=== PATIENT | female | born 1980 | race Caucasian/White ===

== ENCOUNTER 2018-03-11 08:07 | Emergency (ER) | payer OTHER ==
--- OUTSIDE RECORDS SUMMARY | 2018-03-11 08:10 | XMS REPORT | Summary of Care ---
:1980 Author Organization [facility] Address [address] [place] [address]- Encounter HQ Rian_kirsty(FIN) [phone] Date(s): 03/01/16 - 03/01/[address] [address]- Discharge Disposition: Home or Self Care Attending Physician: Coy Luna MD Admitting Physician: Coy Luna MD Referring Physician: Coy Luna MD Vital Signs Most recent to oldest [Reference Range]: 1 Height 162.56 cm (03/01/16 11:08 AM) Weight 55.455 kg (03/01/16 11:08 AM) Body Mass Index 20.99 m2 (03/01/16 11:08 AM) Problem List Condition Effective Dates Status Health Status Informant Hypertension(Confirmed) Active Obesity(Confirmed) Active Allergies, Adverse Reactions, Alerts Substance Reaction Severity Status NKDA Active Medications ANES flumazenil 0.2 mg, 2 mL, Route: IVP, Drug form: INJ, PRN, Dosing Weight 89.119, kg, PRN Benzodiazepine Reversal, Initial dose, Start date: 03/01/16 9:32:00 CDT, Duration: 30 day, Stop date: 03/31/16 8:31:00 [employer]ER Notes: (Same as: Romazicon) Start Date: 03/01/16 Stop Date: 03/02/16 Status: DiscontinuedANES naloxone 0.4 mg, 1 mL, Route: IVP, Drug form: INJ, Q2MIN, Dosing Weight 89.119, kg, PRN Narcotic Reversal, Start date: 03/01/16 9:32:00 CDT, Duration: 8 doses or times , Stop date: Limited # of times Notes: Same as Narcan Start Date: 03/01/16 Stop Date: 03/02/16 Status: DiscontinuedANES ondansetron 4 mg, 2 mL, Route: IVP, Drug form: INJ, ONCE, Dosing Weight 89.119, kg, PRN Nausea & Vomiting, Start date: 03/01/16 9:32:00 CDT Notes: (Same as: Angy) MEDICATION WASTE Product Size: 4 mgProduct Wasted: ___ mg Start Date: 03/01/16 Stop Date: 03/02/16 Status: Discontinued Results ELECTROLYTES Most recent to oldest [Reference Range]: 1 POC Sodium [135-145 mEq/L] 139 mEq/L (03/01/16 10:59 AM) POC Potassium [3.5-5.1 mEq/L] 4.3 mEq/L (03/01/16 10:59 AM) CHEM PANEL Most recent to oldest [Reference Range]: 1 POC Glucose [70-99 mg/dL] 89 mg/dL (03/01/16 10:59 AM) HEMATOLOGY Most recent to oldest [Reference Range]: 1 POC Hemoglobin [12.0-16.0 g/dL] 11.9 g/dL *LOW* (03/01/16 10:59 AM) POC Hematocrit [36.0-48.0 %] 35.0 % *LOW* (03/01/16 10:59 AM) Immunizations No data available for this section Procedures Procedure Date Related Diagnosis Body Site Gastric bypass operation 01/03/15 Upper GI endoscopy Social History Social History Type Response Smoking Status Never smoker; Ready to change: No; Concerns about tobacco use in household: No; Exposure to Tobacco Smoke None; Cigarette Smoking Last 365 Days No; Reg Smoking Cessation Counseling No Assessment and Plan No data available for this section
--- OUTSIDE RECORDS SUMMARY | 2018-03-11 08:10 | XMS REPORT | Continuity of Care Document ---
:1980 Author Organization Interface Problems Problem Status Onset Classification Date Comments Source Date Reported ANEMIA Active 01/09/[address] [address], K25.9 Active 01/09/20 [facility] GASTRIC ULCER 17 [facility] Discharge 08/12/19 08/15/2016 [facility] Diagnosis: [address] [place] [address] Anemia OTHER Active 08/12/[address] [address], REFLUX Active 02/29/[address] Hypertension Active Problem 01/14/2017 [facility] Obesity Active Problem 01/14/2017 [facility] Gastric bypass Resolved Problem 01/14/2017 [facility] status for [facility] obesity HTN (<span Active Problem 01/14/2017 [facility] ID="[id number] [facility] ">Confirmed</spa n>) ILLNESS, Active [facility] UNSPECIFIED [facility] ANEMIA, Active [facility] UNSPECIFIED [facility] Medications Medication Details Route Status Patient Ordering Order Source Instructions Provider Date Dulcolax 5 mg, 1 tab, Inactive Laxative Route: PO, Drug 2016 [facility] form: ECTAB, Ivon ONCE, Dosing Weight 59.091, kg, Start date: 01/10/17 11:42:00 CDT, Stop date: 01/10/17 11:42:00 CDTNotes: (Same As: Dulcolax, Correctol) (Do Not Crush) "Do Not Crush" sodium chloride 250 mL, Rate: On No Longer 0.9% INJ 250 mL call for use [address] with blood [facility] product administration, Dosing Weight 59.091, kg, Route: IV, Total Volume: 250, Start Date: 01/10/17 11:37:00 CDT, Duration: 30 day, Stop date: 02/09/17 11:36:00 CDT, Replace Every: 24 hr Famotidine 20 mg, 2 mL, No Longer Route: IVP, Drug [facility] 2016 [facility] form: INJ, Ivon Daily, Dosing Weight 59.091, kg, Start date: 01/10/17 9:00:00 CDT, Duration: 30 day, Stop date: 02/08/17 9:00:00 CDTNotes: (Same as: Pepcid) Can be dilute in 5-10cc NS IVP: Slow IV push over at least 2 minutes. GoLYTELY 2,000 mL, Route: Inactive PO, Drug Form: [address] [place] [address]/[facility], ONCE, [facility] Start date: 01/10/17 6:00:00 CDT, Stop date: 01/10/17 6:00:00 CDTNotes: (polyethylene glycol electrolyte solution 4 Liter bottle) (Same as: Golytely, Colyte) GoLYTELY 2,000 mL, Route: Inactive PO, Drug Form: [address] [place] [address]/[facility], ONCE, City Start date: 01/09/17 22:00:00 CDT, Stop date: 01/09/17 22:00:00 CDTNotes: (polyethylene glycol electrolyte solution 4 Liter bottle) (Same as: Golytely, Colyte) Golytely 4,000 ml, Route: Inactive PO, Drug Form: [address] [place] [address]/REC, Dosing City Weight 59.091, kg, ONCE, Start date: 01/09/17 21:50:00 CDT, Duration: 1 doses or times, Stop date: 01/09/17 21:50:00 CDT Saline Flush 10 ml, Route: No Longer 0.9% IVP, Drug Form: Active 2016 [facility] INJ, Dosing City Weight 59.091, kg, PRN, PRN Line Flush, Start date: 01/09/17 18:41:00 CDT, Duration: 30 day, Stop date: 02/08/17 18:40:00 CDTNotes: preservative free. Lactated 1,000 mL, Rate: No Longer Ringers 1,000 125 ml/hr, Active 2016 [facility] mL Infuse over: 8 City hr, Route: IV, Dosing Weight 59.091 kg, Total Volume: 1,000, Start date: 01/09/17 18:41:00 CDT, Duration: 30 day, Stop date: 02/08/17 18:40:00 CDT Ondansetron 4 mg, 2 mL, No Longer Route: IVP, Drug Active 2016 [facility] form: INJ, Q6H, [facility] Dosing Weight 59.091, kg, PRN Nausea & Vomiting, Start date: 01/09/17 18:41:00 CDT, Duration: 30 day, Stop date: 02/08/17 18:40:00 CDTNotes: (Same as: Zofran) MEDICATION WASTE Product Size: 4 mg Product Wasted: ___ mg Acetaminophen 650 mg, 2 tab, No Longer Route: PO, Drug Active 2016 [facility] form: TAB, Q4H, [facility] Dosing Weight 59.091, kg, PRN Pain 1-3/Temp > 100.4 F, Start date: 01/09/17 18:41:00 CDT, Duration: 30 day, Stop date: 02/08/17 18:40:00 CDTNotes: Do not exceed 4 gm/day. (Same as: Tylenol) Dilaudid 0.5 mg, 0.25 mL, No Longer Route: IVP, Drug Active 2016 [facility] form: INJ, Q3H, [facility] Dosing Weight 59.091, kg, PRN Pain Score 7-10, Start date: 01/09/17 18:41:00 CDT, Duration: 30 day, Stop date: 02/08/17 18:40:00 CDTNotes: Same as Dilaudid Ketorolac 30 mg, 1 mL, No Longer Route: IVP, Drug Active 2016 [facility] form: INJ, Q6H, [facility] Dosing Weight 59.091, kg, PRN Pain Score 1-3, Start date: 01/09/17 18:41:00 CDT, Duration: 4 day, Stop date: 01/13/17 18:40:00 CDTNotes: (Same as:Toradol) IV bolus must be given >15 seconds. Give IM administration slowly and deeply into the muscle. Not for use > 4 days MEDICATION WASTE Product Size: 30 mg Product Wasted: ___ mg Phenergan 12.5 mg, 50 mL, No Longer Route: IVPB, Active 2016 [facility] Drug form: SOLN, [facility] Q4H, Dosing Weight 59.091, kg, PRN Nausea & Vomiting, Start date: 01/09/17 18:41:00 CDT, Duration: 30 day, Stop date: 02/08/17 18:40:00 CDT Golytely 240 mL, Route: Inactive PO, Drug Form: 2016 [facility] PDR/REC, Dosing City Weight 59.091, kg, ONCE, NOW, Start date: 01/09/17 18:12:00 CDT, Stop date: 01/09/17 18:12:00 CDTNotes: (polyethylene glycol electrolyte solution 4 Liter bottle) (Same as: Golytely, Colyte) pantoprazole 40 40 mg=1 tab, PO, Active MH MG Enteric Daily, # 30 tab, 2016 [facility] Coated Tablet 3 Refill(s) [facility] [Protonix] Sucralfate 100 1 gm=10 mL, PO, Active 08/12/ MH MG/ML Oral QID-Before 2016 [facility] Suspension Meals, # 840 mL, [facility] [Carafate] 0 Refill(s) Sucralfate 100 1 gm, 10 mL, Inactive 08/12/ MH MG/ML Oral Route: PO, Drug 2016 [facility] Suspension form: SUSP, [facility] [Carafate] QID-Before Meals, Dosing Weight 54.545, kg, Start date: 08/12/16 7:30:00 CDT, Duration: 30 day, Stop date: 09/10/16 21:00:00 CDTNotes: Enteral feeds may interfere with the absorption of this medication. Shake well. Take 1 hr before or 2 hrs after antacids, dairy pdt, minerals & meals. (Same As: Carafate) Sodium Chloride 25 mL, Route: Inactive 0.9% IV IV, Start date: 2016 [facility] 08/12/16 0:00:00 [facility] CDT, Duration: 30 day, Stop date: 09/10/16 23:59:00 CDT, PRN Line Flush BD Normal 10 mL, Route: Inactive Saline Flush IVP, Drug Form: 2016 [facility] INJ, PRN, PRN City Line Flush, Start date: 08/12/16 0:00:00 CDT, Duration: 30 day, Stop date: 09/10/16 23:59:00 CDTNotes: (Same as: BD Posiflush) Ofirmev 1,000 mg, 100 Inactive mL, Route: IV, 2016 [facility] Drug form: INJ, City Q6H, Dosing Weight 54.545, kg, for > or=50 kg, Start date: 08/12/16 0:00:00 CDT, Duration: 4 doses or times, Stop date: 08/12/16 18:00:00 CDTNotes: Infuse over 15 minutes Do not exceed 4gm/day of acetaminophen MEDICATION WASTE Product Size: 1000 mg Product Wasted: ___ mg Tylenol 650 mg, Route: No Longer PO, Drug form: Active 2016 [facility] TAB, Q6H, Dosing City Weight 54.545, kg, Start date: 08/12/16 0:00:00 CDT, Duration: 4 doses or times, Stop date: 08/12/16 18:00:00 CDT BD Normal 5 mL, Route: No Longer Saline Flush IVP, Drug Form: Amadou 2016 [facility] INJ, PRN, PRN [facility] Line Flush, Start date: 08/11/16 23:59:00 CDT, Duration: 30 day, Stop date: 09/10/16 23:58:00 CDTNotes: (Same as: BD Posiflush) pantoprazole 80 100 mL, Rate: 10 No Longer mg + sodium ml/hr, Infuse Active 2016 [facility] chloride 0.9% over: 10 hr, [facility] 100 mL INJ (for Route: IV, IV set) 100 mL Dosing Weight 57.273 kg, Total Volume: 100, Start date: 08/11/16 23:47:00 CDT, Stop date: 08/14/16 23:46:00 CDTNotes: infuse at 8 mg/hr (10 ml/hr) for 72 hrs for GI bleed Ferrlecit 125 mg, 10 mL, No Longer Route: IVPB, Active [address] [place] [address] Drug form: INJ, City ONCE, Dosing Weight 54.545, kg, Start date: 08/11/16 22:51:00 CDT, Stop date: 08/11/16 22:51:00 CDTNotes: (sodium ferric gluconate complex (elemental iron) 62.5 mg/5 ml INJ) "Limited stability. Use immediately after admixture" (Same as: Ferrlecit) MEDICATION WASTE Product Size: 62.5 mg Product Wasted: ___ mg Sodium Chloride 250 mL, Rate: 25 Inactive 0.154 MEQ/ML ml/hr, Infuse 2016 [facility] Injectable over: 10 hr, [facility] Solution Route: IV, Dosing Weight 54.545 kg, Total Volume: 250, Start date: 08/11/16 22:43:00 CDT, Duration: 72 hr, Stop date: 08/14/16 22:42:00 CDT Metoprolol 5 mg, 5 mL, No Longer Route: IVP, Drug Active 2016 [facility] form: INJ, Q6H, [facility] Dosing Weight 54.545, kg, PRN Hypertension, SBP > 170; DBP > 95, Start date: 08/11/16 22:43:00 CDT, Duration: 30 day, Stop date: 09/10/16 22:42:00 CDTNotes: (Same as: Lopressor) Push over 2 minutes Promethazine 12.5 mg, 0.5 mL, No Longer Route: IM, Drug Active 2016 [facility] form: INJ, Q4H, [facility] Dosing Weight 54.545, kg, PRN Nausea & Vomiting, Start date: 08/11/16 22:43:00 CDT, Duration: 30 day, Stop date: 09/10/16 22:42:00 CDTNotes: Do not give IV push. (Same as: Phenergan) Ondansetron 4 mg, 2 mL, No Longer Route: IVP, Drug Active 2016 [facility] form: INJ, Q6H, [facility] Dosing Weight 54.545, kg, PRN Nausea & Vomiting, Start date: 08/11/16 22:43:00 CDT, Duration: 30 day, Stop date: 09/10/16 22:42:00 CDTNotes: (Same as: Zofran) MEDICATION WASTE Product Size: 4 mg Product Wasted: ___ mg Calcium 1,000 mL, Rate: No Longer Chloride 0.0014 125 ml/hr, Active [address] [place] [address] MEQ/ML / Infuse over: 8 [facility] Potassium hr, Route: IV, Chloride 0.004 Dosing Weight MEQ/ML / Sodium 54.545 kg, Total Chloride 0.103 Volume: 1,000, MEQ/ML / Sodium Start date: Lactate 0.028 08/11/16 MEQ/ML 22:43:00 CDT, Injectable Duration: 30 Solution day, Stop date: 09/10/16 22:42:00 CDT ferrous sulfate 325 mg=1 tab, No Longer 325 mg oral PO, Daily, # 30 [facility] 2016 [facility] enteric coated tab, 0 Refill(s) [facility] tablet Ondansetron 4 mg, 2 mL, No Longer Route: IVP, Drug Active 2015 [facility] form: INJ, ONCE, [facility] Dosing Weight 89.119, kg, PRN Nausea & Vomiting, Start date: 03/01/16 9:32:00 CDTNotes: (Same as: Zofran) MEDICATION WASTE Product Size: 4 mg Product Wasted: ___ mg Naloxone 0.4 mg, 1 mL, No Longer Route: IVP, Drug Active 2015 [facility] form: INJ, City Q2MIN, Dosing Weight 89.119, kg, PRN Narcotic Reversal, Start date: 03/01/16 9:32:00 CDT, Duration: 8 doses or times, Stop date: Limited # of timesNotes: Same as Narcan Flumazenil 0.2 mg, 2 mL, No Longer Route: [employer] Drug Active 2015 [facility] form: INJ, PRN, [facility] Dosing Weight 89.119, kg, PRN Benzodiazepine Reversal, Initial dose, Start date: 03/01/16 9:32:00 CDT, Duration: 30 day, Stop date: 03/31/16 8:31:00 CSTNotes: (Same as: Romazicon) Allergies, Adverse Reactions, Alerts Substance Category Reaction Severity Reaction Status Date Comments Source type Reported Immunizations Immunization Date Given Site Status Last Updated Comments Source Results Order Name Results Value Reference Date Interpretation Comments Source Range CHEM PANEL eGFR 77 01/11 Result Comment: The eGFR is calculated using the CKD-EPI formula. In most young, healthy individuals the eGFR will be >90 mL/ min/1.73m2. The eGFR declines with age. An eGFR of 60-89 may be normal in mL/min/1. some populations, particularly the elderly, for whom the CKD-EPI formula has not been extensively validated. Use of the eGFR is not recommended in the following populations: [address] Individuals with unstable creatinine concentrations, including patients and those with serious co-morbid conditions. Patients with extremes in muscle mass or diet. The data above are obtained from the National Kidney Disease Education Program (NKDEP) which additionally recommends that when the eGFR is used in patients with extremes of body mass index for purposes of drug dosing, the eGFR should be multiplied by the estimated BMI. CHEM PANEL Creatinine 0.95 mg/dL 0.50 - 01/11 Lvl 1. [facility] CHEM PANEL BUN 10 mg/dL 7 - 22 01/11 [facility] CHEM PANEL CO2 27 meq/L 24 - 32 01/11 [facility] CHEM PANEL Glucose Lvl 109 mg/dL 70 - 99 01/11 [facility] CHEM PANEL AGAP 9.9 meq/L 10.0 - 01/11 MH 20. [facility] CHEM PANEL Sodium Lvl 141 meq/L 135 - 145 01/11 [facility] CHEM PANEL Potassium 4.9 meq/L 3.5 - 5.1 01/11 Lvl [facility] CHEM PANEL Calcium Lvl 8.5 mg/dL 8.5 - 10.5 01/11 [facility] CHEM PANEL Chloride Lvl 109 meq/L 95 - 109 01/11 [facility] HEMATOLOGY MCHC 31.4 g/dL 32.0 - 01/11 MH 36.0 [facility] HEMATOLOGY RDW 20.4 % 11.5 - 01/11 MH 14. [facility] HEMATOLOGY Platelet 190 K/CMM 133 - 450 01/11 [facility] HEMATOLOGY MPV 8.6 fL 7.4 - 10.4 01/11 [facility] HEMATOLOGY MCH 21.5 pg 27.0 - 01/11 MH 31.0 [facility] HEMATOLOGY MCV 68.4 fL 80.0 - 01/11 MH 98.0 [facility] HEMATOLOGY RBC 4.50 M/CMM 4.20 - 01/11 MH 5.40 [facility] HEMATOLOGY WBC 7.0 K/CMM 3.7 - 10.4 01/11 [facility] HEMATOLOGY Hgb 9.7 g/dL 12.0 - 01/11 MH 16.0 [facility] HEMATOLOGY Hct 30.8 % 36.0 - 01/11 MH 48.0 [facility] HEMATOLOGY Bands 1.0 % 0.0 - 11.0 01/11 [facility] HEMATOLOGY Monocytes 4.0 % 2.0 - 12.0 01/11 [facility] HEMATOLOGY Lymphocytes 41.0 % 20.0 - 01/11 MH 40.0 [facility] HEMATOLOGY Atypical 0.0 % <=0.0 % 01/11 Lymphs /2016 [facility] HEMATOLOGY Basophils 2.0 % 0.0 - 1.0 01/11 [facility] HEMATOLOGY Microcyte 3+ None Seen 01/11 [facility] *ABN* [facility] (01/11/17 1:57 AM) HEMATOLOGY Plt Morph Normal 01/11 [facility] (01/11/17 1:57 AM) [facility] HEMATOLOGY Lymphocytes 2.9 K/CMM 1.0 - 5.5 01/11 # /2016 [facility] HEMATOLOGY Monocytes # 0.3 K/CMM 0.0 - 0.8 01/11 [facility] HEMATOLOGY Segs-Bands # 3.7 K/CMM 1.5 - 8.1 01/11 [facility] HEMATOLOGY Basophils # 0.1 K/CMM 0.0 - 0.2 01/11 [facility] HEMATOLOGY Segs 52.0 % 45.0 - 01/11 75.0 [facility] BLOOD BANK RBC product Product available 01/10 RESULTS /2016 [facility] (01/10/17 5:27 PM) [facility] URINE AND Occult Bld Negative Negative 01/10 STOOL Stl /2016 [facility] (01/10/17 4:25 PM) [facility] BLOOD BANK Antibody Negative 01/10 RESULTS Scrn [facility] (01/10/17 1:03 PM) [facility] BLOOD BANK ABO/Rh O POS 01/10 RESULTS [facility] BLOOD BANK RBC product Product available 01/10 RESULTS /2016 [facility] (01/10/17 11:22 AM) [facility] CHEM PANEL Bili Total 0.5 mg/dL 0.2 - 1.3 01/10 [facility] CHEM PANEL Alk Phos 70 unit/L 39 - 136 01/10 [facility] CHEM PANEL A/G Ratio 1.3 0.7 - 1.6 01/10 [facility] CHEM PANEL Globulin 2.7 g/dL 2.7 - 4.2 01/10 [facility] CHEM PANEL Total 6.1 g/dL 6.4 - 8.4 01/10 [facility] CHEM PANEL Chloride Lvl 106 meq/L 95 - 109 01/10 [facility] CHEM PANEL Calcium Lvl 8.5 mg/dL 8.5 - 10.5 01/10 [facility] CHEM PANEL Potassium 4.1 meq/L 3.5 - 5.1 01/10 Lvl [facility] CHEM PANEL Sodium Lvl 141 meq/L 135 - 145 01/10 [facility] CHEM PANEL B/C Ratio 12 6 - 25 01/10 [facility] CHEM PANEL AST 15 unit/L 0 - 37 01/10 [facility] CHEM PANEL AGAP 15.1 meq/L 10.0 - 01/10 MH 20.0 [facility] CHEM PANEL ALT 15 unit/L 0 - 65 01/10 [facility] CHEM PANEL eGFR 103 01/10 Result Comment: The eGFR is calculated using the CKD-EPI formula. In most young, healthy individuals the eGFR will be >90 mL/ min/1.73m2. The eGFR declines with age. An eGFR of 60-89 may be normal in mL/min/1. some populations, particularly the elderly, for whom the CKD-EPI formula has not been extensively validated. Use of the eGFR is not recommended in the following populations: [address] Individuals with unstable creatinine concentrations, including patients and those with serious co-morbid conditions. Patients with extremes in muscle mass or diet. The data above are obtained from the National Kidney Disease Education Program (NKDEP) which additionally recommends that when the eGFR is used in patients with extremes of body mass index for purposes of drug dosing, the eGFR should be multiplied by the estimated BMI. CHEM PANEL Albumin Lvl 3.4 g/dL 3.5 - 5.0 01/10 [facility] CHEM PANEL Creatinine 0.75 mg/dL 0.50 - 01/10 MH Lvl 1. [facility] CHEM PANEL CO2 24 meq/L 24 - 32 01/10 [facility] CHEM PANEL Glucose Lvl 73 mg/dL 70 - 99 01/10 /2016 [facility] CHEM PANEL BUN 9 mg/dL 7 - 22 01/10 /2016 [facility] CHEM PANEL Magnesium 2.3 mg/dL 1.8 - 2.4 09/ MH Lvl /2016 [facility] CHEM PANEL Phosphorus 3.9 mg/dL 2.5 - 4.5 01/10 [facility] HEMATOLOGY Lymphocytes 2.2 K/CMM 1.0 - 5.5 / MH # /2016 [facility] HEMATOLOGY Monocytes # 0.5 K/CMM 0.0 - 0.8 01/10 [facility] HEMATOLOGY Segs-Bands # 3.2 K/CMM 1.5 - 8.1 01/10 [facility] HEMATOLOGY Basophils 0.9 % 0.0 - 1.0 01/10 [facility] HEMATOLOGY Eosinophils 0.8 % 0.0 - 4.0 01/10 [facility] HEMATOLOGY Monocytes 8.9 % 2.0 - 12.0 01/10 [facility] HEMATOLOGY Microcyte 3+ None Seen 01/10 [facility] (01/10/17 3:18 AM) HEMATOLOGY Basophils # 0.1 K/CMM 0.0 - 0.2 01/10 [facility] HEMATOLOGY Segs 53.1 % 45.0 - 01/10 75.0 [facility] HEMATOLOGY Lymphocytes 36.3 % 20.0 - 01/10 40.0 [facility] HEMATOLOGY MCV 65.1 fL 80.0 - 01/10 MH 98.0 [facility] HEMATOLOGY Hct 23.9 % 36.0 - 01/10 MH 48.0 [facility] HEMATOLOGY MPV 9.2 fL 7.4 - 10.4 01/10 [facility] HEMATOLOGY Platelet 184 K/CMM 133 - 450 01/10 [facility] HEMATOLOGY RBC 3.67 M/CMM 4.20 - 01/10 MH 5.40 [facility] HEMATOLOGY Hgb 7.4 g/dL 12.0 - 01/10 MH 16.0 [facility] HEMATOLOGY MCHC 30.7 g/dL 32.0 - 01/10 MH 36.0 [facility] HEMATOLOGY MCH 20.0 pg 27.0 - 01/10 MH 31.0 [facility] HEMATOLOGY RDW 17.2 % 11.5 - 01/10 MH 14. [facility] HEMATOLOGY WBC 6.0 K/CMM 3.7 - 10.4 01/10 [facility] HEMATOLOGY Eosinophils 0.5 % 0.0 - 4.0 01/09 [facility] HEMATOLOGY Monocytes 7.8 % 2.0 - 12.0 01/09 [facility] HEMATOLOGY Plt Morph Normal 01/09 [facility] (01/09/17 11:45 AM) [facility] HEMATOLOGY Segs 61.4 % 45.0 - 01/09 MH 75.0 [facility] HEMATOLOGY Lymphocytes 29.1 % 20.0 - 01/09 MH 40.0 [facility] HEMATOLOGY Microcyte 3+ None Seen 01/09 [facility] *NA* [facility] (01/09/17 11:45 AM) HEMATOLOGY Basophils # 0.1 K/CMM 0.0 - 0.2 01/09 [facility] HEMATOLOGY Hypochrom 1+ None Seen 01/09 [facility] Basophils 1.2 % 0.0 - 1.0 01/09 [facility] HEMATOLOGY Lymphocytes 1.9 K/CMM 1.0 - 5.5 01/09 [facility] HEMATOLOGY Monocytes # 0.5 K/CMM 0.0 - 0.8 01/09 [facility] HEMATOLOGY Segs-Bands # 4.1 K/CMM 1.5 - 8.1 01/09 [facility] HEMATOLOGY MCHC 30.1 g/dL 32.0 - 01/09 36.0 [facility] HEMATOLOGY MCV 64.5 fL 80.0 - 01/09 98.0 [facility] HEMATOLOGY Hct 26.4 % 36.0 - 01/09 MH 48.0 [facility] HEMATOLOGY MCH 19.4 pg 27.0 - 01/09 31.0 [facility] HEMATOLOGY MPV 8.9 fL 7.4 - 10.4 01/09 [facility] HEMATOLOGY RDW 17.6 % 11.5 - 01/09 14. [facility] HEMATOLOGY Platelet 205 K/CMM 133 - 450 01/09 [facility] HEMATOLOGY Hgb 7.9 g/dL 12.0 - 01/09 16. [facility] HEMATOLOGY WBC 6.6 K/CMM 3.7 - 10.4 01/09 /2016 [facility] HEMATOLOGY RBC 4.09 M/CMM 4.20 - 09 MH 5.40 /2016 [facility] CHEM PANEL POC Glucose 78 mg/dL 70 - 99 01/09 /2016 [facility] CHEM PANEL POC 10.2 g/dL 12.0 - 01/09 Hemoglobin 16.0 [facility] CHEM PANEL POC 30.0 % 36.0 - 09 Hematocrit 48.0 [facility] CHEM PANEL POC Sodium 141 meq/L 135 - 145 01/09 [facility] CHEM PANEL POC 4.5 meq/L 3.5 - 5.1 01/09 Potassium /2016 [facility] HEMATOLOGY Hct 27.0 % 36.0 - 08/12 48. [facility] HEMATOLOGY Hgb 8.4 g/dL 12.0 - 08/12 16. [facility] HEMATOLOGY Hct 27.7 % 36.0 - 08/12 48. [facility] HEMATOLOGY Hgb 8.7 g/dL 12.0 - 08/12 16. [facility] HEMATOLOGY Hgb 8.1 g/dL 12.0 - 08/12 16. [facility] HEMATOLOGY Hct 26.0 % 36.0 - 08/12 48. [facility] URINE AND Occult Bld Negative Negative 08/12 STOOL Stl [facility] (08/11/16 9:29 PM) [facility] BLOOD BANK Antibody Negative 08/12 RESULTS Scrn [facility] (08/11/16 8:30 PM) [facility] BLOOD BANK ABO/Rh O POS 08/12 RESULTS [facility] CHEM PANEL Lipase Lvl 175 unit/L 73 - 393 08/12 [facility] CHEM PANEL Globulin 2.9 g/dL 2.7 - 4.2 08/12 [facility] CHEM PANEL A/G Ratio 1.4 0.7 - 1.6 08/12 [facility] CHEM PANEL AGAP 11.4 meq/L 10.0 - 08/12 20. [facility] CHEM PANEL B/C Ratio 13 6 - 25 08/12 [facility] CHEM PANEL Total 6.9 g/dL 6.4 - 8.4 08/12 Protein [facility] CHEM PANEL Alk Phos 88 unit/L 39 - 136 08/12 [facility] CHEM PANEL Bili Total 0.8 mg/dL 0.2 - 1.3 08/12 [facility] CHEM PANEL Potassium 3.4 meq/L 3.5 - 5.1 08/12 Lvl [facility] CHEM PANEL Chloride Lvl 104 meq/L 95 - 109 08/12 [facility] CHEM PANEL CO2 28 meq/L 24 - 32 08/12 [facility] CHEM PANEL Calcium Lvl 8.8 mg/dL 8.5 - 10.5 08/12 [facility] CHEM PANEL Albumin Lvl 4.0 g/dL 3.5 - 5.0 08/12 [facility] CHEM PANEL BUN 10 mg/dL 7 - 22 08/12 [facility] CHEM PANEL Sodium Lvl 140 meq/L 135 - 145 08/12 [facility] CHEM PANEL eGFR 102 08/12 Result Comment: The eGFR is calculated using the CKD-EPI formula. In most young, healthy individuals the eGFR will be >90 mL/ min/1.73m2. The eGFR declines with age. An eGFR of 60-89 may be normal in mL/min/1. some populations, particularly the elderly, for whom the CKD-EPI formula has not been extensively validated. Use of the eGFR is not recommended in the following populations: [address] Individuals with unstable creatinine concentrations, including patients and those with serious co-morbid conditions. Patients with extremes in muscle mass or diet. The data above are obtained from the National Kidney Disease Education Program (NKDEP) which additionally recommends that when the eGFR is used in patients with extremes of body mass index for purposes of drug dosing, the eGFR should be multiplied by the estimated BMI. CHEM PANEL AST 17 unit/L 0 - 37 08/12 [facility] CHEM PANEL Creatinine 0.75 mg/dL 0.50 - 08/12 Lvl 1.40 [facility] CHEM PANEL ALT 21 unit/L 0 - 65 08/12 [facility] CHEM PANEL Glucose Lvl 77 mg/dL 70 - 99 08/12 [facility] ENDOCRINOLO hCG Tot null 08/12 GY [facility] HEMATOLOGY MCV 69.2 fL 80.0 - 08/12 MH 98.0 /2016 [facility] HEMATOLOGY WBC 10.8 K/CMM 3.7 - 10.4 08/12 [facility] HEMATOLOGY RBC 4.02 M/CMM 4.20 - 08/12 5.40 /2016 [facility] HEMATOLOGY MPV 8.5 fL 7.4 - 10.4 08/12 [facility] HEMATOLOGY RDW 16.4 % 11.5 - 08/12 14.5 [facility] HEMATOLOGY Platelet 284 K/CMM 133 - 450 08/12 [facility] HEMATOLOGY MCH 21.4 pg 27.0 - 08/12 31.0 [facility] HEMATOLOGY MCHC 30.9 g/dL 32.0 - 08/12 36.0 /2016 [facility] HEMATOLOGY INR 1.09 0.85 - 08/12 1.17 [facility] HEMATOLOGY PT 14.3 s 12.0 - 08/12 14.7 [facility] HEMATOLOGY PTT 28.6 s 22.9 - 08/12 35.8 [facility] HEMATOLOGY Eosinophils 0.6 % 0.0 - 4.0 08/12 [facility] HEMATOLOGY Basophils 0.9 % 0.0 - 1.0 08/12 [facility] HEMATOLOGY Monocytes 8.8 % 2.0 - 12.0 08/12 [facility] HEMATOLOGY Segs-Bands # 7.8 K/CMM 1.5 - 8.1 08/12 [facility] HEMATOLOGY Lymphocytes 1.9 K/CMM 1.0 - 5.5 08/12 [facility] HEMATOLOGY Anisocyte 1+ None Seen 08/12 [facility] *ABN* [facility] (08/11/16 8:30 PM) HEMATOLOGY Basophils # 0.1 K/CMM 0.0 - 0.2 08/12 [facility] HEMATOLOGY Microcyte 2+ None Seen 08/12 [facility] *ABN* [facility] (08/11/16 8:30 PM) HEMATOLOGY Eosinophils 0.1 K/CMM 0.0 - 0.5 08/12 [facility] HEMATOLOGY Monocytes # 1.0 K/CMM 0.0 - 0.8 08/12 [facility] HEMATOLOGY Plt Morph Normal 08/12 [facility] (08/11/16 8:30 PM) [facility] HEMATOLOGY Lymphocytes 17.7 % 20.0 - 08/12 40.0 [facility] HEMATOLOGY Segs 72.0 % 45.0 - 08/12 75.0 [facility] URINE AND UA Leuk Est Negative Negative 08/12 [facility] (08/11/16 8:30 PM) [facility] URINE AND UA Sq Epi Few /LPF Few /LPF 08/12 [facility] URINE AND UA WBC 2 /HPF 0 - 5 08/12 [facility] URINE AND UA RBC 2 /HPF 0 - 2 08/12 [facility] URINE AND UA Bacteria Occasional None Seen 08/12 [facility] /HPF /HPF [facility] URINE AND UA Color Straw 08/12 [facility] URINE AND UA Ketones Negative 08/12 [facility] URINE AND UA <=1.0 0.1 - 1.0 08/12 [facility] Urobilinogen mg/dL [facility] URINE AND UA Spec Grav 1.003 <=1.030 08/12 [facility] URINE AND UA pH 7.0 5.0 - 8.0 08/12 [facility] URINE AND UA Protein Negative Negative 08/12 [facility] mg/dL mg/dL [facility] URINE AND UA Blood Negative Negative 08/12 [facility] (08/11/16 8:30 PM) [facility] URINE AND UA Nitrite Negative Negative 08/12 [facility] (08/11/16 8:30 PM) [facility] URINE AND UA Glucose Negative Negative 08/12 [facility] mg/dL mg/dL [facility] URINE AND UA Bili Negative Negative 08/12 [facility] *NA* [facility] (08/11/16 8:30 PM) URINE AND UA Turbidity Clear Clear 08/12 [facility] (08/11/16 8:30 PM) [facility] HEMATOLOGY POC 35.0 % 36.0 - 03/01 Hematocrit 48.0 [facility] HEMATOLOGY POC 11.9 g/dL 12.0 - 03/01 Hemoglobin 16.0 [facility] HEMATOLOGY POC Glucose 89 mg/dL 70 - 99 03/01 [facility] HEMATOLOGY POC 4.3 meq/L 3.5 - 5.1 03/01 Potassium /2015 [facility] HEMATOLOGY POC Sodium 139 meq/L 135 - 145 03/01 [facility] Vital Signs Vital Sign Value Date Comments Source Respitory Rate 16 01/11/2017 [facility] Systolic (mm Hg) 140 01/11/2017 [facility] Diastolic (mm Hg) 77 01/11/2017 [facility] Heart Rate 47 01/11/2017 [facility] Temperature Oral (F) 97.5 F 01/11/2017 [facility] Temperature Oral (F) 98.3 F 01/11/2017 [facility] Heart Rate 53 01/11/2017 [facility] Respitory Rate 18 01/11/2017 [facility] Systolic (mm Hg) 127 01/11/2017 [facility] Diastolic (mm Hg) 71 01/11/2017 [facility] Temperature Oral (F) 98.6 F 01/11/2017 [facility] Heart Rate 71 01/11/2017 [facility] Respitory Rate 18 01/11/2017 [facility] Systolic (mm Hg) 126 01/11/2017 [facility] Diastolic (mm Hg) 74 01/11/2017 [facility] BMI Calculated 22.36 01/09/2017 [facility] Weight 59.091 01/09/2017 [facility] Height 162.56 cm 01/09/2017 [facility] Respitory Rate 12 08/13/2016 [facility] Respitory Rate 18 08/12/2016 [facility] Systolic (mm Hg) 169 08/12/2016 [facility] Diastolic (mm Hg) 88 08/12/2016 [facility] Heart Rate 59 08/12/2016 [facility] Temperature Oral (F) 98.5 F 08/12/2016 [facility] Temperature Oral (F) 97.4 F 08/12/2016 [facility] Heart Rate 56 08/12/2016 [facility] Respitory Rate 18 08/12/2016 [facility] Systolic (mm Hg) 148 08/12/2016 [facility] Diastolic (mm Hg) 91 08/12/2016 [facility] Temperature Oral (F) 97.9 F 08/12/2016 [facility] Systolic (mm Hg) 131 08/12/2016 [facility] Diastolic (mm Hg) 81 08/12/2016 [facility] Heart Rate 55 08/12/2016 [facility] Weight 57.273 08/12/2016 [facility] BMI Calculated 22.37 08/12/2016 [facility] Height 160.02 cm 08/12/2016 [facility] Weight 54.545 08/12/2016 [facility] BMI Calculated 21.3 08/12/2016 [facility] Height 160.02 cm 08/12/2016 [facility] Weight 55.455 03/01/2016 [facility] BMI Calculated 20.99 03/01/2016 [facility] Height 162.56 cm 03/01/2016 [facility] Encounters Location Location Encounter Encounter Reason Attending ADM DC Status Source Details Type Number For Provider Date Date Visit [facility] [id number] Coy 03/01 03/01 [facility] /2015 [facility] [id number] [facility] 08/11 08/13 Wayne Reeves /2016 [facility] [id number] Coy 01/10 [facility] [facility] [id number] Coy 01/11 01/11 [facility] Jeremy /2016 [facility] Procedures Procedure Code Date Perfomer Comments Source Gastric bypass [id number] 01/03/2015 [facility] [id number] [facility] Gastric bypass [id number] [facility]
--- OUTSIDE RECORDS SUMMARY | 2018-03-11 08:11 | XMS REPORT | Summary of Care ---
:1980 Author Organization [facility] Address [address] [place] [address]- Encounter [facility]osesito(DELROY) [id number] Date(s): 08/11/16 - 08/12/[address] [address]- Discharge Diagnosis: Anemia Discharge Disposition: Home or Self Care Attending Physician: Esau Reeves MD Admitting Physician: Esau Reeves MD Vital Signs Most recent to oldest 1 2 3 [Reference Range]: Height 160.02 cm 160.02 cm (08/11/16 11:15 PM) (08/11/16 7:40 PM) Temperature Oral [96.4-99.1 98.5 DegF 97.4 DegF 97.9 DegF DegF] (08/12/16 11:10 AM) (08/12/16 7:38 AM) (08/12/16 4:00 AM) Blood Pressure [90-140/60-90 169/88 mmHg 148/91 mmHg 131/81 mmHg mmHg] *HI* *HI* (08/12/16 4:00 AM) (08/12/16 11:10 AM) (08/12/16 7:38 AM) Respiratory Rate [14-20 12 BRMIN 18 BRMIN 18 BRMIN BRMIN] *LOW* (08/12/16 11:10 AM) (08/12/16 7:38 AM) (08/13/16 4:50 AM) Peripheral Pulse Rate [60-100 59 bpm 56 bpm 55 bpm bpm] *LOW* *LOW* *LOW* (08/12/16 11:10 AM) (08/12/16 7:38 AM) (08/12/16 4:00 AM) Weight 57.273 kg 54.545 kg (08/11/16 11:15 PM) (08/11/16 7:40 PM) Body Mass Index 22.37 m2 21.3 m2 (08/11/16 11:15 PM) (08/11/16 7:40 PM) Problem List Condition Effective Dates Status Health Status Informant Gastric bypass status for Resolved obesity(Confirmed) Hypertension(Confirmed) Active HTN (hypertension)(Confirmed) Active Obesity(Confirmed) Active Allergies, Adverse Reactions, Alerts Substance Reaction Severity Status NKDA Active Medications BD Normal Saline Flush 5 mL, Route: IVP, Drug Form: INJ, PRN, PRN Line Flush, Start date: 08/11/16 23: 59:00 CDT, Duration: 30 day, Stop date: 09/10/16 23:58:00 CDT Notes: (Same as: BD Posiflush) Start Date: 08/11/16 Stop Date: 08/12/16 Status: DiscontinuedBD Normal Saline Flush 10 mL, Route: IVP, Drug Form: INJ, PRN, PRN Line Flush, Start date: 08/12/16 0: 00:00 CDT, Duration: 30 day, Stop date: 09/10/16 23:59:00 CDT Notes: (Same as: BD Posiflush) Start Date: 08/12/16 Stop Date: 08/12/16 Status: DiscontinuedCarafate 1 g/10 mL oral suspension 1 gm=10 mL, PO, QID-Before Meals, # 840 mL, 0 Refill(s) Start Date: 08/12/16 Stop Date: 09/02/16 Status: OrderedCarafate 1 g/10 mL oral suspension 1 gm, 10 mL, Route: PO, Drug form: SUSP, QID-Before Meals, Dosing Weight 54.545 , kg, Start date: 08/12/16 7:30:00 CDT, Duration: 30 day, Stop date: 09/10/16 21 :00:00 CDT Notes: Enteral feeds may interfere with the absorption of this medication. Shake well. Take 1 hr before or 2 hrs after antacids, dairy pdt, minerals & meals. (Same As: Carafate) Start Date: 08/12/16 Stop Date: 08/12/16 Status: DiscontinuedFerrlecit + sodium chloride 0.9% INJ 100 mL 125 mg, 10 mL, Route: IVPB, Drug form: INJ, ONCE, Dosing Weight 54.545, kg, Start date: 08/11/16 22:51:00 CDT, Stop date: 08/11/16 22:51:00 CDT Notes: (sodium ferric gluconate complex (elemental iron) 62.5 mg/5 ml INJ) "Limited stability. Use immediately after admixture"(Same as: Ferrlecit) MEDICATION WASTE Product Size: 62.5 mgProduct Wasted: ___ mg Start Date: 08/11/16 Stop Date: 08/12/16 Status: Completedferrous sulfate 325 mg oral enteric coated tablet 325 mg=1 tab, PO, Daily, # 30 tab, 0 Refill(s) Start Date: 08/11/16 Stop Date: 08/12/16 Status: CompletedLactated Ringers 1,000 mL 1,000 mL, Rate: 125 ml/hr, Infuse over: 8 hr, Route: IV, Dosing Weight 54.545 kg , Total Volume: 1,000, Start date: 08/11/16 22:43:00 CDT, Duration: 30 day, Stop date: 09/10/16 22:42:00 CDT Start Date: 08/11/16 Stop Date: 08/12/16 Status: Discontinuedmetoprolol 5 mg, 5 mL, Route: IVP, Drug form: INJ, Q6H, Dosing Weight 54.545, kg, PRN Hypertension, SBP > 170; DBP > 95, Start date: 08/11/16 22:43:00 CDT, Duration: 30 day, Stop date: 09/10/16 22:42:00 CDT Notes: (Same as: Lopressor)Push over 2 minutes Start Date: 08/11/16 Stop Date: 08/12/16 Status: DiscontinuedOfirmev 1,000 mg, 100 mL, Route: IV, Drug form: INJ, Q6H, Dosing Weight 54.545, kg, for > or=50 kg, Start date: 08/12/16 0:00:00 CDT, Duration: 4 doses or times, Stop date: 08/12/16 18:00:00 CDT Notes: Infuse over 15 minutesDo not exceed 4gm/day of acetaminophen MEDICATION WASTE ProductSize: 1000 mgProduct Wasted: ___ mg Start Date: 08/12/16 Stop Date: 08/12/16 Status: Pending Completeondansetron 4 mg, 2 mL, Route: IVP, Drug form: INJ, Q6H, Dosing Weight 54.545, kg, PRN Nausea & Vomiting, Start date: 08/11/16 22:43:00 CDT, Duration: 30 day, Stop date: 09/10/16 22:42:00 CDT Notes: (Same as: Zofran) MEDICATION WASTE Product Size: 4 mgProduct Wasted: ___ mg Start Date: 08/11/16 Stop Date: 08/12/16 Status: Discontinuedpantoprazole 80 mg + sodium chloride 0.9% 100 mL INJ (for IV set) 100 mL 100 mL, Rate: 10 ml/hr, Infuse over: 10 hr, Route: IV, Dosing Weight 57.273 kg, Total Volume: 100, Start date: 08/11/16 23:47:00 CDT, Stop date: 08/14/16 23:46: 00 CDT Notes: infuse at 8 mg/hr (10 ml/hr) for 72 hrs for GI bleed Start Date: 08/11/16 Stop Date: 08/12/16 Status: Discontinuedpromethazine 12.5 mg, 0.5 mL, Route: IM, Drug form: INJ, Q4H, Dosing Weight 54.545, kg, PRN Nausea & Vomiting, Start date: 08/11/16 22:43:00 CDT, Duration: 30 day, Stop date: 09/10/16 22:42:00 CDT Notes: Do not give IV push. (Same as: Phenergan) Start Date: 08/11/16 Stop Date: 08/12/16 Status: DiscontinuedProtonix 40 mg oral enteric coated tablet 40 mg=1 tab, PO, Daily, # 30 tab, 3 Refill(s) Start Date: 08/12/16 Status: OrderedSodium Chloride 0.9% IV 25 mL, Route: IV, Start date: 08/12/16 0:00:00 CDT, Duration: 30 day, Stop date : 09/10/16 23:59:00 CDT, PRN Line Flush Start Date: 08/12/16 Stop Date: 08/12/16 Status: DiscontinuedSodium Chloride 0.9% IV 250 mL + esomeprazole 80 mg 250 mL, Rate: 25 ml/hr, Infuse over: 10 hr, Route: IV, Dosing Weight 54.545 kg, Total Volume: 250, Start date: 08/11/16 22:43:00 CDT, Duration: 72 hr, Stop date : 08/14/16 22:42:00 CDT Start Date: 08/11/16 Stop Date: 08/11/16 Status: DeletedTylenol 650 mg, Route: PO, Drug form: TAB, Q6H, Dosing Weight 54.545, kg, Start date: 0:00:00 CDT, Duration: 4 doses or times, Stop date: 08/12/16 18:00:00 CDT Start Date: 08/12/16 Stop Date: 08/11/16 Status: Deleted Results BLOOD BANK RESULTS Most recent to oldest [Reference Range]: 1 2 3 ABO/Rh O POS *Unknown* (08/11/16 8:30 PM) Antibody Scrn Negative (08/11/16 8:30 PM) ELECTROLYTES Most recent to oldest [Reference Range]: 1 2 3 Sodium Lvl [135-145 mEq/L] 140 mEq/L (08/11/16 8:30 PM) Potassium Lvl [3.5-5.1 mEq/L] 3.4 mEq/L *LOW* (08/11/16 8:30 PM) Chloride Lvl [95-109 mEq/L] 104 mEq/L (08/11/16 8:30 PM) CO2 [24-32 mEq/L] 28 mEq/L (08/11/16 8:30 PM) AGAP [10.0-20.0 mEq/L] 11.4 mEq/L (08/11/16 8:30 PM) CHEM PANEL Most recent to oldest [Reference Range]: 1 2 3 Creatinine Lvl [0.50-1.40 mg/dL] 0.75 mg/dL (08/11/16 8:30 PM) eGFR 102 mL/min/1.73m2 1 *NA* (08/11/16 8:30 PM) BUN [7-22 mg/dL] 10 mg/dL (08/11/16 8:30 PM) B/C Ratio [6-25] 13 (08/11/16 8:30 PM) Glucose Lvl [70-99 mg/dL] 77 mg/dL (08/11/16 8:30 PM) Total Protein [6.4-8.4 g/dL] 6.9 g/dL (08/11/16 8:30 PM) Albumin Lvl [3.5-5.0 g/dL] 4.0 g/dL (08/11/16 8:30 PM) Globulin [2.7-4.2 g/dL] 2.9 g/dL (08/11/16 8:30 PM) A/G Ratio [0.7-1.6] 1.4 (08/11/16 8:30 PM) Calcium Lvl [8.5-10.5 mg/dL] 8.8 mg/dL (08/11/16 8:30 PM) ALT [0-65 unit/L] 21 unit/L (08/11/16 8:30 PM) AST [0-37 unit/L] 17 unit/L (08/11/16 8:30 PM) Alk Phos [39-136 unit/L] 88 unit/L (08/11/16 8:30 PM) Bili Total [0.2-1.3 mg/dL] 0.8 mg/dL (08/11/16 8:30 PM) Lipase Lvl [73-393 unit/L] 175 unit/L (08/11/16 8:30 PM) 1Result Comment: The eGFR is calculated using the CKD-EPI formula. In most young , healthy individualsthe eGFR will be >90 mL/min/1.73m2. The eGFR declines with age. An eGFR of 60-89 may be normal in some populations, particularly the elderly, for whom the CKD-EPI formula has not been extensively validated. Use of the eGFR is not recommended in the following populations: Individuals with unstable creatinine concentrations, including patients and those with serious co-morbid conditions. Patients with extremes in muscle mass or diet. The data above are obtained from the National Kidney Disease Education Program ( NKDEP) which additionally recommends that when the eGFR is used in patients with extremes of body mass index for purposesof drug dosing, the eGFR should be multiplied by the estimated BMI.ENDOCRINOLOGY Most recent to oldest [Reference Range]: 1 2 3 hCG Tot <1 mIU/mL *NA* (08/11/16 8:30 PM) URINE AND STOOL Most recent to oldest [Reference Range]: 1 2 3 UA Turbidity [Clear] Clear (08/11/16 8:30 PM) UA Color Straw *NA* (08/11/16 8:30 PM) UA pH [5.0-8.0] 7.0 (08/11/16 8:30 PM) UA Spec Grav [<=1.030] 1.003 (08/11/16 8:30 PM) UA Glucose [Negative mg/dL] Negative mg/dL *NA* (08/11/16 8:30 PM) UA Blood [Negative] Negative (08/11/16 8:30 PM) UA Ketones Negative *NA* (08/11/16 8:30 PM) UA Protein [Negative mg/dL] Negative mg/dL (08/11/16 8:30 PM) UA Urobilinogen [0.1-1.0 mg/dL] <=1.0 mg/dL *NA* (08/11/16 8:30 PM) UA Bili [Negative] Negative *NA* (08/11/16 8:30 PM) UA Leuk Est [Negative] Negative (08/11/16 8:30 PM) UA Nitrite [Negative] Negative (08/11/16 8:30 PM) UA WBC [0-5 /HPF] 2 /HPF (08/11/16 8:30 PM) UA RBC [0-2 /HPF] 2 /HPF (08/11/16 8:30 PM) UA Bacteria [None Seen /HPF] Occasional /HPF *NA* (08/11/16 8:30 PM) UA Sq Epi [Few /LPF] Few /LPF *NA* (08/11/16 8:30 PM) Occult Bld Stl [Negative] Negative (08/11/16 9:29 PM) HEMATOLOGY Most recent to oldest 1 2 3 [Reference Range]: WBC [3.7-10.4 K/CMM] 10.8 K/CMM *HI* (08/11/16 8:30 PM) RBC [4.20-5.40 M/CMM] 4.02 M/CMM *LOW* (08/11/16 8:30 PM) Hgb [12.0-16.0 g/dL] 8.4 g/dL 8.7 g/dL 8.1 g/dL *LOW* *LOW* *LOW* (08/12/16 12:15 PM) (08/12/16 10:11 AM) (08/12/16 4:53 AM) Hct [36.0-48.0 %] 27.0 % 27.7 % 26.0 % *LOW* *LOW* *LOW* (08/12/16 12:15 PM) (08/12/16 10:11 AM) (08/12/16 4:53 AM) MCV [80.0-98.0 fL] 69.2 fL *LOW* (08/11/16 8:30 PM) MCH [27.0-31.0 pg] 21.4 pg *LOW* (08/11/16 8:30 PM) MCHC [32.0-36.0 g/dL] 30.9 g/dL *LOW* (08/11/16 8:30 PM) RDW [11.5-14.5 %] 16.4 % *HI* (08/11/16 8:30 PM) Platelet [133-450 K/CMM] 284 K/CMM (08/11/16 8:30 PM) MPV [7.4-10.4 fL] 8.5 fL (08/11/16 8:30 PM) Segs [45.0-75.0 %] 72.0 % (08/11/16 8:30 PM) Lymphocytes [20.0-40.0 %] 17.7 % *LOW* (08/11/16 8:30 PM) Monocytes [2.0-12.0 %] 8.8 % (08/11/16 8:30 PM) Eosinophils [0.0-4.0 %] 0.6 % (08/11/16 8:30 PM) Basophils [0.0-1.0 %] 0.9 % (08/11/16 8:30 PM) Segs-Bands # [1.5-8.1 K/CMM] 7.8 K/CMM (08/11/16 8:30 PM) Lymphocytes # [1.0-5.5 K/CMM] 1.9 K/CMM (08/11/16 8:30 PM) Monocytes # [0.0-0.8 K/CMM] 1.0 K/CMM *HI* (08/11/16 8:30 PM) Eosinophils # [0.0-0.5 K/CMM] 0.1 K/CMM (08/11/16 8:30 PM) Basophils # [0.0-0.2 K/CMM] 0.1 K/CMM (08/11/16 8:30 PM) Anisocyte [None Seen] 1+ *ABN* (08/11/16 8:30 PM) Microcyte [None Seen] 2+ *ABN* (08/11/16 8:30 PM) Plt Morph Normal (08/11/16 8:30 PM) PT [12.0-14.7 seconds] 14.3 seconds (08/11/16 8:30 PM) INR [0.85-1.17] 1.09 (08/11/16 8:30 PM) PTT [22.9-35.8 seconds] 28.6 seconds (08/11/16 8:30 PM) Immunizations No data available for this section Procedures Procedure Date Related Diagnosis Body Site Gastric bypass operation 01/03/15 Gastric bypass operation Upper GI endoscopy Social History Social History Type Response Smoking Status Never smoker; Exposure to Tobacco Smoke None; Cigarette Smoking Last 365 Days No; Reg Smoking Cessation Counseling Yes Assessment and Plan Extracted from: Title: Clinical Document Author: Gilberto Rodriges (Fellow) Date: 02/18 [facility] Admission History and Physical Examination CC: Bleeding per rectum HPI: 35 y/o F who is 1 1/2 years s/p Lap RYGB who presents c/o dark bloody stools for the last 48 hours. She states that she has felt weak and tired over the last 3 weeks. She was evaluatued [place] [address] Luna for hemoptysis. She was found to have iron deficient anemia (Hbg 11). An EGD was performed which turned out to be normal and did not show any obvious stigmata of bleeding. Since that time she has taken PO iron supplements. PMH: Morbid Obesity PSH: Lap RYGB Allergies: NKDA Home Medications (3) Active Coreg 25 mg oral tablet 25 mg=1 tab, PO, BID ferrous sulfate 325 mg oral enteric coated tablet 325 mg=1 tab, PO, Daily omeprazole 40 mg oral delayed release capsule 40 mg=1 cap, PO, Daily SH: Tobacco Details: Use: Never smoker. Tobacco smoke exposure: None. Did the Patient Smoke Cigarettes Anytime During the Last 365 Days? No. Cessation Counseling Provided? Yes. Details: Use: Never smoker. Ready to change: No. Household tobacco concerns: No. Tobacco smoke exposure: None. Did the Patient Smoke Cigarettes Anytime During the Last 365 Days? No. Cessation Counseling Provided? No. FH: Father: Cancer; Heart disease Mother: Heart disease Grandparent: Cancer; Heart disease ROS: CONSTITUTIONAL: No weight loss, fever, chills, weakness or fatigue. HEENT: Eyes: No visual loss, blurred vision, double vision or yellow sclerae. Ears, Nose, Throat: No hearing loss, sneezing, congestion, runny nose or sore throat. SKIN: No rash or itching. CARDIOVASCULAR: No chest pain, chest pressure or chest discomfort. No palpitations or edema. RESPIRATORY: No shortness of breath, cough or sputum. GASTROINTESTINAL: + bleeding. No anorexia, nausea, vomiting or diarrhea. No abdominal pain NEUROLOGICAL: No headache, dizziness, syncope, paralysis, ataxia, numbness or tingling in the extremities. No change in bowel or bladder control. MUSCULOSKELETAL: No muscle, back pain, joint pain or stiffness. HEMATOLOGIC: + anemia, bleeding, No bruising. LYMPHATICS: No enlarged nodes. No history of splenectomy. PSYCHIATRIC: No history of depression or anxiety. ENDOCRINOLOGIC: No reports of sweating, cold or heat intolerance. No polyuria or polydipsia. PHYSICAL EXAMINATION: VITAL SIGNS: Temp - 97.9 BP - 131/81 HR - 55 RR - 16 O2 Sat - 99% on RA GENERAL: The patient is a very pleasant lady, no evidence of distress/ discomfort. HEENT: AT/NC, PERRLA, no lymphadenopathy, neck supple, no JVD. HEART: RRR, No r/m/g LUNGS: CTA-B, no r/r/r ABDOMEN: soft, ND/NT, no peritoneal signs, normoactive BS NEUROLOGIC: Full range of motion in all extermities. No focal neurological deficits. 5/5 strength in all major muscle groups EXTREMITIES: Peripheral pulses 2+ Diagnostic: CO2: 28 mEq/L (08/11/16 21:00:16) Chloride Lvl: 104 mEq/L (08/11/16 21:00:16) Sodium Lvl: 140 mEq/L (08/11/16 21:00:16) Glucose Lvl: 77 mg/dL (08/11/16 21:04:56) Calcium Lvl: 8.8 mg/dL (08/11/16 21:00:16) Potassium Lvl: 3.4 mEq/L Low (08/11/16 21:00:16) BUN: 10 mg/dL (08/11/16 21:00:16) AGAP: 11.4 mEq/L (08/11/16 21:00:16) Creatinine Lvl: 0.75 mg/dL (08/11/16 21:04:56) Hct: 26 % Low (08/12/16 06:26:26) Hgb: 8.1 g/dL Low (08/12/16 06:26:26) MCH: 21.4 pg Low (08/11/16 20:55:56) MCHC: 30.9 g/dL Low (08/11/16 20:55:56) MCV: 69.2 fL Low (08/11/16 20:55:56) MPV: 8.5 fL (08/11/16 20:55:56) Platelet: 284 K/CMM (08/11/16 20:55:56) POC Hematocrit: 35 % Low (03/01/16 15:25:33) POC Hemoglobin: 11.9 g/dL Low (03/01/16 15:25:33) RBC: 4.02 M/CMM Low (08/11/16 20:55:56) RDW: 16.4 % High (08/11/16 20:55:56) WBC: 10.8 K/CMM High (08/11/16 20:55:56) A&P: 35 y/o F with anemia due to GI bleeding s/p Lap RYGB - Ferrlicit 125mcg - Serial H&H - IVF hydration - Consult GI Addendum by Coy Lnua MD on Patient reports melena stools and symtpoms 08/13/2016 15:05 of iron deficiency. Denies orthostasis. HD stable. Concern for marginal ulcer. Plan EGD to eval.
--- OUTSIDE RECORDS SUMMARY | 2018-03-11 08:11 | XMS REPORT | Summary of Care ---
:1980 Author Organization [facility] Address [address] [place] [id number]- Encounter HQ Encntr_alias(FIN) [id number] Date(s): 01/09/17 - 01/09/[address] [address]- Attending Physician: Coy Luna MD Admitting Physician: Coy Luna MD Vital Signs No data available for this section Problem List Condition Effective Dates Status Health Status Informant Gastric bypass status for Resolved obesity(Confirmed) Hypertension(Confirmed) Active HTN (hypertension)(Confirmed) Active Obesity(Confirmed) Active Allergies, Adverse Reactions, Alerts Substance Reaction Severity Status NKDA Active Medications GoLYTELY 240 mL, Route: PO, Drug Form: PDR/REC, Dosing Weight 59.091, kg, ONCE, NOW, Start date: 01/09/17 18:12:00 CDT, Stop date: 01/09/17 18:12:00 CDT Notes: (polyethylene glycol electrolyte solution 4 Liter bottle) (Same as: Golytely, Colyte) Start Date: 01/09/17 Stop Date: 01/09/17 Status: Ordered Results No data available for this section Immunizations No data available for this section [...] Smoking Cessation Counseling No Assessment and Plan Extracted from: Title: Clinical Document Author: Ajith Vargas MD Date: 01/09/17 Gastroenterology consult Note: Patient Room: , PreAdmit OU BREANNA SILVERIO 36y (: 1980) F Attending: Coy Luna MD Service: Surgery REFERRING PHYSICIAN: _Dr. Luna REASON FOR CONSULTATION: _Iron deficiency anemia, dark stool, colonoscopy evaluation HISTORY OF PRESENT ILLNESS: _Patient is a 36-year-old female who underwent laparoscopic Jose-en-Y gastric bypass 01/03/2015. She was seen for 1017 for evaluation of iron deficiency anemia. At that time her hemoglobin was 8.1, MCV 69, iron 25, ferritin 3. She underwent an EGD 2016 which showed a small marginal ulcer that was clean base. She underwent a repeat endoscopy today by Dr. Olmos male wi th normal findings. She was supposed to follow-up as an outpatient for colonoscopy but never followed up. She does state she often has heavy menstrual bleeding with 4 days of bleeding and 2 or 3 of th ose days are heavy. She has been seen by an YOU[employer] MINISTRY DIRECTOR. She does have bilateral lower quadrant crampy abdominal pain, did see bright red blood per rectum yesterday but overall her stool has been very dark . Reportedly her iron has been 6 recently. She has lost 140 pounds overall from her gastric bypass and has maintained that. No nausea vomiting, good appetite, has been dizzy and had headaches recentl y along with fatigue. She has been taking Advil for headache. She has never had a colonoscopy. PAST MEDICAL HISTORY: _Morbid obesity status post Jose-en-Y gastric bypass, iron deficiency anemia SOCIAL HISTORY: _Negative for tobacco, positive for alcohol. 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[place] [employer] FAMILY HISTORY: _Negative for GI malignancy Allergies (1) Active Reaction NKDA None documented Medications (9) Active Scheduled Meds (1): 01/10/17 famotidine 20 mg IVP Daily One Time Meds (1): 01/09/17 (Ordered) polyethylene glycol 3350 with electrolytes (GoLYTELY) 240 mL PO ONCE Continuous Infusions (1): 01/09/17 Lactated Ringers 1,000 mL 1,000 mL 125 ml/hr REVIEW OF SYSTEMS: 10 systems reviewed and negative with pertinent findings in HPI above PHYSICAL EXAMINATION: Vital Signs - Temperature 98.2 heart rate 65 respiration 18 blood pressure 166/ 77 O2 saturation 100% on room air General- _white female, no acute distress, alert and oriented 3 HEENT- _nonicteric CVS- _normal rate, regular rhythm Chest- _clear to auscultation bilaterally Abdomen- _soft, nontender, nondistended, no rebound or guarding Data: Hemoglobin 7.9 white blood cell count 6.6 MCV 65 platelet count 205 ASSESSMENT: 36-year-old female with history of Jose-en-Y gastric bypass 2014, having melena, iron deficiency anemia persists, negative EGD today. Unclear etiology of her low iron and anemia. She does have heavy menses. Recommendation: 1. 4 L GoLYTELY prep, clear liquid diet, n.p.o. after midnight, colonoscopy tomorrow by Dr. Vargas or Dr. Mahoney 2. May need outpatient PillCam 3. May need repeat EGD with a pediatric colonoscope to evaluate the JJ anastomosis 4. Serial hemoglobin and hematocrit monitoring. Monitor for clinically overt GI bleeding Supportive care with transfusion of PRBC if needed Thank you for allowing us to participate in the care of this patient. We will follow along with you. Please do not hesitate to contact us if you have additional questions
--- OUTSIDE RECORDS SUMMARY | 2018-03-11 08:11 | XMS REPORT | Summary of Care ---
:1980 Author Organization [facility] Address [address] [place] [id number]- Encounter HQ Deborar_kirsty(FIN) [id number] Date(s): 01/11/17 - 01/11/[address] [address]- Discharge Disposition: Home or Self Care Attending Physician: Coy Luna MD Admitting Physician: Coy Luna MD Referring Physician: Coy Luna MD Vital Signs Most recent to oldest [Reference 1 2 3 Range]: Height 162.56 cm (01/09/17 11:40 AM) Temperature Oral [96.4-99.1 97.5 DegF 98.3 DegF 98.6 DegF DegF] (01/11/17 7:37 AM) (01/11/17 4:00 AM) (01/11/17 12:55 AM) Blood Pressure [90-140/60-90 140/77 mmHg 127/71 mmHg 126/74 mmHg mmHg] (01/11/17 7:37 AM) (01/11/17 4:00 AM) (01/11/17 12:55 AM) Respiratory Rate [14-20 BRMIN] 16 BRMIN 18 BRMIN 18 BRMIN (01/11/17 7:37 AM) (01/11/17 4:00 AM) (01/11/17 12:55 AM) Peripheral Pulse Rate [60-100 47 bpm 53 bpm 71 bpm bpm] *LOW* *LOW* (01/11/17 12:55 AM) (01/11/17 7:37 AM) (01/11/17 4:00 AM) Weight 59.091 kg (01/09/17 11:40 AM) Body Mass Index 22.36 m2 (01/09/17 11:40 AM) Problem List Condition Effective Dates Status Health Status Informant Gastric bypass status for Resolved obesity(Confirmed) Hypertension(Confirmed) Active HTN (hypertension)(Confirmed) Active Obesity(Confirmed) Active Allergies, Adverse Reactions, Alerts Substance Reaction Severity Status NKDA Active Medications acetaminophen 650 mg, 2 tab, Route: PO, Drug form: TAB, Q4H, Dosing Weight 59.091, kg, PRN Pain 1-3/Temp > 100.4 F, Start date: 01/09/17 18:41:00 CDT, Duration: 30 day, Stop date: 02/08/17 18:40:00 CDT Notes: Do not exceed 4 gm/day. (Same as: Tylenol) Start Date: 01/09/17 Stop Date: 01/11/17 Status: DiscontinuedDilaudid 0.5 mg, 0.25 mL, Route: IVP, Drug form: INJ, Q3H, Dosing Weight 59.091, kg, PRN Pain Score 7-10, Start date: 01/09/17 18:41:00 CDT, Duration: 30 day, Stop date : 02/08/17 18:40:00 CDT Notes: Same as Dilaudid Start Date: 01/09/17 Stop Date: 01/11/17 Status: DiscontinuedDulcolax Laxative 5 mg, 1 tab, Route: PO, Drug form: ECTAB, ONCE, Dosing Weight 59.091, kg, Start date: 01/10/17 11:42:00 CDT, Stop date: 01/10/17 11:42:00 CDT Notes: (Same As: Dulcolax, Correctol) (Do Not Crush) "Do Not Crush" Start Date: 01/10/17 Stop Date: 01/10/17 Status: Completedfamotidine 20 mg, 2 mL, Route: IVP, Drug form: INJ, Daily, Dosing Weight 59.091, kg, Start date: 01/10/17 9:00:00 CDT, Duration: 30 day, Stop date: 02/08/17 9:00:00 CDT Notes: (Same as: Pepcid)Can be dilute in 5-10cc NS IVP: Slow IV push over at least 2 minutes. Start Date: 01/10/17 Stop Date: 01/11/17 Status: DiscontinuedGoLYTELY 2,000 mL, Route: PO, Drug Form: PDR/REC, ONCE, Start date: 01/10/17 6:00:00 CDT , Stop date: 176:00:00 CDT Notes: (polyethylene glycol electrolyte solution 4 Liter bottle) (Same as: Gloriaytesid Colyte) Start Date: 01/10/17 Stop Date: 01/10/17 Status: CompletedGoLYTELY 2,000 mL, Route: PO, Drug Form: PDR/REC, ONCE, Start date: 01/09/17 22:00:00 CDT , Stop date: 01/09/17 22:00:00 CDT Notes: (polyethylene glycol electrolyte solution 4 Liter bottle) (Same as: Gloriaytely Colyte) Start Date: 01/09/17 Stop Date: 01/09/17 Status: CompletedGoLYTELY 4,000 ml, Route: PO, Drug Form: PDR/REC, Dosing Weight 59.091, kg, ONCE, Start date: 01/09/17 21:50:00 CDT, Duration: 1 doses or times, Stop date: 01/09/17 21: 50:00 CDT Start Date: 01/09/17 Stop Date: 01/09/17 Status: DeletedketOROLAC 30 mg, 1 mL, Route: IVP, Drug form: INJ, Q6H, Dosing Weight 59.091, kg, PRN Pain Score 1-3, Start date: 01/09/17 18:41:00 CDT, Duration: 4 day, Stop date: 01/13/17 18:40:00 CDT Notes: (Same as:Toradol) IV bolus must be given >15 seconds. Give IM administration slowly and deeply into the muscle.Not for use > 4 days MEDICATION WASTE Product Size: 30 mgProduct Wasted: ___ mg Start Date: 01/09/17 Stop Date: 01/10/17 Status: DiscontinuedLactated Ringers 1,000 mL 1,000 mL, Rate: 125 ml/hr, Infuse over: 8 hr, Route: IV, Dosing Weight 59.091 kg , Total Volume: 1,000, Start date: 01/09/17 18:41:00 CDT, Duration: 30 day, Stop date: 02/08/17 18:40:00 CDT Start Date: 01/09/17 Stop Date: 01/11/17 Status: Discontinuedondansetron 4 mg, 2 mL, Route: IVP, Drug form: INJ, Q6H, Dosing Weight 59.091, kg, PRN Nausea & Vomiting, Start date: 01/09/17 18:41:00 CDT, Duration: 30 day, Stop date: 02/08/17 18:40:00 CDT Notes: (Same as: Zofran) MEDICATION WASTE Product Size: 4 mgProduct Wasted: ___ mg Start Date: 01/09/17 Stop Date: 01/11/17 Status: DiscontinuedPhenergan 12.5 mg, 50 mL, Route: IVPB, Drug form: SOLN, Q4H, Dosing Weight 59.091, kg, PRN Nausea & Vomiting, Start date: 01/09/17 18:41:00 CDT, Duration: 30 day, Stop date: 02/08/17 18:40:00 CDT Start Date: 01/09/17 Stop Date: 01/11/17 Status: DiscontinuedSaline Flush 0.9% 10 ml, Route: IVP, Drug Form: INJ, Dosing Weight 59.091, kg, PRN, PRN Line Flush , Start date: 01/09/17 18:41:00 CDT, Duration: 30 day, Stop date: 02/08/17 18:40 :00 CDT Notes: preservative free. Start Date: 01/09/17 Stop Date: 01/11/17 Status: Discontinuedsodium chloride 0.9% INJ 250 mL 250 mL, Rate: call center agent for use with blood product administration, Dosing Weight 59.091, kg, Route: IV, Total Volume: 250, Start Date: 01/10/17 11:37:00 CDT, Duration: 30 day, Stop date: 02/09/17 11:36:00 CDT, Replace Every: 24 hr Start Date: 01/10/17 Stop Date: 01/11/17 Status: Discontinued Results BLOOD BANK RESULTS Most recent to oldest [Reference Range]: 1 2 3 ABO/Rh O POS *Unknown* (01/10/17 1:03 PM) Antibody Scrn Negative (01/10/17 1:03 PM) RBC product Product available Product available (01/10/17 5:27 PM) (01/10/17 11:22 AM) ELECTROLYTES Most recent to oldest [Reference Range]: 1 2 3 Sodium Lvl [135-145 mEq/L] 141 mEq/L 141 mEq/L (01/11/17 1:57 AM) (01/10/17 3:18 AM) Potassium Lvl [3.5-5.1 mEq/L] 4.9 mEq/L 4.1 mEq/L (01/11/17 1:57 AM) (01/10/17 3:18 AM) Chloride Lvl [95-109 mEq/L] 109 mEq/L 106 mEq/L (01/11/17 1:57 AM) (01/10/17 3:18 AM) CO2 [24-32 mEq/L] 27 mEq/L 24 mEq/L (01/11/17 1:57 AM) (01/10/17 3:18 AM) AGAP [10.0-20.0 mEq/L] 9.9 mEq/L 15.1 mEq/L *LOW* (01/10/17 3:18 AM) (01/11/17 1:57 AM) POC Sodium [135-145 mEq/L] 141 mEq/L (01/09/17 11:28 AM) POC Potassium [3.5-5.1 mEq/L] 4.5 mEq/L (01/09/17 11:28 AM) CHEM PANEL Most recent to oldest [Reference Range]: 1 2 3 Creatinine Lvl [0.50-1.40 mg/dL] 0.95 mg/dL 0.75 mg/dL (01/11/17 1:57 AM) (01/10/17 3:18 AM) eGFR 77 mL/min/1.73m2 1 103 mL/min/1.73m2 2 *NA* *NA* (01/11/17 1:57 AM) (01/10/17 3:18 AM) BUN [7-22 mg/dL] 10 mg/dL 9 mg/dL (01/11/17 1:57 AM) (01/10/17 3:18 AM) B/C Ratio [6-25] 12 (01/10/17 3:18 AM) Glucose Lvl [70-99 mg/dL] 109 mg/dL 73 mg/dL *HI* (01/10/17 3:18 AM) (01/11/17 1:57 AM) POC Glucose [70-99 mg/dL] 78 mg/dL (01/09/17 11:28 AM) Total Protein [6.4-8.4 g/dL] 6.1 g/dL *LOW* (01/10/17 3:18 AM) Albumin Lvl [3.5-5.0 g/dL] 3.4 g/dL *LOW* (01/10/17 3:18 AM) Globulin [2.7-4.2 g/dL] 2.7 g/dL (01/10/17 3:18 AM) A/G Ratio [0.7-1.6] 1.3 (01/10/17 3:18 AM) Calcium Lvl [8.5-10.5 mg/dL] 8.5 mg/dL 8.5 mg/dL (01/11/17 1:57 AM) (01/10/17 3:18 AM) Phosphorus [2.5-4.5 mg/dL] 3.9 mg/dL (01/10/17 3:18 AM) Magnesium Lvl [1.8-2.4 mg/dL] 2.3 mg/dL (01/10/17 3:18 AM) ALT [0-65 unit/L] 15 unit/L (01/10/17 3:18 AM) AST [0-37 unit/L] 15 unit/L (01/10/17 3:18 AM) Alk Phos [39-136 unit/L] 70 unit/L (01/10/17 3:18 AM) Bili Total [0.2-1.3 mg/dL] 0.5 mg/dL (01/10/17 3:18 AM) 1Result Comment: The eGFR is calculated using [...] eGFR should be multiplied by the estimated BMI.2Result Comment: The eGFR is calculated using the CKD-EPI formula. In most young, healthy individualsthe eGFR will be >90 mL/ min/1.73m2. The [...] eGFR should be multiplied by the estimated BMI.URINE AND STOOL Most recent to oldest [Reference Range]: 1 2 3 Occult Bld Stl [Negative] Negative (01/10/17 4:25 PM) HEMATOLOGY Most recent to oldest 1 2 3 [Reference Range]: WBC [3.7-10.4 K/CMM] 7.0 K/CMM 6.0 K/CMM 6.6 K/CMM (01/11/17 1:57 AM) (01/10/17 3:18 AM) (01/09/17 11:45 AM) RBC [4.20-5.40 M/CMM] 4.50 M/CMM 3.67 M/CMM 4.09 M/CMM (01/11/17 1:57 AM) *LOW* *LOW* (01/10/17 3:18 AM) (01/09/17 11:45 AM) Hgb [12.0-16.0 g/dL] 9.7 g/dL 7.4 g/dL 7.9 g/dL *LOW* *LOW* *LOW* (01/11/17 1:57 AM) (01/10/17 3:18 AM) (01/09/17 11:45 AM) Hct [36.0-48.0 %] 30.8 % 23.9 % 26.4 % *LOW* *LOW* *LOW* (01/11/17 1:57 AM) (01/10/17 3:18 AM) (01/09/17 11:45 AM) MCV [80.0-98.0 fL] 68.4 fL 65.1 fL 64.5 fL *LOW* *LOW* *LOW* (01/11/17 1:57 AM) (01/10/17 3:18 AM) (01/09/17 11:45 AM) MCH [27.0-31.0 pg] 21.5 pg 20.0 pg 19.4 pg *LOW* *LOW* *LOW* (01/11/17 1:57 AM) (01/10/17 3:18 AM) (01/09/17 11:45 AM) MCHC [32.0-36.0 g/dL] 31.4 g/dL 30.7 g/dL 30.1 g/dL *LOW* *LOW* *LOW* (01/11/17 1:57 AM) (01/10/17 3:18 AM) (01/09/17 11:45 AM) RDW [11.5-14.5 %] 20.4 % 17.2 % 17.6 % *HI* *HI* *HI* (01/11/17 1:57 AM) (01/10/17 3:18 AM) (01/09/17 11:45 AM) Platelet [133-450 K/CMM] 190 K/CMM 184 K/CMM 205 K/CMM (01/11/17 1:57 AM) (01/10/17 3:18 AM) (01/09/17 11:45 AM) MPV [7.4-10.4 fL] 8.6 fL 9.2 fL 8.9 fL (01/11/17 1:57 AM) (01/10/17 3:18 AM) (01/09/17 11:45 AM) POC Hemoglobin [12.0-16.0 10.2 g/dL g/dL] *LOW* (01/09/17 11:28 AM) POC Hematocrit [36.0-48.0 %] 30.0 % *LOW* (01/09/17 11:28 AM) Segs [45.0-75.0 %] 52.0 % 53.1 % 61.4 % (01/11/17 1:57 AM) (01/10/17 3:18 AM) (01/09/17 11:45 AM) Bands [0.0-11.0 %] 1.0 % (01/11/17 1:57 AM) Lymphocytes [20.0-40.0 %] 41.0 % 36.3 % 29.1 % *HI* (01/10/17 3:18 AM) (01/09/17 11:45 AM) (01/11/17 1:57 AM) Atypical Lymphs [<=0.0 %] 0.0 % (01/11/17 1:57 AM) Monocytes [2.0-12.0 %] 4.0 % 8.9 % 7.8 % (01/11/17 1:57 AM) (01/10/17 3:18 AM) (01/09/17 11:45 AM) Eosinophils [0.0-4.0 %] 0.8 % 0.5 % (01/10/17 3:18 AM) (01/09/17 11:45 AM) Basophils [0.0-1.0 %] 2.0 % 0.9 % 1.2 % *HI* (01/10/17 3:18 AM) *HI* (01/11/17 1:57 AM) (01/09/17 11:45 AM) Segs-Bands # [1.5-8.1 K/CMM] 3.7 K/CMM 3.2 K/CMM 4.1 K/CMM (01/11/17 1:57 AM) (01/10/17 3:18 AM) (01/09/17 11:45 AM) Lymphocytes # [1.0-5.5 2.9 K/CMM 2.2 K/CMM 1.9 K/CMM K/CMM] (01/11/17 1:57 AM) (01/10/17 3:18 AM) (01/09/17 11:45 AM) Monocytes # [0.0-0.8 K/CMM] 0.3 K/CMM 0.5 K/CMM 0.5 K/CMM (01/11/17 1:57 AM) (01/10/17 3:18 AM) (01/09/17 11:45 AM) Basophils # [0.0-0.2 K/CMM] 0.1 K/CMM 0.1 K/CMM 0.1 K/CMM (01/11/17 1:57 AM) (01/10/17 3:18 AM) (01/09/17 11:45 AM) Hypochrom [None Seen] 1+ (01/09/17 11:45 AM) Microcyte [None Seen] 3+ 3+ 3+ *ABN* *NA* *NA* (01/11/17 1:57 AM) (01/10/17 3:18 AM) (01/09/17 11:45 AM) Plt Morph Normal Normal (01/11/17 1:57 AM) (01/09/17 11:45 AM) Immunizations No data available for this [...] Plan Extracted from: Title: Clinical Document Author: Esau Reeves MD Date: 01/11/17 Spoke with nurse. Patient was supposed to d/c yesterday but blood finished late. She has no complaints, no blood in BM. No pain. Hgb responded as expected to transfusion and vitals stable. OK to d/c
--- NOTE | 2018-03-11 09:11 | ER ---
Nurse's Notes [facility] Name: Rani Breen Age: 37 yrs Sex: Female : 1980 Arrival Date: 03/11/2018 Time: 08:09 Bed 13 Private MD: Diagnosis: Acute upper respiratory infection, unspecified Presentation: 03/11 08:31 Presenting complaint: Patient states: Body aches, fever, ear pain x 3 days, cough and hb congestion since last night. Transition of care: patient was not received from another setting of care. Onset of symptoms was March 08, 2018. Risk Assessment: Do you want to hurt yourself or someone else? Patient reports no desire to harm self or others. Initial Sepsis Screen: Does the patient meet any 2 criteria? No. Patient's initial sepsis screen is negative. Does the patient have a suspected source of infection? No. Patient's initial sepsis screen is negative. Care prior to arrival: None. 08:31 Method Of Arrival: Ambulatory hb 08:31 Acuity: LYRIC 4 hb DIRECTOR OF MEDICARE: 08:33 LMP N/A - Hysterectomy ss Historical: - Allergies: 08:33 No Known Allergies; ss 08:33 No Known Drug Allergies; hb - PMHx: 08:33 Hypertension; ss - PSHx: 08:33 Hysterectomy; ss - Immunization history:: Adult Immunizations up to date, Adult Immunizations up to date. - Social history:: Smoking status: Patient/guardian denies using tobacco, Smoking status: Patient/guardian denies using tobacco. - Ebola Screening: : Patient denies exposure to infectious person Patient denies travel to an Ebola-affected area in the 21 days before illness onset No symptoms or risks identified at this time. - Family history:: not pertinent. - Hospitalizations: : No recent hospitalization is reported. Screenin:35 Abuse screen: Denies threats or abuse. Has been threatened or abused. Nutritional hb screening: No deficits noted. Tuberculosis screening: No symptoms or risk factors identified. Fall Risk None identified. Assessment: 08:34 General: Appears in no apparent distress. Behavior is calm, cooperative. Pain: Pain hb currently is 2 out of 10 on a pain scale. Neuro: Level of Consciousness is awake, alert, obeys commands, Oriented to person, place, time, situation. Cardiovascular: Capillary refill < 3 seconds Patient's skin is warm and dry. Respiratory: Airway is patent Respiratory effort is even, unlabored, Respiratory pattern is regular, symmetrical, Breath sounds are clear bilaterally. GI: No signs and/or symptoms were reported involving the gastrointestinal system. : No signs and/or symptoms were reported regarding the genitourinary system. EENT: Reports nasal discharge. Derm: Skin is pink, warm \T\ dry. Musculoskeletal: No signs and/or symptoms reported regarding the musculoskeletal system. Vital Signs: 08:31 BP 150 / 90; Pulse 88; Resp 16; Temp 98.2; Pulse Ox 100% on R/A; Pain 2/10; hb ED Course: 08:09 Patient arrived in ED. as 08:20 Marvin Curry MD is Attending Physician. rn 08:30 Kajal Macias RN is Primary Nurse. hb 08:33 Triage completed. hb 08:34 Arm band placed on. hb 08:37 X-ray completed. Patient tolerated procedure well. Patient moved back from radiology. jb2 08:37 XRAY Chest Pa And Lat (2 Views) In Process Unspecified. EDMS 08:40 Patient has correct armband on for positive identification. hb 09:18 No provider procedures requiring assistance completed. Patient did not have IV access hb during this emergency room visit. Administered Medications: No medications were administered Outcome: 09:10 Discharge ordered by . rn 09:18 Discharged to home ambulatory. hb 09:18 Condition: stable 09:18 Discharge instructions given to patient, Instructed on discharge instructions, follow up and referral plans. medication usage, Demonstrated understanding of instructions, follow-up care, medications, Prescriptions given X 1. 09:18 Patient left the ED. hb Signatures: Dispatcher [employer] EDHI Milan Jones jb2 Megna Klein Roman, MD MD rn Smirch, Shelby, RN RN ss Kajal Macias RN RN hb
--- NOTE | 2018-03-11 09:11 | EDPHYS ---
Physician Documentation [facility] Name: Rani Breen Age: 37 yrs Sex: Female : 1980 Arrival Date: 03/11/2018 Time: 08:09 Bed 13 Private MD: ED Physician Marvin Curry HPI: 03/11 08:32 This 37 yrs old Female presents to ER via Unassigned with complaints of Flu rn Symptoms. 08:32 The patient or guardian reports cough, flu symptoms, low-grade fever, myalgias. Onset: rn The symptoms/episode began/occurred 2 day(s) ago. Severity of symptoms: At their worst the symptoms were mild, in the emergency department the symptoms are unchanged. Modifying factors: The symptoms are alleviated by nothing, the symptoms are aggravated by nothing. The patient has experienced similar episodes in the past. Reports cough, sore throat, muscle aches, fever, for 2 days, exposed to flu and strep, was going to urgent care but was closed so came here. No abd pain/chest pain. + mild cough. No sob. Worse symptom is congestion and runny nose.. 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 - Social history:: Smoking status: Patient/guardian denies using tobacco, Smoking status: Patient/guardian denies using tobacco. - Ebola Screening: : Patient denies exposure to infectious person Patient denies travel to an Ebola-affected area in the 21 days before illness onset No symptoms or risks identified at this time. - Family history:: not pertinent. - Hospitalizations: : No recent hospitalization is reported. ROS: 08:32 Constitutional: Negative for chills, and weight loss, Eyes: Negative for injury, pain, rn redness, and discharge, ENT: + congestion and sore throat Neck: Negative for injury, pain, and swelling, Cardiovascular: Negative for chest pain, palpitations, and edema, Respiratory: + cough Abdomen/GI: Negative for abdominal pain, nausea, vomiting, diarrhea, and constipation, MS/Extremity: Negative for injury and deformity, Skin: Negative for injury, rash, and discoloration, Neuro: Negative for headache, weakness, numbness, tingling, and seizure. Exam: 08:32 Constitutional: This is a well developed, well nourished patient who is awake, alert, rn and in no acute distress. Head/Face: Normocephalic, atraumatic. Eyes: Pupils equal round and reactive to light, extra-ocular motions intact. Lids and lashes normal. Conjunctiva and sclera are non-icteric and not injected. Cornea within normal limits. Periorbital areas with no swelling, redness, or edema. ENT: MMM, no stridor, no oral swelling or exudate Neck: + non-tender cervical LAD Cardiovascular: Regular rate and rhythm with a normal S1 and S2. No pulse deficits. Respiratory: Lungs have equal breath sounds bilaterally, clear to auscultation. No increased work of breathing, no retractions or nasal flaring. Skin: Warm, dry with normal turgor. Normal color with no rashes, no lesions, and no evidence of cellulitis. MS/ Extremity: Pulses equal, no cyanosis. Neurovascular intact. Full, normal range of motion. Equal circumference. Neuro: Awake and alert, GCS 15, oriented to person, place, time, and situation. Motor strength 5/5 in all extremities. Sensory grossly intact. Normal gait. Vital Signs: 08:31 BP 150 / 90; Pulse 88; Resp 16; Temp 98.2; Pulse Ox 100% on R/A; Pain 2/10; hb MDM: 08:20 Patient medically screened. rn 09:09 Differential Diagnosis: Influenza Upper Respiratory Infection Sinusitis Pharyngitis rn Viral Syndrome Pneumonia. Data reviewed: vital signs, nurses notes, lab test result(s), radiologic studies, plain films, and as a result, I will discharge patient. Counseling: I had a detailed discussion with the patient and/or guardian regarding: the historical points, exam findings, and any diagnostic results supporting the discharge/admit diagnosis, lab results, radiology results, the need for outpatient follow up, to return to the emergency department if symptoms worsen or persist or if there are any questions or concerns that arise at home. Special discussion: I discussed with the patient/guardian in detail that at this point there is no indication for admission to the hospital. It is understood, however, that if the symptoms persist or worsen the patient needs to return immediately for re-evaluation. 03/11 08:25 Order name: Strep; Complete Time: 09: rn 03/11 08:25 Order name: Flu; Complete Time: 09: rn 03/11 08:25 Order name: XRAY Chest Pa And Lat (2 Views) rn 03/11 09:08 Order name: Throat Culture EDMS Administered Medications: No medications were administered Disposition: 03/11/18 09:10 Discharged to Home. Impression: Acute upper respiratory infection, unspecified. - Condition is Stable. - Discharge Instructions: Viral Respiratory Infection. - Prescriptions for Medrol (Justyn) 4 mg Oral Tablets, Dose Pack - take 1 tablet by ORAL route as directed - follow package instructions; 1 packet. - Medication Reconciliation Form, Thank You Letter, Antibiotic Education, Prescription Opioid Use form. - Follow up: Private Physician; When: As needed; Reason: Recheck today's complaints, Re-evaluation by your physician. - Problem is new. - Symptoms have improved. Signatures: Dispatcher [employer] EDNJ Marvin Curry MD MD rn Smirch, Shelby, RN RN Kajal Macias RN RN Corrections: (The following items were deleted from the chart) 09:10 03/11/2018 09:10 Discharged to Home. Impression: Acute upper respiratory hb infection, unspecified. Condition is Stable. Forms are Medication Reconciliation Form, Thank You Letter, Antibiotic Education, Prescription Opioid Use. Follow up: Private Physician; When: As needed; Reason: Recheck today's complaints, Re-evaluation by your physician. Problem is new. Symptoms have improved. rn
--- NOTE | 2018-03-11 09:36 | RAD REPORT ---
EXAM DESCRIPTION: Adrian Lew (2 Views)03/11/2018 8:38 am CLINICAL HISTORY: Cough COMPARISON: 2014 FINDINGS: The lungs appear clear of acute infiltrate. The heart is normal size IMPRESSION: No acute abnormalities displayed
== END 2018-03-11 09:18 | disposition home or self-care (01) ==
LOC: ER 08:07
DX: J06.9 Acute upper respiratory infection, unspecified (principal); I10 Essential (primary) hypertension
CPT/HCPCS: 71046; 87070; 87081; 87804; 99283

== ENCOUNTER 2019-02-12 19:45 | Inpatient (IN) | payer BC, OTHER ==
[2019-02-12] MEDS ORDERED: MORPHINE 4 MG/ML SYR ONE ×3 (20:12→23:03)
[2019-02-12] MEDS ORDERED: ONDANSETRON 4 MG/2 ML VIAL ONE (20:12)
[2019-02-12 20:30] LABS: Basophils % 0.4 % (0-1.3); Hematocrit 31.7 % (36.0-45.0); Lymphocytes % 18.2 % (15.3-44.8); MPV 8.5 fL (7.6-11.3); RBC Red Blood Cell Count 3.94 M/uL (3.86-4.86)
[2019-02-12] MEDS ORDERED: MEPERIDINE HCL 50 MG/ML ONE (20:35)
[2019-02-12 20:47] LABS: Albumin 3.7 g/dL (3.4-5.0); Bilirubin Direct 0.1 mg/dL (0-0.2); Bilirubin Total 0.2 mg/dL (0.2-1.0); Potassium 4.5 mmol/L (3.5-5.1); Protein, Total 6.8 g/dL (6.4-8.2)
[2019-02-12 21:52] LABS: Anisocytosis SLIGHT; Blood Morphology Comment NOTED (NOT SEEN); Platelet Estimate ADEQ; Urine White Blood Cell Casts OK
--- NOTE | 2019-02-12 22:44 | ER ---
Nurse's Notes [facility] Name: Rani Breen Age: 38 yrs Sex: Female : 1980 Arrival Date: 02/12/2019 Time: 19:48 Bed 4 Private MD: Diagnosis: Torsion of ovary, ovarian pedicle and fallopian tube Presentation: 02/12 19:53 Presenting complaint: Patient states: \T\ 1300 today, I started having RLQ pain, i took mg2 tylenol 3 and it didn't help. i am also nauseous. Transition of care: patient was not received from another setting of care. Onset of symptoms was February 12, 2019 at 13:00. Risk Assessment: Do you want to hurt yourself or someone else? Patient reports no desire to harm self or others. Initial Sepsis Screen: Does the patient meet any 2 criteria? No. Patient's initial sepsis screen is negative. Does the patient have a suspected source of infection? No. Patient's initial sepsis screen is negative. Care prior to arrival: None. 19:53 Method Of Arrival: Ambulatory mg2 19:53 Acuity: LYRIC 2 mg2 Triage Assessment: 20:11 General: Appears uncomfortable, Behavior is crying, patient looks in severe pain. . 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 - Social history:: Smoking status: Patient/guardian denies using tobacco, Patient uses alcohol, occasionally. Patient/guardian denies using street drugs, IV drugs. - Ebola Screening: : No symptoms or risks identified at this time. - Family history:: not pertinent. - Hospitalizations: : No recent hospitalization is reported. Screenin:10 Abuse screen: Denies threats or abuse. Denies injuries from another. Nutritional mg2 screening: No deficits noted. Tuberculosis screening: No symptoms or risk factors identified. Fall Risk IV access (20 points). Assessment: 20:05 General: Appears in no apparent distress. uncomfortable, ill, Behavior is calm, rr5 cooperative, appropriate for age. 20:05 Pain: Complains of pain in right lower quadrant Pain does not radiate. Pain currently rr5 is 8 out of 10 on a pain scale. Quality of pain is described as aching, Pain began gradually, Is intermittent. Neuro: Level of Consciousness is awake, alert, obeys commands, Oriented to person, place, time, situation, Appropriate for age. Cardiovascular: Capillary refill < 3 seconds Patient's skin is warm and dry. Respiratory: Airway is patent Respiratory effort is even, unlabored, Respiratory pattern is regular, symmetrical. GI: Abdomen is flat, Bowel sounds present X 4 quads. Guarding noted in right lower quadrant. : No signs and/or symptoms were reported regarding the genitourinary system. EENT: No signs and/or symptoms were reported regarding the EENT system. Derm: Skin is pink, warm \T\ dry. Skin temperature is warm. Musculoskeletal: Circulation, motion, and sensation intact. Capillary refill < 3 seconds. 20:38 Reassessment: ED provider reassess the patient with order made and carried out. Patient rr5 states symptoms have not improved. 21:15 Reassessment: Patient appears in no apparent distress at this time. Patient is alert, rr5 oriented x 3, equal unlabored respirations, skin warm/dry/pink. awaiting for result. Patient states symptoms have improved. 21:25 Reassessment: patient complaints of severe abdominal discomfort. ED provider informed rr5 with order made and carried out. 21:25 Pain: Pain currently is 7 out of 10 on a pain scale. rr5 21:55 Reassessment: ultrasound at bedside. ED provider spoke and explained to patient the rr5 plan of care, she is for admission,patient agreed. 22:50 Reassessment: Patient appears in no apparent distress at this time. Patient is alert, rr5 oriented x 3, equal unlabored respirations, skin warm/dry/pink. Patient states symptoms have improved. Vital Signs: 19:54 BP 155 / 109; Pulse 69; Resp 18; Temp 97.9; Pulse Ox 98% on R/A; Weight 61.69 kg; mg2 Height 5 ft. 3 in. (160.02 cm); Pain 10/10; 20:40 BP 178 / 103; Pulse 65; Resp 18; Pulse Ox 99% ; Pain 8/10; rr5 21:25 BP 145 / 73; Pulse 69; Resp 17; Pulse Ox 98% ; Pain 7/10; rr5 22:30 BP 151 / 89; Pulse 70; Resp 16; Pulse Ox 98% ; rr5 23:30 BP 141 / 89; Pulse 63; Resp 17; Temp 97.8; Pulse Ox 99% ; rr5 19:54 Body Mass Index 24.09 (61.69 kg, 160.02 cm) mg2 ED Course: 19:48 Patient arrived in ED. cf2 19:54 Triage completed. mg2 19:56 Arm band placed on. mg2 19:57 Marvin Curry MD is Attending Physician. rn 19:59 Ian Benton RN is Primary Nurse. rr5 20:00 Patient has correct armband on for positive identification. Placed in gown. Bed in low rr5 position. Call light in reach. Side rails up X2. Pulse ox on. NIBP on. 20:10 No provider procedures requiring assistance completed. Inserted saline lock: 20 gauge mg2 in left antecubital area, using aseptic technique. Blood collected. 20:26 Radiology exam delayed due to lab results not completed at this time. (BUN/Creatinine). vm2 20:[address] via wheelchair. nj 20:55 CT completed. Patient tolerated procedure well. Patient moved back from CT. nj 21:04 CT Abd/Pelvis - IV Contrast Only In Process Unspecified. EDMS 22:07 US Pelvis Complete In Process Unspecified. EDMS 22:43 Maulik Tesfaye MD is Hospitalizing Provider. rn 23:27 Patient admitted, IV remains in place. intact, No redness/swelling at site. rr5 Administered Medications: 20:20 Drug: Zofran 4 mg Route: IVP; Site: left antecubital; rr5 21:20 Follow up: Response: No adverse reaction rr5 20:22 Drug: morphine 4 mg {Note: rass 0.} Route: IVP; Site: left antecubital; rr5 20:40 Follow up: Response: No change in condition; RASS: Alert and Calm (0) rr5 20:42 Drug: Demerol 50 mg {Note: rass 0.} Route: IVP; Site: left antecubital; rr5 21:29 Follow up: Response: Marked relief of symptoms; RASS: Alert and Calm (0) rr5 21:29 Drug: morphine 4 mg {Note: rass 0.} Route: IVP; Site: left antecubital; rr5 22:29 Follow up: Response: Pain is decreased; RASS: Alert and Calm (0) rr5 23:10 Drug: morphine 4 mg {Note: RASS:0.} Route: IVP; Site: left antecubital; tr5 23:32 Follow up: Response: Pain is decreased; RASS: Alert and Calm (0) rr5 Outcome: 22:43 Decision to Hospitalize by Provider. rn 23:26 Admitted to L \T\ D, accompanied by tech, via wheelchair, room 279, with chart, Report rr5 called to iddrisu 23:26 Condition: stable 23:26 Instructed on the need for admit. 23:45 Patient left the ED. rr5 Signatures: Dispatcher [employer] EDMS Marvin Curry MD MD rn Jordan, Nathan nj McGuire, Victoria 2 Robert Ball RN RN [facility] [place] Ian Benton RN RN rr5 Pablo Kramer RN RN tr5 Ana Lundberg 2
--- NOTE | 2019-02-12 22:44 | EDPHYS ---
Physician Documentation [facility] Name: Rani Breen Age: 38 yrs Sex: Female : 1980 Arrival Date: 02/12/2019 Time: 19:48 Bed 4 Private MD: ED Physician Marvin Curry HPI: 02/12 20:13 This 38 yrs old Female presents to ER via Ambulatory with complaints of rn Abdominal Pain. 20:13 The patient presents with abdominal pain right lower quadrant. Onset: The rn symptoms/episode began/occurred this morning. The symptoms radiate to right back. Associated signs and symptoms: Pertinent positives: anorexia, nausea, Pertinent negatives: chest pain, constipation, diarrhea, dysuria, fever, hematuria, shortness of breath, vomiting, vomiting blood. The symptoms are described as intermittent, sharp, stabbing. Modifying factors: The symptoms are alleviated by nothing, the symptoms are aggravated by movement, touching the area. Severity of pain: At its worst the pain was moderate in the emergency department the pain is unchanged. The patient has not experienced similar symptoms in the past. Reports right lower abdominal pain, radiates to right flank, began this morning/noon, intermittent, assoc with anorexia and nausea. No fever. No urinary or bowel symptoms. Has had hysterectomy, and no hx of ovarian problems or kidney stones. . [employer]: 19:54 LMP N/A - Hysterectomy mg2 Historical: - Allergies: 19:56 No Known Allergies; mg2 - Home Meds: 19:56 valsartan 320 mg oral tab [Active]; Benadryl Oral [Active]; tylenol 3 [Active]; mg2 - PMHx: 19:56 Hypertension; mg2 - PSHx: 19:56 arm surgery; renal stent; mg2 - Immunization history:: Flu vaccine is not up to date. - Social history:: Smoking status: Patient/guardian denies using tobacco, Patient uses alcohol, occasionally. Patient/guardian denies using street drugs, IV drugs. - Ebola Screening: : No symptoms or risks identified at this time. - Family history:: not pertinent. - Hospitalizations: : No recent hospitalization is reported. ROS: 20:13 Constitutional: Negative for fever, chills, and weight loss, Eyes: Negative for injury, rn pain, redness, and discharge, Cardiovascular: Negative for chest pain, palpitations, and edema, Respiratory: Negative for shortness of breath, cough, wheezing, and pleuritic chest pain, Abdomen/GI: + RLQ abd pain and nausea Back: Negative for injury and pain, : Negative for injury, bleeding, discharge, and swelling, MS/Extremity: Negative for injury and deformity, Skin: Negative for injury, rash, and discoloration, Neuro: Negative for headache, weakness, numbness, tingling, and seizure. Exam: 20:13 Constitutional: This is a well developed, well nourished patient who is awake, alert, rn appears uncomfortable Head/Face: Normocephalic, atraumatic. ENT: MMM Cardiovascular: Regular rate and rhythm. No pulse deficits. Respiratory: No increased work of breathing, no retractions or nasal flaring. Speaking full sentences Abdomen/GI: soft, + RLQ tenderness, no rebound MS/ Extremity: Pulses equal, no cyanosis. Neurovascular intact. Full, normal range of motion. Equal circumference. Neuro: Awake and alert, GCS 15, oriented to person, place, time, and situation. Motor strength 5/5 in all extremities. Sensory grossly intact. Vital Signs: 19:54 BP 155 / 109; Pulse 69; Resp 18; Temp 97.9; Pulse Ox 98% on R/A; Weight 61.69 kg; mg2 Height 5 ft. 3 in. (160.02 cm); Pain 10/10; 20:40 BP 178 / 103; Pulse 65; Resp 18; Pulse Ox 99% ; Pain 8/10; rr5 21:25 BP 145 / 73; Pulse 69; Resp 17; Pulse Ox 98% ; Pain 7/10; rr5 22:30 BP 151 / 89; Pulse 70; Resp 16; Pulse Ox 98% ; rr5 23:30 BP 141 / 89; Pulse 63; Resp 17; Temp 97.8; Pulse Ox 99% ; rr5 19:54 Body Mass Index 24.09 (61.69 kg, 160.02 cm) mg2 MDM: 19:57 Patient medically screened. rn 22:12 ED course: COnsulted with Dr. Tesfaye given he is [employer] for patient, asked me to contact rn Dr. Cruz, and Dr. Cruz states will see patient in AM given has had hysterectomy. Recommends admission under Dr. Tesfaye for pain control and OR in AM. Updated patient. . 22:42 Differential diagnosis: appendicitis, diverticulitis, non-specific abd pain, Ovarian rn Torsion, Peritonitis, Pyelonephritis, Tubal Ovarian Abcess, Ureterolithiasis, urinary tract infection. Data reviewed: vital signs, nurses notes, lab test result(s), radiologic studies, CT scan, ultrasound, and as a result, I will admit patient. Counseling: I had a detailed discussion with the patient and/or guardian regarding: the historical points, exam findings, and any diagnostic results supporting the discharge/admit diagnosis, lab results, radiology results, the need for further work-up and treatment in the hospital. Response to treatment: the patient's symptoms have mildly improved after treatment, and as a result, I will admit patient. Admission orders: after a detailed discussion of the patient's condition and case, the admit orders are written by me. 02/12 20:10 Order name: Basic Metabolic Panel; Complete Time: 20:48 02/12 20:10 Order name: CBC with Diff; Complete Time: 23:38 02/12 20:10 Order name: Creatinine for Radiology; Complete Time: 20:48 02/12 20:10 Order name: Hepatic Function; Complete Time: 20:48 02/12 20:10 Order name: Lipase; Complete Time: 20:48 02/12 20:35 Order name: CBC Smear Scan; Complete Time: 23:38 EDID 02/12 20:10 Order name: IV Saline Lock; Complete Time: 20:22 02/12 20:10 Order name: CT Abd/Pelvis - IV Contrast Only 02/12 21:32 Order name: US Pelvis Complete 02/12 20:10 Order name: Labs collected and sent; Complete Time: 20:23 02/12 20:10 Order name: NPO; Complete Time: 20:23 rn Administered Medications: 20:20 Drug: Zofran 4 mg Route: IVP; Site: left antecubital; rr5 21:20 Follow up: Response: No adverse reaction rr5 20:22 Drug: morphine 4 mg {Note: rass 0.} Route: IVP; Site: left antecubital; rr5 20:40 Follow up: Response: No change in condition; RASS: Alert and Calm (0) rr5 20:42 Drug: Demerol 50 mg {Note: rass 0.} Route: IVP; Site: left antecubital; rr5 21:29 Follow up: Response: Marked relief of symptoms; RASS: Alert and Calm (0) rr5 21:29 Drug: morphine 4 mg {Note: rass 0.} Route: IVP; Site: left antecubital; rr5 22:29 Follow up: Response: Pain is decreased; RASS: Alert and Calm (0) rr5 23:10 Drug: morphine 4 mg {Note: RASS:0.} Route: IVP; Site: left antecubital; tr5 23:32 Follow up: Response: Pain is decreased; RASS: Alert and Calm (0) rr5 Disposition: 02/12/19 22:43 Hospitalization ordered by Maulik Tesfaye for Inpatient Admission. Preliminary diagnosis is Torsion of ovary, ovarian pedicle and fallopian tube. - [facility]. - Status is Inpatient Admission. rr5 - Condition is Stable. - Problem is new. - Symptoms have improved. UTI on Admission? No Signatures: Dispatcher [employer] EDID Ammy Olsen RN RN mw Nieto, Roman, MD MD rn Gardose, Michele, RN RN [facility] [place] Ian Benton RN RN rr5 Pablo Kramer RN RN tr5 Corrections: (The following items were deleted from the chart) 23:03 22:43 Hospitalization Ordered by Maulik Tesfaye MD for Inpatient Admission. Preliminary diagnosis is Torsion of ovary, ovarian pedicle and fallopian tube. Bed requested for Telemetry/MedSurg (Inpatient). Status is Inpatient Admission. Condition is Stable. Problem is new. Symptoms have improved. UTI on Admission? No. rn 23:45 23:03 02/12/2019 22:43 Hospitalization Ordered by Maulik Tesfaye MD for Inpatient rr5 Admission. Preliminary diagnosis is Torsion of ovary, ovarian pedicle and fallopian tube. Bed [facility] for [facility]. Status is Inpatient Admission. Condition is Stable. Problem is new. Symptoms have improved. UTI on Admission? No. mw
[2019-02-13] MEDS ORDERED: ZOLPIDEM TARTRATE 10 MG TABLET PO PRN (00:11)
[2019-02-13] MEDS ORDERED: PROMETHAZINE 25 MG/ML VIAL IM PRN (00:11)
[2019-02-13] MEDS ORDERED: D5LR 1,000 ML IV SCH (00:11)
[2019-02-13] MEDS ORDERED: MORPHINE 4 MG/ML SYR IV PRN (00:11)
[2019-02-13] MEDS ORDERED: KETOROLAC 30 MG/ML INJ IV ONE (00:11)
[2019-02-13 00:36] VITALS: BMI 23.3
[2019-02-13] MEDS: Ringers Lactate 1,000 ML IV SCH ×4 (00:50→10:45)
[2019-02-13 07:07] LABS: Absolute Lymphocytes (CBC) 1.7 K/uL (0.7-4.9); Basophils % 0.4 % (0-1.3); Hematocrit 29.3 % (36.0-45.0); Lymphocytes % 20.7 % (15.3-44.8); MPV 8.2 fL (7.6-11.3); RBC Red Blood Cell Count 3.66 M/uL (3.86-4.86)
[2019-02-13] MEDS ORDERED: VALSARTAN PO SCH (07:37)
[2019-02-13] MEDS ORDERED: [UNRECOGNIZED DRUG - OTHER] PO SCH (07:37)
[2019-02-13] MEDS ORDERED: HYDROCHLOROTHIAZIDE PO SCH (07:37)
[2019-02-13] MEDS ORDERED: INFLUENZA VACCINE (for 3y+) 0.5 ML DOSE IMVAC ONE (09:00)
[2019-02-13] MEDS ORDERED: VALSARTAN 160 MG TAB PO SCH (09:00)
[2019-02-13] MEDS ORDERED: hydroCHLOROthiazide 12.5 MG CAP PO SCH (09:00)
--- NOTE | 2019-02-13 09:17 | CON ---
Date of Consultation: 02/13/2019 Reason For Consultation: Pelvic mass and right lower quadrant pain. History Of Present Illness: Patient is a 38-year-old, 2, para 2, status post hysterectomy fo r possible cervical dysplasia in 2017. She presented yesterday to the emergency room with right lowe r quadrant pain, sudden onset. Took Tylenol, which did not help and she was complaining of nausea, m ost likely due to her pain. No vomiting. No bowel problems. No urinary problems. Never had this p ain in the past. Gynecologic history significant for 2 vaginal deliveries followed by a vaginal hyst erectomy for cervical dysplasia at [facility]. No dysplasia was found and she has bee n following with Dr. Tesfaye regularly. She has been his regular patient. I was consulted today for c onsideration for laparoscopic ovarian cystectomy or oophorectomy due to her pain and for possible que stion of torsion. Past Medical History: Secondary hypertension from renal artery stenosis. Past Surgical History: Significant for gastric bypass in 2013 that was laparoscopic and vaginal hyst erectomy in 2017. Right renal artery stent placement. Family History: Significant for maternal cousin, first cousin with ovarian cancer in her 30s. No ot her cancer history, and 2 years ago, her ovaries were unremarkable per the patient. Her Pap smears h ave been normal since her surgery per patient's history. Social History: No tobacco, alcohol, or drug abuse. Allergies: NO KNOWN DRUG ALLERGIES. Physical Examination: GENERAL: Patient did not appear to be in acute distress. VITAL SIGNS: 140/80, 49 for pulse, 16 for respiratory rate, and 97.2 for temperature this morning. HEAD AND NECK: Unremarkable. No supraclavicular nodes. CHEST: Clear. HEART: Regular rate and rhythm. ABDOMEN: Soft, nondistended. Mild tenderness in the right lower quadrant. Pain more significant th an tenderness. No rebound. No palpable mass on examination. EXTREMITIES: Unremarkable. No hepatosplenomegaly. No groin lymph nodes. PELVIC: Deferred for performance in the operating room. Laboratory Data: Blood count with a white cell count of 8.3, hemoglobin 9 g, and platelet count 218. Chemistries; her chloride was 108 and her estimated GFR 60, creatinine was 1.03. Glucose level was 7, this is n.p.o., but patient with IV fluids. AST slightly low, but all LFTs normal. CT scan repo rt was read by the night reader and report reviewed. I was unable to open the images. Right ovary i s symmetrical and larger due to the left, now located in the mid pelvis, underlying 5.7 cm cyst visua lize right adnexal vessels somewhat prominent on the current study concerning for possibility of ovar monica torsion. Pelvic ultrasound was recommended. Cannot have access to the images on the ultrasound. However, after the ultrasound, I was called last night somewhere between 0930 and 10 o'clock about this and she was admitted overnight for observation. Assessment And Plan: 1.Right lower quadrant pain. Patient with possible ovarian torsion. 2.Right adnexal mass, 5.[address] scan appears to not have any description here with a simple or complex. This is a new finding on this patient, possibility of malignancy low; however, present. So, pelvic washings, laparoscopy, right oophorectomy were preferable and has been discussed with the patient to alleviate her pain because the pain is intolerable without her pain medications overnight . She received Toradol at 1 p.m. and then she has received morphine this morning and her pain she ra erwin at 5/10 and walking to the bathroom was significantly painful. This is an active patient, has ne dianne had pain and so this is a significant change. 3.Hypertension. Continue valsartan, this was ordered for this morning. 4.Renal artery stenosis. The stent appears to be in place. No other anomalies have been described and her blood pressure is borderline, but fairly well controlled. Then, a small umbilical hernia has been noted on the CT scan if I go through this, then that will be fixed. Patient has consented for laparoscopy pelvic washings, right oophorectomy, and salpingo-oophorectomy whichever was found. I conley d discussion of infection, bleeding, complications for any surgical procedure, injury to the bowel, b ladder, and ureters specific to this procedure patient. 5.Recovery has been discussed. Followup has been discussed. Incision care has been discussed as we ll verbally and she will be given narcotic pain medication to go home. I would prefer that this jeni ent does not have more NSAIDs. At this time, we will just stay with tramadol or Tylenol No.3 dependi ng on what she tolerates well and she will be given a scopolamine patch. She will follow up with me in 1 week. She will be taken to the OR this morning. Alternatives of observation with followup were discussed with the patient. Torsion is not a surgical emergency at this time other than for her mary carmen n since she is post hysterectomy, does not impact her fertility, so she could observe and due to the degree of pain, she wants to proceed with surgical intervention and so we will proceed with this, thi s morning and patient will be anticipated to be discharged later today. TIFFANI Voice ID: [id number] Report ID: [id number]
[2019-02-13] MEDS ORDERED: Ringers Lactate 1,000 ML IV ONE (10:00)
[2019-02-13] MEDS ORDERED: BUPIVACAINE 0.25% PF 10 ML VIAL ONE (10:32)
[2019-02-13] MEDS ORDERED: MIDAZOLAM HCL 2 MG/2 ML INJ ONE (10:39)
[2019-02-13] MEDS ORDERED: FENTANYL CITR 100 MCG/2 ML ONE (10:39)
[2019-02-13] MEDS ORDERED: PROPOFOL 200 MG/20 ML VIAL IV ONE (10:39)
[2019-02-13] MEDS ORDERED: GLYCOPYRROLATE 0.2 MG/ML SYR ONE ×2 (10:39)
[2019-02-13] MEDS ORDERED: KETOROLAC 30 MG/ML INJ ONE (10:40)
[2019-02-13] MEDS ORDERED: ROCURONIUM 50 MG/5 ML VIAL IV ONE (10:40)
[2019-02-13] MEDS ORDERED: ONDANSETRON 4 MG/2 ML VIAL ONE (10:40)
[2019-02-13] MEDS ORDERED: MORPHINE 10 MG/ML VIAL ONE (10:40)
[2019-02-13] MEDS ORDERED: LIDOCAINE 1% MPF 5 ML VIAL ONE (10:40)
[2019-02-13] MEDS ORDERED: NEOSTIGMINE 1 MG/ML -10 ML VIAL ONE (10:40)
[2019-02-13] MEDS ORDERED: dexAMETHasone 4 MG/ML VIAL ONE (11:04)
--- NOTE | 2019-02-13 11:06 | RAD REPORT ---
EXAM DESCRIPTION: US - Pelvis Complete - 02/12/2019 10:07 pm CLINICAL HISTORY: rule out torsion Pelvic pain. COMPARISON: Transvaginal Study Probe dated 01/15/2017 FINDINGS: The uterus is surgically absent. The right ovary is normal in size measuring 2.1 x 2.1 cm and demonstrating normal Doppler blood flow. The left ovary appears abnormally enlarged, unusually positioned along the midline of the pelvis cont ains a 5 cm cyst. Diminished arterial flow to the left ovary relative to the right is seen suspicious for ovarian torsion. IMPRESSION: Findings are suspicious for left ovarian torsion.
[2019-02-13] MEDS: HYDROMORPHONE HCL 1 MG/ML INJ ONE ×4 (12:34→13:19)
[2019-02-13] MEDS ORDERED: SCOPOLAMINE HYDROBROMIDE PATCH TD ONE (12:57)
[2019-02-13 13:49] VITALS: O2SAT 97
[2019-02-13] MEDS ORDERED: MEPERIDINE HCL 50 MG/ML IM PRN (14:10)
[2019-02-13] MEDS ORDERED: PROMETHAZINE HCL 50 MG/ML AMP IM PRN (14:12)
[2019-02-13] MEDS ORDERED: PROMETHAZINE 25 MG TABLET PO PRN (14:13)
[2019-02-13] MEDS ORDERED: CODEINE 30MG/APAP 300MG TAB PO PRN (14:14)
--- NOTE | 2019-02-13 14:53 | OP ---
Date of Procedure: 02/13/2019 Surgeon: Jodee Cruz MD Compression Molding Machine Setter: Janine Rios. Preoperative Diagnoses: Right lower quadrant pain, right ovarian cyst, possible torsion. Postoperative Diagnosis: Right lower quadrant pain, right ovarian cyst, possible torsion, confirmati on of torsion, and left ovarian pedicle hypermobility. Procedures Performed: Laparoscopy, right oophorectomy, left ovariopexy, pelvic washings. Anesthesia: General endotracheal. Estimated Blood Loss: Minimal. Specimens: Right ovary. Complications: No complications. Drains: No drains. Condition: Stable. Findings: Right ovary had torsion despite untwisting. There was extreme venous congestion and no pe rfusion, so the pedicle was mobilized and ovary removed. On the left side, the ovarian pedicle was e xtremely mobile. The broad ligament has been dissected during her hysterectomy, salpingectomy with a complete salpingectomy. The ovarian pedicle was not fixed to the lateral wall. This places this ov raya at risk of torsion as well. So, left ovariopexy was performed of the left broad ligament. Appen parker completely unremarkable, no tumors. Upper abdominal cavity normal. Omentum normal. Peritoneal surface unremarkable. Description Of Procedure: The patient is a 38-year-old with tentative diagnosis of torsion, taken ba ck to the OR. No antibiotics were given. Patient was placed in supine fashion on the operating tabl e. General anesthesia given. Placed in dorsal lithotomy position. Pelvic exam was performed. Pelv ic mass was palpable about 6 cm, mobile, cul-de-sac smooth. Abdomen, vulva, vagina, and perineum were prepped and draped in a sterile fashion. Wood was placed to drain the bladder. A time-out was done. Then, the bottom area was draped. Infraumbilical incisi on was made with a scalpel using the open laparoscopy technique. Fascia was incised and fascia tagge d with 3-0 Vicryl sutures, peritoneum entered bluntly, S retractors placed. The site of entry was ch ecked, unremarkable after Myriam was introduced. A 5 mm suprapubic and left lower quadrant ports wer e placed under direct vision. Marcaine was injected first before the incisions were made and trocars were placed. Then, pelvic washings were performed after looking at the upper abdominal surfaces. L ower abdominal cavity as dictated in the findings. LigaSure was opened up. Pelvic washings were fir st performed. Then, the ovarian pedicle, the lateral broad ligament was dissected further cephalad p arallel to the ovarian vessels. There was extreme congestion of the ovarian vessels, so they were ta chapo down really high so that the congested part does not remain. The ureter was dissected at a cross ing on the external iliac medially and so I was able to take this down without any problems with the LigaSure. The specimen was released and placed in the cul-de-sac. On the left side, as noted there was mobile ovarian pedicle. So, the broad ligament, medial aspect of the peritoneum on top of the ov pk pedicle, and the lateral aspect of the peritoneum that was dissected and the lateral sidewall. These were sutured together with a 3-0 Monocryl in a continuous running fashion including the lower pole of the ovary to the distal part of the round ligament. After this entire wall was sutured with a 3-0 Monocryl and secured to the sidewall. Then, a bag was placed 10 mm through the umbilical port where the 5 camera was used. The entire specimen was placed in the bag without any problems or ruptu re. The bag was closed just at its brim. Then, once a thorough irrigation and suction were performe d, all the pedicles were confirmed to be hemostatic. The incision was extended to about 5 cm on the fascia, about 3 cm on the skin, and the bag was opened outside, fluid suctioned as much as possible t o decompress the size and then the entire specimen was pulled out intact. Irrigation of the subcutaneous tissues was performed after the closure with 0 Vicryl suture in a cont inuous running fashion. Then, the skin incisions at all 3 sites after injection of Marcaine were ross sed with continuous running Vicryl suture at the umbilicus and interrupted sutures at the other 2 inc isions. Wood was removed. Instrument, needle, and sponge counts were done and were correct at the end of the case. The patient tolerated the procedure well. She will follow up with me in 1 week and she can go back to Dr. Tesfaye. THADDEUS/ROSY Voice ID: [id number] Report ID: [id number]
[2019-02-13] MEDS ORDERED: Ringers Lactate 1,000 ML IV SCH (15:00)
[2019-02-13 16:11] VITALS: BP 111/58; TEMP 97.5
--- NOTE | 2019-02-15 12:02 | RAD REPORT ---
EXAM DESCRIPTION: Abdomen Pelvis W Contrast CLINICAL HISTORY: RLQ and flank pain TECHNIQUE: Contiguous axial images obtained through the abdomen and pelvis following the uneventful administration of IV contrast. Coronal and sagittal reformatted images were provided. This exam was performed according to our departmental dose-optimization program, which includes autom ated exposure control, adjustment of the mA and/or kV according to patient size and/or use of iterati ve reconstruction technique. COMPARISON: 08/22/2017 FINDINGS: Lung bases: Clear Liver: Unremarkable Gallbladder and biliary system: Unremarkable Pancreas: Unremarkable Spleen: Unremarkable Adrenals: Unremarkable Kidneys: Normal renal cortical enhancement. No calculi. No hydronephrosis. Bowel: Prior gastric bypass again demonstrated. Moderate stool. No obstruction. No appreciable mucosa l thickening. Appendix: Normal caliber appendix. No findings to suggest acute appendicitis. Urinary bladder: Unremarkable Reproductive: The uterus is surgically absent. The right ovary is asymmetrically enlarged relative to the left and now located in the midline pelvis (previously right anterior pelvis). There is an under lying 5.7 x 5.6 x 5.5 cm right ovarian cyst. Right adnexal vessels appear prominent on the current st udy. The left ovary is unremarkable as visualized. Lymph nodes: No pathologically enlarged lymph nodes. Peritoneum: Small amount of free fluid within the cul-de-sac. No free air. Vessels: Right renal artery stent, new from the prior. No abdominal aortic aneurysm. Abdominal wall: Tiny fat-containing umbilical hernia. Bones: Mild multilevel spondylosis. No acute fracture. IMPRESSION: 1. The right ovary is asymmetrically enlarged relative to the left and now located in the midline pelvis. There is an underlying 5.7 cm cyst. Right adnexal vessels appear somewhat promine nt on the current study. Findings are concerning for the possibility of ovarian torsion. Pelvic ultra sound is recommended for further evaluation. 2. Other findings as above. THIS REPORT CONTAINS FINDINGS THAT MAY BE CRITICAL TO PATIENT CARE: The findings were verbally discu ssed via telephone conference with Dr. Marvin Curry on 02/12/2019 9:32 PM CDT. The results were acknow ledged and understood. Electronically signed by: Floyd Alcantara MD 02/12/2019 9:35 PM CDT Due to temporary technical issues with the PACS/Fluency reporting system, reports are being signed by the in house radiologist as a courtesy to ensure prompt reporting. The interpreting radiologist is toby mirandaly responsible for the content of the report.
--- NOTE | 2019-02-15 12:07 | CON ---
History Of Present Illness: A 38-year-old female, admitted through the emergency room with diagnosis of right ovarian torsion. Patient states that the pain began suddenly at about noon yesterday when she was in a reclining chair and intensified as the day went on. She at first of course thought it w as her appendix and came to the ER. Pain level then was 10. ER consultation with me on the phone, s aid the patient's pain was intractable and they wish her to be admitted, which we did. She was given analgesics, Toradol and Ambien and slept through the night. Pain level now is 5. Her abdomen is so ft, although there is some discomfort in the right lower quadrant, but she has no rebound. Options d iscussed. Dr. Cruz has agreed to take over management of the patient if she needs surgery, of co юлия it could be best done laparoscopically and I will refer to Dr. Cruz. Full discussion with t he patient. Physical exam is stable. Her pulse is in the 50 to 60 range. Vital signs are all horacio l. She is quite stable at this point, but still in some discomfort. NAHED/ROSY Voice ID: [id number] Report ID: [id number]
== END 2019-02-13 16:20 | disposition home or self-care (01) | DRG 743 ==
LOC: ER 19:45 → 2ND-WC 23:28
PROVIDERS: ADMIT Specialist; ATTEND Specialist
PROC: 0US14ZZ Reposition Left Ovary, Percutaneous Endoscopic Approach (ICD-10-PCS; 2019-02-13)
PROC: 3E1M38X Irrigation of Peritoneal Cavity using Irrigating Substance, Percutaneous Approach, Diagnostic (ICD-10-PCS; 2019-02-13)
PROC: 0UT04ZZ Resection of Right Ovary, Percutaneous Endoscopic Approach (ICD-10-PCS; principal; 2019-02-13 11:00)
DX: N83.201 Unspecified ovarian cyst, right side (principal); N83.511 Torsion of right ovary and ovarian pedicle; I10 Essential (primary) hypertension; I70.1 Atherosclerosis of renal artery
CPT/HCPCS: 36415; 74177; 76856; 80048; 80076; 83690; 85025; 86850; 86900; 86901; 88108; 88305; 96374; 96375; 99285; J1170; J2175; J2250; J2405; J2704; J2710; J3010; J7120; Q9967

== ENCOUNTER 2019-10-11 11:59 | Emergency (ER) | payer BC ==
--- NOTE | 2019-10-11 12:40 | RAD REPORT ---
EXAM DESCRIPTION: CT - [id number] - 10/11/2019 12:31 pm CLINICAL HISTORY: Trauma, head and neck injury. post concussive symptoms have gotten worse. Injury 09/21 COMPARISON: No comparisons TECHNIQUE: Axial 5 mm thick images of the head were obtained. Axial 2 mm thick images of the cervical spine were obtained with sagittal and coronal reconstruction images generated and reviewed. All CT scans are performed using dose optimization technique as appropriate and may include automated exposure control or mA/KV adjustment according to patient size. FINDINGS: CT HEAD WITHOUT CONTRAST: No acute hemorrhage, hydrocephalus or extra-axial collection is identified.No areas of brain edema or midline shift. The paranasal sinuses and mastoids are clear.The calvarium is intact. Small right posterior scalp hem atoma. CT CERVICAL SPINE WITHOUT CONTRAST: No fracture or subluxation.No prevertebral soft tissues swelling is identified. IMPRESSION: No acute intracranial or cervical spine findings.
--- OUTSIDE RECORDS SUMMARY | 2019-10-11 15:36 | XMS REPORT | Clinical Summary ---
:1980 Author Organization [facility] Address [address] [place] [address] Care Team Providers Name Role Phone Fritz Dietz MD Primary Care Provider Allergies No Known Allergies Medications Medication Sig Dispensed Refills Start Date End Date Status valsartan-hydrochlorothi 0 09/17/2018 Active azide (DIOVAN-HCT) 320-25 mg per tablet meloxicam (MOBIC) 15 mg Take 1 tablet 30 tablet 1 12/15/2018 Active tablet (15 mg total) by mouth daily. aspirin (ECOTRIN) 81 MG Take 81 mg by 0 Active enteric coated tablet mouth daily. escitalopram (LEXAPRO) Take 10 mg by 0 08/16/2019 Active 10 MG tablet mouth daily. meloxicam (Mobic) 15 mg Take 1 tablet 30 tablet 11 08/31/2019 0 08/30/2020 Active tablet (15 mg total) by mouth daily. traMADol (ULTRAM) 50 mg Take 1 tablet 30 tablet 0 12/15/2018 0 01/21/2019 tablet (50 mg total) by mouth every 6 (six) hours as needed for moderate pain for up to 37 days. acetaminophen-codeine Take 1 tablet 40 tablet 0 01/29/2019 (TYLENOL WITH CODEINE by mouth every #3) 300-30 mg per 6 (six) hours tabletIndications: acute as needed pain (severe pain) for up to 30 days .Acute Pain. methylPREDNISolone Take as directed 21 tablet 0 08/31/201911/2019 (Medrol, Justyn,) 4 mg tablet Dispense 1 pack Hospital, Clinic, or Other Ordered Dose Route Frequency Start Date End Date Status Facility Administered Medication methylPREDNISolone acetate 40 mg IAtc once 12/15/2018 Active (DEPO-MEDROL) injection 40 mgIndications: Lateral epicondylitis of left elbow Active Problems Problem Noted Date Dyspnea 02/05/2019 Obstructive sleep apnea, adult 02/05/2019 Fatigue 02/05/2019 Diabetes mellitus 02/05/2019 Encounters Date Type Specialty Care Team Description 08/31/2019 Office Visit Orthopedic Surgery Efren Trujillo, Injur y of right knee, initial encounter (Primary Dx); Contusion of ri ght knee, initial encounter; Patellofemoral pain syndrome of right knee 08/31/2019 Travel 08/26/2019 Travel 02/08/2019 Telephone Pulmonology Greg Domingo MD 02/05/2019 Office Visit Pulmonology Greg Domingo, Dyspnea, unspecified type (Primary Dx); Obstructive sle ep apnea, adult; Fatigue, unspec ified type; Diabetes mellit us of other type without complication, 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) 02/04/2019 Emergency Emergency Medicine Mili [address] discomfort (Primary Dx); Katie Ingram MD Shortness of br eath; Abnormal CT sca n, chest 01/29/2019 Telephone Orthopedic Surgery Vonda Womack MA 12/15/2018 Office Visit Orthopedic Surgery Efren Trujillo, Later al epicondylitis of left elbow (Primary Dx); Impingement syn drome of left shoulder; Left elbow pain after 10/10/2018 Family History Medical History Relation Name Comments Stroke Father Dad Relation Name Status Comments Brother Alive Father Dad Alive Mother Alive Other children Alive Social History Tobacco Use Types Packs/Day Years Used Date Never Smoker 0 0 Smokeless Tobacco: Never Used Alcohol Use Drinks/Week oz/Week Comments Yes 0 Glasses of wine 2.0 Occasional 2 Cans of beer 0 Shots of liquor 0 Standard drinks or equivalent Sex Assigned at Date Recorded Not on file Job Start Date Occupation Industry Not on file Not on file Not on file Travel History Travel Start Travel End No recent travel history available. Last Filed Vital Signs Vital Sign Reading Time Taken Comments Blood Pressure 148/69 02/05/2019 11:49 AM CDT Pulse 68 02/05/2019 11:49 AM CDT Temperature 37.1 C (98.8 F) 02/05/2019 11:49 AM CDT Respiratory Rate 14 02/05/2019 11:49 AM CDT Oxygen Saturation 100% 02/05/2019 11:49 AM CDT Inhaled Oxygen Concentration - - Weight 60.8 kg (134 lb) 08/31/2019 10:02 AM CDT Height 162.6 cm (5' 4") 08/31/2019 10:02 AM CDT Body Mass Index 23 08/31/2019 10:02 AM CDT Plan of Treatment Health Maintenance Due Date Last Done Comments DIABETIC RETINAL EYE EXAM 1980 DIABETIC FOOT EXAM 10/01/1989 URINE MICROALBUMIN 10/01/1989 CERVICAL CANCER SCREENING 10/01/2000 INFLUENZA VACCINE 12/04/2019 Procedures Procedure Name Priority Date/Time Associated Comments Diagnosis XR KNEE 4+ VW RIGHT Routine 08/31/2019 10:12 Injury of right R esults for this AM CDT knee, initial procedure are in encounter the results section. HEMOGLOBIN A1C Routine 02/05/2019 1:16 Diabetes mellitus Resu lts for this PM CDT of other type procedure are in without the results complication, section. unspecified whether snf insulin use (HCC) ECG 12-LEAD STAT 02/04/2019 7:59 Results for this PM CDT procedure are i n the results section. CT ANGIOGRAM PE CHEST STAT 02/04/2019 7:57 Re sults for this PM CDT procedure are i n the results section. TROPONIN Routine 02/04/2019 6:23 Results for this PM CDT procedure are i n the results section. ESTIMATED GFR STAT 02/04/2019 6:23 Results fo r this PM CDT procedure are i n the results section. D-DIMER STAT 02/04/2019 6:23 Results for this PM CDT procedure are i n the results section. PROTHROMBIN TIME WITH STAT 02/04/2019 6:23 Re sults for this INR PM CDT procedure are i n the results section. TYPE AND SCREEN STAT 02/04/2019 6:23 Results for this PM CDT procedure are i n the results section. COMPREHENSIVE METABOLIC STAT 02/04/2019 6:23 Results for this PANEL PM CDT procedure are i n the results section. HC COMPLETE BLD COUNT STAT 02/04/2019 6:23 Re sults for this W/AUTO DIFF PM CDT procedure are i n the results section. ECG ED PRELIMINARY Routine 02/04/2019 6:04 Resul ts for this INTERPRETATION PM CDT procedure are in the results section. XR ELBOW 3+ VW LEFT Routine 12/15/2018 9:43 Left elbow pain R esults for this AM CDT procedure are i n the results section. CT ARTHROCENTESIS Routine 12/15/2018 9:30 Impingement Result s for this ASPIR&/INJ MAJOR AM CDT syndrome of left procedu re are in JT/BURSA W/O US shoulder the results section. after 10/10/2018 Results XR Knee 4+ Vw Right (08/31/2019 10:12 AM CDT) Specimen Narrative Performed At This result has an attachment that is no t available. 4 views (standing AP/PA, lateral and Merchants) of the Right knee(s) [facility] reveal no evidence of fracture, dislocation or any oth er acute or chronic osseous abnormalities. Performing Organization Address City/State/Zipcode Phone Number [facility] [address] [place] [address] Hemoglobin A1c (02/05/2019 1:16 PM CDT) Hemoglobin A1C 5.2 4.0 - 5.6 % KODY VERMA Comment: ELVIRA DEL ANGEL HbA1c cutoffs for diagnosing diabetes: HO SPITAL 4.0% - 5.6% = normal 5.7% - 6.4% = increased risk for diabetes (prediabetes )9 >=6.5% = diabetes9 Goals for glycemic control (ADA 2016) < 7.0% Target for non adults with diabetes. More or less stringent targets may be appropriate for individual patients. <7.5% Target for Children and adolescents with type 1 diabetes. Specimen Blood Performing Organization Address City/State/Zipcode Phone Number [facility] DEPARTMENT OF PATHOLOGY [address] [facility] [place] [address] AND GENOMIC MEDICINE [facility] [address] [facility] [address] [place] [address] HOSPITAL ECG 12 lead (02/04/2019 7:59 PM CDT) Pathologist Sig nature Ventricular rate 60 [facility] Atrial rate [address] interval 138 [facility] QRSD interval 72 [facility] QT interval 408 [facility] QTC interval 408 [facility] P axis 1 52 [facility] QRS axis 1 22 [facility] T wave axis 24 [facility] EKG impression Normal sinus rhythm-No [facility] previous ECGs available-Electronicall y Signed By Nicanor Hood MD (2024) on 02/05/2019 1:54:00 PM Specimen Narrative Performed At This result has an attachment that is no t available. Performing Organization Address City/[facility]/Zipcode Phone Number [facility] [place] [address] [place] [address] CT Angiogram Pe Chest (02/04/2019 7:57 PM CDT) Specimen Narrative Performed At EXAMINATION: [facility] CT ANGIOGRAM PE CHEST CLINICAL HISTORY: chest pain and dyspnea TECHNIQUE: CT angiographic images of the chest were obtained duri ng intravenous administration of iodinated contrast. Computerized ref ormatted images and 3-D MIP images were also obtained and archived. CT imaging was performed with iterative reconstruction techniques and/or automated exposure c ontrol to reduce radiation dose. COMPARISON: None. IMPRESSION: There is no evidence of pulmonary emboli sm. No pleural or pericardial effusions are present. No si gnificant lymphadenopathy. No consolidations Small 3 mm well-circumscribed nodule in the superior s egment of the right lower lobe and a 2 mm subpleural nodule also in the superior segment of the right lower lobe. Findings likely repre sent noncalcified granuloma, however as no prior studies a re available for comparison, follow-up in one year is rec ommended to ensure stability Postoperative changes involving the stom ach Bony structures are within normal limits [facility]-[id number] Procedure Note Interface, Radiology Results Incoming - 02/04/2019 8:04 PM CDT EXAMINATION: CT ANGIOGRAM PE CHEST CLINICAL HISTORY: chest pain and dyspnea TECHNIQUE: CT angiographic images of the chest were obtained during intravenous administration of iodinated contrast. Computerized reformatted images and 3-D MIP images were also obtained and archived. CT imaging was performed with iterative reconstruction techniques and/or automated exposure co ntrol to reduce radiation dose. COMPARISON: None. IMPRESSION: There is no evidence of pulmonary emboli sm. No pleural or pericardial effusions are present. No significant lymphadenopathy. No consolidations Small 3 mm well-circumscribed nodule in the superior segment of the right lower lobe and a 2 mm subpleural nodule also in the superior segment of the right lower lobe. Findings likely represent noncalcified granuloma, however as no prior studies are available for comparison, follow-up in o ne year is recommended to ensure stability Postoperative changes involving the stom ach Bony structures are within normal limits [facility]-[id number] Performing Organization Address City/[facility]/Zipcode Phone Number [facility] [address] [place] [address] Estimated GFR (02/04/2019 6:23 PM CDT) Estimated GFR 68 mL/min/1.73 [facility] Comment: m2 [place] Catergory Units Interpretation HOS PITAL G1 >=90 Normal or high G2 60-89 Mildly decreased G3a 45-59 Mildly to moderately decreas ed G3b 30-44 Moderately to severely decre ased G4 15-29 Severely decreased G5 <15 Kidney failure The eGFR was calculated using the Chronic Kidney Disea se Epidemiology Collaboration (CKD-EPI) equation. Interpretation is based on recommendations of the National Kidney Foundation-Kidney Disease Outcomes George lity Initiative (NKF-KDOQI) published in 2014. Specimen Plasma specimen Performing Organization Address City/[facility] Cent[facility]ode Phone Number [facility] DEPARTMENT OF PATHOLOGY [address] [place] [address] X [phone] [place] [address] HOSPITAL Troponin (02/04/2019 6:23 PM CDT) Pathologist [facility] Troponin <0.006 0.000 - 0.040 KODY VERMA Comment: ng/mL [facility] changed methodology eff ective: HOSPITAL 09/08/2018 at 10:00 am The new method has a 99th percentile cutoff of 0.040 n g/mL Specimen Plasma specimen Performing Organization Address [facility] [place] [facility] Centercomo Phone Number [facility] DEPARTMENT OF PATHOLOGY [address] [place] [address] X [phone] [place] [address] HOSPITAL Prothrombin time with INR (02/04/2019 6:23 PM CDT) Pathologist [facility] Prothrombin time 14.3 11.5 - 14.5 [facility] INR 1.1 [place] Comment: JUDAISM [facility] International Normalized Ratio (INR) is a therapeu [facility] monitoring tool for patients who are stable on oral anticoagulant therapy. An INR of 2.0-3.0 is suggested for deep vein thrombosis/pulmonary embolism. Specimen Blood Performing Organization Address City/[facility]/Zipcode Phone Number [facility] DEPARTMENT OF PATHOLOGY [address] [place] [address] X [phone] [place] [phone] [place] [address] D-dimer (02/04/2019 6:23 PM CDT) [facility] D-dimer 3.15 (H) 0.00 - 0.40 [facility] Comment: ug/mL [place] Units are ug/ml Fibrinogen Equivalent Unit. HOSPITAL When combined with low clinical probability, D-dimer r esults of less than 0.5 ug/ml FEU have a good negative pred ictive value in excluding PE or DVT. For D-dimer results greater than 0.5 ug/ml FEU furth er testing is indicated if PE or DVT is suspected clini suyapa. Elevated D-dimer results have been reported in DVT, PE , and DIC cases and may indicate the presence of a clot. D-dimer results may be elevated due to old age, pregna ncy, inflammatory diseases, trauma, post-operative states, sepsis, and malignancies. Specimen Blood Performing Organization Address City/State/Zipcode Phone Number [facility] DEPARTMENT OF PATHOLOGY [address] [facility] [address] [address] [facility] [id number] [place] [address] CBC with platelet and differential (02/04/2019 6:23 PM CDT) [facility] WBC 8.1 4.5 - 11.0 k/uL [facility] RBC 4.47 4.20 - 5.50 [facility] m/uL [facility] HGB 10.8 (L) 12.0 - 16.0 [facility] g/dL [facility] HCT 35.9 (L) 37.0 - 47.0 % [facility] MCV 80.3 (L) 82.0 - 100.0 fL [facility] MCH 24.2 (L) 27.0 - 34.0 pg [facility] MCHC 30.1 (L) 31.0 - 37.0 [facility] g/dL [facility] RDW - SD 52.6 37.0 - 55.0 fL [facility] MPV 11.0 6.9 - 11.0 fL [facility] Platelet count 354 150 - 400 K/uL [facility] Nucleated RBC 0.00 /100 WBC [facility] Neutrophils 65.8 39.0 - 69.0 % [facility] Lymphocytes 24.5 (L) 25.0 - 45.0 % [facility] Monocytes 6.6 0.0 - 10.0 % [facility] Eosinophils 2.2 0.0 - 5.0 % [facility] Basophils 0.7 0.0 - 1.0 % [facility] Immature granulocytes 0.2 0.0 - 1.0 % [facility] Specimen Blood Performing Organization Address City/State/Zipcode Phone Number [facility] DEPARTMENT OF PATHOLOGY [address] [place] [phone] AND GENOMIC MEDICINE [address] [place] [address] HOSPITAL Type and screen (02/04/2019 6:23 PM CDT) Pathologist Sig nature ABO grouping O [facility] Rh type POS [facility] Antibody screen (gel) NEG [facility] Specimen Blood Performing Organization Address [facility]/Zipcode Phone Number [facility] DEPARTMENT OF PATHOLOGY [address] [place] [address] X [phone] [place] [address] Comprehensive metabolic panel (02/04/2019 6:23 PM CDT) Pathologist Sig nature Sodium 138 135 - 148 mEq/L [facility] Potassium 3.7 3.5 - 5.0 mEq/L [facility] Chloride 103 98 - 112 mEq/L [facility] CO2 25 24 - 31 mEq/L [facility] Anion gap 10@ANIO 7 - 15 mEq/L [facility] BUN 10 6 - 20 mg/dL [facility] Creatinine 1.03 (H) 0.50 - 0.90 [facility] mg/dL [facility] Glucose 176 (H) 65 - 99 mg/dL [facility] Calcium 9.2 8.3 - 10.2 [facility] mg/dL [facility] Protein 6.7 6.3 - 8.3 g/dL [facility] Albumin 4.0 3.5 - 5.0 g/dL [facility] A/G ratio 1.5 0.7 - 3.8 [facility] Alkaline phosphatase 74 35 - 104 U/L [facility] AST 17 10 - 35 U/L [facility] ALT 11 5 - 50 U/L [facility] Total bilirubin <0.2 0.2 - 1.2 mg/dL [facility] Specimen Plasma specimen Performing Organization Address City/[facility] [place] [facility] Centercomo Phone Number [facility] DEPARTMENT OF PATHOLOGY [address] [facility], [place] [address] AND GENOMIC MEDICINE [facility] [address] [facility] [place] [address] [facility] ECG ED Preliminary Interpretation - Not an Order (02/04/2019 6:04 PM CDT) Narrative Performed At Allan Romero NP 02/04/2019 8:47 PM ECG ED Preliminary Interpretation - Not an Order Performed by: Allan Romero NP Authorized by: Mili West MD ECG reviewed by ED Physician in the abse nce of a classroom aide: yes Interpretation: Interpretation: normal Rate: ECG rate: 60 Rhythm: Rhythm: sinus rhythm Ectopy: Ectopy: none QRS: QRS axis: Normal QRS intervals: Normal ST segments: ST segments: Normal T waves: T waves: normal XR Elbow 3+ Vw Left (12/15/2018 9:43 AM CDT) Specimen Narrative Performed At This result has an attachment that is no t available. 3 views of the left elbow show no fracture or dislocation and no joint [facility] arthrosis or other bony lesions. Performing Organization Address City/[facility] [place] [facility] Center[facility]o Phone Number [facility] [address] [place] [address] Large Joint Arthrocentesis: shoulder, L subacromial bursa (12/15/2018 9:30 AM CDT) Narrative Performed At Efren Trujillo MD 12/22/2018 11:1 5 AM Large Joint Arthrocentesis: shoulder, L subacromial bursa Consent given by: patient Timeout: Immediately prior to procedure a time out was called to verify the correct patient, procedure, equipmen t, technical support agent and site/side marked as required Supporting Documentation Indications: pain Procedure Details Preparation: Patient was prepped and isacc ped in the usual sterile fashion Ultrasound guided: no Location: shoulder - L subacromial bursa Left side: Needle size: 22 G Approach: lateral after 10/10/2018 Advance Directives For more information, please contact: [phone] Type Date Recorded 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
--- OUTSIDE RECORDS SUMMARY | 2019-10-11 15:42 | XMS REPORT | Continuity of Care Document ---
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 [address] [place] [address], ANGEL Fowler Cardiac 04/23/20 11/04/2018 arrhythmia, 18 [place] unspecified CCL / RENAL ANGIO Active 04/22/20 [facility] 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 [facility] of stomach Group, (situation) [facility], AGNEL Black,[facility], [place] ANGEL Fowler,[facility] Hypertensive Active Problem 04/18/2019 Med ical disorder, systemic G roup, arterial [place] (disorder) [facility], ANGEL Black,[facility], [place] ANGEL Fowler,[facility] Obesity (disorder) Active Problem 04/18/2019 Medical Group,[facility], ANGEL [place], [place], M [facility] ANGEL Fowler,[facility] Bariatric surgery 11/17/2018 [facility], ANGEL Fowler Essential 11/17/2018 [facility] (primary) [facility] hypertension Center, RACHELNeida Fowler ILLNESS, Active Memoria l UNSPECIFIED City ANEMIA, Active Memoria l UNSPECIFIED [place] UNSPECIFIED Active Memor ial ABDOMINAL PAIN [facility] LEFT LOWER Active Memori al QUADRANT PAIN [facility] Medications Medication Details Route Status Patient Ordering Order Source Instructions Provider Date Acetaminophen Notes: Do not Inactive exceed 4 2018 [facility] gm/day. (Same City as: Tylenol) Ofirmev Notes: Max Active acetaminophen 2018 [facility] 4000 mg/day (4 City gm/day). (Same as: Tylenol Extra Strength) Lovenox Notes: (Same No Longer as: Lovenox) Active 2018 [facility] tramadol 50 mg, PO, Q6H, Active hydrochloride 50 PRN Pain Score 2018 [facility] MG Oral Tablet 4-6, X 3 day, # C ity 12 tab, 0 Refill(s) tramadol Notes: Not to No Longer hydrochloride 50 exceed 2018 Memoria l MG Oral Tablet 400mg/day. City (Same As: Ultram) Labetalol Notes: (Same No Longer as: Normodyne, Active 2018 [facility] Trandate) Push City over 2 minutes Give bolus over 2-3 minutes. Hydralazine Notes: (Same No Longer as: Apresoline) Active 2018 [facility] Push over 5 City minutes fentaNYL (ANES) Route: IV, Drug Inactive form: INJ, 2018 [facility] ONCE, Stop [facility] date: 03/02/19 17:50:00 CDT glycopyrrolate Route: IV, Drug Inactive (ANES) form: INJ, 2018 [facility] ONCE, Stop [facility] date: 03/02/19 17:50:00 CDT neostigmine (ANES) Route: IV, Drug Inactive 02/03 form: INJ, 2018 [facility] ONCE, Stop [facility] date: 03/02/19 17:50:00 CDT ondansetron (ANES) Route: IV, Drug Inactive 02/03 form: INJ, 2018 [facility] date: 03/02/19 16:59:00 CDT dexamethasone Route: IV, Drug Inactive H (ANES) form: [id number] [facility] date: 03/02/19 16:59:00 CDT famotidine (ANES) Route: IV, Drug Inactive 03/02 form: [id number] [facility] date: 03/02/19 16:59:00 CDT midazolam (ANES) Route: IV, Drug Inactive form: SOLN, 2018 date: 03/02/19 16:59:00 CDT fentaNYL (ANES) Route: IV, Drug Inactive form: [id number] [facility] date: 03/02/19 16:59:00 CDT lidocaine (ANES) Route: IV, Drug Inactive form: [id number] [facility] date: 03/02/19 16:59:00 CDT propofol (ANES) Route: IV, Drug Inactive form: [id number] [facility] date: 03/02/19 16:59:00 CDT rocuronium (ANES) Route: IV, Drug Inactive 03/02 form: [id number] [facility] date: 03/02/19 16:59:00 CDT acetaminophen Route: IV, Drug Inactive H (ANES) 10 mg form: INJ, 2018 [facility] Start date: 03/02/19 16:56:00 CDT, Stop date: 03/02/19 17:56:00 CDT ceFAZolin (ANES) Route: IV, Drug Inactive form: INJ, 2018 [facility] date: 03/02/19 16:48:00 CDT Sodium Chloride 500 mL, 1500 Inactive 0.9% (Bolus) IV ml/hr, Infuse 2018 [facility] Over: 20 City minutes, Route: IV, 500, Drug form: INJ, ONCE, Dosing Weight 65.5 kg, Start date: 03/02/19 16:37:00 CDT, PRN Other -See Comment, 0 Calcium Chloride 1,000 mL, Rate: Inactive 0.0014 MEQ/ML / 125 ml/hr, 2019 Mem[facility] ial Potassium Chloride Infuse over: [facility] 0.004 MEQ/ML / hr, Route: IV, Sodium Chloride Dosing Weight 0.103 MEQ/ML / 65.5 kg, Total Sodium Lactate Volume: 1,000, 0.028 MEQ/ML Start date: Injectable 03/02/19 Solution 16:37:00 CDT, Duration: 30 day, Stop date: 04/01/19 16:36:00 ASSOCIATE PROFESSOR OF ECONOMICS, 1.74, m2 Hydralazine 10 mg, Route: Inactive IVP, Q20Min, 2018 [facility] Dosing Weight [facility] 65.5, kg, PRN Elevated BP, Start date: 03/02/19 16:37:00 CDT, Duration: 2 doses or times, Stop date: Limited # of times Labetalol 10 mg, Route: Inactive IVP, Q5Min, 2018 [facility] Dosing Weight [facility] 65.5, kg, PRN Elevated BP, Start date: 03/02/19 16:37:00 CDT, Duration: 5 doses or times, Stop date: Limited # of times Metoprolol 1 mg, Route: Inactive IVP, Q5Min, 2018 [facility] Dosing Weight [facility] 65.5, kg, PRN Other -See Comment, Start date: 03/02/19 16:37:00 CDT, Duration: 5 doses or times, Stop date: Limited # of times Acetaminophen 1,000 mg, Inactive Route: PO, Drug 2018 [facility] form: TAB, [facility] ONCE, Dosing Weight 65.5, kg, PRN Pain Score 1-3, Start date: 03/02/19 16:37:00 CDT Morphine 2 mg, Route: Inactive IVP, Q5Min, 2018 [facility] Dosing Weight [facility] 65.5, kg, PRN Pain Score 4-6, Start date: 03/02/19 16:37:00 CDT, Duration: 5 doses or times, Stop date: Limited # of times Hydromorphone 0.5 mg, Route: Inactive IVP, Q5Min, 2018 [facility] Dosing Weight [facility] 65.5, kg, PRN Pain Score 7-10, Start date: 03/02/19 16:37:00 CDT, Duration: 4 doses or times, Stop date: Limited # of times Flumazenil 0.2 mg, Route: Inactive IVP, PRN, 2019 [facility] Dosing Weight [facility] 65.5, kg, PRN Benzodiazepine Reversal, Initial dose, Start date: 03/02/19 16:37:00 CDT, Duration: 30 day, Stop date: 04/01/19 15:36:00 ASSOCIATE PROFESSOR OF ECONOMICS Naloxone 0.4 mg, Route: Inactive IVP, Q2MIN, 2018 [facility] Dosing Weight [facility] 65.5, kg, PRN Narcotic Reversal, Start date: 03/02/19 16:37:00 CDT, Duration: 8 doses or times, Stop date: Limited # of times Albuterol 0.83 2.49 mg, Route: Inactive MG/ML Inhalant NEB, Q20Min, 2019 [place] Solution Dosing Weight [facility] 65.5, kg, PRN Wheezing, Priority: STAT, Start date: 03/02/19 16:37:00 CDT, Duration: 30 day, Stop date: 04/01/19 15:36:00 ASSOCIATE PROFESSOR [employer] ECONOMICS Diphenhydramine 12.5 mg, Route: Inactive IVP, Drug form: 2019 [facility] INJ, Q6H, [facility] Dosing Weight 65.5, kg, PRN Itching, Start date: 03/02/19 16:37:00 CDT, Duration: 30 day, Stop date: 04/01/19 16:36:00 ASSOCIATE PROFESSOR [employer] ECONOM[employer] Meperidine 12.5 mg, Route: Inactive IVP, Q30Min, 2018 [facility] Dosing Weight [facility] 65.5, kg, PRN Other -See Comment, For shivering, Start date: 03/02/19 16:37:00 CDT, Duration: 2 doses or times, Stop date: Limited # of times Ondansetron 4 mg, Route: Inactive IVP, ONCE, 2018 [facility] Dosing Weight [facility] 65.5, kg, PRN Nausea & Vomiting, Start date: 03/02/19 16:37:00 CDT Promethazine 6.25 mg, Route: Inactive IVPB, ONCE, 2018 [facility] Weight [facility] 65.5, kg, PRN Nausea & Vomiting, Start date: 03/02/19 16:37:00 CDT Ancef 2 gm, Route: Inactive IVPB, ONCE, 2019 [facility] Dosing Weight [facility] 65.5, kg, Start date: 03/02/19 16:26:00 CDT, Stop date: 03/02/19 16:26:00 CDT, Surgical Prophylaxis Only; For patients < 120 kg, ABX Indication: Surgical Prophylaxis Lactated Ringers Route: IV, Inactive Injection [facility] 1,000, Start City date: 03/02/19 15:57:00 CDT, Stop date: 03/02/19 16:57:00 CDT Hydrochlorothiazid 1 tab, Route: No Longer 03/02 e 25 MG / PO, Drug Form: Active 2018 [facility] valsartan 320 MG TAB, Dosing Cit y Oral Tablet Weight 65.5, kg, Daily, Start date: 03/02/19 9:00:00 CDT, Duration: 30 day, Stop date: 03/31/19 9:00:00 ASSOCIATE PROFESSOR OF ECONOMICS valsartan Notes: Same as No Longer Diovan Active 2018 [facility] hydrochlorothiazid Notes: (Same No Longer e as: Active 2018 [facility] Hydrodiuril) [facility] With food. Lovenox Notes: (Same Inactive as: Lovenox) 2018 [facility] Sodium Chloride 984.8 mL, Rate: Inactive 0.9% IV 984.8 mL + 500 ml/hr, 2019 Nh morial M.V.I.-12 10 mL + Infuse over: 2 City folic acid IV 1 mg hr, Route: IV, + thiamine IV 500 Dosing Weight mg 65.5 kg, Total Volume: 1,000, Start date: 03/01/19 20:00:00 CDT, Duration: 1 doses or times, Stop date: 03/01/19 21:59:00 CDT, 1.74, m2, 0 Protonix Notes: For IV No Longer push Active 2018 [facility] with 10 ml 0.9% sodium chloride and push over 2 minutes. (Same as: Protonix) Sucralfate 100 Notes: May No Longer MG/ML Oral interfere Active 2018 [facility] Suspension w/enteral feeds City [Carafate] - Take 1 hr before or 2 hr after antacids, dairy pdt, meals & minerals - On empty stomach. For patients unable to swallow tablet, dissolve in 10mL - 30mL of water or juice and stir before giving. (Same As: Carafate) Optisource Post 1 tab, Route: No Longer Bariatric Surgery PO, Drug Form: Active 2018 [facility] oral tablet, CHEWTAB, Dosing Cit y chewable Weight 64.744, kg, QID, Start date: 03/01/19 17:00:00 CDT, Duration: 30 day, Stop date: 03/31/19 13:00:00 ASSOCIATE PROFESSOR OF ECONOMICS, 0 Sodium Chloride 984.8 mL, Rate: Inactive 0.9% IV 984.8 mL + 500 ml/hr, 2018 [facility] M.V.I.-12 10 mL + Infuse over: 2 City folic acid IV 1 mg hr, Route: IV, + thiamine IV 500 Dosing Weight mg 64.744 kg, Total Volume: 1,000, Start date: 03/01/19 16:33:00 CDT, Duration: 1 doses or times, Stop date: 03/01/19 18:32:00 CDT, 1.73, m2, 0 Lactated Ringers 1,000 mL, Rate: No Longer 03/01 IV 1,000 mL 125 ml/hr, Active 2018 [facility] Infuse over: 8 City hr, Route: IV, Dosing Weight 64.744 kg, Total Volume: 1,000, Start date: 03/01/19 16:33:00 CDT, Duration: 30 day, Stop date: 03/31/19 16:32:00 ASSOCIATE PROFESSOR OF ECONOMICS, 1.73, m2, 0 Dilaudid Notes: Same as No Longer Dilaudid Active 2018 [facility] Zofran Notes: (Same No Longer as: Zofran) Active 2018 [facility] MEDICATION City WASTE Product Size: 4 mg Product Wasted: ___ mg Phenergan 12.5 mg, 50 mL, No Longer Route: IV Active 2018 [facility] City form: SOLN, Q6H, Dosing Weight 64.744, kg, PRN Nausea & Vomiting, Start date: 03/01/19 16:33:00 CDT, Duration: 30 day, Stop date: 03/31/19 16:32:00 ASSOCIATE PROFESSOR OF ECONOMICS, 0 Sucralfate 1000 MG 1 gm = 1 tab, Active Oral Tablet PO, QID, crush 2019 Memor ial [Carafate] and mix with [facility] 5-10mL water, # 56 tab, 0 Refill(s) tramadol 50 mg = 1 tab, Active hydrochloride 50 PO, Q6H, PRN 2019 Me morial MG Oral Tablet Pain, X 3 day, Ci ty # 12 tab, 0 Refill(s) omeprazole 40 mg 40 mg = 1 cap, Active oral delayed PO, Daily, # 30 2019 [facility] orial release capsule cap, 1 City Refill(s) acetaminophen Notes: Max Inactive acetaminophen 2019 [facility] 4000 mg/day (4 City gm/day). (Same as: Tylenol Extra Strength) Regmau Notes: (Same Inactive as: Reglan) 2018 [facility] Hydrochlorothiazid 1 tab, PO, Active e 25 MG / Daily, # 60 2019 [facility] valsartan 320 MG tab, 0 [facility] Oral Tablet Refill(s) clindamycin 300 mg 300 mg = 1 cap, Active 02/26 oral capsule PO, Q8H, # 30, 2019 [facility] 0 Refill(s) [facility] Clindamycin TID, 0 Inactive Refill(s) 2018 [facility] 72 HR Scopolamine Notes: Change Inactive 0.0139 MG/HR patch every 72 2019 [facility] Transdermal Patch hours (Same City as: Transderm-Scop) Protonix Notes: For IV Inactive push 2018 [facility] with 10 ml 0.9% sodium chloride and push over 2 minutes. (Same as: Protonix) Sucralfate 100 Notes: May No Longer 10// MH MG/ML Oral interfere Active 2018 [facility] Suspension w/enteral feeds [facility] [Carafate] - Take 1 hr before or 2 hr after antacids, dairy pdt, meals & minerals - On empty stomach. For patients unable to swallow tablet, dissolve in 10mL - 30mL of water or juice and stir before giving. (Same As: Carafate) Lovenox Notes: (Same No Longer as: Lovenox) Active 2018 [facility] BD Normal Saline Notes: (Same No Longer Flush as: BD Active 2018 [facility] Posiflush) [facility] Sodium Chloride 25 mL, Route: No Longer 0.9% IV IV, Start date: Active 2018 [facility] 02/25/19 [facility] 19:59:00 CDT, Duration: 30 day, Stop date: 03/27/19 18:58:00 ASSOCIATE PROFESSOR OF ECONOMICS, PRN Line Flush, 0 Ofirmev Notes: Infuse No Longer over 15 minutes Active 2018 [facility] Do not exceed [facility] 4gm/day of acetaminophen MEDICATION WASTE Product Size: 1000 mg Product Wasted: ___ mg Sodium Chloride 984.8 mL, Rate: Inactive 0.9% IV 984.8 mL + 500 ml/hr, 2018 [facility] M.V.I.-12 10 mL + Infuse over: 2 City folic acid IV 1 mg hr, Route: IV, + thiamine IV 500 Dosing Weight mg 65.909 kg, Total Volume: 1,000, Start date: 02/25/19 17:05:00 CDT, Duration: 1 doses or times, Stop date: 02/25/19 19:04:00 CDT, 1.73, m2, 0 Lactated Ringers 1,000 mL, Rate: No Longer 02/25 IV 1,000 mL 125 ml/hr, 2018 [facility] Infuse over: 8 City hr, Route: IV, Dosing Weight 65.909 kg, Total Volume: 1,000, Start date: 02/25/19 17:05:00 CDT, Duration: 30 day, Stop date: 03/27/19 17:04:00 ASSOCIATE PROFESSOR OF ECONOMICS, 1.73, m2, 0 Dilaudid Notes: Same as No Longer Dilaudid Active 2018 [facility] Zofran Notes: (Same No Longer as: Zofran) [address] MEDICATION City WASTE Product Size: 4 mg Product Wasted: ___ mg Phenergan 12.5 mg, 50 mL, No Longer Route: IV Active 2019 [facility] Drug City form: SOLN, Q6H, Dosing Weight 65.909, kg, PRN Nausea & Vomiting, Start date: 02/25/19 17:05:00 CDT, Duration: 30 day, Stop date: 03/27/19 17:04:00 ASSOCIATE PROFESSOR OF ECONOMICS, 0 Aspirin 81 MG Notes: Do not No Longer [place] Enteric Coated crush or chew. Active 2018 N[facility] dical Tablet (Same As: Center Ecotrin) clopidogrel Notes: (Same No Longer [place] As: Plavix) Active 2018 [facility] valsartan Notes: Same as No Longer [place] Diovan Active 2018 [facility] Hydrochlorothiazid Notes: (Same No Longer [place] e as: Active 2018 Medical Hydrodiuril) Center With food. valsartan 160 mg 160 mg, PO, Active [place] oral tablet Daily, # 90 2018 Medical tab, 0 Center Refill(s) Hydrochlorothiazid 25 mg, PO, Active [place] e 25 MG Oral Daily, # 90 2018 Medical Tablet tab, 0 Center Refill(s) clopidogrel 75 mg 75 mg, PO, Active [place] oral tablet Daily, # 90 2018 Medical tab, 3 Center Refill(s) Aspirin 81 MG 81 mg, PO, Active [place] Enteric Coated Daily, # 90 2018 Medic al Tablet tab, 0 Center Refill(s) Nitroglycerin Notes: (Same Inactive [place] as:Nitroquick, 2018 Medical Nitrostat) "Do Center Not Crush" Sublingual tablet Sodium Chloride 250 mL, 250 No Longer [place] 0.9% (Bolus) IV ml/hr, Infuse Active 2017 N[facility] dical Over: 1 hr, Center Route: IV, 250, Drug form: INJ, ONCE, Dosing Weight 66.364 kg, Start date: 04/30/18 11:58:00 ASSOCIATE PROFESSOR OF ECONOMICS, Stop date: 04/30/18 11:58:00 ASSOCIATE PROFESSOR OF ECONOMICS Hydrochlorothiazid 1 tab, PO, Inactive [place] e 25 MG / Daily, # 90 2018 Medical valsartan 320 MG tab, 0 Center Oral Tablet Refill(s) normal saline 0.9% 1,000 mL, Rate: Inactive 04/05 [place] IV 1,000 mL 100 ml/hr, 2018 Medical Infuse over: 10 Center hr, Route: IV, Dosing Weight 66.364 kg, Total Volume: 1,000, Priority: STAT, Start date: 04/30/18 7:49:00 ASSOCIATE PROFESSOR OF ECONOMICS, Duration: 1 day, Stop date: 05/01/18 7:48:00 ASSOCIATE PROFESSOR OF ECONOMICS, 1.75, m2 Dulcolax Laxative Notes: (Same Inactive As: Dulcolax, [address] [place] [address] Correctol) (Do City Not Crush) "Do Not Crush" sodium chloride 250 mL, Rate: No Longer 0.9% INJ 250 mL web site project manager for use [facility] 2016 [facility] with blood [facility] product administration, Dosing Weight 59.091, kg, Route: IV, Total Volume: 250, Start Date: 01/10/17 11:37:00 CDT, Duration: 30 day, Stop date: 02/09/17 11:36:00 CDT, Replace Every: 24 hr Famotidine Notes: (Same No Longer as: Pepcid) Can [address] be dilute in [facility] 5-10cc NS IVP: Slow IV push over at least 2 minutes. Lexus Notes: Inactive (polyethylene [address] [place] [address] glycol [facility] electrolyte solution 4 Liter bottle) (Same as: Desean Cannon) JoshuaYTEBEBE Notes: Inactive (polyethylene [address] [place] [address] glycol [facility] electrolyte solution 4 Liter bottle) (Same as: Desean Cannon) Golytely 4,000 ml, Inactive Route: PO, Drug [address] [place] [address] Form: PDR/REC, [facility] Dosing Weight 59.091, kg, ONCE, Start date: 01/09/17 21:50:00 CDT, Duration: 1 doses or times, Stop date: 01/09/17 21:50:00 CDT Saline Flush 0.9% Notes: No Longer preservative [address] free. [facility] Lactated Ringers 1,000 mL, Rate: No Longer 01/09 1,000 mL 125 ml/hr, [address] Infuse over: 8 City hr, Route: IV, Dosing Weight 59.091 kg, Total Volume: 1,000, Start date: 01/09/17 18:41:00 CDT, Duration: 30 day, Stop date: 02/08/17 18:40:00 CDT Ondansetron Notes: (Same No Longer as: Zofran) Active 2016 [facility] MEDICATION City WASTE Product Size: 4 mg Product Wasted: ___ mg Acetaminophen Notes: Do not No Longer exceed 4 Active 2016 [facility] gm/day. (Same City as: Tylenol) Dilaudid Notes: Same as No Longer Dilaudid Active 2016 [facility] Ketorolac 4 days No Longer MEDICATION Active 2016 [facility] WASTE [facility] Product Size: 30 mg Product Wasted: ___ mg Phenergan 12.5 mg, 50 mL, No Longer Route: IVPB, Active 2016 [facility] Drug form: City SOLN, Q4H, Dosing Weight 59.091, kg, PRN Nausea & Vomiting, Start date: 01/09/17 18:41:00 CDT, Duration: 30 day, Stop date: 02/08/17 18:40:00 CDT Lexus Notes: Inactive (polyethylene 2016 [facility] glycol [facility] electrolyte solution 4 Liter bottle) (Same as: [place]us Colyte) pantoprazole 40 MG 40 mg = 1 tab, Active Enteric Coated PO, Daily, # 30 2017 [facility] Tablet [Protonix] tab, 3 City Refill(s) Sucralfate 100 1 gm = 10 mL, Active MG/ML Oral PO, QID-Before 2017 [facility] Suspension Meals, # 840 City [Carafate] mL, 0 Refill(s) Sucralfate 100 Notes: Enteral Inactive H MG/ML Oral feeds september 2016 [facility] Suspension interfere with [facility] [Carafate] the absorption of this medication. Shake well. Take 1 hr before or 2 hrs after antacids, dairy pdt, minerals & meals. (Same As: Carafate) Sodium Chloride 25 mL, Route: Inactive H 0.9% IV IV, Start date: 2016 [facility] 08/12/16 [facility] 0:00:00 CDT, Duration: 30 day, Stop date: 09/10/16 23:59:00 CDT, PRN Line Flush BD Normal Saline Notes: (Same Inactive H Flush as: BD 2016 [facility] Posiflush) [facility] Notes: Infuse Inactive over 15 minutes 2016 [facility] Do not exceed City 4gm/day of acetaminophen MEDICATION WASTE Product Size: 1000 mg Product Wasted: ___ mg Tylenol 650 mg, Route: No Longer PO, Drug form: Active 2016 [facility] TAB, Q6H, [facility] Dosing Weight 54.545, kg, Start date: 08/12/16 0:00:00 CDT, Duration: 4 doses or times, Stop date: 08/12/16 18:00:00 CDT BD Normal Saline Notes: (Same No Longer Flush as: BD Active 2016 [facility] Posiflush) [facility] pantoprazole 80 mg Notes: infuse No Longer 08/12 + sodium chloride at 8 mg/hr (10 2016 [facility] 0.9% 100 mL INJ ml/hr) for 72 Ci ty (for IV set) 100 hrs for GI mL bleed Ferrlecit Notes: (sodium No Longer ferric 2016 [facility] gluconate [facility] complex (elemental iron) 62.5 mg/5 ml INJ) "Limited stability. Use immediately after admixture" (Same as: Ferrlecit) MEDICATION WASTE Product Size: 62.5 mg Product Wasted: ___ mg Sodium Chloride 250 mL, Rate: Inactive H 0.154 MEQ/ML 25 ml/hr, 2016 [facility] Injectable Infuse over: 10 City Solution hr, Route: IV, Dosing Weight 54.545 kg, Total Volume: 250, Start date: 08/11/16 22:43:00 CDT, Duration: 72 hr, Stop date: 08/14/16 22:42:00 CDT Metoprolol Notes: (Same No Longer as: Lopressor) Active 2016 [facility] Push over 2 City minutes Promethazine Notes: Do not No Longer give IV push. Active 2016 [facility] (Same as: [facility] Phenergan) Ondansetron Notes: (Same No Longer as: Zofran) Active 2016 [facility] MEDICATION City WASTE Product Size: 4 mg Product Wasted: ___ mg Calcium Chloride 1,000 mL, Rate: No Longer 08/12 0.0014 MEQ/ML / 125 ml/hr, Active 2016 [facility] ial Potassium Chloride Infuse over: [facility] 0.004 MEQ/ML / hr, Route: IV, Sodium Chloride Dosing Weight 0.103 MEQ/ML / 54.545 kg, Sodium Lactate Total Volume: 0.028 MEQ/ML 1,000, Start Injectable date: 08/11/16 Solution 22:43:00 CDT, Duration: 30 day, Stop date: 09/10/16 22:42:00 CDT ferrous sulfate 325 mg = 1 tab, No Longer 325 mg oral PO, Daily, # 30 Active 2016 [facility] enteric coated tab, 0 City tablet Refill(s) Ondansetron Notes: (Same No Longer as: Zofran) Active 2015 [facility] MEDICATION City WASTE Product Size: 4 mg Product Wasted: ___ mg Naloxone Notes: Same as No Longer Narcan Active 2015 [facility] Flumazenil Notes: (Same No Longer as: Romazicon) Active 2015 [facility] Allergies, Adverse Reactions, Alerts Substance Category Reaction Severity Reaction Status Date Comments S ource type Reported No Known Assertion Drug MH Medication allergy Memor ial Allergies City Immunizations No Data Provided for This Section Results Order Name Results Value Reference Date Interpretation Comments Melisa rce Range ELECTROLYTE Sodium Lvl 138 135 - 145 03/03 S [facility] ELECTROLYTE Potassium 5.0 3.5 - 5.1 03/03 S Lvl [facility] ELECTROLYTE Chloride Lvl 104 95 - 109 03/03 [facility] ELECTROLYTE Calcium Lvl 9.4 8.5 - 10.5 03/03 S [facility] ELECTROLYTE BUN 7 7 - 22 03/03 [facility] ELECTROLYTE CO2 27 24 - 32 03/03 S [facility] ELECTROLYTE Glucose Lvl 134 70 - 99 03/03 S [facility] ELECTROLYTE Creatinine 0.88 0.50 - 03/03 S Lvl 1.40 /2018 [facility] ELECTROLYTE eGFR 83 03/03 Result MH S /2019 Comment: [facility] eGFR is City calculated using the CKD-EPI formula. In most young, healthy individuals the eGFR will be >90 mL/min/1.73m2 . The eGFR declines with age. An eGFR of 60-89 may be normal in some populations, particularly the elderly, for whom the CKD-EPI formula has not been extensively validated. Use of the eGFR is not recommended in the following populations:< br/>
Lorena viduals with unstable creatinine concentration s, including patients and those with serious co-morbid conditions.<b r/>
Patie nts with extremes in muscle mass or diet.

The data above are obtained from the National Kidney Disease Education Program (NKDEP) which additionally recommends that when the eGFR is used in patients with extremes of body mass index for purposes of drug dosing, the eGFR should be multiplied by the estimated BMI. ELECTROLYTE AGAP 12.0 10.0 - 03/03 MH S 20.0 [facility] HEMATOLOGY WBC 12.9 3.7 - 10.4 03/03 [facility] HEMATOLOGY RBC 3.83 4.20 - 03/03 MH 5.40 [facility] HEMATOLOGY Hgb 10.2 12.0 - 03/03 MH 16.0 [facility] HEMATOLOGY Hct 31.3 36.0 - 03/03 MH 48.0 [facility] HEMATOLOGY MCV 81.7 80.0 - 03/03 MH 98.0 /2018 [facility] HEMATOLOGY MCH 26.6 27.0 - 03/03 MH 31.0 [facility] HEMATOLOGY MCHC 32.6 32.0 - 03/03 MH 36.0 [facility] HEMATOLOGY RDW 23.8 11.5 - 03/03 MH 14.5 /2018 [facility] HEMATOLOGY Platelet 282 133 - 450 03/03 [facility] HEMATOLOGY MPV 8.8 7.4 - 10.4 03/03 [facility] HEMATOLOGY Segs 86.5 45.0 - 03/03 MH 75.0 [facility] HEMATOLOGY Lymphocytes 7.5 20.0 - 03/03 MH 40.0 [facility] HEMATOLOGY Monocytes 5.7 2.0 - 12.0 03/03 [facility] HEMATOLOGY Basophils 0.3 0.0 - 1.0 03/03 [facility] HEMATOLOGY Neutrophils 11.1 1.5 - 8.1 03/03 MH # /2018 [facility] HEMATOLOGY Lymphocytes 1.0 1.0 - 5.5 03/03 # [facility] HEMATOLOGY Monocytes # 0.7 0.0 - 0.8 03/03 [facility] BLOOD BANK ABO/Rh O POS 03/02 RESULTS /2018 [facility] BLOOD BANK Antibody Negative 03/02 RESULTS Scrn (03/02/19 12:35 PM) [facility] CHEM PANEL Calcium Lvl 8.9 8.5 - 10.5 03/02 [facility] CHEM PANEL Sodium Lvl 143 135 - 145 03/02 [facility] CHEM PANEL Potassium 4.7 3.5 - 5.1 03/02 Lvl [facility] CHEM PANEL Chloride Lvl 110 95 - 109 03/02 [facility] CHEM PANEL Glucose Lvl 77 70 - 99 03/02 [facility] CHEM PANEL BUN 6 7 - 22 03/02 [facility] CHEM PANEL CO2 26 24 - 32 03/02 [facility] CHEM PANEL Creatinine 0.80 0.50 - 03/02 Lvl 1.40 [facility] CHEM PANEL eGFR 93 03/02 Result Comment: [facility] eGFR is City calculated using the CKD-EPI formula. In most young, healthy individuals the eGFR will be >90 mL/min/1.73m2 . The eGFR declines with age. An eGFR of 60-89 may be normal in some populations, particularly the elderly, for whom the CKD-EPI formula has not been extensively validated. Use of the eGFR is not recommended in the following populations:< br/>
Lorena viduals with unstable creatinine concentration s, including patients and those with serious co-morbid conditions.<b r/>
Patie nts with extremes in muscle mass or diet.

The data above are obtained from the National Kidney Disease Education Program (NKDEP) which additionally recommends that when the eGFR is used in patients with extremes of body mass index for purposes of drug dosing, the eGFR should be multiplied by the estimated BMI. CHEM PANEL AGAP 11.7 10.0 - 03/02 MH 20.0 [facility] HEMATOLOGY Segs 53.8 45.0 - 03/02 75.0 /2019 [facility] HEMATOLOGY Lymphocytes 34.3 20.0 - 03/02 MH 40.0 [facility] HEMATOLOGY Monocytes 8.3 2.0 - 12.0 03/02 [facility] HEMATOLOGY Eosinophils 2.5 0.0 - 4.0 03/02 [facility] HEMATOLOGY Basophils 1.1 0.0 - 1.0 03/02 [facility] HEMATOLOGY Neutrophils 3.5 1.5 - 8.1 03/02 # /2018 [facility] HEMATOLOGY Lymphocytes 2.2 1.0 - 5.5 03/02 # [facility] HEMATOLOGY Monocytes # 0.5 0.0 - 0.8 03/02 [facility] HEMATOLOGY Eosinophils 0.2 0.0 - 0.5 03/02 [facility] HEMATOLOGY Basophils # 0.1 0.0 - 0.2 03/02 [facility] HEMATOLOGY WBC 6.5 3.7 - 10.4 03/02 [facility] HEMATOLOGY RBC 3.62 4.20 - 03/02 MH 5.40 [facility] HEMATOLOGY Hgb 9.5 12.0 - 03/02 16.0 [facility] HEMATOLOGY Hct 29.6 36.0 - 03/02 48.0 [facility] HEMATOLOGY MCV 81.6 80.0 - 03/02 98.0 [facility] HEMATOLOGY MCH 26.1 27.0 - 03/02 31.0 [facility] HEMATOLOGY MCHC 32.0 32.0 - 03/02 36.0 [facility] HEMATOLOGY RDW 23.8 11.5 - 03/02 14.5 [facility] HEMATOLOGY Platelet 234 133 - 450 03/02 [facility] HEMATOLOGY MPV 8.7 7.4 - 10.4 03/02 [facility] ELECTROLYTE AGAP 10.9 10.0 - 03/01 S 20.0 [facility] ELECTROLYTE B/C Ratio 9 6 - 25 03/01 [facility] ELECTROLYTE Globulin 3.2 2.7 - 4.2 03/01 [facility] ELECTROLYTE A/G Ratio 1.2 0.7 - 1.6 03/01 S [facility] ELECTROLYTE Sodium Lvl 142 135 - 145 03/01 [facility] ELECTROLYTE Potassium 3.9 3.5 - 5.1 03/01 S Lvl [facility] ELECTROLYTE Chloride Lvl 109 95 - 109 03/01 [facility] ELECTROLYTE Calcium Lvl 9.4 8.5 - 10.5 03/01 [facility] ELECTROLYTE Albumin Lvl 4.0 3.5 - 5.0 03/01 [facility] ELECTROLYTE Glucose Lvl 80 70 - 99 03/01 [facility] ELECTROLYTE BUN 8 7 - 22 03/01 [facility] ELECTROLYTE CO2 26 24 - 32 03/01 [facility] ELECTROLYTE AST 14 0 - 37 03/01 [facility] ELECTROLYTE Creatinine 0.91 0.50 - 03/01 S Lvl 1. [facility] ELECTROLYTE ALT 19 0 - 65 03/01 [facility] ELECTROLYTE eGFR 80 03/01 Comment: [facility] eGFR is City calculated using the CKD-EPI formula. In most young, healthy individuals the eGFR will be >90 mL/min/1.73m2 . The eGFR declines with age. An eGFR of 60-89 may be normal in some populations, particularly the elderly, for whom the CKD-EPI formula has not been extensively validated. Use of the eGFR is not recommended in the following populations:< br/>
Lorena viduals with unstable creatinine concentration s, including patients and those with serious co-morbid conditions.<b r/>
Patie nts with extremes in muscle mass or diet.

The data above are obtained from the National Kidney Disease Education Program (NKDEP) which additionally recommends that when the eGFR is used in patients with extremes of body mass index for purposes of drug dosing, the eGFR should be multiplied by the estimated BMI. ELECTROLYTE Total 7.2 6.4 - 8.4 03/01 S [facility] ELECTROLYTE Bili Total 0.1 0.2 - 1.3 03/01 [facility] ELECTROLYTE Alk Phos 82 39 - 136 03/01 [facility] HEMATOLOGY WBC 7.2 3.7 - 10.4 03/01 [facility] HEMATOLOGY RBC 3.96 4.20 - 03/01 MH 5. [facility] HEMATOLOGY Hgb 10.6 12.0 - 03/01 MH 16.0 [facility] HEMATOLOGY Hct 32.2 36.0 - 03/01 48.0 /2018 [facility] HEMATOLOGY MCV 81.3 80.0 - 03/01 98.0 /2018 [facility] HEMATOLOGY MCH 26.8 27.0 - 03/01 MH 31.0 /2018 [facility] HEMATOLOGY MCHC 32.9 32.0 - 03/01 36.0 /2018 [facility] HEMATOLOGY RDW 23.3 11.5 - 03/01 14.5 /2018 [facility] HEMATOLOGY Platelet 272 133 - 450 03/01 /2018 [facility] HEMATOLOGY MPV 8.5 7.4 - 10.4 03/01 /2018 [facility] HEMATOLOGY Segs 70.1 45.0 - 03/01 75.0 /2018 [facility] HEMATOLOGY Lymphocytes 19.9 20.0 - 03/01 40.0 /2018 [facility] HEMATOLOGY Monocytes 7.4 2.0 - 12.0 03/01 /2018 [facility] HEMATOLOGY Eosinophils 1.7 0.0 - 4.0 03/01 /2018 [facility] HEMATOLOGY Basophils 0.9 0.0 - 1.0 03/01 MH /2018 [facility] HEMATOLOGY Neutrophils 5.1 1.5 - 8.1 03/01 /2019 [facility] HEMATOLOGY Lymphocytes 1.4 1.0 - 5.5 03/01 # /2018 [facility] HEMATOLOGY Monocytes # 0.5 0.0 - 0.8 03/01 /2018 [facility] HEMATOLOGY Eosinophils 0.1 0.0 - 0.5 03/01 # /2019 [facility] HEMATOLOGY Basophils # 0.1 0.0 - 0.2 03/01 [facility] ELECTROLYTE AGAP 11.6 10.0 - 02/26 MH S 20.0 [facility] ELECTROLYTE Sodium Lvl 143 135 - 145 02/26 MH S [facility] ELECTROLYTE Potassium 4.6 3.5 - 5.1 02/26 MH S Lv [facility] ELECTROLYTE Chloride Lvl 109 95 - 109 02/26 MH S [facility] ELECTROLYTE Calcium Lvl 8.9 8.5 - 10.5 02/26 S [facility] ELECTROLYTE Glucose Lvl 75 70 - 99 02/26 MH S [facility] ELECTROLYTE BUN 8 7 - 22 02/26 MH S [facility] ELECTROLYTE CO2 27 24 - 32 10 S [facility] ELECTROLYTE Creatinine 0.72 0.50 - 02/26 S Lvl 1. [facility] ELECTROLYTE eGFR 106 02/26 [facility] S Comment: [facility] eGFR is City calculated using the CKD-EPI formula. In most young, healthy individuals the eGFR will be >90 mL/min/1.73m2 . The eGFR declines with age. An eGFR of 60-89 may be normal in some populations, particularly the elderly, for whom the CKD-EPI formula has not been extensively validated. Use of the eGFR is not recommended in the following populations:< br/>
Lorena viduals with unstable creatinine concentration s, including patients and those with serious co-morbid conditions.<b r/>
Patie nts with extremes in muscle mass or diet.

The data above are obtained from the National Kidney Disease Education Program (NKDEP) which additionally recommends that when the eGFR is used in patients with extremes of body mass index for purposes of drug dosing, the eGFR should be multiplied by the estimated BMI. HEMATOLOGY Segs 52.3 45.0 - 02/26 MH 75.0 [facility] HEMATOLOGY Lymphocytes 36.4 20.0 - 02/26 MH 40.0 [facility] HEMATOLOGY Monocytes 7.7 2.0 - 12.0 02/26 [facility] HEMATOLOGY Eosinophils 2.2 0.0 - 4.0 02/26 [facility] HEMATOLOGY Basophils 1.4 0.0 - 1.0 02/26 [facility] HEMATOLOGY Neutrophils 2.9 1.5 - 8.1 02/26 # 2019 [facility] HEMATOLOGY Lymphocytes 2.0 1.0 - 5.5 02/26 # [facility] HEMATOLOGY Monocytes # 0.4 0.0 - 0.8 02/26 [facility] HEMATOLOGY Eosinophils 0.1 0.0 - 0.5 02/26 # [facility] HEMATOLOGY Basophils # 0.1 0.0 - 0.2 02/26 [facility] HEMATOLOGY WBC 5.5 3.7 - 10.4 02/26 [facility] HEMATOLOGY RBC 3.48 4.20 - 02/26 MH 5.40 [facility] HEMATOLOGY Hgb 9.1 12.0 - 02/26 MH 16.0 [facility] HEMATOLOGY Hct 28.2 36.0 - 02/26 MH 48.0 [facility] HEMATOLOGY MCV 81.0 80.0 - 02/26 MH 98.0 [facility] HEMATOLOGY MCH 26.2 27.0 - 02/26 MH 31.0 [facility] HEMATOLOGY MCHC 32.3 32.0 - 02/26 MH 36.0 [facility] HEMATOLOGY RDW 23.2 11.5 - 02/26 MH 14.5 [facility] HEMATOLOGY Platelet 211 133 - 450 02/26 [facility] HEMATOLOGY MPV 8.7 7.4 - 10.4 02/26 [facility] ELECTROLYTE AGAP 10.2 10.0 - 02/25 MH S 20.0 [facility] ELECTROLYTE B/C Ratio 12 6 - 25 02/25 S [facility] ELECTROLYTE Globulin 3.0 2.7 - 4.2 02/25 S [facility] ELECTROLYTE A/G Ratio 1.2 0.7 - 1.6 02/25 S [facility] ELECTROLYTE Sodium Lvl 141 135 - 145 02/25 S [facility] ELECTROLYTE Potassium 4.2 3.5 - 5.1 02/25 MH S Lvl [facility] ELECTROLYTE Chloride Lvl 106 95 - 109 02/25 MH S [facility] ELECTROLYTE Calcium Lvl 9.5 8.5 - 10.5 02/25 S [facility] ELECTROLYTE Glucose Lvl 85 70 - 99 02/25 S [facility] ELECTROLYTE CO2 29 24 - 32 02/25 S [facility] ELECTROLYTE Albumin Lvl 3.7 3.5 - 5.0 02/25 S [facility] ELECTROLYTE BUN 9 7 - 22 02/25 MH S [facility] ELECTROLYTE Creatinine 0.75 0.50 - 10 MH S Lvl 1.40 /2018 [facility] ELECTROLYTE ALT 17 0 - 65 02/25 MH S [facility] ELECTROLYTE AST 8 0 - 37 02/25 S [facility] ELECTROLYTE eGFR 100 02/25 S Comment: [facility] eGFR is City calculated using the CKD-EPI formula. In most young, healthy individuals the eGFR will be >90 mL/min/1.73m2 . The eGFR declines with age. An eGFR of 60-89 may be normal in some populations, particularly the elderly, for whom the CKD-EPI formula has not been extensively validated. Use of the eGFR is not recommended in the following populations:< br/>
Lornea viduals with unstable creatinine concentration s, including patients and those with serious co-morbid conditions.<b r/>
Patie nts with extremes in muscle mass or diet.

The data above are obtained from the National Kidney Disease Education Program (NKDEP) which additionally recommends that when the eGFR is used in patients with extremes of body mass index for purposes of drug dosing, the eGFR should be multiplied by the estimated BMI. ELECTROLYTE Total 6.7 6.4 - 8.4 10 MH S [facility] ELECTROLYTE Bili Total 0.3 0.2 - 1.3 02/25 MH S [facility] ELECTROLYTE Alk Phos 69 39 - 136 02/25 MH S [facility] HEMATOLOGY WBC 6.4 3.7 - 10.4 02/25 [facility] HEMATOLOGY RBC 3.76 4.20 - 02/25 MH 5.40 [facility] HEMATOLOGY Hgb 9.8 12.0 - 02/25 MH 16.0 [facility] HEMATOLOGY Hct 30.3 36.0 - 02/25 MH 48.0 [facility] HEMATOLOGY MCV 80.4 80.0 - 02/25 MH 98.0 [facility] HEMATOLOGY MCH 25.9 27.0 - 02/25 MH 31.0 [facility] HEMATOLOGY MCHC 32.2 32.0 - 02/25 MH 36.0 [facility] HEMATOLOGY RDW 23.6 11.5 - 02/25 MH 14.5 [facility] HEMATOLOGY Platelet 230 133 - 450 02/25 [facility] HEMATOLOGY MPV 8.4 7.4 - 10.4 02/25 [facility] HEMATOLOGY Segs 66.5 45.0 - 02/25 MH 75.0 [facility] HEMATOLOGY Lymphocytes 25.0 20.0 - 02/25 MH 40.0 [facility] HEMATOLOGY Monocytes 6.1 2.0 - 12.0 02/25 [facility] HEMATOLOGY Eosinophils 1.4 0.0 - 4.0 02/25 [facility] HEMATOLOGY Basophils 1.0 0.0 - 1.0 02/25 [facility] HEMATOLOGY Neutrophils 4.2 1.5 - 8.1 02/25 MH # /2018 [facility] HEMATOLOGY Lymphocytes 1.6 1.0 - 5.5 02/25 # /2018 [facility] HEMATOLOGY Monocytes # 0.4 0.0 - 0.8 02/25 [facility] HEMATOLOGY Eosinophils 0.1 0.0 - 0.5 02/25 # /2018 [facility] HEMATOLOGY Basophils # 0.1 0.0 - 0.2 02/25 [facility] HEMATOLOGY POC 275 04/30 [facility] Activated /2017 [facility] Time BLOOD BANK Antibody Negative 04/30 [facility] RESULTS Scrn (04/30/18 7:53 AM) [facility] BLOOD BANK ABO/Rh O POS 04/30 [facility] RESULTS [facility] CHEM PANEL Magnesium 2.5 1.8 - 2.4 04/30 [facility] Lvl [facility] CHEM PANEL eGFR 84 04/30 Result Comment: The Medical eGFR is Center calculated using the CKD-EPI formula. In most young, healthy individuals the eGFR will be >90 mL/min/1.73m2 . The eGFR declines with age. An eGFR of 60-89 may be normal in some populations, particularly the elderly, for whom the CKD-EPI formula has not been extensively validated. Use of the eGFR is not recommended in the following populations:< br/>
Lorena viduals with unstable creatinine concentration s, including patients and those with serious co-morbid conditions.<b r/>
Patie nts with extremes in muscle mass or diet.

The data above are obtained from the National Kidney Disease Education Program (NKDEP) which additionally recommends that when the eGFR is used in patients with extremes of body mass index for purposes of drug dosing, the eGFR should be multiplied by the estimated BMI. CHEM PANEL Glucose Lvl 93 70 - 99 04/30 [facility] CHEM PANEL BUN 10 7 - 22 04/30 [facility] CHEM PANEL Potassium 3.5 3.5 - 5.1 04/30 [facility] Lvl [facility] CHEM PANEL Creatinine 0.88 0.50 - 04/30 [place] Lvl 1.40 [facility] CHEM PANEL Sodium Lvl 139 135 - 145 04/30 [facility] CHEM PANEL Calcium Lvl 9.4 8.5 - 10.5 04/30 [place] [facility] CHEM PANEL Chloride Lvl 103 95 - 109 04[facility] CHEM PANEL CO2 29 24 - 32 04/30 2017 [facility] CHEM PANEL ALT 19 0 - 65 04/30 2017 [facility] CHEM PANEL Alk Phos 83 39 - 136 04/30 [facility] CHEM PANEL Albumin Lvl 4.5 3.5 - 5.0 04/30 [facility] s [facility] CHEM PANEL Total 8.1 6.4 - 8.4 04/30 [place] Protein [facility] CHEM PANEL AST 15 0 - 37 04/30 2017 [facility] CHEM PANEL Bili Total 0.3 0.2 - 1.3 04/30 [facility]2017 [facility] CHEM PANEL B/C Ratio 11 6 - 25 04/30 2017 [facility] CHEM PANEL AGAP 10.5 10.0 - 04/30 [place] 20.0 [facility] CHEM PANEL Globulin 3.6 2.7 - 4.2 04/30 2017 [facility] CHEM PANEL A/G Ratio 1.2 0.7 - 1.6 04/30 [facility] HEMATOLOGY INR 1.01 0.85 - 04/30 [place] 1.17 [facility] HEMATOLOGY PT 13.1 12.0 - 04/30 [place] 14.7 [facility] HEMATOLOGY PTT 27.5 22.9 - 04/30 [place] 35.8 /2017 [facility] HEMATOLOGY RDW 16.2 11.5 - 04/30 [place] 14.5 [facility] HEMATOLOGY Platelet 250 133 - 450 04/30 [facility] HEMATOLOGY MCH 27.7 27.0 - 04/30 [place] 31.0 [facility] HEMATOLOGY Hct 37.4 36.0 - 04/30 [place] 48.0 [facility] HEMATOLOGY MCHC 33.1 32.0 - 04/30 [place] 36.0 [facility] HEMATOLOGY MCV 83.7 80.0 - 04/30 [place] 98.0 [facility] HEMATOLOGY MPV 8.8 7.4 - 10.4 04/[address] [place] [address] HEMATOLOGY RBC 4.47 4.20 - 04/30 [place] 5.40 /2017 [facility] HEMATOLOGY Hgb 12.4 12.0 - 04/30 MH [place] 16.0 [facility] HEMATOLOGY WBC 7.5 3.7 - 10.4 04/30 [facility] HEMATOLOGY Basophils # 0.1 0.0 - 0.2 04/30 [facility] HEMATOLOGY Monocytes # 0.6 0.0 - 0.8 04/30 [facility] HEMATOLOGY Eosinophils 0.1 0.0 - 0.5 04/30 [facility] s [facility] HEMATOLOGY Segs 66.5 45.0 - 04/30 [facility] 75.0 [facility] HEMATOLOGY Neutrophils 5.0 1.5 - 8.1 04/30 [facility] s # [facility] HEMATOLOGY Lymphocytes 1.8 1.0 - 5.5 04/30 [facility] HEMATOLOGY Basophils 1.0 0.0 - 1.0 04/30 [facility]2017 [facility] HEMATOLOGY Lymphocytes 23.8 20.0 - 04/30 [facility] 40.0 [facility] HEMATOLOGY Monocytes 7.9 2.0 - 12.0 04/30 [facility] HEMATOLOGY Eosinophils 0.8 0.0 - 4.0 04/30 [facility] URINE CHEM U Preg Negative Negative 04/30 [facility] (04/30/18 7:53 AM) [facility] CHEM PANEL eGFR 77 01/11 Result Comment: [facility] eGFR is City calculated using the CKD-EPI formula. In most young, healthy individuals the eGFR will be >90 mL/min/1.73m2 . The eGFR declines with age. An eGFR of 60-89 may be normal in some populations, particularly the elderly, for whom the CKD-EPI formula has not been extensively validated. Use of the eGFR is not recommended in the following populations:< br/>
Lorena viduals with unstable creatinine concentration s, including patients and those with serious co-morbid conditions.<b r/>
Patie nts with extremes in muscle mass or diet.

The data above are obtained from the National Kidney Disease Education Program (NKDEP) which additionally recommends that when the eGFR is used in patients with extremes of body mass index for purposes of drug dosing, the eGFR should be multiplied by the estimated BMI. CHEM PANEL Creatinine 0.95 0.50 - 01/11 Lvl 1.40 /2016 [facility] CHEM PANEL BUN 10 7 - 22 01/11 /2016 [facility] CHEM PANEL CO2 27 24 - 32 01/11 /2016 [facility] CHEM PANEL Glucose Lvl 109 70 - 99 01/11 /2016 [facility] CHEM PANEL AGAP 9.9 10.0 - 01/11 MH 20.0 /2016 [facility] CHEM PANEL Sodium Lvl 141 135 - 145 01/11 [facility] CHEM PANEL Potassium 4.9 3.5 - 5.1 01/11 MH Lvl /2016 [facility] CHEM PANEL Calcium Lvl 8.5 8.5 - 10.5 01/11 /2016 [facility] CHEM PANEL Chloride Lvl 109 95 - 109 01/11 /2016 [facility] HEMATOLOGY MCHC 31.4 32.0 - 01/11 36.0 /2016 [facility] HEMATOLOGY RDW 20.4 11.5 - 01/11 MH 14.5 /2016 [facility] HEMATOLOGY Platelet 190 133 - 450 01/11 [facility] HEMATOLOGY MPV 8.6 7.4 - 10.4 01/11 /2016 [facility] HEMATOLOGY MCH 21.5 27.0 - 01/11 31.0 [facility] HEMATOLOGY MCV 68.4 80.0 - 01/11 MH 98.0 /2016 [facility] HEMATOLOGY RBC 4.50 4.20 - 01/11 MH 5.40 /2016 [facility] HEMATOLOGY WBC 7.0 3.7 - 10.4 01/11 /2016 [facility] HEMATOLOGY Hgb 9.7 12.0 - 01/11 MH 16.0 /2016 [facility] HEMATOLOGY Hct 30.8 36.0 - 01/11 MH 48.0 [facility] HEMATOLOGY Bands 1.0 0.0 - 11.0 01/11 [facility] HEMATOLOGY Monocytes 4.0 2.0 - 12.0 01/11 /2016 [facility] HEMATOLOGY Lymphocytes 41.0 20.0 - 01/11 MH 40.0 [facility] HEMATOLOGY Atypical 0.0 <=0.0 % 01/11 Lymphs /2016 [facility] HEMATOLOGY Basophils 2.0 0.0 - 1.0 01/11 [facility] HEMATOLOGY Microcyte 3+ None Seen 01/11 *ABN* /2016 [facility] (01/11/17 1:57 AM) [facility] HEMATOLOGY Plt Morph Normal 01/11 (01/11/17 1:57 AM) /2016 [facility] HEMATOLOGY Lymphocytes 2.9 1.0 - 5.5 01/11 MH # /2017 [facility] HEMATOLOGY Monocytes # 0.3 0.0 - 0.8 01/11 /2016 [facility] HEMATOLOGY Segs-Bands # 3.7 1.5 - 8.1 01/11 /2016 [facility] HEMATOLOGY Basophils # 0.1 0.0 - 0.2 01/11 /2016 [facility] HEMATOLOGY Segs 52.0 45.0 - 01/11 MH 75.0 /2016 [facility] BLOOD BANK RBC product Product available 01/10 RESULTS (01/10/17 5:27 PM) /2016 [facility] URINE AND Occult Bld Negative Negative 01/10 STOOL Stl (01/10/17 4:25 PM) /2016 [facility] BLOOD BANK Antibody Negative 01/10 RESULTS Scrn (01/10/17 1:03 PM) /2016 [facility] BLOOD BANK ABO/Rh O POS 01/10 RESULTS /2016 [facility] BLOOD [facility] RBC product Product available 01/10 RESULTS (01/10/17 11:22 AM) /2016 [facility] CHEM PANEL Bili Total 0.5 0.2 - 1.3 01/10 [facility] CHEM PANEL Alk Phos 70 39 - 136 01/10 [facility] CHEM PANEL A/G Ratio 1.3 0.7 - 1.6 01/10 [facility] CHEM PANEL Globulin 2.7 2.7 - 4.2 01/10 [facility] CHEM PANEL Total 6.1 6.4 - 8.4 01/10 [facility] CHEM PANEL Chloride Lvl 106 95 - 109 01/10 [facility] CHEM PANEL Calcium Lvl 8.5 8.5 - 10.5 01/10 [facility] CHEM PANEL Potassium 4.1 3.5 - 5.1 01/10 Lvl /2016 [facility] CHEM PANEL Sodium Lvl 141 135 - 145 01/10 [facility] CHEM PANEL B/C Ratio 12 6 - 25 01/10 [facility] CHEM PANEL AST 15 0 - 37 01/10 [facility] CHEM PANEL AGAP 15.1 10.0 - 01/10 MH 20.0 /2016 [facility] CHEM PANEL ALT 15 0 - 65 01/10 [facility] CHEM PANEL eGFR 103 01/[address] [facility] Comment: The [facility] eGFR is [place] calculated using the CKD-EPI formula. In most young, healthy individuals the eGFR will be >90 mL/min/1.73m2 . The eGFR declines with age. An eGFR of 60-89 may be normal in some populations, particularly the elderly, for whom the CKD-EPI formula has not been extensively validated. Use of the eGFR is not recommended in the following populations:< br/>
Lorena viduals with unstable creatinine concentration s, including patients and those with serious co-morbid conditions.<b r/>
Patie nts with extremes in muscle mass or diet.

The data above are obtained from the National Kidney Disease Education Program (NKDEP) which additionally recommends that when the eGFR is used in patients with extremes of body mass index for purposes of drug dosing, the eGFR should be multiplied by the estimated BMI. CHEM PANEL Albumin Lvl 3.4 3.5 - 5.0 01/10 [facility] CHEM PANEL Creatinine 0.75 0.50 - 01/10 Lvl 1.40 /2016 [facility] CHEM PANEL CO2 24 24 - 32 01/10 [facility] CHEM PANEL Glucose Lvl 73 70 - 99 01/10 [facility] CHEM PANEL BUN 9 7 - 22 01/10 [facility] CHEM PANEL Magnesium 2.3 1.8 - 2.4 01/10 Lvl /2016 [facility] CHEM PANEL Phosphorus 3.9 2.5 - 4.5 01/10 [facility] HEMATOLOGY Lymphocytes 2.2 1.0 - 5.5 01/10 MH # /2017 [facility] HEMATOLOGY Monocytes # 0.5 0.0 - 0.8 01/10 [facility] HEMATOLOGY Segs-Bands # 3.2 1.5 - 8.1 01/10 [facility] HEMATOLOGY Basophils 0.9 0.0 - 1.0 01/10 [facility] HEMATOLOGY Eosinophils 0.8 0.0 - 4.0 01/10 [facility] HEMATOLOGY Monocytes 8.9 2.0 - 12.0 01/10 [facility] HEMATOLOGY Microcyte 3+ None Seen 01/10 *NA* /2016 [facility] (01/10/17 3:18 AM) [place] HEMATOLOGY Basophils # 0.1 0.0 - 0.2 09 /2016 [facility] HEMATOLOGY Segs 53.1 45.0 - 01/10 MH 75.0 /2016 [facility] HEMATOLOGY Lymphocytes 36.3 20.0 - 01/10 MH 40.0 /2016 [facility] HEMATOLOGY MCV 65.1 80.0 - 01/10 MH 98.0 /2016 [facility] HEMATOLOGY Hct 23.9 36.0 - 01/10 MH 48.0 /2016 [facility] HEMATOLOGY MPV 9.2 7.4 - 10.4 09 /2016 [facility] HEMATOLOGY Platelet 184 133 - 450 09 /2016 [facility] HEMATOLOGY RBC 3.67 4.20 - 01/10 MH 5.40 /2016 [facility] HEMATOLOGY Hgb 7.4 12.0 - 01/10 MH 16.0 [facility] HEMATOLOGY MCHC 30.7 32.0 - 01/10 MH 36.0 /2016 [facility] HEMATOLOGY MCH 20.0 27.0 - 01/10 MH 31.0 /2016 [facility] HEMATOLOGY RDW 17.2 11.5 - 01/10 MH 14.5 /2016 [facility] HEMATOLOGY WBC 6.0 3.7 - 10.4 01/10 /2016 [facility] HEMATOLOGY Eosinophils 0.5 0.0 - 4.0 01/09 /2016 [facility] HEMATOLOGY Monocytes 7.8 2.0 - 12.0 01/09 /2016 [facility] HEMATOLOGY Plt Morph Normal 01/09 (01/09/17 11:45 AM) /2016 [facility] HEMATOLOGY Segs 61.4 45.0 - 01/09 MH 75.0 [facility] HEMATOLOGY Lymphocytes 29.1 20.0 - 01/09 MH 40.0 [facility] HEMATOLOGY Microcyte 3+ None Seen 01/09 *NA* /2016 [facility] (01/09/17 11:45 AM) [facility] HEMATOLOGY Basophils # 0.1 0.0 - 0.2 01/09 [facility] HEMATOLOGY Hypochrom 1+ None Seen 01/09 (01/09/17 11:45 AM) /2016 [facility] HEMATOLOGY Basophils 1.2 0.0 - 1.0 01/09 [facility] HEMATOLOGY Lymphocytes 1.9 1.0 - 5.5 01/09 MH # /2016 [facility] HEMATOLOGY Monocytes # 0.5 0.0 - 0.8 01/09 /2016 [facility] HEMATOLOGY Segs-Bands # 4.1 1.5 - 8.1 09 /2016 [facility] HEMATOLOGY MCHC 30.1 32.0 - 09 MH 36.0 /2016 [facility] HEMATOLOGY MCV 64.5 80.0 - 01/09 MH 98.0 /2016 [facility] HEMATOLOGY Hct 26.4 36.0 - 01/09 MH 48.0 /2016 [facility] HEMATOLOGY MCH 19.4 27.0 - 01/09 MH 31.0 /2016 [facility] HEMATOLOGY MPV 8.9 7.4 - 10.4 09 /2016 [facility] HEMATOLOGY RDW 17.6 11.5 - 01/09 MH 14.5 /2016 [facility] HEMATOLOGY Platelet 205 133 - 450 09 /2016 [facility] HEMATOLOGY Hgb 7.9 12.0 - 01/09 16.0 [facility] HEMATOLOGY WBC 6.6 3.7 - 10.4 01/09 /2016 [facility] HEMATOLOGY RBC 4.09 4.20 - 01/09 MH 5.40 /2016 [facility] CHEM PANEL POC Glucose 78 70 - 99 09 /2016 [facility] CHEM PANEL POC 10.2 12.0 - 01/09 Hemoglobin 16.0 /2016 [facility] CHEM PANEL POC 30.0 36.0 - 01/09 Hematocrit 48.0 /2016 [facility] CHEM PANEL POC Sodium 141 135 - 145 01/09 /2016 [facility] CHEM PANEL POC 4.5 3.5 - 5.1 01/09 Potassium /2016 [facility] HEMATOLOGY Hct 27.0 36.0 - 08/12 MH 48.0 /2016 [facility] HEMATOLOGY Hgb 8.4 12.0 - 08/12 MH 16.0 [facility] HEMATOLOGY Hct 27.7 36.0 - 08/12 MH 48.0 /2016 [facility] HEMATOLOGY Hgb 8.7 12.0 - 08/12 16.0 [facility] HEMATOLOGY Hgb 8.1 12.0 - 08/12 16.0 [facility] HEMATOLOGY Hct 26.0 36.0 - 08/12 MH 48.0 [facility] URINE AND Occult Bld Negative Negative 08/12 STOOL Stl (08/11/16 9:29 PM) /2016 [facility] BLOOD BANK Antibody Negative 08/12 RESULTS Scrn (08/11/16 8:30 PM) /2017 [facility] BLOOD BANK ABO/Rh O POS 08/12 MH RESULTS [facility] CHEM PANEL Lipase Lvl 175 73 - 393 08/12 [facility] CHEM PANEL Globulin 2.9 2.7 - 4.2 08/12 [facility] CHEM PANEL A/G Ratio 1.4 0.7 - 1.6 08/12 [facility] CHEM PANEL AGAP 11.4 10.0 - 04 MH 20.0 /2016 [facility] CHEM PANEL B/C Ratio 13 6 - 25 08/12 [facility] CHEM PANEL Total 6.9 6.4 - 8.4 08/12 Protein [facility] CHEM PANEL Alk Phos 88 39 - 136 08/12 [facility] CHEM PANEL Bili Total 0.8 0.2 - 1.3 08/12 [facility] CHEM PANEL Potassium 3.4 3.5 - 5.1 08/12 MH Lvl [facility] CHEM PANEL Chloride Lvl 104 95 - 109 08/12 [facility] CHEM PANEL CO2 28 24 - 32 08/12 [facility] CHEM PANEL Calcium Lvl 8.8 8.5 - 10.5 08/12 [facility] CHEM PANEL Albumin Lvl 4.0 3.5 - 5.0 08/12 [facility] CHEM PANEL BUN 10 7 - 22 08/12 [facility] CHEM PANEL Sodium Lvl 140 135 - 145 08/12 [facility] CHEM PANEL eGFR 102 08/[address] [facility] Comment: The [facility] eGFR is [place] calculated using the CKD-EPI formula. In most young, healthy individuals the eGFR will be >90 mL/min/1.73m2 . The eGFR declines with age. An eGFR of 60-89 may be normal in some populations, particularly the elderly, for whom the CKD-EPI formula has not been extensively validated. Use of the eGFR is not recommended in the following populations:< br/>
Lorena viduals with unstable creatinine concentration s, including patients and those with serious co-morbid conditions.<b r/>
Patie nts with extremes in muscle mass or diet.

The data above are obtained from the National Kidney Disease Education Program (NKDEP) which additionally recommends that when the eGFR is used in patients with extremes of body mass index for purposes of drug dosing, the eGFR should be multiplied by the estimated BMI. CHEM PANEL AST 17 0 - 37 04 [facility] CHEM PANEL Creatinine 0.75 0.50 - 04 MH Lvl 1.40 [facility] CHEM PANEL ALT 21 0 - 65 04 [facility] CHEM PANEL Glucose Lvl 77 70 - 99 08/12 [facility] ENDOCRINOLO hCG Tot <1 08/12 [facility] HEMATOLOGY MCV 69.2 80.0 - 04 MH 98.0 /2016 [facility] HEMATOLOGY WBC 10.8 3.7 - 10.4 08/12 [facility] HEMATOLOGY RBC 4.02 4.20 - 04 MH 5.40 [facility] HEMATOLOGY MPV 8.5 7.4 - 10.4 08/12 [facility] HEMATOLOGY RDW 16.4 11.5 - 08/12 14.5 [facility] HEMATOLOGY Platelet 284 133 - 450 08/12 [facility] HEMATOLOGY MCH 21.4 27.0 - 08/12 MH 31.0 [facility] HEMATOLOGY MCHC 30.9 32.0 - 08/12 MH 36.0 [facility] HEMATOLOGY INR 1.09 0.85 - 08/12 MH 1.17 [facility] HEMATOLOGY PT 14.3 12.0 - 08/12 MH 14.7 [facility] HEMATOLOGY PTT 28.6 22.9 - 08/12 MH 35.8 [facility] HEMATOLOGY Eosinophils 0.6 0.0 - 4.0 08/12 [facility] HEMATOLOGY Basophils 0.9 0.0 - 1.0 08/12 [facility] HEMATOLOGY Monocytes 8.8 2.0 - 12.0 08/12 [facility] HEMATOLOGY Segs-Bands # 7.8 1.5 - 8.1 08/12 [facility] HEMATOLOGY Lymphocytes 1.9 1.0 - 5.5 08/12 [facility] HEMATOLOGY Anisocyte 1+ None Seen 08/12 MH *ABN* /2016 [facility] (08/11/16 8:30 PM) [facility] HEMATOLOGY Basophils # 0.1 0.0 - 0.2 08/12 [facility] HEMATOLOGY Microcyte 2+ None Seen 08/12 MH *ABN* /2016 [facility] Eosinophils 0.1 0.0 - 0.5 08/12 MH # /2016 [facility] HEMATOLOGY Monocytes # 1.0 0.0 - 0.8 08/12 [facility] HEMATOLOGY Plt Morph Normal 08/12 (08/11/16 8:30 PM) [facility] HEMATOLOGY Lymphocytes 17.7 20.0 - 08/12 40.0 [facility] HEMATOLOGY Segs 72.0 45.0 - 08/12 75.0 [facility] URINE AND UA Leuk Est Negative Negative 08/12 STOOL (08/11/16 8:30 PM) /2016 [facility] URINE AND UA Sq Epi Few /LPF Few /LPF 08/12 STOOL [facility] URINE AND UA WBC 2 0 - 5 08/12 STOOL /2016 [facility] URINE AND UA RBC 2 0 - 2 08/12 [facility] URINE AND UA Bacteria Occasional None Seen 08/12 STOOL /HPF /HPF /2016 [facility] URINE AND UA Color Straw 08/12 STOOL [facility] URINE AND UA Ketones Negative 08/12 STOOL [facility] URINE AND UA <=1.0 0.1 - 1.0 08/12 STOOL Urobilinogen mg/dL [facility] URINE AND UA Spec Grav 1.003 <=1.030 08/12 STOOL [facility] URINE AND UA pH 7.0 5.0 - 8.0 08/12 STOOL [facility] URINE AND UA Protein Negative Negative 08/12 STOOL mg/dL mg/dL [facility] URINE AND UA Blood Negative Negative 08/12 STOOL (08/11/16 8:30 PM) [facility] URINE AND UA Nitrite Negative Negative 08/12 STOOL (08/11/16 8:30 PM) [facility] URINE AND UA Glucose Negative Negative 08/12 STOOL mg/dL mg/dL [facility] URINE AND UA Bili Negative Negative 08/12 STOOL *NA* /2016 [facility] Turbidity Clear Clear 08/12 STOOL (08/11/16 8:30 PM) [facility] HEMATOLOGY POC 35.0 36.0 - 03/01 Hematocrit 48.0 /2015 [facility] HEMATOLOGY POC 11.9 12.0 - 03/01 Hemoglobin 16.0 /2015 [facility] HEMATOLOGY POC Glucose 89 70 - 99 03/01 [facility] HEMATOLOGY POC 4.3 3.5 - 5.1 03/01 Potassium /2015 [facility] HEMATOLOGY POC Sodium 139 135 - 145 03/01 [facility] Pathology Reports No Data Provided for This Section Diagnostic Reports Report Value Date Source Abdomen/Pelvis w IV Radiation Dose CTDIVOL = 0 (mGy): DLP = 559.83 (mGy-cm) 04/16/[address] PROCEDURE INFORMATION: Exam: CT Abdomen And Pelvis With Contrast Exam date and time: 04/16/2019 10:34 AM Age: 38 years old Clinical history: Unspecifie d abdominal pain; Nausea; Bariatric surgery status; Additional info: /r10.9 unspecified abdominal pa in; R11.0 nausea; Z98.84 bariatric surgery status; S/P gastric bypass TECHNIQUE: Imaging protocol: Computed tomography of the abd omen and pelvis with intravenous contrast. Total DLP: 559.83 mGy-cm Radiation optimization: All CT scans at this facility use at least one of these dose optimization techniques: automated exposure control; mA and/or kV adjustment per patient size (includes targeted e xams where dose is matched to clinical indication); or iterative reconstructio n. Contrast material: OMNI 300; Contrast volume: 10 0 ml; Contrast route: IV; Other contrast: Route: Oral, Material: Omni 300 mix with water, Volume: 50mL omni in 800mL water; COMPARISON: ABDOMEN/PELVIS W IV CONTRAST CT 02/25/2019 9:04 PM FINDINGS: Lungs: Visualized lung bases are clear. Liver: Liver demonstrates normal morphology. Gallbladder and bile ducts: No evidence for calc ified gallstones. Pancreas: Pancreas demonstrates normal morpholog y. Spleen: Spleen is normal in size. Adrenals: Both adrenal glands demonstrate normal morphology. Kidneys and ureters: The kidneys demonstrate nor mal morphology. No hydronephrosis. Stomach and bowel: Postoperative changes related to gastric bypass are noted. There is prompt passage of o ral contrast into the jejunum and subsequently into the colon. No contrast is visualized in the bypassed portion of the stomach to suggest a fistula. Moderate to large amount of retained stool is present in the colon. Appendix: The appendix demonstrates normal morph ology. Intraperitoneal space: No free air. No free flui d is noted. Vasculature: No abdominal aortic aneurysm. Lymph nodes: No enlarged lymph nodes are visuali zed. Bladder: No gross abnormality is noted. Reproductive: The uterus is surgically absent. N o gross adnexal mass is visualized. Bones/joints: No acute abnormality is noted. Soft tissues: Unremarkable. Other findings: none IMPRESSION: No significant acute abnormality is noted on the contrast CT of abdomen and pelvis. 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 Comparison Exam: Abdominal x-ray 01/19/2015 Discussion: No dilated loops of bowel ar e seen. Oral contrast material is seen throughout the large bowel, precluding appropriate interpretation of a small bowel x-ray series. Overlying skeletal structures are unremarkable. Impression: 1. Oral contrast material i s seen throughout the large bowel, precluding appropriate interpretation of a small bowel x-ray series. Abdomen/Pelvis w IV EXAM: Abdomen/Pelvis w IV contrast CT 2018 [facility] contrast CT DATE: 02/25/2019 18:41 CDT. INDICATION: Abdominal disten lisy - history of gastric bypass with intermittent pain and distention and recent CT scan suggestive of possible intussusception; please rule out obstruction / evaluate for intussusception. COMPARISON: CTA abdomen and pelvis dated 018. TECHNIQUE: Volumetric CT acq uisition of the abdomen and pelvis after the administration of intravenous contrast. Axial, coronal and sagittal reconstructions. AEC, mA/kV adjustment by pat ient size, and/or iterative reconstruction technique were used, per departmental dose-optimization program. Contrast phases: Venous and Delayed. IV contrast: 100 mL Omnipaque 300. Oral contrast: Omni mix. DLP: 1053 mGy-cm. FINDINGS: Lines and Tubes: None. Lower Thorax: Visualized lung bases are clear. H eart is normal in size. Liver and Biliary Tree: Normal. Gallbladder: Normal. No CT evidence of gallstone s. Adrenals: Normal. Spleen: Normal. Pancreas: Normal. Kidneys and Ureters: Normal. No hydronephrosis. There is bilateral excretion of contrast on the delayed images. Bladder: Normal. Reproductive Organs: Status post hysterectomy. Normal appearance of the left ovary for age. Right ovary is not identified Gastrointestinal Tract: Stat us post Salvador-en-Y gastric bypass the jejunal anastomosis is in the left upper quadrant. No evidence of intussusception. No wall thickening or dilatation. . Appendix: Normal Peritoneum and Retroperitoneum: No free air or a scites. Lymph Nodes: No lymphadenopathy. Vasculature: No abdominal aortic aneurysm.. Righ t renal artery stent Bones: No acute abnormality. . Soft Tissues: Normal. IMPRESSION: No evidence of intussuscepti on at the jejunal anastomosis or bowel obstruction. Comparison with recent CT is recommended. Abdomen/Pelvis CTA EXAM: CTA abdomen and pelvis 04/20/2018 ANAYELI Fowler HISTORY: Uncontrolled hypertension COMPARISON: Renal ultrasound 01/18/2015 TECHNIQUE: Thin collimation axial images abdomen, pelvis, aorta, renal arteries with sagittal and coronal maximum intensity projection and post processed 3-D volume rendered images of the renal arteries. 100 mL Omnipaque [address] D[address] imaging performed at this location utilizes radiation dose optimization techniques which include one or more of the following: -Automated exposure control -Adjustment of the mA and/or kV according to pat ient size -Use of iterative reconstruction technique FINDINGS: RENAL ARTERIES: Focal high-g rade stenosis of the proximal right renal artery just distal to the ostium with poststenotic dilation. Two left renal arteries are patent without signi ficant stenosis. The aorta is patent without aneurysm or dissecti on. SOLID ORGANS: The liver, spl een, kidneys, adrenals, gallbladder and pancreas are unremarkable. Hysterectomy. The bladder is unremarkable. PERITONEUM AND RETROPERITONE UM: Small retroperitoneal and mesenteric lymph nodes are nonspecific. No free fluid. GASTROINTESTINAL TRACT: Salvador -en-Y type gastric bypass. Stool throughout the colon. No bowel obstruction. BONES: Mild scoliosis. OTHER: 3 mm subpleural nodule in the lingula, se soham 2, image 10. IMPRESSION: 1. High-grade stenosis proximal right renal maria fernanda ry. 2. 3 mm lung nodule in the l ingula. If the patient is low risk for malignancy, no follow-up is needed. Otherwise, follow-up CT chest without contrast in 12 months is advised. SL: [id number] Consultation Notes No Data Provided for This Section Discharge Summaries No Data Provided for This Section History and Physicals No Data Provided for This Section Vital Signs Vital Sign Value Date Comments Source Systolic (mm Hg) 140 [facility] Diastolic (mm Hg) 80 04/15/[facility] Heart Rate 71 04/15/[facility] Height 162.56 cm 04/15/2019 [facility] Weight 66.364 04/15/2019 [facility] BMI Calculated 25.11 04/15/2019 [facility] Temperature Oral (F) 97.8 F 03/03/2019 [facility] Heart [facility] 69 [facility] 20 03/03/2019 [facility] Systolic (mm Hg) 125 03/03/2019 [facility] [place] Diastolic (mm Hg) 80 03/03/2019 [facility] Temperature Oral (F) 97.9 F 03/03/2019 [facility] Heart Rate 56 03/03/2019 [facility] Respitory Rate 18 03/03/2019 [facility] Systolic (mm Hg) 128 03/03/2019 [facility] [place] Diastolic (mm Hg) 79 03/03/2019 [facility] Respitory Rate 12 03/03/[address] [facility] ity Temperature Oral (F) 98.5 F 03/03/2019 [facility] Heart Rate 65 03/03/2019 [facility] Systolic (mm Hg) 122 03/03/2019 [facility] [place] Diastolic (mm Hg) 68 03/03/2019 [facility] Height 162.56 cm 03/01/2019 [facility] Weight 65.5 03/01/2019 [facility] BMI Calculated 24.79 03/01/2019 [facility] Temperature Oral (F) 98.5 F 02/26/2019 [facility] Heart Rate 60 02/26/2019 [facility] Respitory Rate 18 02/26/2019 [facility] Systolic (mm Hg) 124 02/26/2019 [facility] [place] Diastolic (mm Hg) 68 02/26/2019 [facility] Temperature Oral (F) 97.8 F 02/26/2019 [facility] Heart Rate 62 02/26/[facility] Respitory Rate 18 02/26/2019 [facility] Systolic (mm Hg) 117 02/26/2019 [facility] Diastolic (mm Hg) 63 02/26/2019 [facility] Temperature Oral (F) 97.8 F 02/26/2019 [facility] Heart Rate 59 02/26/2019 [facility] Respitory Rate 18 02/26/2019 [facility] C ity Systolic (mm Hg) 103 02/26/2019 [facility] Diastolic (mm Hg) 65 02/26/2019 [facility] Height 162.56 cm 02/26/2019 [facility] Height 162.56 cm 02/26/2019 [facility] Weight 64.744 02/26/2019 [facility] y BMI Calculated 24.5 02/26/[address] [facility] ity Systolic (mm Hg) 108 04/30/2018 [facility] Diastolic (mm Hg) 76 04/30/2018 [facility] ed[facility] Center Systolic (mm Hg) 100 04/30/2018 [facility] Diastolic (mm Hg) 62 04/30/2018 [facility] ed[facility] Center Systolic (mm Hg) 94 04/30/2018 [facility] Diastolic (mm Hg) 66 04/30/2018 [facility] Center BMI Calculated 25.11 04/30/2018 [facility] Weight 66.364 04/30/2018 [facility] Height 162.56 cm 04/30/[facility] BMI Calculated 24.08 04/16/2018 [facility] Weight 63.636 04/16/2018 [facility] Height 162.56 cm 04/16/2018 [facility] Respitory Rate 16 01/11/2017 [facility] C ity Systolic (mm Hg) 140 01/11/2017 [facility] [place] Diastolic (mm Hg) 77 01/11/2017 [facility] Heart Rate 47 01/11/2017 [facility] Temperature Oral (F) 97.5 F 01/11/2017 [facility] Temperature Oral (F) 98.3 F 01/11/2017 [facility] Heart Rate 53 01/11/2017 [facility] Respitory Rate 18 01/11/2017 [facility] C ity Systolic (mm Hg) 127 01/11/2017 [facility] Diastolic (mm Hg) 71 01/11/2017 [facility] Temperature Oral (F) 98.6 F 01/11/2017 [facility] 71 01/11[facility]2017 [facility] Resp[facility] Rate 18 01/11/2017 [facility] Systolic (mm Hg) 126 01/11/2017 [facility] [place] Diastolic (mm Hg) 74 01/11/2017 [facility] BMI Calculated 22.36 01/09/2017 [facility] Weight 59.091 01/09/2017 [facility] Height 162.56 cm 01/09/2017 [facility] Respitory Rate 12 08/13/2016 [facility] Respitory Rate 18 08/12/2016 [facility] Systolic (mm Hg) 169 08/12/2016 [facility] [place] Diastolic (mm Hg) 88 08/12/2016 [facility] Heart Rate 59 08/12/2016 [facility] Temperature Oral (F) 98.5 F 08/12/2016 [facility] Temperature Oral (F) 97.4 F 08/12/2016 [facility] Heart Rate 56 08/12/2016 [facility] Respitory Rate 18 08/12/2016 [facility]y Systolic (mm Hg) 148 08/12/2016 [facility] [place] Diastolic (mm Hg) 91 08/12/2016 [facility] Temperature Oral (F) 97.9 F 08/12/2016 [facility] Systolic (mm Hg) 131 08/12/2016 [facility] [place] Diastolic (mm Hg) 81 08/12/2016 [facility] Heart Rate 55 08/12/2016 [facility] Weight 57.273 08/12/2016 [facility] BMI Calculated 22.37 08/12/2016 [facility] Height 160.02 cm 08/12/2016 [facility] Weight 54.545 08/12/2016 [facility] BMI Calculated 21.3 08/12/2016 [facility] Height 160.02 cm 08/12/2016 [facility] Weight 55.455 03/01/2016 [facility] BMI Calculated 20.99 03/01/2016 [facility] Height 162.56 cm 03/01/2016 [facility] Encounters Location Location Encounter Encounter Reason Attending ADM [place] Stat us Source Details Type Number For Provider Date Date Visit [id number] 03/01 03/01 [place] [facility] 0 [place] /2015 Y[facility] Observation [id number] Esau Reeves 08/11 08/13 [place] 0 /2016 [facility] Observation [id number] Coy 01/10 01/10 [place] 0 [place] /2016 [facility] [id number] Coy 01/11 01/11 [place] 1 [place] /2016 [facility] Outpt Diag [id number] Usman 03/25 03/25 [facility] Outpatient [id number] Vasile 04/16 04/17 [place] 7 [facility] Outpt Diag [id number] Usman 04/20 04/21 [facility] [address] [place] [facility] Bedded [id number] Usman 04/30 04/30 [facility] [place] [facility] [address] 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 02/12 Activ e [facility] 1 VISIT [place] [facility] [id number] 02/25 [facility] 2 [facility] Observation [id number] Coy 02/25 02/26 [place] 7 [place] /2018 [facility] Outpatient [id number] 03/01 [facility] 3 Prim [facility] Inpatient [id number] 03/01 [place] 1 [place] /2018 [facility] Outpatient [id number] Coy 04/15 Active [facility] 4 Prim [facility] Outpatient [id number] Coy 04/15 04/16 [facility] [place] /2018 [facility] Outpt Diag [id number] Coy 04/16 12/ [facility] 2 [facility] [place] [facility] [place] Procedures Procedure Code Date Perfomer Comments Source Gastric bypass [id number] 01/03/2015 [facility], ANGEL Black,[facility], [facility] [place],[facility] Upper GI endoscopy [id number] [facility] ical Group,[facility], ANGEL [facility], [facility] [place],[facility] Hysterectomy [id number] [facility], [facility] [place],[facility] Laparoscopic [id number] Medical gastric bypass Group, O PID [place],[facility] Assessment and Plan Assessment and Plan Date Source Extracted from:Title: Surgery Note 03/03/[address] [facility] Author: Jeb Ghosh (Fellow) DO Date: 03/03/19 38F s/p d iagnostic laparoscopy, closure of jejunojejunostomy mesenteric defect, suture pexy of biliopancreatic limb to common channel, left ovarian pexy, intraoperative endoscopy; POD1 - continue regular diet, monitor for toleration - continue IV hydration until improved PO intake - convert to PO pain medication regimen: Tylenol and PRN Tr amadol - Zofran, Phenergan PRN - pertinent home meds resumed - continue OOB, ambulation and incentive spirometry - VTE ppx: Lovenox, SCDs Possibledischarge to home later today Discussed with attending, Dr. Luna Addendum by Coy Luna MD on 03/03/2019 11:07 CDT No events. Tolerating diet. Pain control led. Ambulating well. Abd soft, ND, appr TTP, wounds c/d/i. Patient reports prior LLQ pain resolved. Plan cont protocol. Extracted from:Title: History and Physical Author: eJb Ghosh (Fellow) DO Date: 03/01/19 38F with history of laparoscopic salvador-en -y gastric bypass approximately 4 years ago, presenting withintermittent abdominal painwith distention andnausea and vomiting OR tomorrow for diagnostic laparoscopy NPO at MNw/ IV hydration Tylenol, prn Dilaudid for pain Zofran, Phenergan for nausea pertinent home meds resumed GI ppx: PPI, Carafate VTE ppx: Lovenox, SCDs ambulation OOB / incentive spirometry Discussed with attending, Dr. Luna Extracted from:Title: Surgery Note 02/26/2019 [facility] Author: Jeb Ghosh (Fellow) DO Date: 02/26/19 38F with history of laparoscopic salvador-en-y gastric bypass approximately 4 years ago, presenting withintermittent abdominal pain bloating Will trial resuming diet - monitor abdominal exam / monitor for toleration continue IV hydration Tylenol, prn Dilaudid for pain Scopolamine, Reglan, Zofran, Phenergan for nausea Tap water enema pertinent home meds resumed GI ppx: PPI, Carafate VTE ppx: Lovenox, SCDs ambulation OOB / incentive spirometry Discussed with attending, Dr. Luna Addendum by Coy Luna MD on 02/26/2019 15:07 CDT No events. Reports pain improved. Tolera ting regular diet. Patient with BM. Abd soft, ND, NT. CT negative. Plan continue to monitor. Extracted from:Title: History and Physical Author: Jeb Ghosh (Fellow) DO Date: 02/25/19 38F with history of laparoscopic salvador-en -y gastric bypass approximately 4 years ago, presenting withintermittent abdominal pain and distention CT abdomen/pelviswith oral/IV contrast t o evaluate for obstruction / intussusception NPO w/ IV hydration Tylenol, prn Dilaudid for pain Zofran, Phenergan for nausea pertinent home meds resumed GI ppx: PPI, Carafate VTE ppx: Lovenox, SCDs ambulation OOB / incentive spirometry Low threshold for diagnostic laparoscopy if any clinical worsening, signs of obstruction / intussusception on CT Discussed with attending, Dr. Luna Extracted from:Title: Clinical Document 01/11/2017 [facility] Author: Esau Reeves MD Date: 01/11/17 Spoke with nurse. Patient was supposed to d/c yesterday but blood finished late. She has no complaints, no blood in BM. No pain. Hgb responded as expected to transfusion and vitals stable. OK to d/c Extracted from:Title: Clinical Document 01/10/2017 [facility] Author: Ajith Vargas MD Date: 01/09/17 Gastroenterology consult Note: Patient Room: , PreAdmit OU BREANNA SILVERIO 36y (: 1980) F Attending: Coy Luna MD Service: Surgery REFERRING PHYSICIAN: _Dr. Luna REASON FOR CONSULTATION: _Iron deficienc y anemia, dark stool, colonoscopy evaluation HISTORY OF PRESENT ILLNESS: _Patient is a 36-year-old female who underwent laparoscopic Salvador-en-Y gastric bypass 01/03/2015. She was seen for 1017 for evaluation of iron deficiency anemia. At that time her hemoglobin was 8.1, MCV 69, iron 25, ferritin 3. She underwent an EGD 08/2016 which showed a small marginal ulcer that [...] days are heavy. She has been seen b y an DIRECTOR OF P[employer]IL PERSONNEL PROGRAM. She does have bilateral lower quadrant crampy abdominal pain, did see bright red blood per rectum yesterday but overall her stool has been very dark . Reportedly her iron has been 6 recent ly. She has lost 140 pounds overall from her gastric bypass and has maintained that. No nausea vomiting, good appetite, has been dizzy and had headaches recentl y along with fatigue. She has been taki ng Advil for headache. She has never had a colonoscopy. PAST MEDICAL HISTORY: _Morbid obesity st atus post Salvador-en-Y gastric bypass, iron deficiency anemia SOCIAL HISTORY: _Negative for tobacco, p ositive for alcohol. 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[employer] [place] FAMILY HISTORY: _Negative for GI malignancy Allergies (1) Active Reaction NKDA None documented Medications (9) Active Scheduled Meds (1): 01/10/17 famotidine 20 mg IVP Daily One Time Meds (1): 01/09/17 (Ordered) polyethylene glycol 3350 with electrolytes (GoLYTELY) 240 mL PO ONCE Continuous Infusions (1): 01/09/17 Lactated Ringers 1,000 mL 1,000 mL 125 ml/hr REVIEW OF SYSTEMS: 10 systems reviewed a nd negative with pertinent findings in HPI above PHYSICAL EXAMINATION: Vital Signs - Temperature 98.2 heart rat e 65 respiration 18 blood pressure 166/77 O2 saturation 100% on room air General- _white female, no acute distress, alert and oriente d 3 HEENT- _nonicteric CVS- _normal rate, regular rhythm Chest- _clear to auscultation bilaterally Abdomen- _soft, nontender, nondistended, no rebound or guard ing Data: Hemoglobin 7.9 white blood cell count 6.6 MCV 65 platelet co unt 205 ASSESSMENT: 36-year-old female with hist ory of Salvador-en-Y gastric bypass 2014, having melena, iron deficiency anemia persists, negative EGD today. Unclear etiology of her low iron and anemia. She does have heavy menses. Recommendation: 1. 4 L GoLYTELY prep, clear liquid diet , n.p.o. after midnight, colonoscopy tomorrow by Dr. Vargas or Dr. Mahoney 2. May need outpatient PillCam 3. May need repeat EGD with a pediatric colonoscope to evaluate the JJ anastomosis 4. Serial hemoglobin and hematocrit mon itoring. Monitor for clinically overt GI bleeding Supportive care with transfusion of PRBC if needed Thank you for allowing us to participate in the care of this patient. We will follow along with you. Please do not hesitate to contact us if you have additional questions Extracted from:Title: Clinical Document 08/13/2016 [facility] Author: Gilberto Rodriges (Fellow) Date: 08/12/16 [facility] Admission History and Physical Examination CC: Bleeding [...] Active Coreg 25 mg oral tablet 25 mg = 1 tab, PO, BID ferrous sulfate 325 mg oral enteric coated tablet 325 mg = 1 tab, PO, Daily omeprazole 40 mg oral delayed release capsule 40 mg = 1 cap, PO, Daily SH: Tobacco Details: Use: Never smoker. Tobacco smo ke exposure: None. Did the Patient Smoke Cigarettes Anytime During the Last 365 Days? No. Cessation Counseling Provided? Yes. Details: Use: Never smoker. Ready to ch lacho: No. Household tobacco concerns: No. Tobacco smoke exposure: None. Did the Patient Smoke Cigarettes Anytime During the Last 365 Days? No. Cessation Counseling Provided? No. FH: Father: Cancer; Heart disease Mother: Heart disease Grandparent: Cancer; Heart disease ROS: CONSTITUTIONAL: No weight loss, fever, chills, weakness or f atigue. HEENT: Eyes: No visual loss, blurred vis ion, double vision or yellow sclerae. Ears, Nose, Throat: No hearing loss, sneezing, congestion, runny nose or sore throat. SKIN: No rash or itching. CARDIOVASCULAR: No chest pain, chest pre ssure or chest discomfort. No palpitations or edema. RESPIRATORY: No shortness of breath, cough or sputum. GASTROINTESTINAL: + bleeding. No anorexi a, nausea, vomiting or diarrhea. No abdominal pain NEUROLOGICAL: No headache, dizziness, sy ncope, paralysis, ataxia, numbness or tingling in the extremities. No change in bowel or bladder control. MUSCULOSKELETAL: No muscle, back pain, joint pain or stiffne ss. HEMATOLOGIC: + anemia, bleeding, No bruising. LYMPHATICS: No enlarged nodes. No history of splenectomy. PSYCHIATRIC: No history of depression or anxiety. ENDOCRINOLOGIC: No reports of sweating, cold or heat intolerance. No polyuria or polydipsia. PHYSICAL EXAMINATION: VITAL SIGNS: Temp - 97.9 BP - 131/81 HR - 55 RR - 16 O2 Sa t - 99% on RA GENERAL: The patient is a very pleasant lady, no evidence of distress/discomfort. HEENT: AT/NC, PERRLA, no lymphadenopathy, neck supple, no J VD. HEART: RRR, No r/m/g LUNGS: CTA-B, no [...] hydration - Consult GI Addendum by Coy Luna MD on 08/13/2016 15:05 Patient reports melena stools and symtpo ms of iron deficiency. Denies orthostasis. HD stable. Concern for marginal ulcer. Plan EGD to eval. Plan of Care No Data Provided for This Section Social History Social History Date Source Social History TypeResponse 04/15/2019 [facility] [place] Smoking Status Never smoker; Ready to change: No; Radha rns about tobacco use in household: No; Exposure to Tobacco Smoke None; Cigarette Smoking Last 365 Days No; Reg Smoking Cessation Counseling No entered on: 04/15/19 Social History TypeResponse 04/15/2019 [facility] Smoking Status Never smoker; Ready to change: No; Radha rns about tobacco use in household: No; Exposure to Tobacco Smoke None; Cigarette Smoking Last 365 Days No; Reg Smoking Cessation Counseling No entered on: 04/15/19 Social History TypeResponse 03/01/2019 [facility] Smoking Status Never smoker; Ready to change: No; Radha rns about tobacco use in household: No; Exposure to Tobacco Smoke None; Cigarette Smoking Last 365 Days No; Reg Smoking Cessation Counseling No entered on: 03/01/19 Social History TypeResponse 04/30/2018 [facility] Smoking Status Never smoker; Ready to change: No; Radha rns about tobacco use in household: No; Exposure to Tobacco Smoke None; Cigarette Smoking Last 365 Days No; Reg Smoking Cessation Counseling No entered on: 04/30/18 Social History TypeResponse 04/30/2018 [facility] Smoking Status Never smoker; Ready to change: No; Radha rns about tobacco use in household: No; Exposure to Tobacco Smoke None; Cigarette Smoking Last 365 Days No; Reg Smoking Cessation Counseling No entered on: 04/30/18 Social History TypeResponse 04/30/2018 [facility] Smoking Status Never smoker; Ready to change: No; Radha rns about tobacco use in household: No; Exposure to Tobacco Smoke None; Cigarette Smoking Last 365 Days No; Reg Smoking Cessation Counseling No entered on: 04/30/18 Family History No Data Provided for This Section Advance Directives No Data Provided for This Section Functional Status No Data Provided for This Section
--- NOTE | 2019-10-11 15:49 | EDPHYS ---
Physician Documentation [facility] Name: Rani Breen Age: 39 yrs Sex: Female : 1980 Arrival Date: 10/11/2019 Time: 12:02 Bed 5 Private MD: ED Physician Esau Sadler HPI: 10/11 08:38 This 39 yrs old Female presents to ER via Ambulatory with complaints of Head kdr Injury-Adult, Vomiting, Blurred Vision. 08:38 The patient or guardian reports injury, pain, swelling, tenderness. The complaints kdr affect the right side of the back of head. Context of injury: The problem was sustained at home, resulted from a direct blow, The patient was picked up by a friend and dropped on her head. She had minimal to brief LOC and an immediate large hematoma. Onset: The symptoms/episode began/occurred suddenly, 1 week(s) ago. Associated signs and symptoms: Loss of consciousness: Pertinent positives: dazed, headache, Pertinent negatives: biting tongue, double vision, incontinence, neck pain, seizure, shortness of breath, tinnitus, vomiting, weakness in extremities, generalized weakness. Severity of symptoms: At their worst the symptoms were moderate, in the emergency department the symptoms have improved, moderately. The patient has not experienced similar symptoms in the past. The patient has not recently seen a physician. Historical: - Allergies: 10/10 12:10 No Known Allergies; ss - PMHx: 12:10 Hypertension; ss - PSHx: 12:10 arm surgery; renal stent; oopherectomy; ss - Immunization history:: Adult Immunizations up to date. - Social history:: Smoking status: Patient denies any tobacco usage or history of. ROS: 10/11 08:38 Constitutional: Negative for fever, chills, and weight loss, Eyes: Negative for injury, kdr pain, redness, and discharge, ENT: Negative for injury, pain, and discharge, Neck: Negative for injury, pain, and swelling, Cardiovascular: Negative for chest pain, palpitations, and edema, Respiratory: Negative for shortness of breath, cough, wheezing, and pleuritic chest pain, Abdomen/GI: Negative for abdominal pain, nausea, vomiting, diarrhea, and constipation, Back: Negative for injury and pain, : Negative for injury, bleeding, discharge, and swelling, MS/Extremity: Negative for injury and deformity, Neuro: Negative for headache, weakness, numbness, tingling, and seizure activity. Psych: Negative for depression, anxiety, suicide ideation, homicidal ideation, and hallucinations, Allergy/Immunology: Negative for hives, rash, and allergies, Endocrine: Negative for neck swelling, polydipsia, polyuria, polyphagia, and marked weight changes, Hematologic/Lymphatic: Negative for swollen nodes, abnormal bleeding, and unusual bruising. Skin: Positive for hematoma, of the right side of the back of head. Exam: 08:38 Constitutional: This is a well developed, well nourished patient who is awake, alert, kdr and in no acute distress. Eyes: Pupils equal round and reactive to light, extra-ocular motions intact. Lids and lashes normal. Conjunctiva and sclera are non-icteric and not injected. Cornea within normal limits. Periorbital areas with no swelling, redness, or edema. Neck: Trachea midline, no thyromegaly or masses palpated, and no cervical lymphadenopathy. Supple, full range of motion without nuchal rigidity, or vertebral point tenderness. No Meningismus. Chest/axilla: Normal chest wall appearance and motion. Nontender with no deformity. No lesions are appreciated. Cardiovascular: Regular rate and rhythm with a normal S1 and S2. No gallops, murmurs, or rubs. Normal PMI, no JVD. No pulse deficits. Respiratory: Lungs have equal breath sounds bilaterally, clear to auscultation and percussion. No rales, rhonchi or wheezes noted. No increased work of breathing, no retractions or nasal flaring. Abdomen/GI: Soft, non-tender, with normal bowel sounds. No distension or tympany. No guarding or rebound. No evidence of tenderness throughout. Back: No spinal tenderness. No costovertebral tenderness. Full range of motion. Skin: Warm, dry with normal turgor. Normal color with no rashes, no lesions, and no evidence of cellulitis. MS/ Extremity: Pulses equal, no cyanosis. Neurovascular intact. Full, normal range of motion. Neuro: Awake and alert, GCS 15, oriented to person, place, time, and situation. Cranial nerves II-XII grossly intact. Motor strength 5/5 in all extremities. Sensory grossly intact. Cerebellar exam normal. Normal gait. Psych: Awake, alert, with orientation to person, place and time. Behavior, mood, and affect are within normal limits. 08:38 Head/face: Noted is hematoma, that is mild, of the right side of the back of head. Vital Signs: 10/10 12:08 BP 118 / 86; Pulse 89; Resp 16; Temp 99.0(TE); Pulse Ox 100% on R/A; Weight 62.6 kg; ss Height 5 ft. 4 in. (162.56 cm); Pain 5/10; 15:00 BP 140 / 81; Pulse 59; Resp 17; Pulse Ox 100% ; bp 15:55 BP 127 / 84; Pulse 68; Resp 16; Pulse Ox 98% ; bp 12:08 Body Mass Index 23.69 (62.60 kg, 162.56 cm) ss Osmel Coma Score: 12:08 Eye Response: spontaneous(4). Verbal Response: oriented(5). Motor Response: obeys ss commands(6). Total: 15. 10/11 08:38 Eye Response: spontaneous(4). Verbal Response: oriented(5). Motor Response: obeys kdr commands(6). Total: 15. MDM: 10/10 15:48 Patient medically screened. kdr 10/11 08:38 Data reviewed: vital signs, nurses notes. Counseling: I had a detailed discussion with kdr the patient and/or guardian regarding: the historical points, exam findings, and any diagnostic results supporting the discharge/admit diagnosis, radiology results, the need for outpatient follow up. 10/10 12:14 Order name: CT Head C Spine; Complete Time: 15:36 ss Administered Medications: No medications were administered Disposition: 10/11/19 15:48 Discharged to Home. Impression: Superficial injury of head, Concussion, Scalp hematoma. - Condition is Stable. - Discharge Instructions: Concussion, Adult, [id number], Head Injury, Adult, [id number]. - Prescriptions for Tylenol- Codeine #3 300-30 mg Oral Tablet - take 2 tablets by ORAL route every 6 hours As needed Take at night for sleep; 12 tablet. - Medication Reconciliation Form, Thank You Letter, Prescription Opioid Use form. - Follow up: Private Physician; When: 2 - 3 days; Reason: If symptoms return, Further diagnostic work-up, Recheck today's complaints, Continuance of care, Re-evaluation by your physician. - Problem is new. - Symptoms are unchanged. Signatures: Dispatcher [employer] EDMS Esau Sadler MD MD kdr Katey Dwyer RN RN aa5 Rosmery Love RN RN ss Corrections: (The following items were deleted from the chart) 10/10 16:02 15:48 10/11/2019 15:48 Discharged to Home. Impression: Superficial injury of head; aa5 Concussion; Scalp hematoma. Condition is Stable. Forms are Medication Reconciliation Form, Thank You Letter, Antibiotic Education, Prescription Opioid Use. Follow up: Private Physician; When: 2 - 3 days; Reason: If symptoms return, Further diagnostic work-up, Recheck today's complaints, Continuance of care, Re-evaluation by your physician. Problem is new. Symptoms are unchanged. kdr
--- NOTE | 2019-10-11 15:49 | ER ---
Nurse's Notes [facility] Name: Rani Breen Age: 39 yrs Sex: Female : 1980 Arrival Date: 10/11/2019 Time: 12:02 Bed 5 Private MD: Diagnosis: Superficial injury of head;Concussion;Scalp hematoma Presentation: 10/10 12:06 Chief complaint: Patient states: "A friend picked me up and dropped me on the of last month, but I'm still having off and on blurry vision, headaches, vomiting twice a day and the lights are really bright and it's hard to see.". 12:08 Coronavirus screen: Proceed with normal triage. Patient denies a cough. Patient denies ss shortness of breath or difficulty breathing. Patient denies measured and/or subjective temperature greater than 100.4F prior to today's visit. Patient denies travel on a cruise ship or to a country the [facility] currently lists as an affected area. Patient denies contact with known and/or suspected case of COVID-19. Ebola Screen: Patient denies exposure to infectious person. Patient denies travel to an Ebola-affected area in the 21 days before illness onset. Risk Assessment: Do you want to hurt yourself or someone else? Patient reports no desire to harm self or others. 12:08 Method Of Arrival: Ambulatory ss 12:08 Acuity: LYRIC 4 ss 12:10 Initial Sepsis Screen: Does the patient meet any 2 criteria? No. Patient's initial bp sepsis screen is negative. Does the patient have a suspected source of infection? No. Patient's initial sepsis screen is negative. Onset of symptoms is unknown. Triage Assessment: 13:30 General: Appears in no apparent distress. comfortable, Behavior is cooperative, bp appropriate for age, anxious. Pain: Complains of pain in head. EENT: No deficits noted. Neuro: Level of Consciousness is awake, alert, obeys commands, Oriented to person, place, time, situation, Appropriate for age. Cardiovascular: No deficits noted. Respiratory: No deficits noted. GI: No signs and/or symptoms were reported involving the gastrointestinal system. : No signs and/or symptoms were reported regarding the genitourinary system. Derm: No deficits noted. Musculoskeletal: No deficits noted. Historical: - Allergies: 12:10 No Known Allergies; ss - PMHx: 12:10 Hypertension; ss - PSHx: 12:10 arm surgery; renal stent; oopherectomy; ss - Immunization history:: Adult Immunizations up to date. - Social history:: Smoking status: Patient denies any tobacco usage or history of. Screenin:30 Abuse screen: Denies threats or abuse. Denies injuries from another. Nutritional bp screening: No deficits noted. Tuberculosis screening: No symptoms or risk factors identified. Fall Risk None identified. Assessment: 13:30 General: SEE TRIAGE NOTE. bp 15:00 Reassessment: ALL CURRENT ORDERS COMPLETE, NO ACUTE DISTRESS NOTED. bp 15:54 Reassessment: PT D/C HOME AMBULATORY, DX WITH SUPERFICIAL HEAD INJURY. bp Vital Signs: 12:08 BP 118 / 86; Pulse 89; Resp 16; Temp 99.0(TE); Pulse Ox 100% on R/A; Weight 62.6 kg; ss Height 5 ft. 4 in. (162.56 cm); Pain 5/10; 15:00 BP 140 / 81; Pulse 59; Resp 17; Pulse Ox 100% ; bp 15:55 BP 127 / 84; Pulse 68; Resp 16; Pulse Ox 98% ; bp 12:08 Body Mass Index 23.69 (62.60 kg, 162.56 cm) ss Osmel Coma Score: 12:08 Eye Response: spontaneous(4). Verbal Response: oriented(5). Motor Response: obeys ss commands(6). Total: 15. 09 08:38 Eye Response: spontaneous(4). Verbal Response: oriented(5). Motor Response: obeys kdr commands(6). Total: 15. ED Course: 10/10 12:02 Patient arrived in ED. mr 12:09 Triage completed. ss 12:10 Arm band placed on right wrist. ss 12:31 CT Head C Spine In Process Unspecified. EDMS 13:28 Esau Sadler MD is Attending Physician. kdr 13:30 Patient has correct armband on for positive identification. Bed in low position. Call bp light in reach. Side rails up X2. 13:32 Sharad He, RN is Primary Nurse. bp 15:55 No provider procedures requiring assistance completed. Patient did not have IV access bp during this emergency room visit. Administered Medications: No medications were administered Outcome: 15:48 Discharge ordered by . kdr 15:56 Discharged to home ambulatory. bp 15:56 Condition: stable 15:56 Discharge instructions given to patient, family, Instructed on the need for transfer. 16:02 Patient left the ED. aa5 Signatures: Dispatcher [employer] EDMS Esau Sadler MD MD [facility] Eduardo Ivon Dwyer, Katey, RN RN aa5 Rosmery Love RN RN Sharad He RN RN bp Corrections: (The following items were deleted from the chart) 12:09 12:06 Chief complaint: Patient states: "A friend picked me up and dropped me on the ss 20th of last month, but I'm still having off and on blurry vision, vomiting twice a day and the lights are really bright and it's hard to see." ss
--- OUTSIDE RECORDS SUMMARY | 2019-10-11 15:49 | XMS REPORT | Continuity of Care Document ---
:1980 Author Organization [facility] t Address [address] Son [address] [place] [id number] Care Team Providers Name Role Phone J Luis THOMPSON, P Primary Care Physician Cassandra THOMPSON, W. Attending Clinician Kulwant Luna Attending Clinician Nuha Domingo MD Attending Clinician Kaufman MD Attending Clinician Vu HERRMANN Attending Clinician Unavailable Maira Godoy Attending Clinician Massimo Dietz Attending Clinician J Luis Attending Clinician Fritz Reeves Attending Clinician Kulwant Luna Admitting Clinician Fritz Reeves Admitting Clinician Payers Payer Name Policy Type Policy Number Effective Date Expiration Date S jordan [id number] xxxxxxxxxxxx 2018 Lang CHOICE 00:00:00 [employer] PPO/FEDERAL EMPL PPOxxxxxxxxxxx 2018-Pres entPPO Problems Condition Condition Condition Status Onset Resolution Last Treating Co mments Source Name Details Category Date Date Treatment Clinician Date ABDOMINAL Diagnosis Active 2018-052019-03-02 Memoria PAIN, 0-28 17:49:00 l ACUTE, 00:00: [place] LEFT LOWER ABDOMINAL 00 QUADRA PAIN, ACUTE, LEFT LOWER QUADRA Active 03/01/2019 [facility] ABDOMINAL Diagnosis Active 2018-052019-03-02 Memoria PAIN 0-24 17:48:00 l 00:00: [place] ABDOMINAL 00 PAIN Active 02/25/2019 [facility] Dyspnea Dyspnea Disease Active 2018-05 [place] 0-04 Methodi 00:00: st 00 Obstructiv Obstructiv Disease Active 2018-05 H oucy e sleep e sleep 0-04 Methodi apnea, apnea, 00:00: st adult adult 00 Fatigue Fatigue Disease Active 2018-05 [place] 0-04 Methodi 00:00: st 00 Diabetes Diabetes Disease Active 2018-05 [place] mellitus mellitus 0-04 Method i 00:00: st 00 CCL / Diagnosis Active 2017-052018-04-30 Mem oria RENAL 06-23 14:19:00 l ANGIO W/ CCL / 00:00: [place] 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 RENAL MARCELO ANGIO W/ [employer]IO[employer]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 RENAL MARCELO Active 04/22/2018 [facility] 24 HOUR Diagnosis Active 2017-052018-04-30 Me moria HOLTER 2- 14:19:00 l 24 HOUR 16:03: [place] HOLTER 00 Active 04/16/2018 [place] Z98.84 - Diagnosis Active 2017-052018-04-30 M emoria BARIATRIC 2-12 14:19:00 l SURGERY Z98.84 - 00:01: Geraldine nn STATUS BARIATRIC 00 R20.0 SURGERY STATUS R20.0 Active 04/15/2018 [place] ANEM[place] Diagnosis Active 2017-01-16 Mem oria 01-08 08:53:00 l ANEMIA 00:00: [place] 00 Active 01/08/2017 [facility] [id number], Diagnosis Active 2017-01-09 Mem oria K25.9 01-08 18:12:00 l GASTRIC 10170, 00:00: [place] ULCER K25.9 00 GASTRIC ULCER Active 01/08/2017 [facility] OTHER Diagnosis Active 2016-08-11 Mem oria 08-11 22:47:00 l OTHER 00:00: [place] 00 Active 08/11/2016 [facility] [id number], Diagnosis Active 2015-052016-03-09 Mem oria REFLUX 0 12:21:00 l [id number], 00:00: [place] REFLUX 00 Active 02/29/2016 [facility] APNEA Diagnosis Active 2018-06-06 Mem oria 05-05 15:15:00 l APNEA 00:00: [place] 00 Active 05/05/2000 [facility] Palpitatio Problem 2018-11-04 M emoria ns 11:16:31 l [place] Palpitatio ns 11/04/2018 [place] Anesthesia Problem 2018-11-08 M emoria of skin 11:13:51 l [place] Anesthesia of skin 11/08/2018 ANGEL Fowler Solitary Problem 2018-11-08 Mem oria pulmonary 11:13:51 l nodule Solitary Neri n pulmonary nodule 11/08/2018 ANGEL Fowler Bariatric Problem 2018-11-17 Me moria surgery 13:19:56 l status [place] Bariatric surgery status 11/17/2018 [facility], ANGEL [place] Essential Problem 2018-11-17 Me moria (primary) 13:19:56 l hypertensi Neri n on Essential (primary) hypertensi on 11/17/2018 [facility], ANGEL [place] History of Problem Resolve 2019-04-18 Memoria bypass of d 23:45:05 l stomach History Neir n (situation of bypass ) of stomach (situation ) Resolved Problem 04/18/2019 [facility], ANGEL Black,[facility], ANGEL Fowler,[facility] Hypertensi Problem Active 2019-04-18 M emoria ve 23:45:05 l disorder, [place] systemic Hypertensi arterial ve (disorder) disorder, systemic arterial (disorder) Active Problem 04/18/2019 [facility], ANGEL Black,[facility], ANGEL Fowler,[facility] Obesity Problem Active 2019-04-18 Yoshi peg (disorder) 23:45:05 l Obesity [place] (disorder) Active Problem 04/18/2019 [facility], ANGEL Black,[facility], ANGEL Fowler,[facility] ILLNESS, Diagnosis Active 2016-08-13 M emoria UNSPECIFIE 08:07:00 l D ILLNESS, Neri n UNSPECIFIE D Active [facility] ANEMIA, Diagnosis Active 2017-01-16 Me moria UNSPECIFIE 08:53:00 l D ANEMIA, [place] UNSPECIFIE D Active [facility] UNSPECIFIE Diagnosis Active 2019-03-02 Memoria D 17:48:00 l ABDOMINAL [place] PAIN UNSPECIFIE D ABDOMINAL PAIN Active [facility] LEFT LOWER Diagnosis Active 2019-03-02 Memoria QUADRANT 17:49:00 l PAIN LEFT [place] LOWER QUADRANT PAIN Active [facility] Atheroscle Problem 2018-2018-11-17 2018-11-17 Memoria rosis of -08 13:19:56 13:19:56 l renal 04:23: [place] artery 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 05/12/2018 11/17/2018 [facility], OPID [place] Cardiac Problem 2017-052018-11-04 2018-11-04 Memoria arrhythmia 2-20 11:16:31 11:16:31 l , Cardiac 05:18: [place] unspecifie arrhythmia 30 d , unspecifie d 04/23/2018 11/04/2018 [place] Anemia, Problem 2016-08-15 2016-08-15 Memoria unspecifie 08-11 02:33:50 02:33:50 l d Anemia, 05:00: [place] unspecifie 00 d 08/11/2016 08/15/2016 [facility] Allergies, Adverse Reactions, Alerts Allergy Allergy Status Severity Reaction(s) Onset Inactive Treating Comm ents Source Name Type Date Date Clinician No Known No Known Active Memori a Medicati Medicati l on on [place] Allergie Allergie s s Family History Family Member Diagnosis Comments Start Date Stop Date Source Natural father Stroke [facility] thodi Social History Social Habit Start Date Stop Date Quantity Comments Source Sex Assigned [facility] ethodist Alcohol intake 2019-08-31 2019-08-31 Current drinker of Georgi dixon [employer] 00:00:00 00:00:00 alcohol (finding) Alcohol Comment 2019-02-05 2019-02-05 [facility] ethodist 00:00:00 00:00:00 Smoking Status Start Date Stop Date Source Social History [facility] Medications Ordered Filled Start Stop Current Ordering Indication Dosage Frequency Signature Comments Components Source Medication Medication Date Date Medication? Clinician (SIG) Name Name aspirin Yes 81mg QD Take 81 mg [place] (ECOTRIN) - by mouth Method i 81 MG 10:04: daily. st enteric 39 coated tablet meloxicam 2020- Yes 15mg QD Take 1 [place] (Mobic) 15 4-28 04-28 tablet (15 Me thodi mg tablet 00:00: 23:59 mg total) st 00 :00 by mouth daily. methylPREDN 2019- No Take as Ho destiny ISolone 08-30 05-07 directedDi Metho di (Medrol, 00:00: 23:[address] Justyn,) 4 mg 00 :00 pack tablet escitalopra Yes 10mg QD Take 10 mg Lang m (LEXAPRO) 413 by mouth Meth jonathan 10 MG 00:00: daily. st tablet 00 Acetaminoph 2018-05 No Notes: Do M emoria en 0-30 not exceed l 22:55: 4 gm/day. [place] 00 (Same as: Tylenol) Ofirmev 2018-05 Yes Notes: Max Yoshi peg 0-30 acetaminop l 04:00: hen 4000 [place] 00 mg/day (4 gm/day). (Same as: Tylenol Extra Strength) Lovenox 2018-05 No Notes: Memoria 0-29 (Same as: l 23:11: Lovenox) [place] 00 tramadol 2018-05 Yes 50 mg, PO, Mem oria hydrochlori 0-29 Q6H, PRN l de 50 MG 23:03: Pain Score Her ramos Oral Tablet 00 4-6, X 3 day, # 12 tab, 0 Refill(s) tramadol 2018-05 No Notes: Not Mem oria hydrochlori 0-29 to exceed l de 50 MG 22:55: 400mg/day. Her ramos Oral Tablet 00 (Same As: Ultram) Labetalol 2018-05 No Notes: Memori a 0-29 (Same as: l 22:55: Normodyne, Trandate) Push over 2 minutes Give bolus over 2-3 minutes. Hydralazine 2018-05 No Notes: Yoshi peg 0-29 (Same as: l 22:55: Apresoline ) Push over 5 minutes fentaNYL 2018-05 No Route: IV, Mem oria (ANES) 0-29 Drug form: l 22:50: INJ, ONCE, Stop date: 03/02/19 17:50:00 CDT glycopyrrol 2018-05 No Route: IV, Memoria ate (ANES) 0-29 Drug form: l 22:50: INJ, ONCE, Stop date: 03/02/19 17:50:00 CDT neostigmine 2019 No Route: IV, Memoria (ANES) 0-29 Drug form: l 22:50: INJ, ONCE, Stop date: 03/02/19 17:50:00 CDT ondansetron 2018-05 No Route: IV, Memoria (ANES) 0-29 Drug form: l 21:59: INJ, ONCE, Stop date: 03/02/19 16:59:00 CDT dexamethaso 2018-05 No Route: IV, Memoria ne (ANES) 0-29 Drug form: l 21:59: INJ, ONCE, Stop date: 03/02/19 16:59:00 CDT famotidine 2018-05 No Route: IV, M emoria (ANES) 0-29 Drug form: l 21:59: INJ, ONCE, Stop date: 03/02/19 16:59:00 CDT midazolam 2018-05 No Route: IV, Me moria (ANES) 0-29 Drug form: l 21:59: SOLN, ONCE, Stop date: 03/02/19 16:59:00 CDT fentaNYL 2018-05 No Route: IV, Mem oria (ANES) 0-29 Drug form: l 21:59: INJ, ONCE, Stop date: 03/02/19 16:59:00 CDT lidocaine 2019 No Route: IV, Me moria (ANES) 0-29 Drug form: l 21:59: INJ, ONCE, Stop date: 03/02/19 16:59:00 CDT propofol 2018-05 No Route: IV, Mem oria (ANES) 0-29 Drug form: l 21:59: INJ, ONCE, Stop date: 03/02/19 16:59:00 CDT rocuronium 2018-05 No Route: IV, M emoria (ANES) 0-29 Drug form: l 21:59: INJ, ONCE, Stop date: 03/02/19 16:59:00 CDT acetaminoph 2018-05 No Route: IV, Memoria en (ANES) 0-29 Drug form: l 10 mg 21:56: INJ, Start Neri n 00 date: 03/02/19 16:56:00 CDT, Stop date: 03/02/19 17:56:00 CDT ceFAZolin 2018-05 No Route: IV, Me moria (ANES) Drug form: l 21:48: INJ, ONCE, [place] 00 Stop date: 03/02/19 16:48:00 CDT Sodium 2018-05 No 500 mL, Memoria Chloride 1500 l 0.9% 21:37: ml/hr, [place] (Bolus) IV 00 Infuse Over: 20 minutes, Route: IV, 500, Drug form: INJ, ONCE, Dosing Weight 65.5 kg, Start date: 03/02/19 16:37:00 CDT, PRN Other -See Comment, 0 Calcium 2018-05 No 1,000 mL, Memor ia Chloride Rate: 125 l 0.0014 21:37: ml/hr, [place] MEQ/ML / 00 Infuse Potassium over: 8 Chloride hr, Route: 0.004 IV, Dosing MEQ/ML / Weight Sodium 65.5 kg, Chloride Total 0.103 Volume: MEQ/ML / 1,000, Sodium Start Lactate date: 0.028 03/02/19 MEQ/ML 16:37:00 Injectable CDT, Solution Duration: 30 day, Stop date: 04/01/19 16:36:00 [employer], 1.74, m2 Hydralazine 2018-05 No 10 mg, Yoshi peg Route: l 21:37: IVP, [place] 00 Q20Min, Dosing Weight 65.5, kg, PRN Elevated BP, Start date: 03/02/19 16:37:00 CDT, Duration: 2 doses or times, Stop date: Limited # of times Labetalol 2018-05 No 10 mg, Memori a Route: l 21:37: IVP, [place] 00 Q5Min, Dosing Weight 65.5, kg, PRN Elevated BP, Start date: 03/02/19 16:37:00 CDT, Duration: 5 doses or times, Stop date: Limited # of times Metoprolol 2018-05 No 1 mg, Memori a Route: l 21:37: IVP, [place] 00 Q5Min, Dosing Weight 65.5, kg, PRN Other -See Comment, Start date: 03/02/19 16:37:00 CDT, Duration: 5 doses or times, Stop date: Limited # of times Acetaminoph 2018- No 1,000 mg, M boris en Route: PO, l 21:37: Drug form: [place] 00 TAB, ONCE, Dosing Weight 65.5, kg, PRN Pain Score 1-3, Start date: 03/02/19 16:37:00 CDT Morphine 2018-05 No 2 mg, Memoria Route: l 21:37: IVP, [place] 00 Q5Min, Dosing Weight 65.5, kg, PRN Pain Score 4-6, Start date: 03/02/19 16:37:00 CDT, Duration: 5 doses or times, Stop date: Limited # of times Hydromorpho 2018-05 No 0.5 mg, Mem oria ne 0 Route: l 21:37: IVP, [place] 00 Q5Min, Dosing Weight 65.5, kg, PRN Pain Score 7-10, Start date: 03/02/19 16:37:00 CDT, Duration: 4 doses or times, Stop date: Limited # of times Flumazenil 2018-05 No 0.2 mg, Yoshi peg Route: l 21:37: IVP, PRN, [place] 00 Dosing Weight 65.5, kg, PRN Benzodiaze pine Reversal, Initial dose, Start date: 03/02/19 16:37:00 CDT, Duration: 30 day, Stop date: 04/01/19 15:36:00 [employer] Naloxone 2018-05 No 0.4 mg, Memori a Route: l 21:37: IVP, [place] 00 Q2MIN, Dosing Weight 65.5, kg, PRN Narcotic Reversal, Start date: 03/02/19 16:37:00 CDT, Duration: 8 doses or times, Stop date: Limited # of times Albuterol 2018-05 No 2.49 mg, Yoshi peg 0.83 MG/ML 0 Route: l Inhalant 21:37: NEB, [place] Solution 00 Q20Min, Dosing Weight 65.5, kg, PRN Wheezing, Priority: STAT, Start date: 03/02/19 16:37:00 CDT, Duration: 30 day, Stop date: 04/01/19 15:36:00 [employer] Diphenhydra 2018-05 No 12.5 mg, Me moria mine Route: l 21:37: IVP, Drug form: INJ, Q6H, Dosing Weight 65.5, kg, PRN Itching, Start date: 03/02/19 16:37:00 CDT, Duration: 30 day, Stop date: 04/01/19 16:36:00 [employer] Meperidine 2018-05 No 12.5 mg, Mem oria Route: l 21:37: IVP, [place] 00 Q30Min, Dosing Weight 65.5, kg, PRN Other -See Comment, For shivering, Start date: 03/02/19 16:37:00 CDT, Duration: 2 doses or times, Stop date: Limited # of times Ondansetron 2018-05 No 4 mg, Memor ia Route: l 21:37: IVP, ONCE, [place] 00 Dosing Weight 65.5, kg, PRN Nausea & Vomiting, Start date: 03/02/19 16:37:00 CDT Promethazin 2018-05 No 6.25 mg, Me moria e Route: l 21:37: IVPB, [place] 00 ONCE, Dosing Weight 65.5, kg, PRN Nausea & Vomiting, Start date: 03/02/19 16:37:00 CDT Ancef 2018-05 No 2 gm, Memoria Route: l 21:26: IVPB, [place] 00 ONCE, Dosing Weight 65.5, kg, Start date: 03/02/19 16:26:00 CDT, Stop date: 03/02/19 16:26:00 CDT, Surgical Prophylaxi s Only; For patients < 120 kg, ABX Indication : Surgical Prophylaxi s Lactated 2018-05 No Route: IV, Mem oria Ringers 0-29 Total l Injection 20:57: Volume: Geraldine nn IV (ANES) 00 1,000, 1000 mL Start date: 03/02/19 15:57:00 CDT, Stop date: 03/02/19 16:57:00 CDT Hydrochloro 2018-05 No 1 tab, [place] peg thiazide 25 0-29 Route: PO, l MG / 14:00: Drug Form: [place] valsartan 00 TAB, 320 MG Oral Dosing Tablet Weight 65.5, kg, Daily, Start date: 03/02/19 9:00:00 CDT, Duration: 30 day, Stop date: 03/31/19 9:00:00 [employer] valsartan 2018-05 No Notes: Memori a 0-29 Same as l 14:00: Diovan [place] 00 hydrochloro 2018-05 No Notes: Y[place] peg thiazide 0-29 (Same as: l 14:00: Hydrodiuri [place] 00 l) With food. Lovenox 2018-05 No Notes: Memoria 0-29 (Same as: l 02:47: Lovenox) [place] 00 Sodium 2018-05 No 984.8 mL, Memori a Chloride 0-29 Rate: 500 l 0.9% IV 01:00: ml/hr, [place] 984.8 mL + 00 Infuse M.V.I.-12 over: 2 10 mL + hr, Route: folic acid IV, Dosing IV 1 mg + Weight thiamine IV 65.5 kg, 500 mg Total Volume: 1,000, Start date: 03/01/19 20:00:00 CDT, Duration: 1 doses or times, Stop date: 03/01/19 21:59:00 CDT, 1.74, m2, 0 Protonix 2018-05 No Notes: For Mem oria 0-28 IV push l 22:14: reconstitu [place] 00 te with 10 ml 0.9% sodium chloride and push over 2 minutes. (Same as: Protonix) Sucralfate 2018-05 No Notes: May M emoria 100 MG/ML 0-28 interfere l Oral 22:00: w/enteral [place] Suspension 00 feeds - [Carafate] Take 1 hr before or 2 hr after antacids, dairy pdt, meals & minerals - On empty stomach. For patients unable to swallow tablet, dissolve in 10mL - 30mL of water or juice and stir before giving. (Same As: Carafate) Optisource 2018-05 No 1 tab, Memor ia Post 0-28 Route: PO, l Bariatric 22:00: Drug Form: [facility] 00 CHEWTAB, oral Dosing tablet, Weight chewable 64.744, kg, QID, Start date: 03/01/19 17:00:00 CDT, Duration: 30 day, Stop date: 03/31/19 13:00:00 [employer], 0 Sodium 2019 No 984.8 mL, Memori a Chloride 0-28 Rate: 500 l 0.9% IV 21:33: ml/hr, [place] 984.8 mL + 00 Infuse M.V.I.-12 over: 2 10 mL + hr, Route: folic acid IV, Dosing IV 1 mg + Weight thiamine IV 64.744 kg, 500 mg Total Volume: 1,000, Start date: 03/01/19 16:33:00 CDT, Duration: 1 doses or times, Stop date: 03/01/19 18:32:00 CDT, 1.73, m2, 0 Lactated 2018-05 No 1,000 mL, Yoshi peg Ringers IV 0 Rate: 125 l 1,000 mL 21:33: ml/hr, Infuse over: 8 hr, Route: IV, Dosing Weight 64.744 kg, Total Volume: 1,000, Start date: 03/01/19 16:33:00 CDT, Duration: 30 day, Stop date: 03/31/19 16:32:00 [employer], 1.73, m2, 0 Dilaudid 2018-05 No Notes: Memoria 0-28 Same as l 21:33: Dilaudid Zofran 2018-05 No Notes: Memoria 0-28 (Same as: l 21:33: Zofran) MEDICATION WASTE Product Size: 4 mg Product Wasted: ___ mg Phenergan 2019 No 12.5 mg, Yoshi peg 0-28 50 mL, l 21:33: Route: IV [place] 00 Central, Drug form: SOLN, Q6H, Dosing Weight 64.744, kg, PRN Nausea & Vomiting, Start date: 03/01/19 16:33:00 CDT, Duration: 30 day, Stop date: 03/31/19 16:32:00 [employer], 0 Sucralfate 2018-05 Yes 1 gm = 1 Mem oria 1000 MG 0-25 tab, PO, l Oral Tablet 19:49: QID, crush [place] [Carafate] 00 and mix with 5-10mL water, # 56 tab, 0 Refill(s) tramadol 2018-05 Yes 50 mg = 1 [place] hydrochlori 0-25 tab, PO, l de 50 MG 19:49: Q6H, PRN Geraldine nn Oral Tablet 00 Pain, X 3 day, # 12 tab, 0 Refill(s) omeprazole 2018-05 Yes 40 mg = 1 Me moria 40 mg oral 0-25 cap, PO, l delayed 19:49: Daily, # Neri n release 00 30 cap, 1 capsule Refill(s) acetaminoph 2018-05 No Notes: Max Memoria en 0-25 acetaminop l 17:17: hen 4000 [place] 00 mg/day (4 gm/day). (Same as: Tylenol Extra Strength) Reglan 2018-05 No Notes: Memoria 0-25 (Same as: l 17:00: Reglan) [place] 00 Hydrochloro 2018-05 Yes 1 tab, PO, Memoria thiazide 25 0-25 Daily, # l MG / 14:13: 60 tab, 0 [place] valsartan 00 Refill(s) 320 MG Oral Tablet clindamycin 2018-05 Yes 300 mg = 1 Memoria 300 mg oral 0-25 cap, PO, l capsule 14:13: Q8H, # 30, Herm dilma 00 0 Refill(s) Clindamycin 2018-05 No TID, 0 Yoshi peg 0-25 Refill(s) l 13:59: [place] 00 72 HR 2018-05 No Notes: Memoria Scopolamine 0-25 Change l 0.0139 13:21: patch [place] MG/HR 00 every 72 Transdermal hours Patch (Same as: Transderm- Scop) Protonix 2018-05 No Notes: For Mem oria 0-25 IV push l 12:30: reconstitu [place] 00 te with 10 ml 0.9% sodium chloride and push over 2 minutes. (Same as: Protonix) Sucralfate 2018-05 No Notes: May M emoria 100 MG/ML 0-25 interfere l Oral 02:00: w/enteral [place] Suspension 00 feeds - [Carafate] Take 1 hr before or 2 hr after antacids, dairy pdt, meals & minerals - On empty stomach. For patients unable to swallow tablet, dissolve in 10mL - 30mL of water or juice and stir before giving. (Same As: Carafate) Lovenox 2018-05 No Notes: Memoria 0-25 (Same as: l 02:00: Lovenox) [place] 00 BD Normal 2018-05 No Notes: Memori a Saline 0-25 (Same as: l Flush 00:59: BD [place] 00 Posiflush) Sodium 2018-05 No 25 mL, Memoria Chloride 0-25 Route: IV, l 0.9% IV 00:59: Start [place] 00 date: 02/25/19 19:59:00 CDT, Duration: 30 day, Stop date: 03/27/19 18:58:00 [employer], PRN Line Flush, 0 Ofirmev 2018-05 No Notes: Memoria 0-24 Infuse l 22:12: over 15 minutes Do not exceed 4gm/day of acetaminop hen MEDICATION WASTE Product Size: 1000 mg Product Wasted: ___ mg Sodium 2018-05 No 984.8 mL, Memori a Chloride 0-24 Rate: 500 l 0.9% IV 22:05: ml/hr, [place] 984.8 mL + 00 Infuse M.V.I.-12 over: 2 10 mL + hr, Route: folic acid IV, Dosing IV 1 mg + Weight thiamine IV 65.909 kg, 500 mg Total Volume: 1,000, Start date: 02/25/19 17:05:00 CDT, Duration: 1 doses or times, Stop date: 02/25/19 19:04:00 CDT, 1.73, m2, 0 Lactated 2018-05 No 1,000 mL, Yoshi peg Ringers IV 0-24 Rate: 125 l 1,000 mL 22:05: ml/hr, Infuse over: 8 hr, Route: IV, Dosing Weight 65.909 kg, Total Volume: 1,000, Start date: 02/25/19 17:05:00 CDT, Duration: 30 day, Stop date: 03/27/19 17:04:00 [employer], 1.73, m2, 0 Dilaudid 2018-05 No Notes: Memoria 0-24 Same as l 22:05: Dilaudid [place] 00 Zofran 2018-05 No Notes: Memoria 0-24 (Same as: l 22:05: Zofran) [place] 00 MEDICATION WASTE Product Size: 4 mg Product Wasted: ___ mg Phenergan 2018-05 No 12.5 mg, Yoshi peg 0-24 50 mL, l 22:05: Route: IV [place] 00 Central, Drug form: SOLN, Q6H, Dosing Weight 65.909, kg, PRN Nausea & Vomiting, Start date: 02/25/19 17:05:00 CDT, Duration: 30 day, Stop date: 03/27/19 17:04:00 [employer], 0 acetaminoph 2019- No acute pain 1{tbl} Q6H Take 1 Lang en-codeine 9-27 10-27 tablet by Met hodi (TYLENOL 00:00: 23:[address] WITH 00 :00 every 6 CODEINE #3) (six) 300-30 mg hours as per tablet needed (severe pain) for up to 30 days .Acute Pain. methylPREDN Yes Lateral 40mg Yury ston ISolone 8-13 epicondylit Metho di acetate 10:15: is of left st (DEPO-MEDRO 00 elbow L) injection 40 mg meloxicam Yes 15mg QD Take 1 [place] (MOBIC) 15 8-13 tablet (15 Met hodi mg tablet 00:00: mg total) st 00 by mouth daily. traMADol 2018- No 50mg Q6H Take 1 [place] (ULTRAM) 50 8-13 - tablet (50 M ethodi mg tablet 00:00: 23:59 mg total) st 00 :00 by mouth every 6 (six) hours as needed for moderate pain for up to 37 days. valsartan-h Yes [place] ydrochlorot 5-16 Methodi hiazide 00:00: st (DIOVAN-HCT 00 ) 320-25 mg per tablet Aspirin 81 2017-05 No Notes: Do Me moria MG Enteric 2-28 not crush l Coated 15:00: or chew. [place] Tablet 00 (Same As: Ecotrin) clopidogrel 2017-05 No Notes: Yoshi peg - (Same As: l 15:00: Plavix) [place] valsartan 2017-05 No Notes: Memori a 2- Same as l 15:00: Diovan [place] Hydrochloro 2017-05 No Notes: Yoshi peg thiazide - (Same as: l 15:00: Hydrodiuri [place] 00 l) With food. valsartan 2017-05 Yes 160 mg, Memor ia 160 mg oral 2-27 PO, Daily, l tablet 18:00: # 90 tab, Neri n 00 0 Refill(s) Hydrochloro 2017-05 Yes 25 mg, PO, Memoria thiazide 25 2-27 Daily, # l MG Oral 18:00: 90 tab, 0 Geraldine nn Tablet 00 Refill(s) clopidogrel 2017-05 Yes 75 mg, PO, Memoria 75 mg oral 2-27 Daily, # l tablet 18:00: 90 tab, 3 Neri n 00 Refill(s) Aspirin 81 2017-05 Yes 81 mg, PO, M emoria MG Enteric 2-27 Daily, # l Coated 18:00: 90 tab, 0 Neri n Tablet 00 Refill(s) Nitroglycer 2017-05 No Notes: Yoshi peg in 07-01 (Same l 17:58: as:Nitroqu [place] 00 ick, Nitrostat) "Do Not Crush" Sublingual tablet Sodium 2017-05 No 250 mL, Memoria Chloride 2-27 250 ml/hr, l 0.9% 17:58: Infuse [place] (Bolus) IV 00 Over: 1 hr, Route: IV, 250, Drug form: INJ, ONCE, Dosing Weight 66.364 kg, Start date: 04/30/18 11:58:00 [employer], Stop date: 04/30/18 11:58:00 [employer] Hydrochloro 2017-05 No 1 tab, PO, Memoria thiazide 25 2-27 Daily, # l MG / 14:24: 90 tab, 0 [place] valsartan 00 Refill(s) 320 MG Oral Tablet normal 2017-05 No 1,000 mL, Memori a saline 0.9% 07-01 Rate: 100 l IV 1,000 mL 13:49: ml/hr, Herm dilma 00 Infuse over: 10 hr, Route: IV, Dosing Weight 66.364 kg, Total Volume: 1,000, Priority: STAT, Start date: 04/30/18 7:49:00 [employer], Duration: 1 day, Stop date: 05/01/18 7:48:00 [employer], 1.75, m2 Dulcolax No Notes: Memoria Laxative 01-10 (Same As: l 16:42: Dulcolax, [place] 00 Correctol) (Do Not Crush) "Do Not Crush" sodium No 250 mL, Memoria chloride 01-10 Rate: On l 0.9% INJ 16:37: call for Geraldine nn 250 mL 00 use with blood product administra tion, Dosing Weight 59.091, kg, Route: IV, Total Volume: 250, Start Date: 01/10/17 11:37:00 CDT, Duration: 30 day, Stop date: 02/09/17 11:36:00 CDT, Replace Every: 24 hr Famotidine No Notes: Memor ia 01-10 (Same as: l 14:00: Pepcid) [place] 00 Can be dilute in 5-10cc NS IVP: Slow IV push over at least 2 minutes. GoLYTELY No Notes: [facility] 01-10 (polyethyl l 11:00: ree glycol [place] 00 electrolyt e solution 4 Liter bottle) (Same as: Desean Cannon) GoLYTELY No Notes: [facility] 01-10 (polyethyl l 03:00: ree glycol [place] 00 electrolyt e solution 4 Liter bottle) (Same as: Desean Cannon) Golytely No 4,000 ml, Yoshi peg 01-10 Route: PO, l 02:50: Drug Form: [place] 00 PDR/REC, Dosing Weight 59.091, kg, ONCE, Start date: 01/09/17 21:50:00 CDT, Duration: 1 doses or times, Stop date: 01/09/17 21:50:00 CDT Saline No Notes: [facility] Flush 0.9% 01-09 preservati l 23:41: ve free. [place] 00 Lactated No 1,000 mL, Yoshi peg Ringers 01-09 Rate: 125 l 1,000 mL 23:41: ml/hr, Infuse over: 8 hr, Route: IV, Dosing Weight 59.091 kg, Total Volume: 1,000, Start date: 01/09/17 18:41:00 CDT, Duration: 30 day, Stop date: 02/08/17 18:40:00 CDT Ondansetron No Notes: Yoshi peg 01-09 (Same as: l 23:41: Zofran) MEDICATION WASTE Product Size: 4 mg Product Wasted: ___ mg Acetaminoph No Notes: Do M emoria en 01-09 not exceed l 23:41: 4 gm/day. (Same as: Tylenol) Dilaudid No Notes: Memoria 01-09 Same as l 23:41: Dilaudid Ketorolac No 4 days Memor ia 01-09 l 23:41: MEDICATION WASTE Product Size: 30 mg Product Wasted: ___ mg Phenergan No 12.5 mg, Yoshi peg 01-09 50 mL, l 23:41: Route: IVPB, Drug form: SOLN, Q4H, Dosing Weight 59.091, kg, PRN Nausea & Vomiting, Start date: 01/09/17 18:41:00 CDT, Duration: 30 day, Stop date: 02/08/17 18:40:00 CDT Golytely Yes Notes: Memoria 01-09 (polyethyl l 23:12: ree glycol electrolyt e solution 4 Liter bottle) (Same as: Golytely, Colyte) pantoprazol Yes 40 mg = 1 M emoria e 40 MG 4-10 tab, PO, l Enteric 21:59: Daily, # Neri n Coated 00 30 tab, 3 Tablet Refill(s) [Protonix] Sucralfate Yes 1 gm = 10 Me moria 100 MG/ML 4-10 mL, PO, l Oral 21:59: QID-Before Suspension 00 Meals, # [Carafate] 840 mL, 0 Refill(s) Sucralfate No Notes: Memor ia 100 MG/ML 4-10 Enteral l Oral 12:30: feeds may [place] Suspension 00 interfere [Carafate] with the absorption of this medication . Shake well. Take 1 hr before or 2 hrs after antacids, dairy pdt, minerals & meals. (Same As: Carafate) Sodium No 25 mL, Memoria Chloride 4-10 Route: IV, l 0.9% IV 05:00: Start [place] 00 date: 08/12/16 0:00:00 CDT, Duration: 30 day, Stop date: 09/10/16 23:59:00 CDT, PRN Line Flush BD Normal No Notes: Memori a Saline 4-10 (Same as: l Flush 05:00: BD [place] 00 Posiflush) Ofirmev Yes Notes: Memoria 4-10 Infuse l 05:00: over 15 [place] 00 minutes Do not exceed 4gm/day of acetaminop hen MEDICATION WASTE Product Size: 1000 mg Product Wasted: ___ mg Tylenol No 650 mg, Memoria 4-10 Route: PO, l 05:00: Drug form: [place] 00 TAB, Q6H, Dosing Weight 54.545, kg, Start date: 08/12/16 0:00:00 CDT, Duration: 4 doses or times, Stop date: 08/12/16 18:00:00 CDT BD Normal No Notes: Memori a Saline 4-10 (Same as: l Flush 04:59: BD [place] 00 Posiflush) pantoprazol No Notes: Yoshi peg e 80 mg + 4-10 infuse at l sodium 04:47: 8 mg/hr [place] chloride 00 (10 ml/hr) 0.9% 100 mL for 72 hrs INJ (for IV for GI set) 100 mL bleed Ferrlecit No Notes: Memori a 4-10 (sodium l 03:51: ferric [place] 00 gluconate complex (elemental iron) 62.5 mg/5 ml INJ) "Limited stability. Use immediatel y after admixture" (Same as: Ferrlecit) MEDICATION WASTE Product Size: 62.5 mg Product Wasted: ___ mg Sodium No 250 mL, [facility]oria Chloride 4-10 Rate: 25 l 0.154 03:43: ml/hr, Wayne MEQ/ML 00 Infuse Injectable over: 10 Solution hr, Route: IV, Dosing Weight 54.545 kg, Total Volume: 250, Start date: 08/11/16 22:43:00 CDT, Duration: 72 hr, Stop date: 08/14/16 22:42:00 CDT Metoprolol No Notes: Memor ia 4-10 (Same as: l 03:43: Lopressor) [place] 00 Push over 2 minutes Promethazin No Notes: Do M emoria e 4-10 not give l 03:43: IV push. [place] 00 (Same as: Phenergan) Ondansetron No Notes: Yoshi peg 4-10 (Same as: l 03:43: Zofran) [place] 00 MEDICATION WASTE Product Size: 4 mg Product Wasted: ___ mg Calcium No 1,000 mL, Memor ia Chloride 4-10 Rate: 125 l 0.0014 03:43: ml/hr, [place] MEQ/ML / 00 Infuse Potassium over: 8 Chloride hr, Route: 0.004 IV, Dosing MEQ/ML / Weight Sodium 54.545 kg, Chloride Total 0.103 Volume: MEQ/ML / 1,000, Sodium Start Lactate date: 0.028 08/11/16 MEQ/ML 22:43:00 Injectable CDT, Solution Duration: 30 day, Stop date: 09/10/16 22:42:00 CDT ferrous No 325 mg = 1 Yoshi peg sulfate 325 4-10 tab, PO, l mg oral 03:24: Daily, # Neri n enteric 00 30 tab, 0 coated Refill(s) tablet Ondansetron 2015-05 No Notes: Yoshi peg 0-28 (Same as: l 14:32: Zofran) [place] 00 MEDICATION WASTE Product Size: 4 mg Product Wasted: ___ mg Naloxone 2015-05 No Notes: Memoria 0-28 Same as l 14:32: Narcan [place] 00 Flumazenil 2015-05 No Notes: Memor ia 0-28 (Same as: l 14:32: Romazicon) [place] 00 Vital Signs Vital Name Observation Time Observation Value Comments Source Body height 2019-08-31 10:02:00 162.6 cm Rickey Bucio Body weight 2019-08-31 10:02:00 60.782 kg [facility]key [facility] BMI 2019-08-31 10:02:00 23.00 kg/m2 [facility]key [facility] Systolic (mm Hg) 2019-04-15 20:01:00 Yoshi rial [place] Diastolic (mm Hg) 2019-04-15 20:01:00 [facility] [place] Heart Rate 2019-04-15 20:01:00 [facility] [place] Height 2019-04-15 20:01:00 162.56 cm [facility] [place] Weight 2019-04-15 20:01:00 [facility] [place] BMI Calculated 2019-04-15 20:01:00 [facility] [place] Temperature Oral (F) 2019-03-03 16:31:00 97.8 F [facility] [place] Heart Rate 2019-03-03 16:31:00 [facility] [place] Respitory Rate 2019-03-03 16:31:00 [facility] [place] Systolic (mm Hg) 2019-03-03 16:31:00 Yoshi rial [place] Diastolic (mm Hg) 2019-03-03 16:31:00 [facility] [place] Temperature Oral (F) 2019-03-03 12:23:00 97.9 F [facility] [place] Heart Rate 2019-03-03 12:23:00 [facility] [place] Respitory Rate 2019-03-03 12:23:00 [facility] [place] Systolic (mm Hg) 2019-03-03 12:23:00 Yoshi rial [place] Diastolic (mm Hg) 2019-03-03 12:23:00 [facility] [place] Respitory Rate 2019-03-03 11:17:00 [facility] [place] Temperature Oral (F) 2019-03-03 08:22:00 98.5 F [facility] [place] Heart Rate 2019-03-03 08:22:00 [facility] [place] Systolic (mm Hg) 2019-03-03 08:22:00 Yoshi rial [place] Diastolic (mm Hg) 2019-03-03 08:22:00 [facility] [place] Height 2019-03-01 22:00:00 162.56 cm [facility] [place] Weight 2019-03-01 22:00:00 [facility] [place] BMI Calculated 2019-03-01 22:00:00 [facility] [place] Temperature Oral (F) 2019-02-26 17:00:00 98.5 F [facility] [place] Heart Rate 2019-02-26 17:00:00 [facility] [place] Respitory Rate 2019-02-26 17:00:00 [facility] [place] Systolic (mm Hg) 2019-02-26 17:00:00 Yoshi rial [place] Diastolic (mm Hg) 2019-02-26 17:00:00 [facility] [place] Temperature Oral (F) 2019-02-26 12:00:00 97.8 F [facility] [place] Heart Rate 2019-02-26 12:00:00 [facility] [place] Respitory Rate 2019-02-26 12:00:00 [facility] [place] Systolic (mm Hg) 2019-02-26 12:00:00 Yoshi rial [place] Diastolic (mm Hg) 2019-02-26 12:00:00 [facility] [place] Temperature Oral (F) 2019-02-26 09:09:00 97.8 F [facility] [place] Heart Rate 2019-02-26 09:09:00 [facility] [place] Respitory Rate 2019-02-26 09:09:00 [facility] [place] Systolic (mm Hg) 2019-02-26 09:09:00 Yoshi rial [place] Diastolic (mm Hg) 2019-02-26 09:09:00 [facility] [place] Height 2019-02-26 06:05:00 162.56 cm [facility] [place] Height 2019-02-26 00:19:00 162.56 cm [facility] [place] Weight 2019-02-26 00:19:00 [facility] [place] BMI Calculated 2019-02-26 00:19:00 [facility] [place] Systolic blood 2019-02-05 11:49:00 148 mm[Hg] Regina n [facility] pressure Diastolic blood 2019-02-05 11:49:00 69 mm[Hg] Alexander on [facility] pressure Heart rate 2019-02-05 11:49:00 68 /min Lang [facility] Body temperature 2019-02-05 11:49:00 37.11 Judith [place] [facility] Respiratory rate 2019-02-05 11:49:00 14 /min [place] [facility] Oxygen saturation in 2019-02-05 11:49:00 100 /min [facility] Arterial blood by Pulse oximetry Systolic (mm Hg) 2018-04-30 20:00:00 Yoshi rial [place] Diastolic (mm Hg) 2018-04-30 20:00:00 Mem [facility] [place] Systolic (mm Hg) 2018-04-30 19:30:00 Yoshi rial [place] Diastolic (mm Hg) 2018-04-30 19:30:00 [facility] [place] Systolic (mm Hg) 2018-04-30 19:00:00 Yoshi rial [place] Diastolic (mm Hg) 2018-04-30 19:00:00 [facility] [place] BMI Calculated 2018-04-30 13:49:00 [facility] [place] Weight 2018-04-30 13:49:00 [facility] [place] Height 2018-04-30 13:49:00 162.56 cm [facility] [place] BMI Calculated 2018-04-16 22:29:00 [facility] [place] Weight 2018-04-16 22:29:00 [facility] [place] Height 2018-04-16 22:29:00 162.56 cm [facility] [place] Respitory Rate 2017-01-11 12:37:00 [facility] [place] Systolic (mm Hg) 2017-01-11 12:37:00 Yoshi rial [place] Diastolic (mm Hg) 2017-01-11 12:37:00 [facility] [place] Heart Rate 2017-01-11 12:37:00 [facility] [place] Temperature Oral (F) 2017-01-11 12:37:00 97.5 F [facility] [place] Temperature Oral (F) 2017-01-11 09:00:00 98.3 F [facility] [place] Heart Rate 2017-01-11 09:00:00 [facility] [place] Respitory Rate 2017-01-11 09:00:00 [facility] [place] Systolic (mm Hg) 2017-01-11 09:00:00 Yoshi rial [place] Diastolic (mm Hg) 2017-01-11 09:00:00 Mem [facility]rial [place] Temperature Oral (F) 2017-01-11 05:55:00 98.6 F [facility] [place] Heart Rate 2017-01-11 05:55:00 [facility] [place] Respitory Rate 2017-01-11 05:55:00 [facility] [place] Systolic (mm Hg) 2017-01-11 05:55:00 Yoshi rial [place] Diastolic (mm Hg) 2017-01-11 05:55:00 Mem [facility] [place] BMI Calculated 2017-01-09 16:40:00 [facility] [place] Weight 2017-01-09 16:40:00 [facility] [place] Height 2017-01-09 16:40:00 162.56 cm [facility] [place] Respitory Rate 2016-08-13 09:50:00 [facility] al [place] Respitory Rate 2016-08-12 16:10:00 [facility] [place] Systolic (mm Hg) 2016-08-12 16:10:00 Yoshi rial [place] Diastolic (mm Hg) 2016-08-12 16:10:00 Mem orial [place] Heart Rate 2016-08-12 16:10:00 [facility] [place] Temperature Oral (F) 2016-08-12 16:10:00 98.5 F [facility] [place] Temperature Oral (F) 2016-08-12 12:38:00 97.4 F [facility] [place] Heart Rate 2016-08-12 12:38:00 [facility] [place] Respitory Rate 2016-08-12 12:38:00 [facility] [place] Systolic (mm Hg) 2016-08-12 12:38:00 Yoshi rial [place] Diastolic (mm Hg) 2016-08-12 12:38:00 Mem orial [place] Temperature Oral (F) 2016-08-12 09:00:00 97.9 F [facility] [place] Systolic (mm Hg) 2016-08-12 09:00:00 Yoshi rial [place] Diastolic (mm Hg) 2016-08-12 09:00:00 [facility] [place] Heart Rate 2016-08-12 09:00:00 [facility] [place] Weight 2016-08-12 04:15:00 [facility] [place] BMI Calculated 2016-08-12 04:15:00 [facility] [place] Height 2016-08-12 04:15:00 160.02 cm [facility] [place] Weight 2016-08-12 00:40:00 [facility] [place] BMI Calculated 2016-08-12 00:40:00 [facility] al [place] Height 2016-08-12 00:40:00 160.02 cm [facility] [place] Weight 2016-03-01 16:08:00 [facility] [place] BMI Calculated 2016-03-01 16:08:00 [facility] [place] Height 2016-03-01 16:08:00 162.56 cm [facility] [place] Procedures Procedure Date / Time Performing Clinician Source Performed XR KNEE 4+ VW RIGHT 2019-08-31 10:12:35 April Trujillo HEMOGLOBIN A1C 2019-02-05 13:16:00 Greg Domingo [facility] ECG 12-LEAD 2019-02-04 19:59:[address] ANGIOGRAM PE CHEST 2019-02-04 19:57:29 Allan Romero HC COMPLETE BLD COUNT 2019-02-04 18:23:00 Allan Romero W/AUTO DIFF COMPREHENSIVE METABOLIC 2019-02-04 18:23:00 Allan Romero PANEL TYPE AND SCREEN 2019-02-04 18:23:00 Allan Romero PROTHROMBIN TIME WITH INR 2019-02-04 18:23:00 Allan Romero D-DIMER 2019-02-04 18:23:00 Allan Romero ESTIMATED GFR 2019-02-04 18:23:00 Allan Romero TROPONIN 2019-02-04 18:23:00 Allan Romero ECG ED PRELIMINARY 2019-02-04 18:04:08 Allan Romero INTERPRETATION XR ELBOW 3+ VW LEFT 2018-12-15 09:43:16 April Trujillo CO ARTHROCENTESIS 2018-12-15 09:30:00 April Trujillo [facility] ASPIR&/INJ MAJOR JT/BURSA W/O US Gastric bypass operation 2015-01-03 05:00:00 Mem orial [place] Upper GI endoscopy [facility] Laparoscopic gastric [facility] bypass Plan of Care Planned Activity Planned Date Details Comments Source Future Scheduled 2019-12-04 INFLUENZA VACCINE [place] [facility] Test 00:00:00 [code = INFLUENZA VACCINE] Future Scheduled 2000-10-01 Screening for Rickey [facility] Test 00:00:00 malignant neoplasm of cervix (procedure) [code = 457201449] Future Scheduled 1989-10-01 DIABETIC FOOT EXAM [place] [facility] Test 00:00:00 [code = DIABETIC FOOT EXAM] Future Scheduled 1989-10-01 URINE MICROALBUMIN [place] [facility] Test 00:00:00 [code = URINE MICROALBUMIN] Future Scheduled 1979 DIABETIC RETINAL EYE Yury kaylenn [facility] Test 00:00:00 EXAM [code = DIABETIC RETINAL EYE EXAM] Encounters Start End Encounter Admission Attending Care Care Encounter Source Date/Time Date/Time Type Type Clinicians Facility Department ID 2019-08-31 2019-08-31 Outpatient CASSANDRA [facility] [id number] [place] 00:00:00 00:00:00 APRIL [address] 2019-08-31 2019-08-31 Outpatient [facility]ANDRA [facility] [id number] [place] 00:00:00 00:00:00 APRIL [address] 2019-04-16 2019-04-16 Outpatient Jeremy, [facility] [id number] 09:33:00 23:59:00 Coy Blum 2019-04-15 2019-04-15 Outpatient Primpatricia, [facility] [id number] 13:30:00 23:59:59 Coy Blum 2019-03-01 2019-03-03 Outpatient Primomo, [facility] [id number] 16:33:00 15:17:00 Coy Jordi Kulwant 2019-03-01 2019-03-01 Inpatient U [facility] DONNA [id number] Memoria 16:33:00 16:11:00 [facility] 2019-02-25 2019-02-26 Outpatient Primomo, [facility] [id number] 15:52:00 16:38:00 Coy Cristiane Kulwant 2019-02-25 2019-02-25 Outpatient U [facility] DONNA [id number] Memoria 15:52:00 15:52:00 [facility] 2018-05-06 2018-05-06 Outpatient Walt [facility] [id number] 21:00:00 21:00:00 Carlos Freeman 2018-04-30 2018-04-30 Outpatient J Luis [facility] [id number] 07:34:00 15:05:00 Usman 03 Massimo 2018-04-20 2018-04-20 [facility] [id number] 10:12:00 23:59:00 Usman 01 Massimo 2018-04-16 2018-04-16 Outpatient SUHAS Dietz [facility] [id number] 16:02:00 23:59:00 Vasile 47 2018-03-25 2018-03-25 [facility] [id number] 10:25:00 10:25:00 Usman 00 Massimo 2017-01-11 2017-01-11 Outpatient Primomo, [facility] [id number] 08:36:00 09:41:00 Coy Jordi Kulwant 2017-01-09 2017-01-09 Outpatient Primomo, [facility] [id number] 23:00:00 23:00:00 Coy Casey Kulwant 2016-08-11 2016-08-12 Outpatient Leandro, [facility] [id number] 18:54:00 20:10:00 Esau Hu 00 2016-03-01 2016-03-01 Outpatient Primomo, [facility] [id number] 09:16:00 12:16:00 Coy Blum Results Test Description Test Time Test Comments Results Result Comments Source ELECTROLYTES 2019-03-03 138 [facility] 10:15:00 ELECTROLYTES 2019-03-03 5.0 [facility] 10:15:00 ELECTROLYTES 2019-03-03 104 [facility] 10:15:00 ELECTROLYTES 2019-03-03 9.4 [facility] 10:15:00 ELECTROLYTES 2019-03-03 7 [facility] 10:15:00 ELECTROLYTES 2019-03-03 27 [facility] 10:15:00 ELECTROLYTES 2019-03-03 134 [facility] [place] 10:15:00 ELECTROLYTES 2019-03-03 0.88 [facility] [place] 10:15:00 ELECTROLYTES 2019-03-03 83 [facility] 10:15:00 ELECTROLYTES 2019-03-03 12.0 [facility] 10:15:00 HEMATOLOGY 2019-03-03 12.9 [facility] nn 10:15:00 HEMATOLOGY 2019-03-03 3.83 [facility] nn 10:15:00 HEMATOLOGY 2019-03-03 10.2 [facility] Geraldine nn 10:15:00 HEMATOLOGY 2019-03-03 31.3 [facility] Geraldine nn 10:15:00 HEMATOLOGY 2019-03-03 81.7 [facility] Geraldine nn 10:15:00 HEMATOLOGY 2019-03-03 10:15:00 Test Item Value Reference Range Interpretation Comme nts MCH (test code = MCH) 26.6 pg 27.0-31.0 [facility] LimmrnlMKTCFPEEQJ3090-89-38 10:15:0032.6[facility] HermannHEMATOLOGY 2019-03-03 10:15:0023.8[facility] QdkaatzYADVVWSBRQ9523-18-29 10:15:78666Irwjwsid YtflcjkMFPMHSIKZQ2649-36-34 10:15:008.8[facility] LwqeicxYSTBKMQCGR8806-38-78 10:15:0086.5[facility] QmrlxgsHSPYJZVFFA4380-21-26 10:15:007.5[facility] [place] UZCITHVYYQ3712-48-16 10:15:005.7[facility] UupjwxsVQGKIYFUVN9820-52-85 10:15:000.3 [facility] WgjepyfQFXXFFIGKR2240-08-38 10:15:0011.1[facility] HermannHEMATOLOGY 2019-03-03 10:15:001.0[facility] GbwbzsgOBRQJEPCIJ2994-82-39 10:15:000.7[facility] HermannBLOOD BANK TTTEENI0650-26-93 17:35:00Negative (03/02/19 12:35 PM)[facility] HermannCHEM LNAKF0698-19-22 09:47:008.9[facility] HermannCHEM NNAMY0153-75-45 09:47:68948Myxpishw HermannCHEM JSEMC2660-77-77 09:47:004.7[facility] HermannCHEM GWCPW1415-82-91 09:47:37604Ulxrwkte HermannCHEM LRUKJ6869-94-45 09:47:0077 [facility] HermannCHEM EQGNY1433-56-40 09:47:006[facility] HermannCHEM PANEL 2019-03-02 09:47:0026[facility] HermannCHEM YQMYF9238-21-54 09:47:000.80[facility] HermannCHEM BLEQY3244-17-41 09:47:0093[facility] HermannCHEM IPPGF0074-27-71 09:47:0011.7[facility] UecslgrUOBVKMWJSE8859-88-94 09:47:0053.8[facility] [place] SWRDLFYNTN1737-04-30 09:47:0034.3[facility] FcidzjeICLMYZFQWN4139-85-46 09:47:00 8.3[facility] IxhkodgHCJCKGTREJ3882-43-58 09:47:002.5[facility] HermannHEMATOLOGY 2019-03-02 09:47:001.1[facility] VzwlibaZWAKATORJK4283-81-57 09:47:003.5[facility] MydbfblXSWNNCJNTJ4183-93-81 09:47:002.2[facility] DchmfcsSQFBSMIKQT1618-14-17 09:47:000.5[facility] HqjxtexDECEFELQBM2078-48-18 09:47:000.2[facility] [place] YTBYNTJZID5564-85-73 09:47:000.1[facility] RdspzprPMNKWLHXWF1885-76-45 09:47:006.5 [facility] VzhdbcdLERORAZXEO6309-58-77 09:47:003.62[facility] HermannHEMATOLOGY 2019-03-02 09:47:009.5[facility] EhywtsxKGRHHDMSQX5941-40-20 09:47:0029.6[facility] YmjhddsMMBCAUYBWB3743-31-64 09:47:0081.6[facility] IbflgglRXUTCYKXLQ0346-66-12 09:47:00 Test Item Value Reference Range Interpretation Comments MCH (test code = MCH) 26.1 pg 27.0-31.0 [facility] GogksexDISQKBKJTE8999-97-85 09:47:0032.0[facility] HermannHEMATOLOGY 2019-03-02 09:47:0023.8[facility] EnbqtkkIDVNNCSHFH2869-32-30 09:47:17773Gghqizev HjztlqeQAGCTUVSGT2700-71-55 09:47:008.7[facility] VghsixmEMDWVBEYSHKJ2670-41-02 21:55:0010.9[facility] FduxhjiCOJTPIISJTBF2457-28-81 21:55:00 Test Item Value Reference Range Interpretation Comments B/C Ratio (test code = B/C Ratio) 9 1 6- [facility] PenuywqWCNKEIKWKVSD6707-21-69 21:55:003.2[facility] HermannELECTROLYTES 2019-03-01 21:55:00 Test Item Value Reference Range Interpretation Comments A/G Ratio (test code = A/G Ratio) 1.2 1 0.7-1.6 [facility] RiwzhuvRZOQBAYDFVDJ4982-62-93 21:55:96229Xbyjtqdi HermannELECTROLYTES 2019-03-01 21:55:003.9[facility] YwsqppmBLFUFRSPSZHB2561-46-38 21:55:31137Ayusoipk DfidxiyNGRIQGVUMMGN8268-22-48 21:55:009.4[facility] OyhgiycULZRYHEMMRCH6639-74-57 21:55:004.0[facility] HhyenrhMTHCHRGWIPSZ3229-78-97 21:55:0080[facility] [place] UHHORGNEZCTB4640-10-87 21:55:008[facility] QhamjixEXXKNXPVKIHB7414-82-82 21:55:00 26[facility] ToissvwSFHIBEJUCWBW7800-82-07 21:55:0014[facility] HermannELECTROLYTES 2019-03-01 21:55:000.91[facility] AyzfifgWGDDJZVQLYIA2453-85-97 21:55:0019[facility] JvlkqybPJLTRGPAUGFW5024-80-50 21:55:0080[facility] IltxqolTFBXWQDURIUG3972-00-79 21:55:007.2[facility] QoawjgwNODLWMSXLYML6022-94-04 21:55:000.1[facility] [place] HZMRPNBKKGGT8939-18-04 21:55:0082[facility] BjuupbtSEIQMAWIXL3309-30-37 21:55:00 7.2[facility] RwgsukqGJPEVXGKFS0500-43-68 21:55:003.96[facility] HermannHEMATOLOGY 2019-03-01 21:55:0010.6[facility] FyoczhsGFIYLLBYBY5420-50-38 21:55:0032.2[facility] YwulldfWGJJWOAERI8019-26-91 21:55:0081.3[facility] WfdugtoJFZXWKKQPI7489-20-46 21:55:00 Test Item Value Reference Range Interpretation Comments MCH (test code = MCH) 26.8 pg 27.0-31.0 [facility] IvfvxbnGLXMZEZAPJ9845-87-08 21:55:0032.9[facility] HermannHEMATOLOGY 2019-03-01 21:55:0023.3[facility] TzcfvieVQWQRQLOZP9173-42-28 21:55:73758Ikvbjkey TvhwlumUXUZJYIUGL8161-50-32 21:55:008.5[facility] SxmminzLZVTNWBQMF8443-53-03 21:55:0070.1[facility] QnmgygwNZVBLFJWJT2296-36-21 21:55:0019.9[facility] [place] GPDWTYCZOX5730-13-81 21:55:007.4[facility] EweogbzRFRSWAWEOK5299-91-93 21:55:001.7 [facility] NtnbpthDJFDSHBYMC7880-49-41 21:55:000.9[facility] HermannHEMATOLOGY 2019-03-01 21:55:005.1[facility] IkwoazcOJNYXHWCMO9425-76-67 21:55:001.4[facility] JpqkcdnOGAAWIVYFD8909-79-35 21:55:000.5[facility] RhzhndlVFOYXLBXHG6495-91-94 21:55:000.1[facility] QqrxcxzBQRONWJLHL6640-29-71 21:55:000.1[facility] LLKTNFXFIKFD6797-35-07 09:56:0011.6[facility] RicxwhgHDNOCCCALSXK1833-52-56 09:56:96375Bpbzcioh CcgbgnqPAOMSNGBEGPE4998-83-03 09:56:004.6[facility] HOAITQNNAJLC4090-89-70 09:56:51673Sceodkgm CtoptmwYCKEBHNOCXKX2275-39-66 09:56:008.9[facility] XzmykzmCVGWEMCTKBFT0866-65-20 09:56:0075[facility] [place] SPGTNHZWAKXM0466-68-64 09:56:008[facility] QuknwsjNSQRCDXMYNVW3206-66-93 09:56:00 27[facility] UbxpckeCQODBWSFKHLD2639-88-87 09:56:000.72[facility] [place] WZVQCNTZKGJL8426-53-63 09:56:92159Jnbwbuah MpkpupkXNKFLCNGFV5597-39-94 09:56:00 52.3[facility] PksmfvkISMGLKNJMA4388-61-03 09:56:0036.4[facility] HermannHEMATOLOGY 2019-02-26 09:56:007.7[facility] DxzotrbAJYVXBHJKV7300-01-65 09:56:002.2[facility] CojqudyTLXPUASUYD0444-96-01 09:56:001.4[facility] MuvytedJGEWWHVVJR0063-76-54 09:56:002.9[facility] GduadjrRCJYZKUPVR7173-85-94 09:56:002.0[facility] [place] TJAVNHPANC9461-11-21 09:56:000.4[facility] CqxiolxLLFJZSRXQS7208-52-30 09:56:000.1 [facility] MvdizhvIMYWHWRZYY4386-70-68 09:56:000.1[facility] HermannHEMATOLOGY 2019-02-26 09:56:005.5[facility] HibmzpdBYQEPVTERM8999-52-37 09:56:003.48[facility] HxfznlwGARSROVOGN8002-27-96 09:56:009.1[facility] DnebbnzVNLAGLNTBB9196-91-24 09:56:0028.2[facility] QsxvxyyPRJWVDZLTK3422-82-56 09:56:0081.0[facility] UPWDPOOWEO6344-17-04 09:56:00 Test Item Value Reference Range Interpretation Comments MCH (test code = MCH) 26.2 pg 27.0-31.0 [facility] WkessjtQINNRYQGER3535-59-15 09:56:0032.3[facility]annHEMATOLOGY 2019-02-26 09:56:0023.2[facility] DktexijIFSDRUXYAK9825-21-12 09:56:27509Kyzizrlk ZnssgthDIFVTOAUKB7884-80-51 09:56:008.7[facility] XqgpllvFGNGZSGRXNNW1033-47-65 22:33:0010.2[facility] VwqlefuWIQYPTUTWAVU8441-51-20 22:33:00 Test Item Value Reference Range Interpretation Comments B/C Ratio (test code = B/C Ratio) 12 1 10-27 [facility] FjwlfeiCUBQMNEJMCFR2658-29-06 22:33:003.0[facility] HermannELECTROLYTES 2019-02-25 22:33:00 Test Item Value Reference Range Interpretation Comments A/G Ratio (test code = A/G Ratio) 1.2 1 0.7-1.6 [facility] TnkbchwYMBXQEIFPLFQ2213-24-24 22:33:35987Rtezfdxm HermannELECTROLYTES 2019-02-25 22:33:004.2[facility] SusvzxkBXSPSUTQYFMX7261-93-73 22:33:60781Hbtvoalz AdehhpmPOSLKMONUUMI8655-27-39 22:33:009.5[facility] TfnsvvrQVJIVCKVFENT3428-07-42 22:33:0085[facility] DtycumpFCLVVIMNLPMC2686-75-54 22:33:0029[facility] MCNYHZXKDDLV9945-35-01 22:33:003.7[facility] ZatuhjuWAERRERLUHAY7607-39-28 22:33:009[facility] PebfmneWSDZIVJAXSVE9106-95-97 22:33:000.75[facility] QZPHOBZJAKJY7685-82-43 22:33:0017[facility] OwrmzvkOVIYMEJFSKIR5275-86-58 22:33:00 8[facility] VifqqxpNBDOMNLCCJWR8919-09-28 22:33:76003Izdbzkmi HermannELECTROLYTES 2019-02-25 22:33:006.7[facility] UthfocfKQKWHEFZETQY6848-36-57 22:33:000.3[facility] HgttrnpYNXSNFZRBPFU7024-26-20 22:33:0069[facility] NvggyeoJUCGIBMYPR6637-79-66 22:33:006.4[facility] RnftojoILQNESPLNS3812-27-58 22:33:003.76[facility] VAISRYWOJN6854-12-80 22:33:009.8[facility] WuirjhnYNDGQADVCX1203-95-51 22:33:00 30.3[facility] MxwsexpPXUAHGZYVB9667-15-62 22:33:0080.4[facility]annHEMATOLOGY 2019-02-25 22:33:00 Test Item Value Reference Range Interpretation Comments MCH (test code = MCH) 25.9 pg 27.0-31.0 [facility] DqluvuqMBDNDXHCAP5061-38-82 22:33:0032.2[facility]annHEMATOLOGY 2019-02-25 22:33:0023.6[facility] AbybcqrIIBVUXYOXY5248-84-76 22:33:62435Xhfzhevu KnmvkxrVBSUYUWRJZ1376-77-66 22:33:008.4[facility] EvpwmalHBJRFIQRET7368-14-23 22:33:0066.5[facility] UpnxmyoDUGBYYTAEG8990-41-90 22:33:0025.0[facility] BBXFXXDARP4442-74-08 22:33:006.1[facility] NvqmasmUEIDXMVXJQ3177-48-15 22:33:001.4 [facility] PxcnnmmMAEZNWIONI5368-01-02 22:33:001.0[facility]annHEMATOLOGY 2019-02-25 22:33:004.2[facility] NtaxbnlKPPIWVGITX9406-25-60 22:33:001.6[facility] HphprzjIVUDXHQEQP7530-99-13 22:33:000.4[facility] GmhmuwwHEPRHUQIIV0383-15-59 22:33:000.1[facility] FaqumzoAVUFETMQFB4984-19-25 22:33:000.1[facility] HermannECG 12 uyvy2809-51-38 13:54:02 Test Item Value Reference Range Interpretation Comments Ventricular rate (test 60 code = 253) Atrial rate (test code = 60 255) CO interval (test code = 138 266) QRSD interval (test code 72 = 260) QT interval (test code = 408 264) QTC interval (test code 408 = 265) P axis 1 (test code = 52 267) QRS axis 1 (test code = 22 268) T wave axis (test code = 24 270) EKG impression (test Normal sinus code = 273) rhythm-No previous ECGs available-Electronica lly Signed By Nicanor Hood MD ([id number]) on 02/05/2019 1:54:00 PM [place] Pe Qyrgn9316-88-92 20:01:33Hm Interface, Radiology Results Incoming - 02/04/2019 8:04 PM CDTEXAMINATION:CT ANGIOGRAM PE CHESTCL INICAL HISTORY:chest pain and dyspneaTECHNIQUE:CT angiographic images of the chest were obtained during intravenous administration of iodinated contrast. Computerized reformatted images and 3-D MIP images were also obtained and archived. CT imaging was performed with iterative reconstruction techniques and/or automated exposure control to reduce radiation dose.COMPARISON:None.IMPRESSION:There is no evidence of pulmonary embolism.No pleural or pericardial effusions are present. No significant lymphadenopathy.No consolidationsSmall 3 mm well-circumscribed nodule in the superior segment of the right lower lobe and a 2 mm subpleural nodule also in the superior segment of the right lower lobe. Findings likely represent noncalcified granuloma, however as no prior studies are available for comparison, follow-up in one year is recommended to ensure stabilityPostoperative changes involving the stomachBon y structures are within normal limitsBL[facility]CH[facility]-[id number] MethodistType and fgoopd3604-93-41 19:44:00 Test Item Value Reference Range Interpretation Comments ABO grouping (test code = 883-9) O Rh type (test code = 44526-9) POS Antibody screen (gel) (test code = NEG 890-4) Lang HbnrwznpnRpbopyzy1256-35-81 19:36:56 Test Item Value Reference Range Interpretation Comments Troponin (test code = <0.006 0-0.04 [place] 53853-3) Laboratories ch anged methodology eff ective: 09/08/2018 at 10: 00 amThe new method has a 99th percentile cuto ff of 0.040 ng/mL Rickey MethodistComprehensive metabolic dborb8130-72-15 19:15:08 Test Item Value Reference Range Interpretation Comments Sodium (test code = 2951-2) 138 135- 148 mEq/L Potassium (test code = 2823-3) 3.7 3.5- 5.0 mEq/L Chloride (test code = 2075-0) 103 98- 112 mEq/L CO2 (test code = 2027-9) 25 24- 31 mEq/L Anion gap (test code = 33867-0) 10@ANIO 7- 15 mEq/L BUN (test code = 3094-0) 10 mg/dL 6-20 Creatinine (test code = 2160-0) 1.03 mg/dL 0.5-0.9 H Glucose (test code = 2345-7) 176 mg/dL 65-99 H Calcium (test code = 74310-3) 9.2 mg/dL 8.3-10.2 Protein (test code = 2885-2) 6.7 g/dL 6.3-8.3 Albumin (test code = 1751-7) 4.0 g/dL 3.5-5 A/G ratio (test code = 1759-0) 1.5 0.7-3.8 Alkaline phosphatase (test code = 74 U/L 35-104 6768-6) AST (test code = 1920-8) 17 U/L 10-35 ALT (test code = 1742-6) 11 U/L 5-50 Total bilirubin (test code = <0.2 0.2-1.2 1974-06) Lab Interpretation (test code = Abnormal 78242-0) Lang MethodistEstimated TZX0490-67-81 19:15:07 Test Item Value Reference Range Interpretation Comments Estimated GFR (test 68 mL/min/1.73 m2 Caterg ory Units code = 5488) InterpretationG 1 >=90 Normal or highG2 60-89 Mildly emaqhwsuzZ2s 45-59 Mildly to mode rately iuuduzkmaS0s 30-44 Moderately to severely decreasedG4 15-29 Severely decre asedG5 <15 Kidn ey failureThe eGFR was calculated magdalene g the Chronic Kidney Disease Epidemiology Co llaboration (CKD-EPI) equat ion. Interpretation is based on recommendations of the National Kidney Foundation-Kidn ey Disease Outcomes Qualit y Initiative (NKF-KDOQI) pub lished in 2014. Rickey HernandezFlswloknxZ-jnqtm2001-17-03 19:03:37 Test Item Value Reference Range Interpretation Comments D-dimer (test code = 3.15 ug/mL 0-0.4 H Units a re ug/ml 73121-5) Fibrinogen Equivalent Unit .When combined with l ow clinical probability, D- dimer results of less than 0.5 ug/ml FEU h ave a good negative predictive valu e in excluding PE or DVT. For D-dimer re sults greater than 0. 5 ug/ml FEU furth er testing is melquiades cated if PE or DVT is suspected clinically.Elev ated D-dimer results have been reported i n DVT, PE, and DI C cases and may indicate the presence of a c lot. D-dimer results may be elevated due to old age, pregna ncy, inflammatory diseases, traum a, post-operative states, sepsis, and malignancies. Lab Interpretation Abnormal (test code = 91710-0) Rickey MethodistProthrombin time with YBU1248-24-24 19:01:54 Test Item Value Reference Range Interpretation Comments Prothrombin time (test 14.3 11.5- 14.5 sec code = 5902-2) INR (test code = 1.1 The Interna tional 96691-9) Normalized Rati o (INR) is a therapeutic m onitoring tool for patien ts who are stable on oral anticoagulant t herapy. An INR of 2.0-3.0 is suggested for d eep vein thrombosis/pulm onary embolism. Rickey MethodistCBC with platelet and ztabgoyqvvcw8121-49-52 18:56:33 Test Item Value Reference Range Interpretation Comments WBC (test code = 09802-9) 8.1 4.5- 11.0 k/uL RBC (test code = 48901-8) 4.47 m/uL 4.2-5.5 HGB (test code = 718-7) 10.8 g/dL 12-16 L HCT (test code = 4544-3) 35.9 % 37-47 L MCV (test code = 787-2) 80.3 fL 82-100 L MCH (test code = 785-6) 24.2 pg 27-34 L MCHC (test code = 786-4) 30.1 g/dL 31-37 L RDW - SD (test code = 49838-3) 52.6 fL 37-55 MPV (test code = 69591-9) 11.0 fL 6.9-11 Platelet count (test code = 354 K/uL 150-400 89695-7) Nucleated RBC (test code = 47995-5) 0.00 /100 WBC Neutrophils (test code = 89231-9) 65.8 % 39-69 Lymphocytes (test code = 61146-3) 24.5 % 25-45 L Monocytes (test code = 22577-2) 6.6 % 0-10 Eosinophils (test code = 26555-8) 2.2 % 0-5 Basophils (test code = 80806-4) 0.7 % 0-1 Immature granulocytes (test code = 0.2 % 0-1 81780-5) Lab Interpretation (test code = Abnormal 42906-7) Rickey MethodistECG ED Preliminary Interpretation - Not an Uvhds3002-56-13 18:04:08Allan Romero NP 02/04/2019 8:47 PMECG ED Preliminary Interpretation - Not an OrderPerformed by: Allan Romero NPAuthorized by: Mili West MD ECG reviewed by ED Physician in the absence of a music theory professor: yes Interpretation: Interpretation: normal Rate: ECG r ate: 60Rhythm: Rhythm: sinus rhythm Ectopy: Ectopy: none QRS: QRS axis: Normal QRS intervals: NormalST segments: ST segments: NormalT waves: T waves: normalHouston MethodistLarge Joint Arthrocentesis: shoulder, L subacromial bcmvs6436-28-52 09:30:00MaApril arias MD 12/22/2018 11:15 AMLarge Joint Arthrocentesis: shoulder, L subacromial bursaConsent given by: patientTimeout: Immediately prior to procedure a time out was called to verify the correct patient, procedure, equipment, application support engineer and site/side marked as required Supporting DocumentationIndications: pain Procedure DetailsPreparation: Patient was prepped and draped in the usual sterile fashionUltrasound guided: noLocation: shoulder - L subacromial bursa Left side:Needle size: 22GApproach: lateralOchelata CulpjrqioJRXATNQZUB6772-51-14 17:18:00 Test Item Value Reference Range Interpretation Comments POC Activated Clotting Time (test code 275 s = POC Activated Clotting Time) [facility] TorqeedoOOD BANK QIHOEBF5157-66-48 13:53:00Negative (04/30/18 7:53 AM) [facility]annCHEM DUWCG0394-53-04 13:53:002.5[facility]annCHEM PANEL 2018-04-30 13:53:0084[facility]annCHEM XXZIJ0778-69-59 13:53:0093[facility]annCHEM JDFKV1399-48-17 13:53:0010[facility]annCHEM FKATI3025-99-73 13:53:003.5[facility]annCHEM DJBEW7859-84-51 13:53:000.88[facility]annCHEM BMYYF1419-72-66 13:53:71011Kprqvhdb HermannCHEM QUDZB9120-66-37 13:53:009.4 [facility]annCHE[facility] ONICF4931-82-66 13:53:66935Qkywaurh HermannCHEM PANEL 2018-04-30 13:53:0029[facility] HermannCHEM LUSQM5033-76-41 13:53:0019[facility]annCHEM TOTUT5586-65-22 13:53:0083[facility]annCHEM VWYBW4250-56-73 13:53:004.5[facility]annCHEM NZETM5906-23-01 13:53:008.1[facility]annCHEM OPGVE4729-28-93 13:53:0015[facility]annCHEM SPOLE6094-96-12 13:53:000.3 [facility] LKDSY2455-07-04 13:53:00 Test Item Value Reference Range Interpretation Comments B/C Ratio (test code = B/C Ratio) 11 1 -25 [facility] HospitalCHE[facility] HYWFE8733-34-35 13:53:0010.5Ohmorial HermannCHEM PANEL 2018-04-30 13:53:003.6[facility]annCHE[facility] RPHEE5147-77-96 13:53:00 Test Item Value Reference Range Interpretation Comments A/G Ratio (test code = A/G Ratio) 1.2 1 0.7-1.6 [facility] CenterUjicsgmWTJZAOIJXE1666-27-70 13:53:00 Test Item Value Reference Range Interpretation Comments INR (test code = INR) 1.01 1 0.85-1.17 [facility] CenterExrfrigJJMRDZDPPZ2840-85-28 13:53:00 Test Item Value Reference Range Interpretation Comments PT (test code = PT) 13.1 s 12.0-14.7 [facility] GladwinEcinypbDJHOSGLHFJ9429-33-05 13:53:00 Test Item Value Reference Range Interpretation Comments PTT (test code = PTT) 27.5 s 22.9-35.8 [facility] GladwinAnevaotKPPOWFYCNV6686-96-94 13:53:0016.2[facility]HE[facility] 2018-04-30 13:53:72471Vitsxneh JqwhtbiGICMSRMOYX1207-33-17 13:53:00 Test Item Value Reference Range Interpretation Comments MCH (test code = MCH) 27.7 pg 27.0-31.0 [facility] CenterOvfdlbuSZMWBARQVC9182-42-23 13:53:0037.4[facility]annHEMATOLOGY 2018-04-30 13:53:0033.1[facility] GadluipKUVRHGJCWM5954-86-82 13:53:0083.7[facility] GosaivwPKIFZVYDXT6156-28-85 13:53:008.8[facility] NdrchdvJAHAOKIYFB7428-51-36 13:53:004.47[facility] QmrxmoeDLMVTMLXGC5604-26-02 13:53:0012.4[facility] [place] MRHIWPRHNJ3197-58-55 13:53:007.5[facility] HhkpmqjKTREOFVJLT2699-72-95 13:53:000.1 [facility] HyxifbzJEBENGRLYR2680-17-59 13:53:000.6[facility]annHEMATOLOGY 2018-04-30 13:53:000.1[facility] YeywjrlZRUUJMVGKI5756-31-80 13:53:0066.5[facility] CqhvdcxPDYMPDBUJA7173-22-63 13:53:005.0[facility] GmfaowbBSOGDVSBNP0925-29-12 13:53:001.8[facility] DzrkwgbSZWFUNRALT2094-77-19 13:53:001.0[facility] VBYIMCOSSL1613-71-36 13:53:0023.8[facility] JopjfaqGLESLCHOJO8696-94-80 13:53:00 7.9[facility] EnfebveRMWTXHHONQ1046-41-94 13:53:000.8[facility]annURINE CHEM 2018-04-30 13:53:00Negative (04/30/18 7:53 AM)[facility]annCHEM PANEL 2017-01-11 06:57:0077[facility]annCHEM NAWII1110-50-26 06:57:000.95[facility]annCHEM WSXVC8788-79-24 06:57:0010[facility]annCHEM PXSTQ0418-87-91 06:57:0027[facility]annCHEM AXSKJ7167-72-78 06:57:72454Mvfnclfq HermannCHEM AOVIJ4180-54-73 06:57:009.9[facility]annCHEM KBAIR8221-61-53 06:57:13924 [facility]annCHE[facility] RYXCU4535-83-83 06:57:004.9[facility]annCHEM PANEL 2017-01-11 06:57:008.5[facility]annCHEM ZTTIE2912-88-57 06:57:24665Hlajdqye GpconqvAJQBVCVTGO5826-18-18 06:57:0031.4[facility] NgkumurFWTJNUFAYC5645-35-98 06:57:0020.4[facility] NnfgndsDCMJWAKADQ9017-17-98 06:57:68734Gntdwick [place] CTUMILTFUZ2346-71-78 06:57:008.6[facility] SbagfrtWORATEEEHB2620-59-52 06:57:00 Test Item Value Reference Range Interpretation Comments MCH (test code = MCH) 21.5 pg 27.0-31.0 [facility] WaekweqMSLEERRXXK8325-14-17 06:57:0068.4[facility]annHEMATOLOGY 2017-01-11 06:57:004.50[facility] BctkmtlAKDNOUAJPW2084-79-92 06:57:007.0[facility] VwjmugdMYDULVMUGA6550-67-64 06:57:009.7[facility] RaqklsdQCUEGFAIWE3337-71-18 06:57:0030.8[facility] JgjsnvhUYTZMKGFQV3274-59-42 06:57:001.0[facility] [place] LWGPJTQGDD9042-86-73 06:57:004.0[facility] UltmwouZAATCGNIRY8246-95-11 06:57:00 41.0[facility] GfzrjktRUDXRUHSFY3955-91-72 06:57:000.0[facility]annHEMATOLOGY 2017-01-11 06:57:002.0[facility] EnfvcpdRYLIFDFMOJ7160-34-36 06:57:003+ *ABN*(01/11/17 1:57 AM)[facility] WtbqydpDUGVWQUMXC5316-97-26 06:57:00Normal (01/11/17 1:57 AM)[facility] YgyhqhxQSNIJULOTN7304-85-93 06:57:002.9[facility] [place] MMPCFNRFLM2347-22-78 06:57:000.3[facility] DdvtehsOPNFQRZNEI9424-22-03 06:57:003.7 [facility] RfygldnRERJONRSDH4868-13-85 06:57:000.1[facility]annHEMATOLOGY 2017-01-11 06:57:0052.0[facility]annBLOOD BANK NXBDRQK9272-46-44 22:27:00 Product available (01/10/17 5:27 PM)[facility]annURINE AND VRINS1000-90-89 21:25:00Negative (01/10/17 4:25 PM)[facility]BL[facility]OD BANK ZRKJAWQ6900-93-04 18:03:00Negative (01/10/17 1:03 PM)[facility]annBL[facility]OD BANK WWBWIXS8225-78-69 16:22:00Product available (01/10/17 11:22 AM)[facility]annCHEM KDYQA5191-28-32 08:18:000.5[facility]annCHEM XAYQY5897-73-20 08:18:0070[facility]annCHEM CVCFC6019-83-42 08:18:001.3[facility]annCHEM HOAHV5858-09-00 08:18:002.7 [facility]annCHEM KARXQ4948-92-41 08:18:006.1[facility]annCHEM PANEL 2017-01-10 08:18:43700Zsgkvsth HermannCHEM RVMDD1875-71-15 08:18:008.5[facility]annCHEM KVOXV6903-74-08 08:18:004.1[facility]annCHEM YYURR7707-83-20 08:18:86459Oyswpvwk HermannCHEM USZCW2807-34-71 08:18:0012[facility]annCHEM JSDMX4739-15-03 08:18:0015[facility]annCHEM IUQYT7592-12-82 08:18:0015.1 [facility]annCHE[facility] JHFIS6075-16-51 08:18:0015[facility]annCHEM PANEL 2017-01-10 08:18:86689Qyyskeha HermannCHEM TQSWN4209-68-71 08:18:003.4[facility]annCHEM EMOYI8440-68-30 08:18:000.75[facility]annCHEM VYPZK7050-26-86 08:18:0024[facility]annCHEM HENIJ7612-27-22 08:18:0073[facility]annCHEM KYEPM4082-80-87 08:18:009[facility]annCHEM KBXUA1009-94-19 08:18:002.3 [facility]annCHE[facility] XVOQI0781-99-58 08:18:003.9[facility]annHEMATOLOGY 2017-01-10 08:18:002.2[facility] SbtyxljZQPJFMXZQX7138-92-84 08:18:000.5[facility] VvtkghoNHPEOQXNWF7252-34-36 08:18:003.2[facility] RdgunqrYXVYLIPPAP6329-24-60 08:18:000.9[facility] QysdbopDEPFDTYSZW9544-50-69 08:18:000.8[facility] [place] HEQGKQJBHW3883-21-56 08:18:008.9[facility] BbrlvowCTNVILSPJD3053-03-33 08:18:003+ *NA*(01/10/17 3:18 AM)[facility] TjivntvNLKBIOZMRU1314-03-13 08:18:000.1[facility] OiofhkxMGAYZWJQZD4073-11-16 08:18:0053.1[facility] WddgbptFLAZAIVPTW8587-80-31 08:18:0036.3[facility] VwuldkeARYQNVSSLY0418-51-92 08:18:0065.1[facility] [place] PZKOACZSTC5904-86-45 08:18:0023.9[facility] SrxcrhkFGJTXHCTFL2747-51-10 08:18:00 9.2[facility] LpfsvcuPBZNPIIUNC1477-53-94 08:18:89700[place] HermannHEMATOLOGY 2017-01-10 08:18:003.67[facility] BlmlsneDAOGKMJYPL1149-07-18 08:18:007.4[facility] TssacpgUXFYAELJZA7292-14-41 08:18:0030.7[facility] NxjyxqcECDBNZUACE8894-62-80 08:18:00 Test Item Value Reference Range Interpretation Comments MCH (test code = MCH) 20.0 pg 27.0-31.0 [facility] EopzpxhSWEQMBEMJD9249-12-38 08:18:0017.2[facility] HermannHEMATOLOGY 2017-01-10 08:18:006.0[facility] IdspncwCQUSLDQXRT0084-99-96 16:45:000.5[facility] LdskjpaINFSFRDWPJ0718-59-95 16:45:007.8[facility] KdvqjpdLLTPJDKZQS5844-39-84 16:45:00Normal (01/09/17 11:45 AM)[facility] LwqdqvvKKNQROJZTD0622-52-94 16:45:00 61.4[facility] YtxeydmLVCQDRBIOT8328-41-57 16:45:0029.1[facility] HermannHEMATOLOGY 2017-01-09 16:45:003+ *NA*(01/09/17 11:45 AM)[facility] WxtizqwBKBLRGTARI0843-68-06 16:45:000.1[facility] PirbwbpSEDJQWATGO6812-69-96 16:45:001+ (01/09/17 11:45 AM) [facility] TommkagDOPPFBJLNR1713-63-04 16:45:001.2[facility] HermannHEMATOLOGY 2017-01-09 16:45:001.9[facility] SxdcsalVBXMEKRGQF5068-69-99 16:45:000.5[facility] YbgxdokIOLZKMGGFS8544-12-57 16:45:004.1[facility] QjskrhtYIOSOEULME4254-94-74 16:45:0030.1[facility] JdcwdexODBSKPIHGW6432-63-47 16:45:0064.5[facility] [place] NPXCZJWFOC6972-99-99 16:45:0026.4[facility] FzdjtfoKWDQIBANEM7894-42-82 16:45:00 Test Item Value Reference Range Interpretation Comments MCH (test code = MCH) 19.4 pg 27.0-31.0 [facility] YqrpsfxGRCZFRVTTB1634-38-73 16:45:008.9[facility]annHEMATOLOGY 2017-01-09 16:45:0017.6[facility] VzdiwefDCMXQCDGYX6017-18-52 16:45:32850Wzbtpkks GscswjkGUTHEFLRDO9634-59-50 16:45:007.9[facility] ZhxotffIERAPIAKMN8272-46-90 16:45:006.6[facility] HemwzuaQTZNJKLKHR1927-73-82 16:45:004.09[facility] HermannCHEM GTGDL5396-42-46 16:28:0078[facility] HermannCHEM VVJWI7702-95-58 16:28:0010.2 [facility]annCHEM HLRYG6238-97-19 16:28:0030.0[facility] HermannCHEM PANEL 2017-01-09 16:28:07355Iyvrbymp HermannCHEM JPIIU5860-70-93 16:28:004.5[facility] DqkbihaEQOPIMHUNF0440-43-05 17:15:0027.0[facility] KailzeeMKPQRQIUFS3126-44-42 17:15:008.4[facility] HlaubksSPTHIIXRVG3388-50-36 15:11:0027.7[facility] [place] LGEWQGKLVA0130-02-04 15:11:008.7[facility] EkjnadvELBDHWYYLZ1531-30-39 09:53:008.1 [facility] UotrvjeQYZSOYZEMZ1738-24-54 09:53:0026.0[facility]annURINE AND STOOL 2016-08-12 02:29:00Negative (08/11/16 9:29 PM)[facility]annBLOOD BANK RESULTS 2016-08-12 01:30:00Negative (08/11/16 8:30 PM)[facility]annCHEM GSZNQ3861-06-23 01:30:32390Fpblmoml HermannCHEM MOQSA5462-69-43 01:30:002.9[facility] HermannCHEM DRLHQ3930-50-34 01:30:001.4[facility]annCHEM PSUZH8381-80-68 01:30:0011.4 [facility]annCHEM HFKXX7738-56-47 01:30:0013[facility] HermannCHEM PANEL 2016-08-12 01:30:006.9[facility] HermannCHEM UFXJF3268-05-54 01:30:0088[facility]annCHEM IKUEJ9252-92-67 01:30:000.8[facility] HermannCHEM YFKZF0338-37-11 01:30:003.4[facility] HermannCHEM HPULY1979 01:30:78411Rznquofd HermannCHEM JDCAV2666-86-30 01:30:0028[facility] HermannCHEM ZOWRH9410-25-50 01:30:008.8 [facility]annCHEM DVXWB2779-93-50 01:30:004.0[facility] HermannCHEM PANEL 2016-08-12 01:30:0010[facility] HermannCHEM AXQJO7520-08-98 01:30:97141Bgvetgkc HermannCHEM SZTSS8189-75-17 01:30:81859Dxhfoazn HermannCHEM ZJIBB0669-56-73 01:30:0017[facility] HermannCHEM NZWUQ3075-88-44 01:30:000.75[facility] HermannCHEM CJVQZ4872-49-75 01:30:0021[facility] HermannCHEM FNVYJ0557-46-52 01:30:0077 [facility] EstcoeuLGUGRMXQXJGVZ5530-58-81 01:30:00<1[facility] HermannHEMATOLOGY 2016-08-12 01:30:0069.2[facility] MhsizpjFBJLEHXCAK4043-39-74 01:30:0010.8[facility] TyxdgshDJITCLRYNS0898-65-43 01:30:004.02[facility] VfumpkbYMAKJDRHQJ6201-63-53 01:30:008.5[facility] ZpxmqszFADKBEVOPO8138-50-63 01:30:0016.4[facility] [place] RZGKUQYHNQ4517-07-27 01:30:96343Kpphhekz JwyysxiYQSYKHPNVV2641-78-17 01:30:00 Test Item Value Reference Range Interpretation Comments MCH (test code = MCH) 21.4 pg 27.0-31.0 [facility] KsiqjdrHAUEARRLAE1508-74-22 01:30:0030.9[facility] HermannHEMATOLOGY 2016-08-12 01:30:001.09[facility] FjgvresZMNWYWPMLT6020-99-96 01:30:00 Test Item Value Reference Range Interpretation Comments PT (test code = PT) 14.3 s 12.0-14.7 [facility] TqzkdkwGDKYINQZXR8336-27-99 01:30:00 Test Item Value Reference Range Interpretation Comments PTT (test code = PTT) 28.6 s 22.9-35.8 [facility] FblhbkdAKBMRLTERL7661-05-69 01:30:000.6[facility] HermannHEMATOLOGY 2016-08-12 01:30:000.9[facility] UmhiqecMNZQYTOMON4151-29-41 01:30:008.8[facility] VmdvjziYTJZXORHSX2873-61-89 01:30:007.8[facility] QmrpfiePUAJKLMDFD5610-86-12 01:30:001.9[facility] YeshryeGXNBXYSECF8723-74-05 01:30:001+ *ABN*(08/11/16 8:30 PM) [facility] XneohxeFWBWCNZKSE2309-79-21 01:30:000.1[facility] HermannHEMATOLOGY 2016-08-12 01:30:002+ *ABN*(08/11/16 8:30 PM)[facility] SenwdgtPNIQUNIIVT6796-42-67 01:30:000.1[facility] LwngbksASDTSLHCOQ8571-00-63 01:30:001.0[facility] [place] WKOBFGBDSW9144-90-88 01:30:00Normal (08/11/16 8:30 PM)[facility]annHEMATOLOGY 2016-08-12 01:30:0017.7[facility] CipsfleZXTMKRLAXT5646-06-94 01:30:0072.0[facility]annURINE AND OLVRG4528-25-16 01:30:00Negative (08/11/16 8:30 PM)[facility]annURINE AND KCNOL6573-55-93 01:30:002[facility]annURINE AND STOOL 2016-08-12 01:30:002[facility]annURINE AND PNWEA1603-71-83 01:30:001.003 [facility]UR[facility] AND EMFJB8592-94-27 01:30:007.0[facility]annURINE AND BSKON7077-61-65 01:30:00Negative (08/11/16 8:30 PM)[facility] AND STOOL 2016-08-12 01:30:00Negative (08/11/16 8:30 PM)[facility]ann[facility] AND STOOL 2016-08-12 01:30:00Negative *NA*(08/11/16 8:30 PM)[facility] HermannURINE AND STOOL 2016-08-12 01:30:00Clear (08/11/16 8:30 PM)[facility] GbitkizNKXKEJSMMF2951-46-73 15:59:0035.0[facility] WfkzjgwBSKTRHVTNK9839-51-81 15:59:0011.9[facility] [place] YBEJOVHJBL7430-19-73 15:59:0089[facility] CfyrnmjQCUYWLZHUT3519-44-34 15:59:004.3 [facility] MhlfxpuUZHIHRRNWL1824-05-15 15:59:09103Xshdrsjx [place]
[2019-10-11 16:08] VITALS: TEMP 99
[2019-10-11 16:11] VITALS: BP 127/84; O2SAT 98
== END 2019-10-11 16:02 | disposition home or self-care (01) ==
LOC: ER 11:59
DX: S06.0X1A Concussion with loss of consciousness of 30 minutes or less, initial encounter (principal); W18.39XA Other fall on same level, initial encounter; Y93.89 Activity, other specified; Y92.009 Unspecified place in unspecified non-institutional (private) residence as the place of occurrence of the external cause; I10 Essential (primary) hypertension
CPT/HCPCS: 70450; 72125; 99283

== ENCOUNTER 2020-02-04 18:42 | Emergency (ER) | payer BC ==
[2020-02-04] MEDS ORDERED: ONDANSETRON 4 MG/2 ML VIAL ONE (20:32)
[2020-02-04] MEDS ORDERED: NA CHLORIDE 0.9% 2,000 ML ONE (20:32)
[2020-02-04] MEDS ORDERED: KETOROLAC 30 MG/ML INJ ONE (21:04)
[2020-02-04 21:05] LABS: Absolute Lymphocytes (CBC) 2.6 K/uL (0.7-4.9); Basophils % 0.8 % (0-1.3); Hematocrit 33.3 % (36.0-45.0); Lymphocytes % 36.8 % (15.3-44.8); MPV 8.8 fL (7.6-11.3); RBC Red Blood Cell Count 3.68 M/uL (3.86-4.86)
[2020-02-04] MEDS ORDERED: ACETAMINOPHEN 500 MG TAB ONE (21:07)
[2020-02-04 21:10] LABS: ALT/SGPT 21 U/L (12-78); AST/SGOT 14 U/L (15-37); Alkaline Phosphatase 87 U/L (45-117); BUN Blood Urea Nitrogen 11 mg/dL (7-18); Bicarbonate 29 mmol/L (21-32); Bilirubin Direct < 0.1 mg/dL (0-0.2); Bilirubin Total 0.2 mg/dL (0.2-1.0); Glucose Level 77 mg/dL (74-106); Lipase 191 U/L (73-393); Potassium 3.8 mmol/L (3.5-5.1); Protein, Total 7.6 g/dL (6.4-8.2); Sodium Level 140 mmol/L (136-145)
[2020-02-04 21:19] LABS: Urine Blood NEGATIVE (NEG); Urine Glucose NEGATIVE (NEG); Urine Protein NEGATIVE (NEG); Urine Specific Gravity 1.015 (1.005-1.030); Urine pH 5.5 (5.0-7.0)
--- NOTE | 2020-02-04 21:31 | RAD REPORT ---
EXAM DESCRIPTION: RAD - Abdomen W Erect - 02/04/2020 8:42 pm CLINICAL HISTORY: Abdominal pain FINDINGS: The bowel gas pattern is unremarkable with moderate amount of stool throughout the colon. Free air is not seen beneath the diaphragm. Small calcifications pelvis may represent phleboliths
--- NOTE | 2020-02-04 21:58 | EDPHYS ---
Physician Documentation [facility] Name: Rani Breen Age: 39 yrs Sex: Female : 1980 Arrival Date: 02/04/2020 Time: 19:11 Bed 8 Private MD: DELPHINE Physician Chriss Liang HPI: 02/03 20:18 This 39 yrs old Female presents to ER via Ambulatory with complaints of russell Decreased Appetite, Vomiting. 20:18 The patient presents to the emergency department with nausea, vomiting, 1 times since russell the onset of symptoms. Onset: The symptoms/episode began/occurred 2 day(s) ago. Possible causes: unknown. The symptoms are aggravated by food , The symptoms are alleviated by remaining still. Associated signs and symptoms: The patient has no apparent associated signs or symptoms. Severity of symptoms: At their worst the symptoms were mild in the emergency department the symptoms are unchanged. The patient has experienced similar episodes in the past, several times. 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 - Social history:: Smoking status: Patient denies any tobacco usage or history of. - Family history:: not pertinent. ROS: 20:18 Constitutional: Negative for fever, chills, and weight loss, Eyes: Negative for injury, russell pain, redness, and discharge, ENT: Negative for injury, pain, and discharge, Neck: Negative for injury, pain, and swelling, Cardiovascular: Negative for chest pain, palpitations, and edema, Respiratory: Negative for shortness of breath, cough, wheezing, and pleuritic chest pain, Back: Negative for injury and pain, : Negative for injury, bleeding, discharge, and swelling, MS/Extremity: Negative for injury and deformity, Skin: Negative for injury, rash, and discoloration, Neuro: Negative for headache, weakness, numbness, tingling, and seizure, Psych: Negative for depression, anxiety, suicide ideation, homicidal ideation, and hallucinations, Allergy/Immunology: Negative for hives, rash, and allergies, Endocrine: Negative for neck swelling, polydipsia, polyuria, polyphagia, and marked weight changes, Hematologic/Lymphatic: Negative for swollen nodes, abnormal bleeding, and unusual bruising. 20:18 Abdomen/GI: Positive for abdominal pain, nausea, vomiting, of the right upper quadrant, left upper quadrant, right lower quadrant and left lower quadrant. Exam: 20:18 Constitutional: This is a well developed, well nourished patient who is awake, alert, russell and in no acute distress. Head/Face: Normocephalic, atraumatic. Eyes: Pupils equal round and reactive to light, extra-ocular motions intact. Lids and lashes normal. Conjunctiva and sclera are non-icteric and not injected. Cornea within normal limits. Periorbital areas with no swelling, redness, or edema. ENT: Nares patent. No nasal discharge, no septal abnormalities noted. Tympanic membranes are normal and external auditory canals are clear. Oropharynx with no redness, swelling, or masses, exudates, or evidence of obstruction, uvula midline. Mucous membranes moist. Neck: Trachea midline, no thyromegaly or masses palpated, and no cervical lymphadenopathy. Supple, full range of motion without nuchal rigidity, or vertebral point tenderness. No Meningismus. Chest/axilla: Normal chest wall appearance and motion. Nontender with no deformity. No lesions are appreciated. Cardiovascular: Regular rate and rhythm with a normal S1 and S2. No gallops, murmurs, or rubs. Normal PMI, no JVD. No pulse deficits. Respiratory: Lungs have equal breath sounds bilaterally, clear to auscultation and percussion. No rales, rhonchi or wheezes noted. No increased work of breathing, no retractions or nasal flaring. Back: No spinal tenderness. No costovertebral tenderness. Full range of motion. Skin: Warm, dry with normal turgor. Normal color with no rashes, no lesions, and no evidence of cellulitis. MS/ Extremity: Pulses equal, no cyanosis. Neurovascular intact. Full, normal range of motion. Neuro: Awake and alert, GCS 15, oriented to person, place, time, and situation. Cranial nerves II-XII grossly intact. Motor strength 5/5 in all extremities. Sensory grossly intact. Cerebellar exam normal. Normal gait. Psych: Awake, alert, with orientation to person, place and time. Behavior, mood, and affect are within normal limits. 20:18 Abdomen/GI: Inspection: abdomen appears normal, Bowel sounds: normal, Palpation: nontender, Liver: no appreciated palpable abnormalities, Hernia: not appreciated. Vital Signs: 19:19 BP 137 / 82; Pulse 74; Resp 16 S; Temp 98.4(O); Pulse Ox 100% on R/A; Weight 63.5 kg jd3 (R); Height 5 ft. 4 in. (162.56 cm) (R); Pain 0/10; 20:50 BP 114 / 81; Pulse 75; Resp 17; Pulse Ox 99% ; rr5 21:35 BP 118 / 74; Pulse 70; Resp 16; Pulse Ox 99% ; rr5 22:13 BP 120 / 85; Pulse 75; Resp 17; Pulse Ox 99% ; rr5 19:19 Body Mass Index 24.03 (63.50 kg, 162.56 cm) jd3 MDM: 19:22 Patient medically screened. russell 20:20 Differential diagnosis: Nonspecific abd pain, gastritis, viral gastroenteritis, russell gastroenteritis. Data reviewed: vital signs, nurses notes. 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 Test interpretation: by ED physician or midlevel provider: plain radiologic studies. Counseling: I had a detailed discussion with the patient and/or guardian regarding: the historical points, exam findings, and any diagnostic results supporting the discharge/admit diagnosis, radiology results. Medication response: Zofran markedly relieved the patient's nausea. 02/03 20:17 Order name: Basic Metabolic Panel; Complete Time: 21:34 russell 02/03 20:17 Order name: CBC with Diff; Complete Time: 21:34 russell 02/03 20:17 Order name: Hepatic Function; Complete Time: 21:34 russell 02/03 20:17 Order name: Lipase; Complete Time: 21:34 russell 02/03 20:17 Order name: Urine Culture russell 02/03 20:31 Order name: Urine Dipstick--Ancillary (enter results); Complete Time: 21:34 ar5 02/03 20:17 Order name: IV Saline Lock; Complete Time: 21:00 [facility] 02/03 20:17 Order name: Abdomen with Erect XRAY; Complete Time: 21:34 [facility] 02/03 20:17 Order name: Labs collected and sent; Complete Time: 21:00 [facility] 02/03 20:17 Order name: Urine Dipstick-Ancillary (obtain specimen); Complete Time: 20:29 [facility] Administered Medications: 20:50 Drug: NS 0.9% 1000 ml Route: IV; Rate: 1 bolus; Site: right antecubital; rr5 22:00 Follow up: Response: No adverse reaction; IV Status: Completed infusion; IV Intake: rr5 1000ml 20:51 Drug: Zofran (Ondansetron) 4 mg Route: IVP; Site: right antecubital; rr5 21:50 Follow up: Response: No adverse reaction rr5 20:53 CANCELLED (Duplicate Order): TORadol 30 mg IVP once [facility] 20:58 Drug: Tylenol 1000 mg Route: PO; rr5 22:12 Follow up: Response: No adverse reaction rr5 20:59 Drug: NS 0.9% 1000 ml Route: IV; Rate: 1 bolus; Site: right antecubital; rr5 22:00 Follow up: Response: No adverse reaction; IV Status: Order to discontinue infusion; IV rr5 Intake: 800ml 22:12 CANCELLED (Other Intervention Used): NS 0.9% 1000 ml IV at 1 bolus Per protocol; 1000 rr5 mL bolus Disposition: 02/04/20 21:58 Discharged to Home. Impression: Nausea and vomiting, Headache, Abdominal tenderness, Anemia, unspecified. - Condition is Stable. - Discharge Instructions: Abdominal Pain, Adult, General Headache Without Cause, Nausea and Vomiting, Adult, Abdominal Pain, Adult, [id number], Aspirin and Your Heart, General Headache Without Cause, [id number]. - Prescriptions for Pepcid 20 mg Oral Tablet - take 1 tablet by ORAL route every 12 hours for 10 days; 20 tablet. Zofran 4 mg Oral Tablet - take 1 tablet by ORAL route every 12 hours As needed; 20 tablet. promethazine 25 mg Oral Tablet - take 1 tablet by ORAL route every 6 hours As needed; 20 tablet. - Medication Reconciliation Form, Thank You Letter, Antibiotic Education, Prescription Opioid Use form. - Follow up: Private Physician; When: 2 - 3 days; Reason: Recheck today's complaints, Continuance of care, Re-evaluation by your physician. Follow up: Jodee Cruz MD; When: 2 - 3 days; Reason: Recheck today's complaints, Re-evaluation by your physician. - Problem is new. - Symptoms have improved. Signatures: Dispatcher [employer] EDChriss Cuevas MD MD cha Davies, Jonathon, RN RN jd3 Ian Benton RN RN rr5 Corrections: (The following items were deleted from the chart) 20:53 20:47 TORadol 30 mg IVP once ordered. russell russell 21:58 21:58 02/04/2020 21:58 Discharged to Home. Impression: Nausea and vomiting; Headache; russell Abdominal tenderness; Anemia, unspecified. Condition is Stable. Discharge Instructions: Abdominal Pain, Adult, General Headache Without Cause, Nausea and Vomiting, Adult, Abdominal Pain, Adult, [id number], Aspirin and Your Heart, General Headache Without Cause, [id number]. Prescriptions for Pepcid 20 mg Oral Tablet - take 1 tablet by ORAL route every 12 hours for 10 days; 20 tablet, Zofran 4 mg Oral Tablet - take 1 tablet by ORAL route every 12 hours As needed; 20 tablet, promethazine 25 mg Oral Tablet - take 1 tablet by ORAL route every 6 hours As needed; 20 tablet. and Forms are Medication Reconciliation Form, Thank You Letter, Antibiotic Education, Prescription Opioid Use. Follow up: Private Physician; When: 2 - 3 days; Reason: Recheck today's complaints, Continuance of care, Re-evaluation by your physician. Problem is new. Symptoms have improved. russell 22:12 21:57 NS 0.9% 1000 ml IV at 1 bolus Per protocol; 1000 mL bolus ordered. russell rr5 22:14 21:58 02/04/2020 21:58 Discharged to Home. Impression: Nausea and vomiting; Headache; rr5 Abdominal tenderness; Anemia, unspecified. Condition is Stable. Discharge Instructions: Abdominal Pain, Adult, General Headache Without Cause, Nausea and Vomiting, Adult, Abdominal Pain, Adult, [id number], Aspirin and Your Heart, General Headache Without Cause, [id number]. Prescriptions for Pepcid 20 mg Oral Tablet - take 1 tablet by ORAL route every 12 hours for 10 days; 20 tablet, Zofran 4 mg Oral Tablet - take 1 tablet by ORAL route every 12 hours As needed; 20 tablet, promethazine 25 mg Oral Tablet - take 1 tablet by ORAL route every 6 hours As needed; 20 tablet. and Forms are Medication Reconciliation Form, Thank You Letter, Antibiotic Education, Prescription Opioid Use. Follow up: Private Physician; When: 2 - 3 days; Reason: Recheck today's complaints, Continuance of care, Re-evaluation by your physician. Follow up: Jodee Cruz; When: 2 - 3 days; Reason: Recheck today's complaints, Re-evaluation by your physician. Problem is new. Symptoms have improved. russell
--- NOTE | 2020-02-04 21:58 | ER ---
Nurse's Notes [facility] Name: Rani Breen Age: 39 yrs Sex: Female : 1980 Arrival Date: 02/04/2020 Time: 19:11 Bed 8 Private MD: Diagnosis: Nausea and vomiting;Headache;Abdominal tenderness;Anemia, unspecified Presentation: 02/03 19:15 Chief complaint: Patient states: "My doctor asked me to come to the ER, I recently had jd3 a ovary removal. I have not had an appetite, nausea, vomiting, but apparently my labs showed I was anemic and she wanted me to have a CT scan.". Coronavirus screen: At this time, the client does not indicate any symptoms associated with coronavirus-19. Ebola Screen: Patient negative for fever greater than or equal to 101.5 degrees Fahrenheit, and additional compatible Ebola Virus Disease symptoms. Initial Sepsis Screen: Does the patient meet any 2 criteria? No. Patient's initial sepsis screen is negative. Does the patient have a suspected source of infection? No. Patient's initial sepsis screen is negative. Risk Assessment: Do you want to hurt yourself or someone else? Patient reports no desire to harm self or others. Onset of symptoms was January 28, 2020. 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 - Social history:: Smoking status: Patient denies any tobacco usage or history of. - Family history:: not pertinent. Screenin:23 Abuse screen: Denies threats or abuse. Denies injuries from another. Nutritional rr5 screening: No deficits noted. Tuberculosis screening: No symptoms or risk factors identified. Fall Risk IV access (20 points). Total Kearns Fall Scale indicates No Risk (0-24 pts). Assessment: 19:33 General: Appears in no apparent distress. uncomfortable, Behavior is calm, cooperative, rr5 appropriate for age. Pain: Complains of pain in head. Neuro: Level of Consciousness is awake, alert, obeys commands, Oriented to person, place, time, situation. Cardiovascular: Capillary refill < 3 seconds Patient's skin is warm and dry. Respiratory: Airway is patent Respiratory effort is even, unlabored, Respiratory pattern is regular, symmetrical. GI: Abdomen is round Reports nausea, vomiting, decrease appetite. : No signs and/or symptoms were reported regarding the genitourinary system. EENT: No signs and/or symptoms were reported regarding the EENT system. Derm: Skin is intact, is healthy with good turgor, Skin temperature is warm. Musculoskeletal: Circulation, motion, and sensation intact. Capillary refill < 3 seconds. 20:50 Reassessment: Patient appears in no apparent distress at this time. Patient is alert, rr5 oriented x 3, equal unlabored respirations, skin warm/dry/pink. complaints of headache, ED provider with order made and carried out. 21:35 Reassessment: Patient appears in no apparent distress at this time. Patient and/or rr5 family updated on plan of care and expected duration. Pain level reassessed. Patient is alert, oriented x 3, equal unlabored respirations, skin warm/dry/pink. 22:13 Reassessment: Patient appears in no apparent distress at this time. Patient is alert, rr5 oriented x 3, equal unlabored respirations, skin warm/dry/pink. discharge instruction given and explained without complaints made. Vital Signs: 19:19 BP 137 / 82; Pulse 74; Resp 16 S; Temp 98.4(O); Pulse Ox 100% on R/A; Weight 63.5 kg jd3 (R); Height 5 ft. 4 in. (162.56 cm) (R); Pain 0/10; 20:50 BP 114 / 81; Pulse 75; Resp 17; Pulse Ox 99% ; rr5 21:35 BP 118 / 74; Pulse 70; Resp 16; Pulse Ox 99% ; rr5 22:13 BP 120 / 85; Pulse 75; Resp 17; Pulse Ox 99% ; rr5 19:19 Body Mass Index 24.03 (63.50 kg, 162.56 cm) [facility] ED Course: 19:11 Patient arrived in ED. bp1 19:17 Triage completed. jd3 19:19 Arm band placed on. jd3 19:22 Chriss Liang MD is Attending Physician. russell 19:23 Ian Benton, RN is Primary Nurse. rr5 19:24 Patient has correct armband on for positive identification. Call light in reach. Pulse rr5 ox on. NIBP on. 20:30 Urine collected: clean catch specimen, clear. rr5 20:42 Abdomen with Erect XRAY In Process Unspecified. EDMS 20:42 Inserted saline lock: 20 gauge in right antecubital area, using aseptic technique. oe Blood collected. 21:58 Jodee Cruz MD is Referral Physician. russell 22:14 No provider procedures requiring assistance completed. IV discontinued, intact, rr5 bleeding controlled, No redness/swelling at site. Pressure dressing applied. Administered Medications: 20:50 Drug: NS 0.9% 1000 ml Route: IV; Rate: 1 bolus; Site: right antecubital; rr5 22:00 Follow up: Response: No adverse reaction; IV Status: Completed infusion; IV Intake: rr5 1000ml 20:51 Drug: Zofran (Ondansetron) 4 mg Route: IVP; Site: right antecubital; rr5 21:50 Follow up: Response: No adverse reaction rr5 20:53 CANCELLED (Duplicate Order): TORadol 30 mg IVP once russell 20:58 Drug: Tylenol 1000 mg Route: PO; rr5 22:12 Follow up: Response: No adverse reaction rr5 20:59 Drug: NS 0.9% 1000 ml Route: IV; Rate: 1 bolus; Site: right antecubital; rr5 22:00 Follow up: Response: No adverse reaction; IV Status: Order to discontinue infusion; IV rr5 Intake: 800ml 22:12 CANCELLED (Other Intervention Used): NS 0.9% 1000 ml IV at 1 bolus Per protocol; 1000 rr5 mL bolus Intake: 22:00 IV: 1000ml; Total: 1000ml. rr5 22:00 IV: 800ml; Total: 1800ml. rr5 Outcome: 21:58 Discharge ordered by . russell 22:13 Discharged to home ambulatory. rr5 22:13 Condition: stable 22:13 Discharge instructions given to patient, Instructed on discharge instructions, follow up and referral plans. medication usage, Demonstrated understanding of instructions, follow-up care, medications, Prescriptions given X 3. 22:14 Patient left the ED. rr5 Signatures: Dispatcher [employer] EDChriss Cuevas MD MD cha Espinosa, [place] oe Davies, Jonathon, RN RN jd3 Ian Benton RN RN rr5 [facility]
[2020-02-04 22:58] VITALS: TEMP 98.4
[2020-02-04 23:04] VITALS: O2SAT 99
[2020-02-04 23:11] VITALS: BP 120/85
--- OUTSIDE RECORDS SUMMARY | 2020-02-09 21:21 | XMS REPORT | Clinical Summary ---
:1980 Author Organization [facility] Address [address] [place] [address] Care Team Providers Name Role Phone Fritz Dietz MD Primary Care Provider Allergies No Known Active Allergies Medications Medication Sig Dispensed Refills Start End Date Status Date valsartan-hydrochlorot Take 1 0 Active hiazide (DIOVAN-HCT) tablet by 9 320-25 mg per tablet mouth daily. escitalopram (LEXAPRO) Take 10 mg 0 Active 10 MG tablet by mouth 0 daily. meloxicam (Mobic) 15 Take 1 30 tablet 11 08/31/19 Active mg tablet tablet (15 0 21 mg total) by mouth daily. metroNIDAZOLE (FLAGYL) Take 500 mg 0 Active 500 MG tablet by mouth 2 0 (two) times a day. ciprofloxacin (CIPRO) Take 500 mg 0 Active 500 MG tablet by mouth 2 0 (two) times a day. omeprazole (PriLOSEC) Take 1 0 Active 40 MG capsule capsule by 9 mouth daily. meloxicam (MOBIC) 15 Take 1 30 tablet 1 10/26/19 Discontinued mg tablet tablet (15 9 20 (Reorder) mg total) by mouth daily. acetaminophen-codeine Take 1 40 tablet 0 02/29/20 (TYLENOL WITH CODEINE tablet by 9 19 #3) 300-30 mg per mouth every tabletIndications: 6 (six) acute pain hours as needed (severe pain) for up to 30 days .Acute Pain. aspirin (ECOTRIN) 81 Take 81 mg 0 12/15/19 Discontinued MG enteric coated by mouth 20 tablet daily. methylPREDNISolone Take as directed 21 tablet 0 05/0 11/21 (Medrol, Justyn,) 4 mg 0 20 tablet Dispense 1 pack meloxicam (Mobic) 15 Take 1 30 tablet 1 11/25/19 Discontinued mg tablet tablet (15 0 20 (Duplicat e mg total) by order) mouth daily. cephalexin (KEFLEX) Take 1 8 capsule 0 12/19/19 500 MG capsule capsule (500 0 20 mg total) by mouth 4 (four) times a day for 2 days. promethazine Take 1 30 tablet 0 12/27/19 (PHENERGAN) 25 MG tablet (25 0 20 tablet mg total) by mouth every 6 (six) hours as needed for nausea or vomiting for up to 10 days. HYDROcodone-acetaminop Take 1 50 tablet 0 0 hen (NORCO) 5-325 mg tablet by 0 20 per tabletIndications: mouth every acute pain 4 (four) hours as needed for moderate pain for up to 7 days .acute pain. Max Daily Amount: 6 tablets Hospital, Clinic, or Ordered Dose Route Frequency Start Date End D ate Status Other Facility Administered Medication methylPREDNISolone 40 mg IAtc once 12/15/2018 Discontinued acetate (DEPO-MEDROL) 0 injection 40 mgIndications: Lateral epicondylitis of left elbow Active Problems Problem Noted Date Loose body of right knee 11/25/2019 Overview: Added automatically from request for mary couch [id number] Dyspnea 02/05/2019 Obstructive sleep apnea, adult 02/05/2019 Fatigue 02/05/2019 Diabetes mellitus 02/05/2019 Pulmonary emboli Overview: PT STATED THAT "THERE WERE SMALL SPOTS F OUND ON THE RT LUNG"PT WAS SEEING SHINE WORKER BUT WAS NOT ABLE TO F/U AF TER OTHER PROBLEMS FOUND WITH THE KIDNEY. Encounters Date Type Specialty Care Team Description 12/29/2019 Telephone Pulmonology Greg Domingo MD 12/28/2019 Hospital Encounter Radiology Greg Domingo Lung no chely Breen MD 12/27/2019 Travel 12/23/2019 Travel 12/20/2019 Orders Only Pulmonology Gilda Puentes, Lung nodule (P rimary [place] Dx) 12/17/2019 Anesthesia Event General Surgery Mark Jones MD Hurd, Sherryl Ann, NP 12/17/2019 Surgery General Surgery Efren Trujillo Right Arthro scopy of MD Gabriella the Knee with R emoval of Loose Body, Patellofemoral Chondroplasty, partial medial menisectomy 12/17/2019 Hospital Encounter General Surgery Efren Trujillo MD 12/17/2019 Travel 12/16/2019 Telephone Orthopedic Surgery PelaezIvon dowell [place] 12/15/2019 Pre-Admit Testing Pre-Admission Efren Trujillo Preoperat alexa testing Appointment Testing MD Gabriella (Primary Dx) 12/15/2019 Orders Only Orthopedic Surgery Coy [place], Umesh sanjeev dy of right MA knee (Primary D x) 12/15/2019 Travel 12/15/2019 Telephone Orthopedic Surgery PelaezIvon dowell [place] 12/14/2019 Travel 11/26/2019 Telephone Orthopedic Surgery Coy [place]in [place] 11/25/2019 Telemedicine Orthopedic Surgery Efren Trujillo Loose bod y of right knee (Primary Dx); MD Gabriella Patellofemoral pain syndrome of right knee 11/25/2019 Transcribe Orders Orthopedic Surgery Efren Trujillo Loos e body of right MD Gabriella knee (Primary D x) 11/02/2019 Hospital Encounter Radiology Efren Trujillo Loose bod y of right knee; MD Gabriella Injury of right knee, initial encounter 11/02/2019 Travel 10/29/2019 Travel 10/26/2019 Office Visit Orthopedic Surgery Efren Trujillo Injury of right knee, initial encounter (Primary Dx); MD Gabriella Loose body of r ight knee 10/26/2019 Refill Orthopedic Surgery PelaezIvon dowellWRAY, [place] 10/26/2019 Travel 08/31/2019 Office Visit Orthopedic Surgery Efren Trujillo Injury of right knee, initial encounter (Primary Dx); MD Gabriella Contusion of ri ght knee, initial encounter; Patellofemoral pain syndrome of right knee 08/31/2019 Travel 08/26/2019 Travel 02/08/2019 Telephone Pulmonology Greg Domingo MD after 02/08/2019 Surgical History Surgery Date Site/Laterality Comments BARIATRIC SURGERY About 5 years ago RENAL ARTERY STENT RIGHT HYSTERECTOMY OPERATION, KNEE, ARTHROSCOPIC 12/17/2019 Knee/Right Pr ocedure: Right Arthroscopy of the Knee with Removal of Loose Body, Fox llofemoral Chondroplasty, p artial medial menisectomy; Perera rgeon: Efren Trujillo MD; Lo cation: [facility]; Servic e: Orthopedics; La terality: Right; Medical History Medical History Date Comments Anemia Hypertension Pulmonary emboli (HCC) PT STATED THAT "T HERE WERE SMALL SPOTS FOUND ON THE RT LUNG"PT WAS SEEING P ULMONOLOGIST BUT WAS NOT ABLE TO F/U AFTER OTHER PROBLEMS FOUND WITH THE KIDNEY. Family History Medical History Relation Name Comments [...] Assigned at Date Recorded Not on file Last Filed Vital Signs Vital Sign Reading Time Taken Comments Blood Pressure 110/62 12/17/2019 4:15 PM CDT Pulse 64 12/17/2019 4:15 PM CDT Temperature 36.3 C (97.4 F) 12/17/2019 3:34 PM CDT Respiratory Rate 18 12/17/2019 4:15 PM CDT Oxygen Saturation 98% 12/17/2019 4:15 PM CDT Inhaled Oxygen Concentration - - Weight 68.5 kg (151 lb) 12/15/2019 1:52 PM CDT Height 162.6 cm (5' 4") 12/15/2019 1:52 PM CDT Body Mass Index 25.92 12/15/2019 1:52 PM CDT Plan of Treatment Health Maintenance Due Date Last Done Comments DIABETIC RETINAL EYE EXAM 1980 DIABETIC FOOT EXAM 10/01/1989 URINE MICROALBUMIN 10/01/1989 CERVICAL CANCER SCREENING 10/01/2000 INFLUENZA VACCINE 12/04/2019 Procedures Procedure Name Priority Date/Time Associated Diagnosis Comme nts CT CHEST WO CONTRAST Routine 12/28/2019 4:53 Lung nodule Res ults for this PM CDT procedure are i n the results section. ANESTHESIA Routine 12/17/2019 12:58 Results for this INTUBATION PM CDT procedure are i n the results section. POC GLUCOSE Routine 12/17/2019 10:14 Results for this AM CDT procedure are i n the results section. ESTIMATED GFR Routine 12/15/2019 1:58 Results fo r this PM CDT procedure are i n the results section. BASIC METABOLIC Routine 12/15/2019 1:58 Preoperative testing Results for this PANEL PM CDT procedure are i n the results section. COVID-19 QUALITATIVE Routine 12/15/2019 1:58 Preoperative erwin ting Results for this PCR PM CDT procedure are i n the results section. MRI KNEE WO CONTRAST Routine 11/02/2019 4:57 Loose body of ri ght Results for this RIGHT PM CDT knee procedure are in Injury of right knee, the re sults initial encounter section. XR KNEE 4+ VW RIGHT Routine 08/31/2019 10:12 Injury of right k nee, Results for this AM CDT initial encounter procedure are in the results section. after 02/08/[address] Chest Wo Contrast (12/28/2019 4:53 PM CDT) Specimen Narrative Performed At EXAMINATION: CT CHEST WO CONTRAST [facility] HISTORY: R91.1 Solitary pulmonary nodule , Lung Nodule TECHNIQUE: CT examination of the chest was performed w ithout iodinated intravenous contrast. Radiation dose-reduction techniq ues were used, whereby technical factors are evaluated and adjusted t o ensure appropriate moderation of exposure. Auto mated dose management technology is applied to adjust radiation e xposure while achieving a diagnostic quality image. COMPARISON: 02/04/2019. IMPRESSION: Devices: None. Cardiovascular: Heart within normal limits of size. No pericardial effusion. No evidence of significant calcified coronar y artery disease. Greater thoracic vasculature is normal c aliber. Mediastinum/Nodes: Fatty soft tissue in the anterior m ediastinum is compatible with residual normal thymus. No lymphadenopathy. Pulmonary: Previously noted subcentimeter nodules in t he right lower lobe are not changed in size, the smaller of which has now diffusely calcified compatible with a benign pulmonary granuloma . There is no new suspicious pulmonary lesion. No discrete endobronchial lesion. No pleural effusio n. No pneumothorax. Other: Limited view of the upper abdomen shows changes of Jose-en-Y gastric bypass. SUMMARY: Stable subcentimeter pulmonary nodules. No further imaging is necessary. [facility]-[id number] Procedure Note Hm Interface, Radiology Results Incoming - 12/28/2019 5:16 PM CDT EXAMINATION: CT CHEST WO CONTRAST HISTORY: R91.1 Solitary pulmonary nodule , Lung Nodule TECHNIQUE: CT examination of the chest w as performed without iodinated intravenous contrast. Radiation dose-reduction techniques were used, whereby technical factors are evaluated and adjusted to ensure appropriate moderation of exposure. Automated dose management technology is applied to replaced by [facility] radiation exposure while achieving a diagnostic quality image. COMPARISON: 02/04/2019. IMPRESSION: Devices: None. Cardiovascular: Heart within normal limi ts of size. No pericardial effusion. No evidence of significant calcified coronary artery disease. Greater thoracic vasculature is normal caliber. Mediastinum/Nodes: Fatty soft tissue in the anterior mediastinum is compatible with residual normal thymus. No lymphadenopathy. Pulmonary: Previously noted subcentimete r nodules in the right lower lobe are not changed in size, the smaller of which has now diffusely calcified compatible with a benign pulmonary granuloma. There is no new suspicious pulmonary lesion. No discrete endobronchial lesion. No pleural effusio n. No pneumothorax. Other: Limited view of the upper abdomen shows changes of Jose-en-Y gastric bypass. SUMMARY: Stable subcentimeter pulmonary nodules. No further imaging is necessary. [facility]-[id number] Performing Organization Address City/[facility]/ZIP Code Phon e Number [facility] [address] [place] [address] Airway (12/17/2019 12:58 PM CDT) Narrative Performed At Sukh Reese CRNA 020 1:02 PM Airway Date/Time: 12/17/2019 12:54 PM Performed by: Sukh Reese CRN A Authorized by: Sukh Reese CR NA Difficult Airway: No Anesthesiologist: Mark Jones MD Resident/LOCKS TENDER/AA: Sukh Reese CRNA Preoxygenated with 100% O2: Yes C-spine Precautions Maintained Throughou t: Yes Mask Ventilation: Not attempted Final Airway Type: Supraglottic airway Final LMA: Unique LMA Size: 4 Number of Attempts at Approach: 1 POC glucose (12/17/2019 10:14 AM CDT) Pathologist Sig nature POC glucose 106 (H) 65 - 99 mg/dL KODY VOODOO Comment: [facility] Manager Developmental Name: [facility] Device ID: [id number] Specimen Blood Performing Organization Address City/State/ZIP Code Phon e Number [facility] DEPARTMENT OF PATHOLOGY [address] [place] [address] X [phone] AND [facility] [id number] [place] [address] X [phone] [facility] Estimated GFR (12/15/2019 1:58 PM CDT) Pathologist [facility] Estimated GFR 68 mL/min/1.73 [facility] Comment: m2 [place] Catergory Units Interpretation HOS PITAL G1 >=90 [...] lity Initiative (NKF-KDOQI) published in 2014. Specimen Performing Organization Address City/[facility] Phon e Number [facility] DEPARTMENT OF PATHOLOGY [address] [place] [address] [phone] [place] [address] [facility] COVID-19 qualitative PCR (12/15/2019 1:58 PM CDT) Pathologist [facility] Interpretation Negative results do not prec lude 2019-nCoV infection and should not be used as the sole basis for treatment or other patient management decisions. Negative results must be combined with clinical observations, patient history, and epidemiological [place] information. [facility] COVID-19 qualitative Not-Detected Not-Detecte [place] PCR result d [facility] COVID-19 qualitative See link below for [place] PCR PDF Lab VOODOO ReportComment: [facility] Number: [id number] Specimen Nasopharyngeal swab Performing Organization Address City/State/ZIP Code Phon e Number [facility] DEPARTMENT OF PATHOLOGY AND [address], [place] [address] [address] [facility] Basic metabolic panel (12/15/2019 1:58 PM CDT) Pathologist [facility] Sodium 135 135 - 148 mEq/L [facility] Potassium 4.2 3.5 - 5.0 mEq/L [facility] Chloride 100 98 - 112 mEq/L [facility] CO2 28 24 - 31 mEq/L [facility] Anion gap 7@ANIO 7 - 15 mEq/L [facility] BUN 9 6 - 20 mg/dL [facility] Creatinine 1.03 (H) 0.50 - 0.90 mg/dL [facility] Glucose 127 (H) 65 - 99 mg/dL [facility] Calcium 9.6 8.3 - 10.2 mg/dL [facility] Specimen Nasopharyngeal swab Performing Organization Address City/State/ZIP Code Phon e Number [facility] DEPARTMENT OF PATHOLOGY [address] [facility] ([place] X [address] AND [facility]IC[facility] [address] [facility] [place] [address] [facility] MRI Knee Right Wo Contrast (11/02/2019 4:57 PM CDT) Specimen Narrative Performed At This result has an attachment that is no t available. MRI KNEE WO CONTRAST RIGHT [facility] CLINICAL INDICATION: M23.41 Loose body in knee right knee, S89.91XA Unspecified injury of right lower leg initial encounter, right knee pain TECHNIQUE: Multiplanar multisequence M R imaging of the right knee was performed without gadolinium contrast. COMPARISON: None. FINDINGS: Cruciate ligaments: Intact Menisci: Intact Collateral ligaments: Intact Bone marrow: No fracture or focal osseous lesion. Articular cartilage: Femorotibial sandra cular cartilage is unremarkable but there is moderate degeneration and inferior patellar cartilage through its lower pole. Effusion: Physiologic joint fluid Extensor mechanism: Quadriceps and pat ellar tendons are remarkable. Retinacula are intact. TT-TG interval measures less than 10 mm. Soft tissues: There is extensive edema in the lateral infrapatellar fat pad interposed between the patellar tendon and the lateral femoral condyle. Correlation for associated similarly named friction syndrome is recommended. A Vaughan's cyst is present posteriorly that measures 1.5 x 0.7 x 6. 9 cm with minimal fluid tracking into the calf. IMPRESSION: 1. Mild chondromalacia of the patella. 2. Extensive edema interposed between the patellar tendon and the lateral femoral condyle, correlate for associated friction syndrome/infrapatellar fat pad impingement. 3. No significant joint effusion is id entified. Moderate Vaughan's cyst. No intra-articular loose body is identified. *[id number] Procedure Note Hm Interface, Radiology Results Incoming - 11/02/2019 5:07 PM CDT MRI KNEE WO CONTRAST RIGHT CLINICAL INDICATION: M23.41 Loose body in knee right knee, S89.91XA Unspecified injury of right lower leg initial encounter, right knee pain TECHNIQUE: Multiplanar multisequence MR imaging of the right knee was performed without gadolinium contrast. COMPARISON: None. FINDINGS: Cruciate ligaments: Intact Menisci: Intact Collateral ligaments: Intact Bone marrow: No fracture or focal osseo us lesion. Articular cartilage: Femorotibial artic ular cartilage is unremarkable but there is moderate degeneration and inferior patellar cartilage through its lower pole. Effusion: Physiologic joint fluid Extensor mechanism: Quadriceps and fox llar tendons are remarkable. Retinacula are intact. TT-TG interval measures less than 10 mm. Soft tissues: There is extensive edema in the lateral infrapatellar fat pad interposed between the patellar tendon and the lateral femoral condyle. Correlation for associated similarly named friction syndrome is recommended. A Vaughan's cyst is present posteriorly that measures 1.5 x 0.7 x 6. 9 cm with minimal fluid tracking into the calf. IMPRESSION: 1. Mild chondromalacia of the patella. 2. Extensive edema interposed between t he patellar tendon and the lateral femoral condyle, correlate for associated friction syndrome/infrapatellar fat pad impingement. 3. No significant joint effusion is marco antonio ntified. Moderate Vaughan's cyst. No intra-articular loose body is identified. *[id number] Performing Organization Address [facility] Code Phon e Number [facility] [address] [place] [address] XR Knee 4+ Vw Right (08/31/2019 10:12 AM CDT) Specimen Narrative Performed At This result has an attachment that is no t available. 4 views (standing AP/PA, lateral and [employer]chants) of the Right knee(s) [facility] reveal no evidence of fracture, dislocation or any oth er acute or chronic osseous abnormalities. Performing Organization Address [facility]/ZIP Code Phon e Number [facility] [address] [place] [address] after 02/08/2019 Advance Directives For more information, please contact: [phone] Type Date Recorded Patient Radius Grinder Explanati on Advance Directives, Living Will 02/04/2019 6:52 PM and Medical Power of Geospatial Applications Developer
--- OUTSIDE RECORDS SUMMARY | 2020-02-09 21:21 | XMS REPORT | Continuity of Care Document ---
:1980 Author Organization [facility] Information [place] Care Team Providers Name Role Phone [facility] [place] Unavailable Un available Problems Problem Status Onset Classification Date Comments Sourc e Date Reported [id number], REFLUX Active [facility] orial 6 City Hypertensive Active Problem 03/04/2016 [facility] disorder, City systemic arterial (disorder) Obesity Active Problem 03/04/2016 [facility] al (disorder) [facility] Medications Medication Details Route Status Patient Ordering Order Source Instructions Provider Date Ondansetron Notes: (Same No Longer as: Zofran) Active 016 [facility] MEDICATION WASTE Product Size: 4 mg Product Wasted: ___ mg Naloxone Notes: Same No Longer as Narcan Active [address] [place] [address] Flumazenil Notes: (Same No Longer as: Active [address] [place] [address] Romazicon) [facility] Allergies, Adverse Reactions, Alerts No Known Medication Allergies Immunizations No Data Provided for This Section Results Order Name Results Value Reference Date Interpretation Comments Melisa rce Range HEMATOLOGY POC 35.0 36.0 - 48.0 Hematocrit 2015 [facility] HEMATOLOGY POC 11.9 12.0 - 16.0 Hemoglobin 2016 [facility] HEMATOLOGY POC Glucose 89 70 - 99 2015 [facility] HEMATOLOGY POC 4.3 3.5 - 5.1 Potassium 2015 [facility] HEMATOLOGY POC Sodium 139 135 - 145 2015 [facility] Pathology Reports No Data Provided for This Section Diagnostic Reports No Data Provided for This Section Consultation Notes No Data Provided for This Section Discharge Summaries No Data Provided for This Section History and Physicals No Data Provided for This Section Vital Signs Vital Sign Value Date Comments Source Weight 55.455 03/01/2016 [facility] BMI Calculated 20.99 03/01/2016 [facility] Height 162.56 cm 03/01/2016 [facility] y Encounters Location Location Encounter Encounter Reason Attending ADM [place] Stat [place] Source Details Type Number For Provider Date Date Visit [facility] [id number] Coy 03/01 03/01 [facility]2015 Yoshi morales [facility] Procedures Procedure Code Date Perfomer Comments Source Gastric bypass [id number] 01/03/2015 ANAYELI guido [facility] Upper GI [id number] [facility] Assessment and Plan No Data Provided for This Section Plan of Care No Data Provided for This Section Social History Social History Date Source Social History TypeResponse 01/18/[address] [facility] Smoking Status Never smoker; Ready to change: No; Radha rns about tobacco use in household: No; Exposure to Tobacco Smoke None; Cigarette Smoking Last 365 Days No; Reg Smoking Cessation Counseling No Family History No Data Provided for This Section Advance Directives No Data Provided for This Section Functional Status No Data Provided for This Section
--- OUTSIDE RECORDS SUMMARY | 2020-02-09 21:21 | XMS REPORT | Continuity of Care Document ---
:1980 Author Organization [facility] t Address [address] [place] [place] [address] Care Team Providers Name Role Phone KINA Primary Care Physician Unavailable Lata JAIME Attending Clinician Unavailable Anthony THOMPSON Attending Clinician Only, Test Attending Clinician Unavailable Sreekanth PIRES L Attending Clinician Chayo THOMPSON B. Attending Clinician Dhaval HERRMANN Attending Clinician Unavailable Cassandra THOMPSON WValentín Attending Clinician Robert THOMPSON M Attending Clinician Jody Ham NP Attending Clinician Benigno HERRMANN Attending Clinician Unavailable Brenda Medellin MA Attending Clinician Unavailable Perri TAMAYO Attending Clinician Kina THOMPSON Attending Clinician Reginald ALVARENGA Attending Clinician Logan QUANTITATIVE RESEARCHER Attending Clinician Kulwant Luna Attending Clinician Anthony THOMPSON Admitting Clinician CASSANDRA Admitting Clinician Unavailable Kulwant Luna Admitting Clinician Payers Payer Name Policy Type Policy Effective Date Expiration Date Sour ce Number [facility] [facility] [id number] 2016 2018 00:00:00 00:00:00 [place] [id number] 2018 00:00:00 BCBSBCBS CHOICE [id number] 2018 [place] PPO/FEDERAL 00:00:00 [facility] EMPL [id number] 2018-Presen tPPO Problems Condition Condition Condition Status Onset Resolution Last Treating Co mments Source Name Details Category Date Date Treatment Clinician Date Loose body Loose body Disease Active Overview : Lang of right of right 11-24 Added Method i knee knee 00:00: automatic st 00 ally from request for surgery [id number] Dyspnea Dyspnea Disease Active 2018-05 [place] 0- Methodi 00:00: st 00 Obstructiv Obstructiv Disease Active 2018-05 [place] sleep e sleep 0-04 Methodi apnea, apnea, 00:00: st adult adult 00 Fatigue Fatigue Disease Active 2018-05 [place] 0 Methodi 00:00: st 00 Diabetes Diabetes Disease Active 2018-05 [place] mellitus mellitus 0-04 Method i 00:00: st 00 Iron Iron Disease Active 2016-05 MD deficiency deficiency 05-05 An derso anemia anemia 00:00: n 00 Dysfunctio Dysfunctio Disease Active M D nal nal 9-18 [place] uterine uterine 00:00: n bleeding bleeding 00 Intramural Intramural Disease Active 0 M D leiomyoma leiomyoma 9-18 Billy rso of uterus of uterus 00:00: n 00 Menorrhagi Menorrhagi Disease Active M D a a 9-18 [place] 00:00: n 00 Anemia Anemia Disease Active MD 9-18 [place] 00:00: n 00 [id number], Diagnosis Active 2015-052016-03-09 Mem oria REFLUX 0- 12:21:00 l 24026, 00:00: [place] REFLUX 00 Active 02/29/2016 [facility] Hypertensi Problem Active 2016-03-04 M emoria ve 03:19:12 l disorder, [place] systemic Hypertensi arterial ve (disorder) disorder, systemic arterial (disorder) Active Problem 03/04/2016 [facility] Obesity Problem Active 2016-03-04 Yoshi peg (disorder) 03:19:12 l Obesity [place] (disorder) Active Problem 03/04/2016 [facility] Pulmonary Pulmonary Disease Active Overview: [place] emboli emboli PT STATED Methodi THAT st "THERE WERE SMALL SPOTS FOUND ON THE RT LUNG"PT WAS SEEING PULMONOLO GIST BUT WAS NOT ABLE TO F/U AFTER OTHER PROBLEMS FOUND WITH THE KIDNEY. Allergies, Adverse Reactions, Alerts This patient has no known allergies or adverse reactions. Family History Family Member Diagnosis Comments Start Date Stop Date Source Natural brother Hypertension MD Cervantes rson Natural father Hypertension Oswaldo son Natural father Stroke MD Bre wong Natural mother Hypertension Oswaldo son Social History Social Habit Start Date Stop Date Quantity Comments Source Sex Assigned At MD [place] Tobacco use and 2019-04-12 2019-04-12 Never used MD [place] on exposure 00:00:00 00:00:00 Alcohol intake 2019-04-12 2019-04-12 Current MD Bre owng 00:00:00 00:00:00 non-drinker of alcohol (finding) Alcohol Comment 2019-02-05 2019-02-05 Occasional Rickey Mendoza ethodist 00:00:00 00:00:00 Smoking Status Start Date Stop Date Source Never smoker MD Liang Medications Ordered Filled Start Stop Current Ordering Indication Dosage Frequency Signature Comments Components Source Medication Medication Date Date Medication? Clinician (SIG) Name Name promethazin 2019- 2020- No 25mg Q6H Take 1 Yury ston e 12-1624 tablet (25 Methodi (PHENERGAN) 00:00: 23:59 mg total) st 25 MG 00 :00 by mouth tablet every 6 (six) hours as needed for nausea or vomiting for up to 10 days. HYDROcodone 2019- 2020- No acute pain 1{tbl} Q4H Take 1 Rickey -acetaminop 12-16 tablet by La mary garza (NORCO) 00:00: 23:[address] 5-325 mg 00 :00 every 4 per tablet (four) hours as needed for moderate pain for up to 7 days .acute pain. Max Daily Amount: 6 tablets cephalexin 2019-0 2020- No 500mg Q.25D Take 1 Georgi dixon (KEFLEX) 12-1616 capsule Methodi 500 MG 00:00: 23:59 ([address] capsule 00 :00 total) by mouth 4 (four) times a day for 2 days. aspirin 2019-0 2019- No 81mg QD Take 81 mg Yury ston (ECOTRIN) 812 0812 by mouth Metho di 81 MG 13:47: 00:[address] enteric 36 :00 coated tablet metroNIDAZO 2020-0 Yes 500mg Q.5D Take 500 [place] LE (FLAGYL) 8-04 mg by Methodi 500 MG 00:00: mouth 2 st tablet 00 (two) times a day. ciprofloxac 2020-0 Yes 500mg Q.5D Take 500 [place] in (CIPRO) 8-04 mg by Methodi 500 MG 00:00: mouth 2 st tablet 00 (two) times a day. meloxicam 2019-0 2019- No 15mg QD Take 1 [place] (Mobic) 15 10-25-23 tablet (15 Me thodi mg tablet 00:00: 00:00 mg total) st 00 :00 by mouth daily. meloxicam 2019-0 No 15mg QD Take 1 [place] (Mobic) 15 08-30 04- tablet (15 Me thodi mg tablet 00:00: 23:59 mg total) st 00 :00 by mouth daily. methylPREDN 2019-2019- No Take as Ho destiny ISolone - 05-07 directedDi Metho di (Medrol, 00:00: 23:[address] Justyn,) 4 mg 00 :00 pack tablet escitalopra Yes 10mg QD Take 10 mg Lang m (LEXAPRO) 4-13 by mouth Meth jonathan 10 MG 00:00: daily. st tablet 00 multivitami 2018-05 Yes 1{tbl} Take 1 MD n 2-09 tablet by Anderso (multivitam 17:04: mouth n in) tablet 55 daily. acetaminoph 2018-05 Yes 500mg Take 500 M D en 2-09 mg by Anderso (TYLENOL) 17:03: mouth n 500 mg 45 every 4 tablet (four) hours as needed for mild pain. aspirin 81 2018-05- No 81mg Take 81 mg MD mg EC 06-13 12-09 by mouth Anderso tablet 17:03: 00:00 daily. n 36 :00 gabapentin 2018-05 Yes Left lower Take 1 MD (NEURONTIN) 2-09 quadrant tablet An derso 300 mg 00:00: pain (300 mg) n capsule 00 nighty for 3 days, then increased to 2 tablets daily. Can increase to 3 tablets daily if needed. omeprazole 2018-05 Yes 1{capsu QD Take 1 Georgi dixon (PriLOSEC) 0-25 le} capsule by Met cat 40 MG 00:00: mouth st capsule 00 daily. acetaminoph 2019- No acute pain 1{tbl} Q6H Take 1 [place] en-codeine 927 10-27 tablet by Met cat (TYLENOL 00:00: 23:[address] WITH 00 :00 every 6 CODEINE #3) (six) 300-30 mg hours as per tablet needed (severe pain) for up to 30 days .Acute Pain. methylPREDN No Lateral 40mg Georgi dixon ISolone 8-13 08-12 epicondylit Meth jonathan acetate 10:15: 13:[address] (DEPO-MEDRO 00 :45 elbow L) injection 40 mg meloxicam 2019- No 15mg QD Take 1 [place] (MOBIC) 15 8 06-23 tablet (15 Me thodi mg tablet 00:00: 00:00 mg total) st 00 :00 by mouth daily. valsartan-h Yes 1{tbl} QD Take 1 Georgi dixon ydrochlorot 5-16 tablet by Met cat hiazide 00:00: mouth st (DIOVAN-HCT 00 daily. ) 320-25 mg per tablet valsartan-h 2017-05 Yes TK 1 T PO M D ydrochlorot 2-19 QD. [place] hiazide 00:00: n (DIOVAN-HCT 00 ) 320-25 mg per tablet oxyCODONE 2016-05 Yes Intramural 5mg Take 1 MD (ROXICODONE 0-19 leiomyoma tablet (5 Anderso ) 5 mg 00:00: of uterus mg) by n immediate 00 mouth release every 4 tablet hours as needed for moderate pain. senna-docus Yes Intramural 1{tbl} Take 1 MD ate 9-22 leiomyoma tablet by Oswaldo so (SENOKOT-S) 00:00: of uterus mouth 2 n 8.6 mg-50 00 times a mg tablet day as needed for constipati on. Ondansetron 2015-05 No Notes: [place] peg 0-28 (Same as: l 14:32: Zofran) [place] 00 MEDICATION WASTE Product Size: 4 mg Product Wasted: ___ mg Naloxone 2015-05 No Notes: Memoria 0-28 Same as l 14:32: Narcan [place] 00 Flumazenil 2015-05 No Notes: Memor ia 0-28 (Same as: l 14:32: Romazicon) [place] 00 Vital Signs Vital Name Observation Time Observation Value Comments Source Systolic blood 2019-12-17 16:15:00 110 mm[Hg] [place] pressure Diastolic blood 2019-12-17 16:15:00 62 mm[Hg] [place] [facility] pressure Heart rate 2019-12-17 16:15:00 64 /min [place] [facility] Respiratory rate 2019-12-17 16:15:00 18 /min [facility] ton [facility] Oxygen saturation in 2019-12-17 16:15:00 98 /min [place] [facility] Arterial blood by Pulse oximetry Body temperature 2019-12-17 15:34:00 36.33 [facility] irma [facility] Body height 2019-12-15 13:52:00 162.6 cm [place] [facility] Body weight 2019-12-15 13:52:00 68.493 kg [place] [facility] BMI 2019-12-15 13:52:00 25.92 kg/m2 [place] [facility] Systolic blood 2019-04-12 16:55:03 123 mm[Hg] pressure Diastolic blood 2019-04-12 16:55:03 79 mm[Hg] MD Roz vargas pressure Heart rate 2019-04-12 16:55:03 67 /min MD Chacon son Body temperature 2019-04-12 16:55:03 37 Judith MD Shani carpenteron Respiratory rate 2019-04-12 16:55:03 18 /min MD Shani mancuso Body weight 2019-04-12 16:55:03 64.6 kg Oswaldo son BMI 2019-04-12 16:55:03 24.02 kg/m2 MD Chacon son Weight 2016-03-01 16:08:00 [facility] BMI Calculated 2016-03-01 16:08:00 Anthony acevedo [place] Height 2016-03-01 16:08:00 162.56 cm [facility] Procedures Procedure Date / Time Performed Performing Clinician [facility] CHEST WO CONTRAST 2019-12-28 16:53:47 Greg Contreras on [facility] ANESTHESIA INTUBATION 2019-12-17 12:58:59 Sukh Reese POC GLUCOSE 2019-12-17 10:14:00 April Trujillo Meth odist COVID-19 QUALITATIVE PCR 2019-12-15 13:58:00 April Trujillo BASIC METABOLIC PANEL 2019-12-15 13:58:00 TyolrGenaro liShanteadore Munoz on [facility] ESTIMATED GFR 2019-12-15 13:58:00 Shante Snider Met abdon MRI KNEE WO CONTRAST 2019-11-02 16:57:24 April Trujillo RIGHT XR KNEE 4+ VW RIGHT 2019-08-31 10:12:35 April Trujillo Gastric bypass operation 2015-01-03 05:00:00 [facility] Upper GI endoscopy [facility] Planned Activity Planned Date Details Comments Source Future Scheduled 2019-12-04 INFLUENZA VACCINE [place] [facility] Test 00:00:00 [code = INFLUENZA VACCINE] Future Scheduled 2000-10-01 Screening for [facility] thodist Test 00:00:00 malignant neoplasm of cervix (procedure) [code = 059668621] Future Scheduled 1989-10-01 DIABETIC FOOT EXAM [place] [facility] Test 00:00:00 [code = DIABETIC FOOT EXAM] Future Scheduled 1989-10-01 URINE MICROALBUMIN [place] [facility] Test 00:00:00 [code = URINE MICROALBUMIN] Future Scheduled 1979 DIABETIC RETINAL EYE Yury ston [facility] Test 00:00:00 EXAM [code = DIABETIC RETINAL EYE EXAM] Encounters Start End Encounter Admission Attending Care Care Encounter Source Date/Time Date/Time Type Type Clinicians Facility Department ID 2019-12-09 Outpatient SOLIS JAIME MDA [id number] 2 16:33:43 KAYE wong 2020-01-11 2020-01-11 [facility] [id number] 09:51:00 17:25:00 Encounter Jodee Jose [id number] [place] 4.2.7.2.686 Surgical [id number] [place] 071 2020-01-07 2020-01-07 Laboratory Only, [facility] [id number] 13:20:41 13:35:41 Only Test Mccarr 350.1.13.10 [place] 4.2.7.2.686 [place] [id number] 2019-12-28 2019-12-28 Outpatient CONTRERAS, [facility] [id number] [place] 00:00:00 00:00:00 GREG 461 Metho di 2019-12-17 2019-12-17 Outpatient MAFFET, [facility] [id number] [place] 00:00:00 00:00:00 APRIL 101 Method i 2019-12-15 2019-12-15 Outpatient MAFFET, [facility] [id number] [place] 00:00:00 00:00:00 APRIL [address] 2019-11-25 2019-11-25 Outpatient MAFFET, [facility] [id number] [place] 00:00:00 00:00:00 APRIL [address] 2019-11-02 2019-11-02 Outpatient MAFFET, [facility] [id number] [place] 00:00:00 00:00:00 APRIL [address] 2019-10-26 2019-10-26 Outpatient MAFFET, [facility] [id number] [place] 00:00:00 00:00:00 APRIL [address] 2019-08-31 2019-08-31 Outpatient MAFFET, [facility] [id number] [place] 00:00:00 00:00:00 APRIL [address] 2019-08-31 2019-08-31 Outpatient MAFFET, [facility] [id number] [place] 00:00:00 00:00:00 APRIL [address] 2019-03-01 2019-03-01 Inpatient U [facility] DONNA [id number] Memoria 16:33:00 16:11:00 [facility] 2019-02-25 2019-02-25 Outpatient U [facility] DONNA [id number] [place] 15:52:00 15:52:00 [facility] 2016-03-01 2016-03-01 Outpatient Primomo, [facility] [id number] 09:16:00 12:16:00 Coy Blum Results Test Description Test Time Test Comments Results Result [facility] e Comments CT Chest Wo 2019-12-28 Interface, [place] Contrast 17:13:43 Radiology Results Meño martinez 12/28/2019 5:16 PM CDTEXAMINATION: CT CHEST WO CONTRASTHISTORY: R91.1 Solitary pulmonary nodule, Lung NoduleTECHNIQUE: CT examination of the chest was performed without iodinated intravenous contrast. Radiation dose-reduction techniques were used, whereby technical factors are evaluated and adjusted to ensure appropriate moderation of exposure. Automated dose management technology is applied to adjust radiation exposure while achieving a diagnostic quality image.COMPARISON: 02/04/2019.IMPRESSI ON: Devices: None.Cardiovascula r: Heart within normal limits of size. No pericardial effusion. No evidence of significant calcified coronary artery disease. Greater thoracic vasculature is normal caliber. Mediastinum/Nodes: Fatty soft tissue in the anterior mediastinum is compatible with residual normal thymus. No lymphadenopathy.Pu lmonary: Previously noted subcentimeter nodules in the right lower lobe are not changed in size, the smaller of which has now diffusely calcified compatible with a benign pulmonary granuloma. There is no new suspicious pulmonary lesion. No discrete endobronchial lesion. No pleural effusion. No pneumothorax.Other : Limited view of the upper abdomen shows changes of Jose-en-Y gastric bypass.SUMMARY:Sta ble subcentimeter pulmonary nodules. No further imaging is necessary.[id number] POC glucose 2019-12-17 15:18:00 Test Item Value Reference Range Interpretation Comme [facility] POC glucose (test code = 78757-1) 106 mg/dL 65-99 H Outer Diameter Technician Name: Ricardo Duong ID: [id number] Lab Interpretation (test code = Abnormal 13826-6) [place] [id number] 12:58:59MuSukh carrillo CRNA 12/17/2019 1:02 PMAirwayDate/Time: 12/17/2019 12:54 PMPerformed by: Sukh Reese CRNAAuthorized by: Sukh Reese CRNA Difficult Airway: No Anesthesiologist: Mark Jones, MDResident/ROOFING APPLICATOR/AA: Sukh Reese, CRNAPreoxygenated with 100% O2:Yes C-spine Precautions Maintained Throughout: Yes Mask Ventilation: Not attemptedFinal Airway Type: Supraglottic airwayFinal LMA: UniqueLMA Size: 4Number of Attempts at Approach: Lori MethodistCOVID-19 qualitative [id number] 01:04:16 Test Item Value Reference Range Interpretation Comments Interpretation (test Negative results do code = 3013961) not preclude 2019-nCoV infection and should not be used as the sole basis for treatment or other patient management decisions. Negative results must be combined with clinical observations, patient history, and epidemiological information. COVID-19 qualitative Not-Detected Not-Detected PCR result (test code = 73273-2) COVID-19 qualitative See link below for C ase Number: PCR (test code = PDF Lab Report [id number]) [place] MethodistBasic metabolic [id number] 14:44:30 Test Item Value Reference Range Interpretation Comments Sodium (test code = 2951-2) 135 135- 148 mEq/L Potassium (test code = 2823-3) 4.2 3.5- 5.0 mEq/L Chloride (test code = 2075-0) 100 98- 112 mEq/L CO2 (test code = 8-9) 28 24- 31 mEq/L Anion gap (test code = 89923-9) 7@ANIO 7- 15 mEq/L BUN (test code = 3094-0) 9 mg/dL 6-20 Creatinine (test code = 2160-0) 1.03 mg/dL 0.5-0.9 H Glucose (test code = 2345-7) 127 mg/dL 65-99 H Calcium (test code = 27106-4) 9.6 mg/dL 8.3-10.2 Lab Interpretation (test code = Abnormal 43138-7) [place] MethodistEstimated [id number] 14:44:29 Test Item Value Reference Range Interpretation Comments Estimated GFR (test 68 mL/min/1.73 m2 [facility] Units code = 5488) InterpretationG 1 >=90 Normal or highG2 60-89 Mildly jknczwrejG7v 45-59 Mildly to mode rately zzlrzknkzV1s 30-44 Moderately to severely decreasedG4 15-29 Severely decre asedG5 <15 Kidn ey failureThe eGFR was calculated usin g the Chronic Kidney Disease Epidemiology Co llaboration (CKD-EPI) equat ion. Interpretation is based on recommendations of the National Kidney Foundation-Kidn ey Disease Outcomes Qualit y Initiative (NKF-KDOQI) pub lished in 2014. Lang MethodistMRI Knee Right Wo [id number] 17:04:06Hm Interface, Radiology Results 11/02/2019 5:07 PM CDTMRI KNEE WO CONTRAST RIGHTCLINICALINDICATION: M23.41 Loose body in knee right knee, S89.91XA Unspecified injury of right lower leg initial encounter, right knee painTECHNIQUE: Multiplanar multisequence MR imaging of the right knee was performed without gadolinium contrast. COMPARISON: None.FINDINGS:Cruciate ligaments: IntactMenisci: IntactCollateral ligaments: IntactBone marrow: No fracture or focal osseous lesion.Articularcartilage: Femorotibial articular cartilage is unremarkable but there is moderate degeneration and inferior patellar cartilage through its lower pole.Effusion: Physiologic joint fluidExtensor mechanism: Quadriceps and patellar tendons are remarkable. Retinacula are intact. TT-TG interval measures less than 10 mm.Soft tissues: There is extensive edema in the lateral infrapatellar fat pad interposed between the patellar tendon and the lateral femoral condyle. Correlation for associated similarly named friction syndrome is recommended. A Vaughan's cyst is present posteriorly that measures 1.5 x 0.7 x 6.9 cm with minimal fluid tracking into the calf.IMPRESSION:1. Mild chondromalacia of the patella.2. Extensive edema interposed between the patellar tendon and the lateral femoral condyle, correlate for associated friction syndrome/infrapatellar fat pad impingement.3. No significant joint effusion is identified. Moderate Vaughan's cyst. No intra- articular loose body is identified.*[id number] MethodistHEMATOLOGY 2016-03-01 15:59:0035.0[facility] OujfdmlZJGRKXYBMT8359-16-02 15:59:0011.9[facility]orial O[id number] 15:59:0089[facility] PwpatxmHQJRSNRLIT5531-10-51 15:59:004.3[facility]orial CpwxtytCBJXVKPBVK0688-11-73 15:59:81477Kuidbzfj Hermann
== END 2020-02-04 22:14 | disposition home or self-care (01) ==
LOC: ER 18:42
DX: R51.9 Headache, unspecified (principal); R10.819 Abdominal tenderness, unspecified site; D64.9 Anemia, unspecified; I10 Essential (primary) hypertension
CPT/HCPCS: 96361; 87088; 85025; 87086; 80048; 36415; 80076; 81003; 83690; 74019; 96374; 99284; J7030; J2405

== ENCOUNTER 2020-04-10 04:41 | Emergency (ER) | payer BC ==
--- OUTSIDE RECORDS SUMMARY | 2020-04-10 04:44 | XMS REPORT | Clinical Summary ---
:1980 Author Organization [place] [facility] Address [address] [place] [address] Care Team Providers Name Role Phone Fritz [...] 20 (Reorder) mg total) by mouth daily. aspirin (ECOTRIN) 81 Take 81 mg 0 [...] Added automatically from request for mary couch [id number] Dyspnea 02/05/2019 Obstructive sleep apnea, adult 02/05/2019 Fatigue 02/05/2019 Diabetes mellitus 02/05/2019 Pulmonary emboli Overview: PT STATED THAT "THERE WERE SMALL SPOTS F OUND ON THE RT LUNG"PT WAS SEEING PUMP INSTALLATION AND SERVICER BUT WAS NOT ABLE TO F/U AF [...] Surgery General Surgery Efren Trujillo Right Arthro scopLeatha MD the Knee with R emoval of Loose Body, Patellofemoral Chondroplasty, partial medial menisectomy 12/17/2019 Hospital Encounter General Surgery Efren Trujillo MD 12/17/2019 Travel 12/16/2019 Telephone Orthopedic Surgery Ivon Pelaez MA 12/15/2019 Pre-Admit Testing Pre-Admission Efren Trujillo Preoperat alexa testing Appointment Testing MD Gabriella (Primary Dx) 12/15/2019 Orders Only Orthopedic Surgery Coy [place], Umesh sanjeev dy of right MA knee (Primary D x) 12/15/2019 Travel 12/15/2019 Telephone Orthopedic Surgery Ivon Pelaez MA 12/14/2019 Travel 11/26/2019 Telephone Orthopedic Surgery Lacie Coy Gutierrez MA 11/25/2019 Telemedicine Orthopedic Surgery Efren Trujillo [...] r ight knee 10/26/2019 Refill Orthopedic Surgery Ivon Pelaez MA 10/26/2019 Travel 08/31/2019 Office Visit Orthopedic Surgery Efren Trujillo Injury of right knee, initial encounter (Primary Dx); MD Gabriella Contusion of ri ght knee, initial encounter; Patellofemoral pain syndrome of right knee 08/31/2019 Travel 08/26/2019 Travel after 04/10/2019 Surgical History Surgery Date Site/Laterality Comments BARIATRIC [...] Health Maintenance Due Date Last Done Comments DIABETES: RETINAL EYE EXAM 10/01/1989 DIABETIC FOOT EXAM 10/01/1989 URINE MICROALBUMIN 10/01/1989 [...] procedure are in the results section. after 04/10/[address] Chest Wo Contrast (12/28/2019 4:53 PM CDT) Specimen Narrative Performed At EXAMINATION: CT CHEST WO CONTRAST [facility] HISTORY: R91.1 Solitary pulmonary nodule , [...] pulmonary nodules. No further imaging is necessary. [facility]-[id number] Procedure Note Interface, Radiology Results Incoming - 12/28/2019 5:16 PM CDT EXAMINATION: CT CHEST WO CONTRAST HISTORY: R91.1 Solitary pulmonary nodule , Lung Nodule TECHNIQUE: CT examination of the chest w as performed without iodinated intravenous contrast. Radiation dose-reduction techniques were used, whereby technical factors are evaluated and adjusted to ensure appropriate moderation of exposure. Automated dose management technology is applied to adju st radiation exposure while achieving a diagnostic [...] pulmonary nodules. No further imaging is necessary. [facility]-[id number] Performing Organization Address City/State/ZIP Code Phon e Number [facility] [address] [place] [address] Airway (12/17/2019 12:58 PM CDT) Narrative Performed At Sukh Reese CRNA 020 1:02 PM Airway Date/Time: 12/17/2019 12:54 PM Performed by: Sukh Reese CRN A Authorized by: Sukh Reese CR NA Difficult Airway: No Anesthesiologist: Mark Jones MD Resident/TIMBER ESTIMATOR/AA: Sukh Reese CRNA Preoxygenated with 100% O2: Yes C-spine Precautions Maintained Throughou t: Yes Mask Ventilation: Not attempted Final Airway Type: Supraglottic airway Final LMA: Unique LMA Size: 4 Number of Attempts at Approach: 1 POC glucose (12/17/2019 10:14 AM CDT) Pathologist [facility] nature POC glucose 106 (H) 65 - 99 mg/dL KODY VERMA Comment: [facility] Services Manager Name: Ricardo [facility] Device ID: [id number] Specimen Blood Performing Organization Address City/[facility]/ZIP Code Phon e Number [facility] DEPARTMENT OF PATHOLOGY [address] [facility], [place] [address] AND GENOMIC MEDICINE KODY VERMA [place] [address] [facility] [place] [address] HOSPITAL Estimated GFR (12/15/2019 1:58 PM CDT) Pathologist [facility] Estimated GFR 68 mL/min/1.73 KODY VERMA Comment: m2 ARABI Catergory Units Interpretation HOS PITAL G1 >=90 [...] published in 2014. Specimen Performing Organization Address City/[facility] Phon e Number [facility] DEPARTMENT OF PATHOLOGY [address] [facility] [place] [address] [facility] [id number] [place] [address] X [address] HOSPITAL COVID-19 qualitative PCR (12/15/2019 1:58 PM CDT) Interpretation Negative results do not prec lude 2019-nCoV infection and should not be used as the sole basis for treatment or other patient management decisions. Negative results must be combined with clinical observations, patient history, and epidemiological [place] information. [facility] COVID-19 qualitative Not-Detected Not-Detecte [place] PCR result d [facility] COVID-19 qualitative See link below for [place] PCR PDF Lab [facility] ReportComment: Case HOSPITAL Number: [id number] Specimen Nasopharyngeal swab Performing Organization Address City/[facility] Phon e Number [facility] DEPARTMENT OF PATHOLOGY AND [address], [place] [address] [address] [facility] Basic metabolic panel (12/15/2019 1:58 PM CDT) Pathologist Sig nature Sodium 135 135 - 148 mEq/L [facility] Potassium 4.2 3.5 - 5.0 mEq/L [facility] Chloride 100 98 - 112 mEq/L [facility] CO2 28 24 - 31 mEq/L [facility] Anion gap 7@ANIO 7 - 15 mEq/L [facility] BUN 9 6 - 20 mg/dL [facility] Creatinine 1.03 (H) 0.50 - 0.90 mg/dL [facility] Glucose 127 (H) 65 - 99 mg/dL [facility] Calcium 9.6 8.3 - 10.2 mg/dL [facility] Specimen Nasopharyngeal swab Performing Organization Address City/State/ZIP Code Phon e Number [facility] DEPARTMENT OF PATHOLOGY [address] [facility] [place] [address] AND GENOMIC MEDICINE [facility] [address] [facility], [place] [address] [facility] MRI Knee Right Wo Contrast (11/02/2019 4:57 [...] cyst. No intra-articular loose body is identified. *[id number] Procedure Note Hm Interface, Radiology Results Incoming [...] cyst. No intra-articular loose body is identified. *[id number] Performing Organization Address City/[facility]/ZIP Code Phon e Number [facility] [address] [place] [address] XR Knee 4+ Vw Right (08/31/2019 10:12 AM CDT) Specimen Narrative Performed At This result has an attachment that is no t available. 4 views (standing AP/PA, lateral and [employer]chants) of the Right knee(s) HM [facility] reveal no evidence of fracture, dislocation or any oth er acute or chronic osseous abnormalities. Performing Organization Address [facility] Phon e Number [facility] [address] [place] [address] after 04/10/2019 Advance Directives For more information, please contact: [phone] Type Date Recorded Patient Lime Kiln Tender Explanati on Advance Directives, Living Will 02/04/2019 6:52 PM and Medical Power of Engine Lathe Operator
--- OUTSIDE RECORDS SUMMARY | 2020-04-10 04:44 | XMS REPORT | Continuity of Care Document ---
:1980 Author Organization [facility] Information [place] Care Team Providers Name Role Phone [facility] Information [place] Unavailable Un available Problems Problem Status Onset Classification Date Comments Sourc e Date Reported [address], REFLUX Active [facility] orial 6 City Hypertensive Active Problem 03/04/2016 [facility] orisd disorder, City systemic arterial (disorder) Obesity Active Problem 03/04/2016 [facility] al (disorder) [facility] Medications Medication Details Route Status Patient Ordering Order Source Instructions Provider Date Ondansetron Notes: (Same No Longer as: Zofran) Active 016 [facility] MEDICATION WASTE Product Size: 4 mg Product Wasted: ___ mg Naloxone Notes: Same No Longer as Narcan Active [address] [place] [address] Flumazenil Notes: (Same No Longer as: Active [address] [place] [address] Romazicon) [facility] Allergies, Adverse Reactions, Alerts No Known Medication Allergies Immunizations No Data Provided for This Section Results Order Name Results Value Reference Date Interpretation Comments Melisa rce Range HEMATOLOGY POC 35.0 36.0 - 48.0 Hematocrit 2015 [facility] HEMATOLOGY POC 11.9 12.0 - 16.0 Hemoglobin 2016 [facility] HEMATOLOGY POC Glucose 89 70 - 99 2015 [facility] HEMATOLOGY POC 4.3 3.5 - 5.1 Potassium 2015 [facility] HEMATOLOGY POC Sodium 139 135 - 145 2015 [facility] Pathology Reports No Data Provided for This Section Diagnostic Reports No Data Provided for This Section Consultation Notes No Data Provided for This Section Discharge Summaries No Data Provided for This Section History and Physicals No Data Provided for This Section Vital Signs Vital Sign Value Date Comments Source Weight 55.455 03/01/2016 [facility] BMI Calculated 20.99 03/01/2016 [facility] Height 162.56 cm 03/01/[address] [facility] y Encounters Location Location Encounter Encounter Reason Attending ADM [place] Source Details Type Number For Provider Date Date Visit [facility] [id number] Coy 03/01 03/01 [facility] [facility] Procedures Procedure Code Date Perfomer Comments Source Gastric bypass [id number] 01/03/2015 Maryan guido [facility] Upper GI [id number] [facility] Assessment and Plan No Data Provided for This Section Plan of Care No Data Provided for This Section Social History Social History Date Source Social History TypeResponse 01/18/2015 [facility] Smoking Status Never smoker; Ready to [...]
--- OUTSIDE RECORDS SUMMARY | 2020-04-10 04:45 | XMS REPORT | Continuity of Care Document ---
:1980 Author Organization [facility] t Address [address] [place] [place] [id number] Care Team Providers Name Role Phone KINA Primary Care Physician Unavailable Gillian JAIME Attending Clinician Unavailable Only, Test Attending Clinician Unavailable Sreekanth PIRES, L Attending Clinician Chayo THOMPSON, B. Attending Clinician Dhaval HERRMANN Attending Clinician Unavailable Cassandra THOMPSON W. Attending Clinician Robert THOMPSON M Attending Clinician Jody Ham NP Attending Clinician Benigno HERRMANN Attending Clinician Unavailable Brenda Medellin MA Attending Clinician Unavailable Perri TAMAYO Attending Clinician Kina THOMPSON Attending Clinician Kulwant Luna Attending Clinician CASSANDRA Admitting Clinician Unavailable Kuwlant Luna Admitting Clinician Payers Payer Name Policy Type Policy Effective Date Expiration Date Sour ce Number [employer]ET[employer] [facility] [id number] 2016 2018 00:00:00 00:00:00 [place] [id number] 2018 00:00:00 BCBSBCBS CHOICE [id number] [facility] [id number] 2018-Presen tPPO Problems Condition Condition Condition Status Onset Resolution Last Treating Co mments Source Name Details Category Date Date Treatment Clinician Date Loose body Loose body Disease Active Overview : Lang of right of right 11-24 Added Method i knee knee 00:00: automatic st 00 ally from request for surgery [id number] Dyspnea Dyspnea Disease Active 2018-05 Lang 0 Methodi 00:00: st 00 Obstructiv Obstructiv Disease Active 2018-05 [place] sleep e sleep 0 Methodi apnea, apnea, 00:00: st adult adult 00 Fatigue Fatigue Disease Active 2018-05 Lang Methodi 00:00: st 00 Diabetes Diabetes Disease Active 2018-05 [place] mellitus mellitus Method i 00:00: st 00 Iron Iron Disease Active 2016-05 MD deficiency deficiency 05-05 An derso anemia anemia 00:00: n 00 Dysfunctio Dysfunctio Disease Active M D nal nal 18 Anderso uterine uterine 00:00: n bleeding bleeding 00 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 18 Billy rso of uterus of uterus 00:00: n 00 Menorrhagi Menorrhagi Disease Active M D a a 18 Anderso 00:00: n 00 Anemia Anemia Disease Active MD 9-18 Anderso 00:00: n 00 [id number], Diagnosis Active 2015-052016-03-09 Mem oria REFLUX 0- 12:21:00 l [id number], 00:00: [place] REFLUX 00 Active 02/29/2016 [facility] Hypertensi Problem Active 2016-03-04 M emoria ve 03:19:12 l disorder, [place] systemic Hypertensi arterial ve (disorder) disorder, systemic arterial (disorder) Active Problem 03/04/2016 [facility] Obesity Problem Active 2016-03-04 Yoshi peg (disorder) 03:19:12 l Obesity [place] (disorder) Active Problem 03/04/2016 [facility] Pulmonary Pulmonary Disease Active Overview: Thompsons emboli emboli PT STATED Methodi THAT st "THERE WERE SMALL SPOTS FOUND ON THE RT LUNG"PT WAS SEEING PULMONOLO GIST BUT WAS NOT ABLE TO F/U AFTER OTHER PROBLEMS FOUND WITH THE KIDNEY. Allergies, Adverse Reactions, Alerts This patient has no known allergies or adverse reactions. Family History Family Member Diagnosis Comments Start Date Stop Date Source Natural brother Hypertension MD Cervantes rsdaniel Natural father Hypertension Oswaldo son Natural father Stroke MD Bre wong Natural mother Hypertension Oswaldo son Social History Social Habit Start Date Stop Date Quantity Comments Source Sex Assigned At MD [place] on Tobacco use and 2019-04-12 2019-04-12 Never used MD Alva on exposure 00:00:00 00:00:00 Alcohol intake 2019-04-12 2019-04-12 Current MD Bre wong 00:00:00 00:00:00 non-drinker of alcohol (finding) Alcohol Comment 2019-02-05 2019-02-05 Occasional Rickey Mendoza ethodist 00:00:00 00:00:00 Smoking Status Start Date Stop Date Source Never smoker MD Liang Medications Ordered Filled Start Stop Current Ordering Indication Dosage Frequency Signature Comments Components Source Medication Medication Date Date Medication? Clinician (SIG) Name Name acetaminoph 2019-05 Yes 500mg Take 500 M D en 1-02 mg by Anderso (TYLENOL) 09:30: mouth n 500 mg 42 every 4 tablet (four) hours as needed for mild pain. multivitami 2019-05 Yes 1{tbl} Take 1 MD n 1-02 tablet by Anderso (multivitam 09:30: mouth n in) tablet 42 daily. aspirin 81 2019-05 No 81mg Take 81 mg MD mg EC -09 by mouth Anderso tablet 09:30: 00:00 daily. n 42 :00 promethazin No 25mg Q6H Take 1 Yury ston e 12-16-24 tablet (25 Methodi (PHENERGAN) 00:00: 23:59 mg total) st 25 MG 00 :00 by mouth tablet every 6 (six) hours as needed for nausea or vomiting for up to 10 days. HYDROcodone 2019- 2020- No acute pain 1{tbl} Q4H Take 1 Lang -acetaminop -16 12-21 tablet by Me mary garza (NORCO) 00:00: 23:[address] 5-325 mg 00 :00 every 4 per tablet (four) hours as needed for moderate pain for up to 7 days .acute pain. Max Daily Amount: 6 tablets cephalexin 2019- No 500mg Q.25D Take 1 Ho destiny (KEFLEX) 8-14 08-16 capsule Methodi 500 MG 00:00: 23:59 ([address] capsule 00 :00 total) by mouth 4 (four) times a day for 2 days. aspirin 2019-0 2020- No 81mg QD Take 81 mg Yury ston (ECOTRIN) 8-12 08-12 by mouth Metho di 81 MG 13:47: [...] 00 :00 by mouth daily. meloxicam 2019-0 2020- No 15mg QD Take 1 [place] (Mobic) 15 08-30 04-28 tablet (15 Me thodi mg tablet 00:00: 23:59 mg total) st 00 :00 by mouth daily. methylPREDN 2019- 2020- No Take as Ho destiny ISolone 4-28 05-07 directedDi Metho di (Medrol, 00:00: 23:[address] Justyn,) 4 mg 00 :00 pack tablet escitalopra 2019- Yes 10mg QD Take 10 mg Lang m (LEXAPRO) 4-13 by mouth Meth jonathan 10 MG 00:00: daily. st tablet 00 gabapentin 2018-05 Yes Left lower Take 1 MD (NEURONTIN) 2-09 quadrant tablet An derso 300 mg 00:00: pain (300 mg) n capsule 00 nighty for 3 days, then increased to 2 tablets daily. Can increase to 3 tablets daily if needed. omeprazole 2018-05 Yes 1{capsu QD Take 1 Ho destiny (PriLOSEC) 0-25 le} capsule by Met hodi 40 MG 00:00: mouth st capsule 00 daily. methylPREDN No Lateral 40mg Ho destiny ISolone 8-13 08-12 epicondylit Meth jonathan acetate 10:15: 13:[address] (DEPO-MEDRO 00 :45 elbow L) injection 40 mg meloxicam 2019- No 15mg QD Take 1 [place] (MOBIC) 15 12-15 06-23 tablet (15 Me thodi mg tablet 00:00: 00:00 mg total) st 00 :00 by mouth daily. valsartan-h Yes 1{tbl} QD Take 1 Georgi dixon ydrochlorot 5-16 tablet by Met hodi hiazide 00:00: mouth st (DIOVAN-HCT 00 daily. [...] MD ate 9-22 leiomyoma tablet by Oswaldo braun (SENOKOT-S) 00:00: of uterus mouth 2 n 8.6 mg-50 00 times a mg tablet day as needed for constipati on. Ondansetron 2015-05 No Notes: Yoshi peg 0-28 (Same as: l 14:32: Zofran) MEDICATION WASTE Product Size: 4 mg Product Wasted: ___ mg Naloxone 2015-05 No Notes: Memoria 0-28 Same as l 14:32: Narcan Flumazenil 2015-05 No Notes: Memor ia 0-28 (Same as: l 14:32: Romazicon) Vital Signs Vital Name Observation Time Observation Value Comments Source Systolic blood 2019-12-17 16:15:00 110 mm[Hg] Regina n Shinto pressure Diastolic blood 2019-12-17 16:15:00 62 mm[Hg] Alexander on Shinto pressure Heart rate 2019-12-17 16:15:00 64 /min Lang Shinto Respiratory rate 2019-12-17 16:15:00 18 /min [place] Shinto Oxygen saturation in 2019-12-17 16:15:00 98 /min Lang Shinto Arterial blood by Pulse oximetry Body temperature 2019-12-17 15:34:00 36.33 Judith [place] Shinto Body height 2019-12-15 13:52:00 162.6 cm Lang Shinto Body weight 2019-12-15 13:52:00 68.493 kg Lang Shinto BMI 2019-12-15 13:52:00 25.92 kg/m2 Lang Shinto Systolic blood 2019-04-12 16:55:03 123 mm[Hg] pressure Diastolic blood 2019-04-12 16:55:03 79 mm[Hg] MD Roz melissason pressure Heart rate 2019-04-12 16:55:03 67 /min MD Chacon son Body temperature 2019-04-12 16:55:03 37 Judith MD Shani carpenteron Respiratory rate 2019-04-12 16:55:03 18 /min MD Shani carpenteron Body weight 2019-04-12 16:55:03 64.6 kg MD Chacon son BMI 2019-04-12 16:55:03 24.02 kg/m2 MD Chacon son Weight 2016-03-01 16:08:00 [facility] BMI Calculated 2016-03-01 16:08:00 Memori al [place] Height 2016-03-01 16:08:00 162.56 cm [facility] Procedures Procedure Date / Time Performed Performing Clinician [facility] e CT CHEST WO CONTRAST 2019-12-28 16:53:47 Greg Domingo on Shinto ANESTHESIA INTUBATION 2019-12-17 12:58:59 Sukh Reese POC GLUCOSE 2019-12-17 10:14:00 April Trujillo Meth odist COVID-19 QUALITATIVE PCR 2019-12-15 13:58:00 April Trujillo BASIC METABOLIC PANEL 2019-12-15 13:58:00 Shante Snider on Shinto ESTIMATED GFR 2019-12-15 13:58:00 Shante Snider MRI KNEE WO CONTRAST 2019-11-02 16:57:24 April Trujillo RIGHT XR KNEE 4+ VW RIGHT 2019-08-31 10:12:35 April Trujillo Gastric bypass operation 2015-01-03 05:00:00 Kyle saunders [place] Upper GI endoscopy [facility] Plan of Care Planned Activity Planned Date Details Comments Source Future Scheduled 2019-12-04 INFLUENZA VACCINE [place] Shinto Test 00:00:00 [code = INFLUENZA VACCINE] Future Scheduled 2000-10-01 Screening for Thompsons Me thodist Test 00:00:00 malignant neoplasm of cervix (procedure) [code = 310985930] Future Scheduled 1989-10-01 DIABETES: RETINAL EYE [place] Shinto Test 00:00:00 EXAM [code = DIABETES: RETINAL EYE EXAM] Future Scheduled 1989-10-01 DIABETIC FOOT EXAM [place] Shinto Test 00:00:00 [code = DIABETIC FOOT EXAM] Future Scheduled 1989-10-01 URINE MICROALBUMIN [place] Shinto Test 00:00:00 [code = URINE MICROALBUMIN] Encounters Start End Encounter Admission Attending Care Care Encounter Source Date/Time Date/Time Type Type Clinicians Facility Department ID 2019-12-09 Outpatient SREEKANTHSOLIS MDA [id number] 2 16:33:43 KAYE wong 2020-02-10 2020-02-10 Laboratory Only, [facility] [id number] 10:38:53 10:59:22 Only Test [place] [id number] [place] [id number] [place] [id number] 2019-12-28 2019-12-28 Outpatient [facility] [id number] [place]ons 00:00:00 00:00:00 GREG [address] 2019-12-17 2019-12-17 Outpatient [facility] [id number] Thompsons 00:00:00 00:00:00 APRIL [address] 2019-12-15 2019-12-15 Outpatient [facility] [id number] Thompsons 00:00:00 00:00:00 APRIL [address] 2019-11-25 2019-11-25 [facility] [id number] Thom[place]ons 00:00:00 00:00:00 APRIL 579 Method i 2019-11-02 2019-11-02 Outpatient [facility], [facility] [id number] Thompsons 00:00:00 00:00:00 APRIL 044 Method i 2019-10-26 2019-10-26 Outpatient [facility], [facility] [id number] Thompsons 00:00:00 00:00:00 APRIL 670 Method i 2019-08-31 2019-08-31 Outpatient [facility], [facility] [id number] Thompsons 00:00:00 00:00:00 APRIL 278 Method i 2019-08-31 2019-08-31 Outpatient [facility], [facility] [id number] Thompsons 00:00:00 00:00:00 APRIL 472 Method i 2019-03-01 2019-03-01 Inpatient U [facility] DONNA 9301 Memoria 16:33:00 16:11:00 [facility] 2019-02-25 2019-02-25 Outpatient U [facility] DONNA 9297 Memoria 15:52:00 15:52:[address] l [place] [address] [facility] 2016-03-01 2016-03-01 Outpatient Primomo, [facility] [id number] 09:16:00 12:16:00 Coy Blum Results Test Description Test Time Test Comments Results Result [facility] e Comments CT Chest Wo 2019-12-28 [facility] Contrast 17:13:43 Radiology Results Methodi 12/28/2019 5:16 PM CDTEXAMINATION: CT CHEST WO [...] Item Value Reference Range Interpretation Comme nts POC glucose (test code = 36965-6) 106 mg/dL 65-99 H Patient Scheduler Name: Ricardo Duong ID: [id number] Lab Interpretation (test code = Abnormal 75060-5) Rickey [id number] 12:58:59MuSukh carrillo CRNA 12/17/2019 1:02 PMAirwayDate/Time: 12/17/2019 12:54 PMPerformed by: Sukh Reese CRNAAuthorized by: Sukh Reese CRNA Difficult Airway: No Anesthesiologist: Mark Jones, MDResident/WEB DESIGN SPECIALIST/AA: Sukh Reese CRNAPreoxygenated with 100% O2:Yes C-spine Precautions Maintained Throughout: Yes Mask Ventilation: Not attemptedFinal Airway Type: Supraglottic airwayFinal LMA: UniqueLMA Size: 4Number of Attempts at Approach: [address] [place] [address] DavidistCOVID-19 qualitative [id number] 01:04:16 Test Item Value Reference Range Interpretation Comments Interpretation (test Negative results do code = 8632568) not preclude 2019-nCoV infection and should not be used as the sole basis for treatment or other patient management decisions. Negative results must be combined with clinical observations, patient history, and epidemiological information. COVID-19 qualitative Not-Detected Not-Detected PCR result (test code = 33870-8) COVID-19 qualitative See link below for C ase Number: PCR (test code = PDF Lab Report [id number]) Lang [facility] metabolic [id number] 14:44:30 Test Item Value Reference Range Interpretation Comments Sodium (test code = 2951-2) 135 135- 148 mEq/L Potassium (test code = 2823-3) 4.2 3.5- 5.0 mEq/L Chloride (test code = 2075-0) 100 98- 112 mEq/L CO2 (test code = 2027-9) 28 24- 31 mEq/L Anion gap (test code = 34180-3) 7@ANIO 7- 15 mEq/L BUN (test code = 3094-0) 9 mg/dL 6-20 Creatinine (test code = 2160-0) 1.03 mg/dL 0.5-0.9 H Glucose (test code = 2345-7) 127 mg/dL 65-99 H Calcium (test code = 07072-1) 9.6 mg/dL 8.3-10.2 Lab Interpretation (test code = Abnormal 85129-8) Rickey MethodistEstimated [id number] 14:44:29 Test Item Value Reference Range Interpretation Comments Estimated GFR (test 68 mL/min/1.73 m2 [facility] code = 5488) InterpretationG 1 >=90 Normal or highG2 60-89 Mildly ygifjgikjV6j 45-59 Mildly to mode rately kkiyrzxqtL5b 30-44 Moderately to severely decreasedG4 15-29 Severely decre asedG5 <15 Kidn ey failureThe eGFR was calculated magdalene hein the Chronic Kidney Disease Epidemiology Co llaboration (CKD-EPI) equat ion. Interpretation is based on recommendations of the National Kidney Foundation-Kidn ey Disease Outcomes Qualit y Initiative (NKF-KDOQI) pub lished in 2014. Rickey BucioMRI Knee Right Wo [id number] 17:04:06Hm Interface, Radiology Results 11/02/2019 5:07 PM [...] cyst. No intra- articular loose body is identified.*[id number] MethodistHEMATOLOGY 2016-03-01 15:59:0035.0[facility] [id number] 15:59:0011.9Memorial [id number] 15:59:0089Memorial [id number] 15:59:004.3[facility]orial [id number] 15:59:11529Luxblfgt Wayne
[2020-04-10] MEDS ORDERED: KETOROLAC 30 MG/ML INJ ONE (05:23)
[2020-04-10 05:33] LABS: Absolute Lymphocytes (CBC) 1.7 K/uL (0.7-4.9); Basophils % 0.9 % (0-1.3); Hematocrit 35.8 % (36.0-45.0); Lymphocytes % 19.2 % (15.3-44.8); MPV 8.7 fL (7.6-11.3); RBC Red Blood Cell Count 4.13 M/uL (3.86-4.86)
[2020-04-10 05:38] LABS: Protime INR 0.98
[2020-04-10 05:52] LABS: ALT/SGPT 40 U/L (12-78); AST/SGOT 65 U/L (15-37); Albumin 4.1 g/dL (3.4-5.0); Alkaline Phosphatase 121 U/L (45-117); BUN Blood Urea Nitrogen 7 mg/dL (7-18); Bicarbonate 28 mmol/L (21-32); Bilirubin Direct 0.1 mg/dL (0-0.2); Bilirubin Total 0.3 mg/dL (0.2-1.0); Glucose Level 87 mg/dL (74-106); Magnesium 2.1 mg/dL (1.8-2.4); NT PRO-BNP 79 pg/mL (<125); Protein, Total 7.7 g/dL (6.4-8.2); Sodium Level 141 mmol/L (136-145); Troponin (Emerg Dept Use Only) < 0.02 ng/mL (0.0-0.045)
[2020-04-10] MEDS ORDERED: MORPHINE 4 MG/ML SYR ONE (06:56)
[2020-04-10] MEDS ORDERED: ONDANSETRON 4 MG/2 ML VIAL ONE (06:56)
--- NOTE | 2020-04-10 08:22 | RAD REPORT ---
EXAM DESCRIPTION: US - Extremity Venous Uni Ltd - 04/10/2020 7:45 am CLINICAL HISTORY: PAIN Leg swelling and edema. COMPARISON: EXT VENOUS UNI LTD dated 02/20/2015 FINDINGS: Left lower extremity venous system was interrogated with Doppler technique. Normal flow, c ompressibility and augmentation was noted. There is no DVT present. IMPRESSION: No evidence of left lower extremity deep venous thrombosis.
--- NOTE | 2020-04-10 08:22 | RAD REPORT ---
EXAM DESCRIPTION: CT - Chest For Pe Angio - 04/10/2020 7:05 am CLINICAL HISTORY: Chest pain. CHEST PAIN COMPARISON: Extremity Venous Uni Ltd dated 04/10/2020 TECHNIQUE: CT angiogram of the pulmonary arteries was performed with MIP. All CT scans are performed using dose optimization technique as appropriate and may include automated exposure control or mA/KV adjustment according to patient size. FINDINGS: No evidence of pulmonary thromboembolism. No acute aortic finding demonstrated. The lungs are clear. No significant pericardial or pleural fluid. No concerning bony finding. IMPRESSION: No evidence of pulmonary thromboembolism. No acute lung findings.
--- NOTE | 2020-04-10 08:45 | RAD REPORT ---
EXAM DESCRIPTION: RAD - Chest Single View - 04/10/2020 7:08 am CLINICAL HISTORY: CHEST PAIN Chest pain. COMPARISON: Chest Pa And Lat (2 Views) dated 03/11/2018; CHEST SINGLE VIEW dated 05/25/2014 FINDINGS: Portable technique limits examination quality. The lungs are grossly clear. The heart is normal in size. No displaced fractures. IMPRESSION: No acute intrathoracic process suspected.
--- NOTE | 2020-04-10 08:59 | ER ---
Nurse's Notes [facility] Name: Rani Breen Age: 39 yrs Sex: Female : 1980 Arrival Date: 04/10/2020 Time: 04:43 Bed 14 Private MD: Diagnosis: Chest pain, unspecified Presentation: 04/10 04:50 Chief complaint: Patient states: I started having chest pain around 2am. It radiates to jb4 my left shoulder, down my left arm, and to my stomach. My left arm and shoulder is more of a pins and needle pain and I cannot lift it. My chest and stomach is more of a cramping pain. I took 2 of my T 3's when I noticed the pain at 2 am. Coronavirus screen: Client denies travel out of the [place] in the last 14 days. At this time, the client does not indicate any symptoms associated with coronavirus-19. Ebola Screen: No symptoms or risks identified at this time. Initial Sepsis Screen: Does the patient meet any 2 criteria? No. Patient's initial sepsis screen is negative. Does the patient have a suspected source of infection? No. Patient's initial sepsis screen is negative. Risk Assessment: Do you want to hurt yourself or someone else? Patient reports no desire to harm self or others. Onset of symptoms was April 10, 2020. Transition of care: patient was not received from another setting of care. 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 - Social history:: Smoking status: Patient denies any tobacco usage or history of. Patient/guardian denies using alcohol, street drugs. Screenin:56 Abuse screen: Denies threats or abuse. Nutritional screening: No deficits noted. jb4 Tuberculosis screening: No symptoms or risk factors identified. Fall Risk None identified. Assessment: 04:54 General: Appears in no apparent distress. uncomfortable, Behavior is cooperative, jb4 anxious. Pain: Complains of pain in chest Pain radiates to left scapular area, abdomen and left arm Pain currently is 10 out of 10 on a pain scale. Quality of pain is described as crampy, Pins and needles Pain began 3 hours ago. Is continuous. Neuro: Level of Consciousness is awake, alert, obeys commands, Oriented to person, place, time, situation. Cardiovascular: Patient's skin is warm and dry. Rhythm is sinus rhythm. Respiratory: Airway is patent Respiratory effort is even, unlabored, Respiratory pattern is regular, symmetrical. GI: No signs and/or symptoms were reported involving the gastrointestinal system. : No signs and/or symptoms were reported regarding the genitourinary system. EENT: No signs and/or symptoms were reported regarding the EENT system. Derm: Skin is intact, Skin is pink, warm \\T\\ dry. Musculoskeletal: Circulation, motion, and sensation intact. Range of motion: intact in all extremities. 05:33 Reassessment: Patient appears in no apparent distress at this time. Patient and/or jb4 family updated on plan of care and expected duration. Pain level reassessed. Patient is alert, oriented x 3, equal unlabored respirations, skin warm/dry/pink. PT reports pain has decreased to 6/10 and is tolerable, appears more comfortable, denies needing anything at this time. Patient states feeling better. Patient states symptoms have improved. 06:40 Reassessment: Patient appears in no apparent distress at this time. PT reports an jb4 increase in pain, reports having a ride home with her daughter if needed, provider notified, see MAR for orders. 07:47 Reassessment: Patient appears in no apparent distress at this time. Patient and/or tw2 family updated on plan of care and expected duration. Pain level reassessed. Patient is alert, oriented x 3, equal unlabored respirations, skin warm/dry/pink. Patient states feeling better. 08:55 Reassessment: Patient appears in no apparent distress at this time. Patient and/or tw2 family updated on plan of care and expected duration. Pain level reassessed. Patient is alert, oriented x 3, equal unlabored respirations, skin warm/dry/pink. 09:11 Reassessment: Patient appears in no apparent distress at this time. Patient and/or tw2 family updated on plan of care and expected duration. Pain level reassessed. Patient is alert, oriented x 3, equal unlabored respirations, skin warm/dry/pink. Vital Signs: 04:50 BP 182 / 98; Pulse 81; Resp 16; Temp 98.6(O); Pulse Ox 100% on R/A; Weight 66.22 kg jb4 (R); Height 5 ft. 4 in. (162.56 cm) (R); Pain 10/10; 05:30 BP 144 / 76; Pulse 71; Resp 16; Pulse Ox 100% on R/A; Pain 6/10; jb4 05:33 Pain 6/10; jb4 06:45 BP 148 / 83; Pulse 66; Resp 16; Pulse Ox 100% on R/A; Pain 8/10; jb4 07:48 BP 127 / 89; Pulse 61; Resp 17; Pulse Ox 97% on R/A; tw2 08:55 BP 128 / 73; Pulse 61; Resp 16; Pulse Ox 98% on R/A; tw2 04:50 Body Mass Index 25.06 (66.22 kg, 162.56 cm) jb4 ED Course: 04:43 Patient arrived in ED. ag3 04:50 Evans Ahumada, RN is Primary Nurse. jb4 04:53 Triage completed. jb4 04:53 Arm band placed on right wrist. jb4 04:56 Patient has correct armband on for positive identification. Placed in gown. Bed in low jb4 position. Call light in reach. Side rails up X 1. quality assurance monitor final on. Pulse ox on. NIBP on. 04:56 Patient maintains SpO2 saturation greater than 95% on room air. jb4 04:56 EKG done, by ED staff, reviewed by Reggie Mcmahon MD. jb4 04:59 Reggie Mcmahon MD is Attending Physician. tw4 05:00 Initial lab(s) drawn, by me, sent to lab. Inserted saline lock: 18 gauge in right jb4 antecubital area, using aseptic technique. Blood collected. 07:06 CT Chest For PE Angio In Process Unspecified. EDMS 07:09 XRAY Chest (1 view) In Process Unspecified. EDMS 07:45 Extremity Venous Uni Ltd US In Process Unspecified. EDMS 07:48 Primary Nurse role handed off by Evans Ahumada, RN tw2 07:48 Norma Alvares, RN is Primary Nurse. tw2 09:11 No provider procedures requiring assistance completed. IV discontinued, intact, tw2 bleeding controlled, No redness/swelling at site. Pressure dressing applied. Administered Medications: 05:13 Drug: TORadol 30 mg Route: IVP; Site: right antecubital; jb4 05:33 Follow up: Pain 6/10 Adult; Response: No adverse reaction; Pain is decreased jb4 06:44 Drug: Zofran (Ondansetron) 4 mg Route: IVP; Site: right forearm; jb4 07:47 Follow up: Response: No adverse reaction tw2 06:46 Drug: morphine 4 mg {Note: rass score 0.} Route: IVP; Site: right antecubital; jb4 07:47 Follow up: Response: No adverse reaction; Pain is decreased; RASS: Alert and Calm (0) tw2 Outcome: 08:59 Discharge ordered by . rn 09:11 Discharged to home ambulatory. tw2 09:11 Condition: stable 09:11 Discharge instructions given to patient, Instructed on discharge instructions, follow up and referral plans. Demonstrated understanding of instructions, follow-up care. 09:12 Patient left the ED. tw2 Signatures: Dispatcher [employer] Marvin Coe MD MD rn Wise, Tara, RN RN tw2 Evans Ahumada RN RN jb4 Wadley, Terrence, MD MD tw4 Courtney Pritchard ag3
--- NOTE | 2020-04-10 09:00 | EDPHYS ---
Physician Documentation [facility] Name: Rani Breen Age: 39 yrs Sex: Female : 1980 Arrival Date: 04/10/2020 Time: 04:43 Bed 14 Private MD: ED Physician Reggie Mcmahon HPI: 04/10 05:00 This 39 yrs old Female presents to ER via Ambulatory with complaints of Chest tw4 Pain. 05:00 The patient or guardian reports chest pain that is located primarily in the anterior tw4 chest wall. Onset: suddenly, just prior to arrival, this morning. The pain radiates to the left shoulder. Associated signs and symptoms: The patient has no apparent associated signs or symptoms. The chest pain is described as sharp, stabbing. Duration: The patient or guardian reports a single episode, that is still ongoing. Modifying factors: The symptoms are alleviated by nothing. the symptoms are aggravated by deep breath, movement, palpation of area. The patient has not experienced similar symptoms in the past. 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 - Social history:: Smoking status: Patient denies any tobacco usage or history of. Patient/guardian denies using alcohol, street drugs. ROS: 05:00 Constitutional: Negative for fever, chills, and weight loss, Eyes: Negative for injury, tw4 pain, redness, and discharge, ENT: Negative for injury, pain, and discharge, Respiratory: Negative for shortness of breath, cough, wheezing, and pleuritic chest pain, Abdomen/GI: Negative for abdominal pain, nausea, vomiting, diarrhea, and constipation, Back: Negative for injury and pain, MS/Extremity: Negative for injury and deformity, Skin: Negative for injury, rash, and discoloration, Neuro: Negative for headache, weakness, numbness, tingling, and seizure. 05:00 Cardiovascular: Positive for chest pain, Negative for edema, orthopnea, palpitations, paroxysmal nocturnal dyspnea. Exam: 05:00 Constitutional: This is a well developed, well nourished patient who is awake, alert, tw4 and in no acute distress. Head/Face: Normocephalic, atraumatic. Chest/axilla: Normal chest wall appearance and motion. Nontender with no deformity. No lesions are appreciated. Cardiovascular: Regular rate and rhythm with a normal S1 and S2. No gallops, murmurs, or rubs. Normal PMI, no JVD. No pulse deficits. Respiratory: Lungs have equal breath sounds bilaterally, clear to auscultation and percussion. No rales, rhonchi or wheezes noted. No increased work of breathing, no retractions or nasal flaring. Abdomen/GI: Soft, non-tender, with normal bowel sounds. No distension or tympany. No guarding or rebound. No evidence of tenderness throughout. Back: No spinal tenderness. No costovertebral tenderness. Full range of motion. Skin: Warm, dry with normal turgor. Normal color with no rashes, no lesions, and no evidence of cellulitis. MS/ Extremity: Pulses equal, no cyanosis. Neurovascular intact. Full, normal range of motion. Neuro: Awake and alert, GCS 15, oriented to person, place, time, and situation. Cranial nerves II-XII grossly intact. Motor strength 5/5 in all extremities. Sensory grossly intact. Cerebellar exam normal. Normal gait. Vital Signs: 04:50 BP 182 / 98; Pulse 81; Resp 16; Temp 98.6(O); Pulse Ox 100% on R/A; Weight 66.22 kg jb4 (R); Height 5 ft. 4 in. (162.56 cm) (R); Pain 10/10; 05:30 BP 144 / 76; Pulse 71; Resp 16; Pulse Ox 100% on R/A; Pain 6/10; jb4 05:33 Pain 6/10; jb4 06:45 BP 148 / 83; Pulse 66; Resp 16; Pulse Ox 100% on R/A; Pain 8/10; jb4 07:48 BP 127 / 89; Pulse 61; Resp 17; Pulse Ox 97% on R/A; tw2 08:55 BP 128 / 73; Pulse 61; Resp 16; Pulse Ox 98% on R/A; tw2 04:50 Body Mass Index 25.06 (66.22 kg, 162.56 cm) jb4 MDM: 04:59 Patient medically screened. tw4 06:09 Differential diagnosis: chest wall pain, Cholelithiasis costochondritis, pneumonia, tw4 pulmonary embolus, stable angina, thoracic aortic disection. The patient was given aspirin in the Emergency Department. Data reviewed: vital signs, nurses notes. Data interpreted: Pulse oximetry: Interpretation: normal. Counseling: I had a detailed discussion with the patient and/or guardian regarding: the historical points, exam findings, and any diagnostic results supporting the discharge/admit diagnosis, lab results, radiology results, the need for outpatient follow up. 06:57 HEART Score: History: Moderately Suspicious (1), ECG: Normal (0), Age: < or = 45 years tw4 (0), Risk Factors: 1 or 2 risk factors (1), Troponin: < or = 1 x Normal Limit (0), Total Score = 2. Test interpretation: by ED physician or midlevel provider: ECG, plain radiologic studies. 08:58 ED course: signed out to me by Dr. Mcmahon, pending ct PE protocol for chest pain and rn u/s for DVT, plan per him wwas to dc if normal. Studies normal, patient feels better, stable vitals, will dc home.. 04/10 05:02 Order name: Basic Metabolic Panel; Complete Time: 06:04 tw4 04/10 06:08 Interpretation: Normal except: GFR 64. 04/10 05:02 Order name: CBC with Diff; Complete Time: 06:04 4 04/10 06:05 Interpretation: Normal except: HCT 35.8; MCV 86.8. tw04/10 05:02 Order name: LFT's; Complete Time: 06:04 4 04/10 06:05 Interpretation: Normal except: AST 65; ALK 121; GLOB 3.6. 04/10 05:02 Order name: Magnesium; Complete Time: 06:04 tw4 04/10 06:06 Interpretation: Within normal limits: MG 2.1. 04/10 05:02 Order name: NT PRO-BNP; Complete Time: 06:04 4 04/10 06:07 Interpretation: Within normal limits: NT PRO-BNP 79. tw04/10 05:02 Order name: PT-INR; Complete Time: 06:04 4 04/10 06:07 Interpretation: Within normal limits: PT 11.6. 04/10 05:02 Order name: Troponin (emerg Dept Use Only); Complete Time: 06:04 4 04/10 06:07 Interpretation: Within normal limits: TROPED < 0.02. 04/10 05:02 Order name: XRAY Chest (1 view); Complete Time: 08:57 4 04/10 05:02 Order name: D-Dimer; Complete Time: 06:04 4 04/10 06:07 Interpretation: Within normal limits: D-DIMER 282. 4 04/10 06:41 Order name: CT Chest For PE Angio; Complete Time: 08:57 4 04/10 06:41 Order name: Extremity Venous Uni Ltd US; Complete Time: 08:57 4 04/10 05:02 Order name: EKG; Complete Time: 05:03 4 04/10 05:02 Order name: Cardiac monitoring; Complete Time: 05:14 04/10 05:02 Order name: EKG - Nurse/Tech; Complete Time: 05:14 4 04/10 05:02 Order name: IV Saline Lock; Complete Time: 05:14 04/10 05:02 Order name: Labs collected and sent; Complete Time: 05:14 04/10 05:02 Order name: O2 Per Protocol; Complete Time: 05:14 4 04/10 05:02 Order name: O2 Sat Monitoring; Complete Time: 05:14 4 EC:00 Rate is 75 beats/min. Rhythm is regular. QRS [place] is Normal. NC interval is normal. QRS tw4 interval is normal. QT interval is normal. No Q waves. T waves are Normal. No ST changes noted. Clinical impression: Normal ECG. Interpreted by me. Reviewed by me. Administered Medications: 05:13 Drug: TORadol 30 mg Route: IVP; Site: right antecubital; jb4 05:33 Follow up: Pain /10 Adult; Response: No adverse reaction; Pain is decreased jb4 06:44 Drug: Zofran (Ondansetron) 4 mg Route: IVP; Site: right forearm; jb4 07:47 Follow up: Response: No adverse reaction tw2 06:46 Drug: morphine 4 mg {Note: rass score 0.} Route: IVP; Site: right antecubital; jb4 07:47 Follow up: Response: No adverse reaction; Pain is decreased; RASS: Alert and Calm (0) tw2 Disposition: 04/10/20 08:59 Discharged to Home. Impression: Chest pain, unspecified. - Condition is Stable. - Discharge Instructions: Nonspecific Chest Pain. - Medication Reconciliation Form, Thank You Letter, Antibiotic Education, Prescription Opioid Use, Work release form form. - Follow up: Private Physician; When: As needed; Reason: Recheck today's complaints, Re-evaluation by your physician. - Problem is new. - Symptoms have improved. Signatures: Dispatcher [employer] EDMS Marvin Curry MD MD rn Wise, PRANAY Green RN tw2 Evans Ahumada RN RN jb4 Reggie Mcmahon MD MD tw4 Corrections: (The following items were deleted from the chart) 09:12 08:59 04/10/2020 08:59 Discharged to Home. Impression: Chest pain, unspecified. tw2 Condition is Stable. Forms are Work release form, Medication Reconciliation Form, Thank You Letter, Antibiotic Education, Prescription Opioid Use. Follow up: Private Physician; When: As needed; Reason: Recheck today's complaints, Re-evaluation by your physician. Problem is new. Symptoms have improved. rn
[2020-04-13 18:52] VITALS: TEMP 98.6
[2020-04-13 18:58] VITALS: BP 128/73; O2SAT 98
== END 2020-04-10 09:12 | disposition home or self-care (01) ==
LOC: ER 04:41
DX: R07.89 Other chest pain (principal); I10 Essential (primary) hypertension; F41.9 Anxiety disorder, unspecified
CPT/HCPCS: 93005; 85025; 80048; 36415; 83735; 85610; 85379; 80076; 84484; 83880; 71275; 71045; 93971; 99285; Q9967; J2405

== ENCOUNTER 2020-10-19 09:10 | Emergency (ER) | payer BC ==
--- OUTSIDE RECORDS SUMMARY | 2020-10-19 09:12 | XMS REPORT | Continuity of Care Document ---
:1980 Author Organization [facility] t Address [address] [place] [place] [address] Care Team Providers Name Role Phone [place] Primary Care Physician Unavailable Gillian JAIME Attending Clinician Unavailable Mckenzie THOMPSON Attending Clinician Only, Test Attending Clinician Unavailable Sreekanth PIRES L Attending Clinician Chayo THOMPSON, BValentín Attending Clinician Dhaval HERRMANN Attending Clinician Unavailable Cassandra THOMPSON, W. Attending Clinician Robert THOMPSON M Attending Clinician Jody Ham NP Attending Clinician Benigno HERRMANN Attending Clinician Unavailable MD Gabriella TRUJILLO Attending Clinician Unavailable Brenda Medellin MA Attending Clinician Unavailable Perri TAMAYO Attending Clinician Kulwant Luna Attending Clinician CASSANDRA Admitting Clinician Unavailable KAYLA MOBLEY Admitting Clinician Unavailable Kulwant Luna Admitting Clinician Payers Payer Name Policy Type Policy Effective Date Expiration Date Sour ce Number AETNA O [id number] 2016 2018 00:00:00 00:00:00 [place] [id number] 2018 00:00:00 BCBSBCBS CHOICE [id number] 2018 Lang PPO/FEDERAL 00:00:00 [facility] [employer] [id number] 2018-Presen tPPO Problems Condition Condition Condition Status Onset Resolution Last Treating Co mments Source Name Details Category Date Date Treatment Clinician Date Loose body Loose body Disease Active Overview : Lang of right of right 11-24 Formattin Met hodi knee knee 00:00: g of this st 00 note might be different from the original. Added automatic ally from request for surgery [id number] Dyspnea Dyspnea Disease Active 2018-05 [place] Methodi 00:00: st 00 Obstructiv Obstructiv Disease Active 2018-05 [place] sleep e sleep Methodi apnea, apnea, 00:00: st adult adult 00 Fatigue Fatigue Disease Active 2018-05 [place] Methodi 00:00: st 00 Diabetes Diabetes Disease Active 2018-05 [place] mellitus mellitus Method i 00:00: st 00 Iron Iron Disease Active 2016-05 MD deficiency deficiency 05-05 An derso anemia anemia 00:00: n 00 Dysfunctio Dysfunctio Disease Active M D nal nal 9-18 Anderso uterine uterine 00:00: n bleeding bleeding 00 Intramural Intramural Disease Active 0 M D leiomyoma leiomyoma -18 Billy rso of uterus of uterus 00:00: n 00 Menorrhagi Menorrhagi Disease Active M D a a 9-18 Anderso 00:00: n 00 Anemia Anemia Disease Active MD 9-18 Anderso 00:00: n 00 [id number], Diagnosis Active 2015-052016-03-09 Mem oria REFLUX 0 12:21:00 l [id number], 00:00: [place] REFLUX 00 Active 02/29/2016 [facility] Pulmonary Pulmonary Disease Active Overview: [place] emboli emboli Formattin Methodi g of this st note might be different from the original. PT STATED THAT "THERE WERE SMALL SPOTS FOUND ON THE RT LUNG"PT WAS SEEING PULMONOLO GIST BUT WAS NOT ABLE TO F/U AFTER OTHER PROBLEMS FOUND WITH THE KIDNEY. Hypertensi Problem Active 2016-03-04 M emoria ve 03:19:12 l disorder, [place] systemic Hypertensi arterial ve (disorder) disorder, systemic arterial (disorder) Active Problem 03/04/2016 [facility] Obesity Problem Active 2016-03-04 Yoshi peg (disorder) 03:19:12 l Obesity Wayne (disorder) Active Problem 03/04/2016 [facility] Allergies, Adverse Reactions, Alerts This patient has no known allergies or adverse reactions. Family History Family Member Diagnosis Comments Start Date Stop Date Source [facility] Hypertension Oswaldo son Natural brother Hypertension MD Billy roque Natural mother Hypertension Oswaldo son Social History Social Habit Start Date Stop Date Quantity Comments Source Tobacco use and 2019-12-20 2019-12-20 Never used [facility] ethodist exposure 00:00:00 00:00:00 Alcohol intake 2019-12-20 2019-12-20 Current drinker of [facility] 00:00:00 00:00:00 alcohol (finding) Alcohol Comment 2019-02-05 2019-02-05 Occasional [facility] ethodist 00:00:00 00:00:00 Sex [birth year] At [birth year] [facility] ethodist 00:00:00 00:00:00 Smoking Status Start Date Stop Date Source Never smoker [place] [facility] Medications Ordered Filled Start Stop Current Ordering Indication Dosage Frequency Signature Comments Components Source Medication Medication Date Date Medication? Clinician (SIG) Name Name acetaminoph 2019-05 Yes 500mg Take 500 M D en 1-02 mg by Bre (TYLENOL) 09:30: mouth n 500 mg 42 every 4 tablet (four) hours as needed for mild pain. multivitami 2019-05 Yes 1{tbl} Take 1 MD n 1-02 tablet by Bre (multivitam 09:30: mouth n in) tablet 42 daily. promethazin 2020- No 25mg Q6H Take 1 Yury ston e 8-14 08-24 tablet (25 Methodi (PHENERGAN) 00:00: 23:59 mg total) st 25 MG 00 :00 by mouth tablet every 6 (six) hours as needed for nausea or vomiting for up to 10 days. HYDROcodone 2020- No acute pain 1{tbl} Q4H Take 1 Lang -acetaminop 8-14 08-21 tablet by Me mary garza (NORCO) 00:00: 23:[address] 5-325 mg 00 :00 every 4 per tablet (four) hours as needed for moderate pain for up to 7 days .acute pain. Max Daily Amount: 6 tablets cephalexin 2019-2019- No 500mg Q.25D Take 1 [place] (KEFLEX) 8-14 08-16 capsule Methodi 500 MG 00:00: 23:59 ([address] capsule 00 :00 total) by mouth 4 (four) times a day for 2 days. aspirin 2019- No 81mg QD Take 81 mg Yury ston (ECOTRIN) 8-12 08-12 by mouth Metho di 81 MG 13:47: 00:[address] enteric 36 :00 coated tablet metroNIDAZO 2019-0 Yes 500mg Q.5D Take 500 [place] LE (FLAGYL) 8-04 mg by Methodi 500 MG 00:00: mouth 2 st tablet 00 (two) times a day. ciprofloxac 2019-0 Yes 500mg Q.5D Take 500 [place] in (CIPRO) 8-04 mg by Methodi 500 MG 00:00: mouth 2 st tablet 00 (two) times a day. meloxicam 2019- No 15mg QD Take 1 [place] (Mobic) 15 6-23 07-23 tablet (15 Me thodi mg tablet 00:00: 00:00 mg total) st 00 :00 by mouth daily. meloxicam 2019-0 2020- No 15mg QD Take 1 [place] (Mobic) 15 4-28 04-28 tablet (15 Me thodi mg tablet 00:00: 23:59 mg total) st 00 :00 by mouth daily. escitalopra Yes 10mg QD Take 10 mg Rickey uribe (LEXAPRO) 4-13 by mouth Meth jonathan 10 MG 00:00: daily. st tablet 00 gabapentin 2018-05 Yes Left lower Take 1 MD (NEURONTIN) 2-09 quadrant tablet An derso 300 mg 00:00: pain (300 mg) n capsule 00 nighty for 3 days, then increased to 2 tablets daily. Can increase to 3 tablets daily if needed. omeprazole 2018-05 Yes 1{capsu QD Take 1 [place] (PriLOSEC) 0-25 le} capsule by Met hodi 40 MG 00:00: mouth st capsule 00 daily. methylPREDN 2019- No Lateral 40mg [place] ISolone 8-13 08-12 epicondylit Meth jonathan acetate 10:15: 13:[address] (DEPO-MEDRO 00 :45 elbow L) injection 40 mg meloxicam 15mg QD Take 1 [place] (MOBIC) [...] blood 2019-12-17 16:15:00 110 mm[Hg] [place] [facility] pressure Diastolic blood 2019-12-17 16:15:00 62 mm[Hg] [place] [facility] pressure Heart rate 2019-12-17 16:15:00 64 /min Rickey Hernandezist Respiratory rate 2019-12-17 16:15:00 18 /min Quintin solis [facility] Oxygen saturation in 2019-12-17 16:15:00 98 /min Lang [facility] Arterial blood by Pulse oximetry Body temperature 2019-12-17 15:34:00 36.33 Judith Quintin solis [facility] Body height 2019-12-15 13:52:00 162.6 cm Lang [facility] Body weight 2019-12-15 13:52:00 68.493 kg Rickey Bucio BMI 2019-12-15 13:52:00 25.92 kg/m2 [place] [facility] Weight 2016-03-01 16:08:00 [facility] BMI Calculated 2016-03-01 16:08:00 Anthony acevedo [place] Height 2016-03-01 16:08:00 162.56 cm [facility] Procedures Procedure Date / Time Performed Performing Clinician [facility] e CT CHEST WO CONTRAST 2019-12-28 16:53:47 Greg Contreras on [facility] ANESTHESIA INTUBATION 2019-12-17 12:58:59 Sukh Reese OPERATION, KNEE, 2019-12-17 12:46:00 April Trujillo Met abdon ARTHROSCOPIC POC GLUCOSE 2019-12-17 10:14:00 April Trujillo Meth odist COVID-19 QUALITATIVE PCR 2019-12-15 13:58:00 April Trujillo BASIC METABOLIC PANEL 2019-12-15 13:58:00 Shante Mobleyist ESTIMATED GFR 2019-12-15 13:58:00 Shante Mobley Met abdon MRI KNEE WO CONTRAST 2019-11-02 16:57:24 April Trujillo RIGHT Gastric bypass operation 2015-01-03 05:00:00 Kyle saunders [place] Upper GI endoscopy [facility] Plan of Care Planned Activity Planned Date Details Comments Source Future Scheduled 2020-12-03 INFLUENZA VACCINE Regina wong [facility] Test 00:00:00 [code = INFLUENZA VACCINE] Future Scheduled 2000-10-01 Screening for Rickey Me [facility]odist Test 00:00:00 malignant neoplasm of cervix (procedure) [code = 390340268] Future Scheduled 1997-10-01 Hepatitis C screening [place] [facility] Test 00:00:00 (procedure) [code = 150127684] Future Scheduled 1991 COVID-19 VACCINE (1) Yuryelissa benoit [facility] Test 00:00:00 [code = COVID-19 VACCINE (1)] Future Scheduled 1989-10-01 DIABETES: RETINAL EYE [place] [facility] Test 00:00:00 EXAM [code = DIABETES: RETINAL EYE EXAM] Future Scheduled 1989-10-01 DIABETIC FOOT EXAM [place] [facility] Test 00:00:00 [code = DIABETIC FOOT EXAM] Future Scheduled 1989-10-01 URINE MICROALBUMIN [place] [facility] Test 00:00:00 [code = URINE MICROALBUMIN] Encounters Start End Encounter Admission Attending Care Care Encounter Source Date/Time Date/Time Type Type Clinicians Facility Department ID 2019-12-09 Outpatient SREEKANTH SOLIS ELY [id number] 2 16:33:43 KAYE wong 2020-02-10 2020-02-10 Laboratory Only, [facility] [id number] 10:38:53 10:59:22 Only Test [place] [id number] [place] [id number] [place] [id number] 2019-12-28 2019-12-28 Outpatient CONTRERAS, [facility] [id number] [place] 00:00:00 00:00:00 GREG 461 Metho di 2019-12-17 2019-12-17 Outpatient MAFFET, [facility] [id number] [place] 00:00:00 00:00:00 APRIL 101 Method i 2019-12-15 2019-12-15 Outpatient MAFFET, [facility] [id number] [place] 00:00:00 00:00:00 APRIL 019 Method i 2019-11-25 2019-11-25 Outpatient MAFFET, [facility] [id number] [place] 00:00:00 00:00:00 APRIL 579 Method i 2019-11-02 2019-11-02 Outpatient MAFFET, [facility] [id number] [place] 00:00:00 00:00:00 APRIL 044 Method i 2019-10-26 2019-10-26 Outpatient MAFFET, [facility] [id number] [place] 00:00:00 00:00:00 APRIL 670 Method i 2019-08-31 2019-08-31 Outpatient MAFFET, [facility] [id number] [place] 00:00:00 00:00:00 APRIL [address] 2019-08-31 2019-08-31 Outpatient MAFFET, [facility] [id number] [place] 00:00:00 00:00:00 APRIL [address] 2019-03-01 2019-03-01 Inpatient U [facility] [id number] Memoria 16:33:00 16:11:00 [facility] 2019-02-25 2019-02-25 Outpatient U [facility] [id number] Mem[place] 15:52:00 15:52:00 l [place] [facility] 2016-03-01 2016-03-01 Outpatient Primomo, [facility] [id number] 09:16:00 12:16:00 Coy 00 Kulwant Results Test Description Test Time Test Comments Results Result Sourc e Comments CT Chest Wo 2019-12-05 [facility] Contrast 5 Radiology Results Methodi 17:13:43 - 12/28/2019 5:16 PM CDT EXAMINATION: CT CHEST WO CONTRASTHISTORY: R91.1 Solitary pulmonary nodule, Lung NoduleTECHNIQUE: CT examination of the chest was performed without iodinated intravenous contrast. Radiation dose-reduction techniques were used, whereby technical factors are evaluated and adjusted to ensure appropriate moderation of exposure. Automated dose management technology is applied to adjust radiation exposure while achieving a diagnostic quality image.COMPARISON: 02/04/2019.IMPRESSION: Devices: None.Cardiovascular: Heart within normal limits of size. No pericardial effusion. No evidence of significant calcified coronary artery disease. Greater thoracic vasculature is normal caliber. Mediastinum/Nodes: Fatty soft tissue in the anterior mediastinum is compatible with residual normal thymus. No lymphadenopathy.Pulmon raya: Previously noted subcentimeter nodules in the right lower lobe are not changed in size, the smaller of which has now diffusely calcified compatible with a benign pulmonary granuloma. There is no new suspicious pulmonary lesion. No discrete endobronchial lesion. No pleural effusion. No pneumothorax.Other: Limited view of the upper abdomen shows changes of Jose-en-Y gastric bypass.SUMMARY:Stable subcentimeter pulmonary nodules. No further imaging is necessary.[facility]-[id number] YZF Airway 2019-12-04 Sukh Reese, Georgi dixon 4 FIREBOAT OPERATOR 12/17/2019 Method ist 12:58:59 1:02 PMAirwayDate/Time: 12/17/2019 12:54 PMPerformed by: Sukh Reese CRNAAuthorized by: Sukh Reese, FIREBOAT OPERATOR Difficult Airway: No Anesthesiologist: Mark Jones, MDResident/FIREBOAT OPERATOR/AA: Sukh Reese, CRNAPreoxygenated with 100% O2: Yes C-spine Precautions Maintained Throughout: Yes Mask Ventilation: Not attemptedFinal Airway Type: Supraglottic airwayFinal LMA: UniqueLMA Size: 4Number of Attempts at Approach: 1 SARS-CoV-2 (COVID-19) RNA [Presence] in Respiratory sp ecimen by 2019-12-16 01:03:13 MARCOS with probe detection Test Item Value Reference Range Interpretation Comme nts SARS-CoV-2 (COVID-19) RNA [Presence] in Respiratory Not detected No t-Detected specimen by MARCOS with probe detection (test code = 51907-2) MRI Knee Right Wo [id number] 17:04:06Hm Interface, Radiology Results 11/02/2019 5:07 PM CDT MRI KNEE WO CONTRAST RIGHTCLINICAL INDICATION: M23.41 Loose body in kneeright knee, S89.91XA Unspecified injury of right lower leg initial encounter, right knee painTECHNIQUE: Multiplanar multisequence MR imaging of the right knee was performed without gadolinium contrast. COMPARISON: None.FINDINGS:Cruciate ligaments: IntactMenisci: IntactCollateral ligaments: IntactBone marrow: No fracture or focal osseous lesion.Articular cartilage: Femorotibial articular cartilage is unremarkable but there [...] lateral femoral condyle, correlate for associated friction syndrome/infrapat ellar fat pad impingement.3. No significant joint effusion is identified. Moderate Vaughan's cyst. No intra-articular loose body is identified.*[id number] [id number] 15:59:[address] [facility] [id number] 15:59:0011.9[facility] HermannHEMATOLOGY 2016-03-01 15:59:0089[facility] CenterQlgvibsPEQIHFFHIK3426-78-36 15:59:004.3[facility] EpnmzidDZVHJMSQVQ9095-18-47 15:59:73786AiflksgeTexas [facility]
[2020-10-19] MEDS ORDERED: FAMOTIDINE 20 MG/2 ML VIAL IV ONE (10:05)
[2020-10-19] MEDS ORDERED: METHYLPREDNISOLONE 125 MG INJ ONE (10:05)
[2020-10-19] MEDS ORDERED: DIPHENHYDRAMINE 50 MG/ML VIAL ONE (10:05)
[2020-10-19] MEDS ORDERED: ONDANSETRON 4 MG/2 ML VIAL ONE ×2 (10:18→11:13)
--- NOTE | 2020-10-19 11:30 | ER ---
Nurse's Notes [facility] Name: Rani Breen Age: 40 yrs Sex: Female : 1980 Arrival Date: 10/19/2020 Time: 09:11 Bed 5 Private MD: Diagnosis: Acute Allergic Reaction: Insect Bites Presentation: 10/19 09:27 Chief complaint: Patient states: i was at the soft[place] and i guess the tw2 gnats were biting me. i sprayed for mosquitos because they have been bad but i feel like the spray attracted them to me. i took benadryl last night but this morning i feel my face itching worse and swelling and also this morning i feel like i am having some shortness of breath. Coronavirus screen: At this time, the client does not indicate any symptoms associated with coronavirus-19. Ebola Screen: Patient denies travel to an Ebola-affected area in the 21 days before illness onset. Onset: The symptoms/episode began/occurred last night. Anaphylaxis evaluation, the patient reports or I have noted the following symptoms which indicate a significant risk of anaphylaxis: shortness of breath urticaria. Initial Sepsis Screen: Does the patient meet any 2 criteria? No. Patient's initial sepsis screen is negative. Does the patient have a suspected source of infection? No. Patient's initial sepsis screen is negative. Risk Assessment: Do you want to hurt yourself or someone else? Patient reports no desire to harm self or others. Onset of symptoms was October 19, 2020. 09:27 Method Of Arrival: Ambulatory tw2 09:27 Acuity: LYRIC 3 tw2 Triage Assessment: 09:30 General: Appears in no apparent distress. slender, well groomed, Behavior is calm, tw2 cooperative, appropriate for age. Pain: Denies pain. EENT: Reports swelling around eyes and multiple insect bite mcintyre all over face. Neuro: Level of Consciousness is awake, alert, obeys commands, Oriented to person, place, time, situation. Cardiovascular: Capillary refill < 3 seconds Patient's skin is warm and dry. Respiratory: Reports shortness of breath Airway is patent Respiratory effort is even, unlabored, Respiratory pattern is regular, symmetrical. GI: No signs and/or symptoms were reported involving the gastrointestinal system. : No signs and/or symptoms were reported regarding the genitourinary system. Derm: Reports increased itching. Musculoskeletal: Range of motion: intact in all extremities. 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 - Social history:: Smoking status: . Screenin: Abuse screen: Denies threats or abuse. Nutritional screening: No deficits noted. tw Tuberculosis screening: No symptoms or risk factors identified. Fall Risk None identified. Assessment: :31 Reassessment: see triage assessment. tw2 10:30 Reassessment: Patient appears in no apparent distress at this time. Patient and/or ca1 family updated on plan of care and expected duration. Pain level reassessed. Patient is alert, oriented x 3, equal unlabored respirations, skin warm/dry/pink. Respiratory: Airway is patent Respiratory effort is even, unlabored, Respiratory pattern is regular, symmetrical, Breath sounds are clear bilaterally. 11:37 Reassessment: Patient appears in no apparent distress at this time. Patient and/or ca1 family updated on plan of care and expected duration. Pain level reassessed. Patient is alert, oriented x 3, equal unlabored respirations, skin warm/dry/pink. Patient states feeling better. Patient states symptoms have improved. Vital Signs: 09:31 BP 94 / 67; Pulse 76; Resp 17; Temp 98.5(O); Pulse Ox 85% on R/A; tw2 10:30 BP 140 / 86; Pulse 67; Resp 18 S; Pulse Ox 99% on R/A; ca1 11:37 BP 139 / 94; Pulse 63; Resp 18 S; Pulse Ox 99% on R/A; ca1 ED Course: 09:11 Patient arrived in ED. am2 09:23 Norma Alvares RN is Primary Nurse. tw2 09:24 Bed in low position. Call light in reach. Pulse ox on. NIBP on. tw2 09:29 Triage completed. tw 09:31 Arm band placed on. tw2 09:33 Esau Sadler MD is Attending Physician. kdr 09:45 Missed attempt(s): 20 gauge in right antecubital area. Bleeding controlled, band aid tw2 applied, catheter tip intact. Inserted saline lock: 22 gauge in left antecubital area, using aseptic technique. 11:38 No provider procedures requiring assistance completed. IV discontinued, intact, ca1 bleeding controlled, No redness/swelling at site. Pressure dressing applied. Administered Medications: 09:52 Drug: SOLU-Medrol (methylPrednisoLONE) 125 mg Route: IVP; Site: left antecubital; tw2 11:00 Follow up: Response: No adverse reaction; Marked relief of symptoms ca1 09:56 Drug: Benadryl (diphenhydrAMINE) 25 mg Route: IVP; Site: left antecubital; tw2 11:00 Follow up: Response: No adverse reaction; Marked relief of symptoms ca1 10:00 Drug: Pepcid (famotidine) 20 mg Route: IVP; Site: left antecubital; tw2 11:00 Follow up: Response: No adverse reaction ca1 10:02 Drug: Zofran (Ondansetron) 4 mg Route: IVP; Site: left antecubital; tw2 10:50 Follow up: Response: No adverse reaction; Nausea unchanged ca1 10:56 Drug: Zofran (Ondansetron) 4 mg Route: IVP; Site: left antecubital; ca1 11:30 Follow up: Response: No adverse reaction; Nausea is decreased ca1 Outcome: 11:30 Discharge ordered by . kdr 11:38 Discharged to home ambulatory. ca1 11:38 Condition: stable 11:38 Discharge instructions given to patient, Instructed on discharge instructions, follow up and referral plans. medication usage, Demonstrated understanding of instructions, follow-up care, medications, Prescriptions given X 3. 11:38 Patient left the ED. ca1 Signatures: Esau Sadler MD MD kdr Norma Alvares RN RN tw2 Stephanie Riojas 2 Rosalee Haider RN RN ca1
--- NOTE | 2020-10-19 11:31 | EDPHYS ---
Physician Documentation [facility] Name: Rani Breen Age: 40 yrs Sex: Female : 1980 Arrival Date: 10/19/2020 Time: 09:11 Bed 5 Private MD: ED Physician Esau Sadler HPI: 10/19 09:41 This 40 yrs old Female presents to ER via Ambulatory with complaints of kdr Allergic Reaction, Breathing Difficulty. 09:41 The patient presents with diffuse swelling, hoarse voice, itching, rash, redness of kdr skin, Facial swelling. Onset: The symptoms/episode began/occurred gradually, last night. Associated signs and symptoms: The patient has no apparent associated signs or symptoms. Possible causes: Gnats. At home the patient or guardian has treated the symptoms with nothing. Severity of symptoms: At their worst the symptoms were mild in the emergency department the symptoms are unchanged. The patient has experienced similar episodes in the past, a few times. The patient has not recently seen a physician. 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 - Social history:: Smoking status: . ROS: 09:41 Constitutional: Negative for fever, chills, and weight loss, Neck: Negative for injury, kdr pain, and swelling, Cardiovascular: Negative for chest pain, palpitations, and edema, Respiratory: Negative for shortness of breath, cough, wheezing, and pleuritic chest pain, Abdomen/GI: Negative for abdominal pain, nausea, vomiting, diarrhea, and constipation, Back: Negative for injury and pain, : Negative for injury, bleeding, discharge, and swelling, MS/Extremity: Negative for injury and deformity, Neuro: Negative for headache, weakness, numbness, tingling, and seizure activity. Psych: Negative for depression, anxiety, suicide ideation, homicidal ideation, and hallucinations, Allergy/Immunology: Negative for hives, rash, and allergies, Endocrine: Negative for neck swelling, polydipsia, polyuria, polyphagia, and marked weight changes, Hematologic/Lymphatic: Negative for swollen nodes, abnormal bleeding, and unusual bruising. 09:41 Eyes: Positive for itching, swelling, of the right eye and left eye, Negative for blurry vision, discharge. 09:41 Skin: Positive for erythema, rash, swelling, of the face. Exam: 09:41 Constitutional: This is a well developed, well nourished patient who is awake, alert, kdr and in no acute distress. Head/Face: Normocephalic, atraumatic. Eyes: Pupils equal round and reactive to light, extra-ocular motions intact. Lids and lashes normal. Conjunctiva and sclera are non-icteric and not injected. Cornea within normal limits. Periorbital areas with no swelling, redness, or edema. Neck: Trachea midline, no thyromegaly or masses palpated, and no cervical lymphadenopathy. Supple, full range of motion without nuchal rigidity, or vertebral point tenderness. No Meningismus. Chest/axilla: Normal chest wall appearance and motion. Nontender with no deformity. No lesions are appreciated. Cardiovascular: Regular rate and rhythm with a normal S1 and S2. No gallops, murmurs, or rubs. Normal PMI, no JVD. No pulse deficits. Respiratory: Lungs have equal breath sounds bilaterally, clear to auscultation and percussion. No rales, rhonchi or wheezes noted. No increased work of breathing, no retractions or nasal flaring. 09:41 Head/face: Noted is erythema, that is mild, rash, consistent with Insect bites swelling, that is mild. Vital Signs: 09:31 BP 94 / 67; Pulse 76; Resp 17; Temp 98.5(O); Pulse Ox 85% on R/A; tw2 10:30 BP 140 / 86; Pulse 67; Resp 18 S; Pulse Ox 99% on R/A; ca1 11:37 BP 139 / 94; Pulse 63; Resp 18 S; Pulse Ox 99% on R/A; ca1 MDM: 09:41 Data reviewed: vital signs, nurses notes. Counseling: I had a detailed discussion with kdr the patient and/or guardian regarding: the historical points, exam findings, and any diagnostic results supporting the discharge/admit diagnosis, the need for outpatient follow up. 11:30 Patient medically screened. kdr Administered Medications: 09:52 Drug: SOLU-Medrol (methylPrednisoLONE) 125 mg Route: IVP; Site: left antecubital; tw2 11:00 Follow up: Response: No adverse reaction; Marked relief of symptoms ca1 09:56 Drug: Benadryl (diphenhydrAMINE) 25 mg Route: IVP; Site: left antecubital; tw2 11:00 Follow up: Response: No adverse reaction; Marked relief of symptoms ca1 10:00 Drug: Pepcid (famotidine) 20 mg Route: IVP; Site: left antecubital; tw2 11:00 Follow up: Response: No adverse reaction ca1 10:02 Drug: Zofran (Ondansetron) 4 mg Route: IVP; Site: left antecubital; tw2 10:50 Follow up: Response: No adverse reaction; Nausea unchanged ca1 10:56 Drug: Zofran (Ondansetron) 4 mg Route: IVP; Site: left antecubital; ca1 11:30 Follow up: Response: No adverse reaction; Nausea is decreased ca1 Disposition: 10/19/20 11:30 Discharged to Home. Impression: Acute Allergic Reaction: Insect Bites. - Condition is Stable. - Discharge Instructions: Allergies, [id number]. - Prescriptions for Benadryl 25 mg Oral Capsule - take 1 capsule by ORAL route every 6 hours As needed; 30 tablet. Pepcid 20 mg Oral Tablet - take 1 tablet by ORAL route every 12 hours for 5 days; 10 tablet. Medrol (Justyn) 4 mg Oral Tablets, Dose Pack - take 1 tablet by ORAL route as directed - follow package instructions; 1 packet. - Medication Reconciliation Form, Thank You Letter form. - Follow up: Private Physician; When: 2 - 3 days; Reason: If symptoms return, Further diagnostic work-up, Recheck today's complaints, Continuance of care, Re-evaluation by your physician. - Problem is new. - Symptoms have improved. Signatures: Esau Sadler MD MD kdr Norma Alvares RN RN tw2 Rosalee Haider RN RN ca1 Corrections: (The following items were deleted from the chart) 11:38 11:30 10/19/2020 11:30 Discharged to Home. Impression: Acute Allergic Reaction: Insect ca1 Bites. Condition is Stable. Forms are Medication Reconciliation Form, Thank You Letter, Antibiotic Education, Prescription Opioid Use. Follow up: Private Physician; When: 2 - 3 days; Reason: If symptoms return, Further diagnostic work-up, Recheck today's complaints, Continuance of care, Re-evaluation by your physician. Problem is new. Symptoms have improved. kdr
[2020-10-19 11:43] VITALS: TEMP 98.5
[2020-10-19 11:45] VITALS: O2SAT 99
[2020-10-19 11:46] VITALS: BP 139/94
== END 2020-10-19 11:38 | disposition home or self-care (01) ==
LOC: ER 09:10
DX: R21 Rash and other nonspecific skin eruption (principal); S00.86XA Insect bite (nonvenomous) of other part of head, initial encounter; I10 Essential (primary) hypertension; Z88.8 Allergy status to other drugs, medicaments and biological substances
CPT/HCPCS: J1200; J2930; J2405 ×2

== ENCOUNTER 2023-09-30 13:41 | Emergency (ER) | payer BC ==
--- OUTSIDE RECORDS SUMMARY | 2023-09-30 13:45 | XMS REPORT | Clinical Summary ---
Author Name Unknown Organization [facility] Address [address] [place] [address] Care Team Providers Care News Clerk Name Role Phone Maulik Tesfaye MD Unavailable [phone] Asif Honeycutt MD Primary Care Provider Unavailab shanika Luna, Coy Blum MD Unavailable [phone] Lakia Casarez MD Unavailable Allergies No known active allergies Medications Medication Sig Dispensed Refills Start Date End Date Status senna-docusate (SENOKOT-S) 8.6 mg-50 mg tabletIndications:I ntramural leiomyoma of uterus Take 1 tablet by mouth 2 times a day as needed for constipation. 30 tablet 01/24/2017 Active oxyCODONE (ROXICODONE) 5 mg immediate release tabletIndications:I ntramural leiomyoma of uterus Take 1 tablet (5 mg) by mouth every 4 hours as needed for moderate pain. 10 tablet 02/20/2017 Active valsartan-hydrochlo rothiazide (DIOVAN-HCT) 320-25 mg per tablet TK 1 T PO QD. 3 04/22/2018 Active acetaminophen (TYLENOL) 500 mg tablet Take 500 mg by mouth every 4 (four) hours as needed for mild pain. Active multivitamin (multivitamin) tablet Take 1 tablet by mouth daily. Active gabapentin (NEURONTIN) 300 mg capsuleIndications: Intramural leiomyoma of uterus,Abnormal uterine bleeding, not otherwise specified,Left lower quadrant pain Take 1 tablet (300 mg) nighty for 3 days, then increased to 2 tablets daily. Can increase to 3 tablets daily if needed. 30 capsule 2 04/12/2019 Active Active Problems Problem Noted Date Diagnosed Date Iron deficiency anemia 03/05/2017 Dysfunctional uterine bleeding 01/20/2017 Intramural leiomyoma of uterus 01/20/2017 Menorrhagia 01/20/2017 Anemia 01/20/2017 Surgical History Surgery Date Site/Laterality Comments STOMACH SURGERY UPPER GASTROINTESTINAL ENDOSCOPY PA LAPAROSCOPY TOT HYSTERECT PRICILA >250 G W/TUBE/OVAR 01/24/2017 Bilateral Procedure: ROBOTIC ASSISTED TOTAL HYSTERECTOMY AND BILATERAL SALPINGECTOMY; Surgeon: Asif Honeycutt MD; Location: MAIN OR; Service: LENS BLOCK GAUGER - GYNECOLOGIC ONCOLOGY RENAL ARTERY STENT Medical History Medical History Date Comments Hypertension Anemia Blood transfusion, without reported diagnosis Family History Medical History Relation Name Comments Hypertension Brother Hypertension Father Stroke Father Hypertension Mother Relation Name Status Comments Brother Father Mother Social History Tobacco Use Types Packs/Day Years Used Date Smoking Tobacco: Never Smokeless Tobacco: Never Alcohol Use Standard Drinks/Week Comments No 0 (1 standard drink = 0.6 oz pur e alcohol) Sex and Gender Information Value Date Recorded Sex Assigned at Not on file Gender Identity Not on file Sexual Orientation Not on file Obstetrics History Para Term AB IAB SAB Ectopic Multiple Livin g Live Births 2 2 2 2 Date Outcome GA Total Labor Labor/2nd/3rd Weight Sex Type Anes PTL Michelle A1 A5 Name Clin Term Term Plan of Treatment Health Maintenance Due Date Last Done Comments COVID-19 Vaccine ( season) 2023 Influenza Vaccine 01/04/2024 Care Teams News Clerk Relationship Specialty Start Date End Date Maulik Tesfaye MD [address] [place] [address] [place] [address] PCP - External Referring 01/16/17 Asif Honeycutt MD [address] [place] [address] PCP - General Gynecological Oncology 01/16/17 Coy Luna MD [address] [place] [address] PCP - External Follow Up B General Surgery 01/20/17 [place] [address] [place] [id number] Consulting Physician Medical Oncology 03/03/17
[2023-09-30] MEDS ORDERED: NA CHLORIDE 0.9% 1,000 ML ONE (15:03)
[2023-09-30 15:16] LABS: Absolute Lymphocytes (CBC) 0.8 K/uL (0.7-4.9); Absolute Monocytes 1.1 K/uL (0.1-1.3); Absolute Neutrophil 10.6 K/uL (1.8-8.0); Basophils % 0.4 % (0-1.3); Hematocrit 30.5 % (36.0-45.0); Hemoglobin 9.5 g/dL (12.0-15.0); Lymphocytes % 6.4 % (15.3-44.8); MCH 21.7 pg (27.0-35.0); MCHC 31.2 g/dL (32.0-36.0); MCV 69.5 fL (80-100); MPV 8.3 fL (7.6-11.3); Monocytes % 8.7 % (3.3-12.3); Neutrophils % 84.5 % (41.7-73.7); Platelets 260 thou/uL (152-406); RBC Red Blood Cell Count 4.39 M/uL (3.86-4.86); Red Cell Distribution Width 18.9 % (12.1-15.2)
[2023-09-30 15:31] LABS: Albumin 3.5 g/dL (3.4-5.0); Albumin/Globulin Ratio 0.9 (1.1-1.8); Anion Gap 9.2 mEq/L (5.0-15.0); Bilirubin Total 0.4 mg/dL (0.2-1.0); Potassium 4.2 mEq/L (3.5-5.1); Protein, Total 7.5 g/dL (6.4-8.2)
[2023-09-30 15:47] LABS: SARS-CoV-2 Antigen CONTROL BLUE LINE VIS/BG OK; SARS-CoV-2 Antigen Rapid Res Negative (Negative)
[2023-09-30 16:04] LABS: Anisocytosis 2+; Blood Morphology Comment NOTED (NOT SEEN); Hypochromasia 3+; Platelet Estimate ADEQ; White Blood Cell Scan OK (OK)
--- NOTE | 2023-09-30 16:54 | RAD REPORT ---
EXAM DESCRIPTION: CT - Abdomen Pelvis W Contrast - 09/30/2023 4:21 pm CLINICAL HISTORY: Abdominal pain/diarrhea COMPARISON: 2019 TECHNIQUE: Computed axial tomography of the abdomen pelvis was obtained. 100 cc Isovue-300 was admin istered intravenously. Oral contrast was not requested which limits evaluation of bowel and appendix All CT scans are performed using dose optimization technique as appropriate and may include automated exposure control or mA/KV adjustment according to patient size. FINDINGS: Postsurgical changes involve stomach The liver, spleen, pancreas, adrenal and kidneys appear unremarkable. There is no evidence of diverticulitis. The wall of transverse and right colon appears mildly to mode rately thickened Normal appendix. IMPRESSION: The wall of the transverse and right colon appears mildly to moderately thickened suspic ious for colitis
--- NOTE | 2023-09-30 17:28 | ER ---
Nurse's Notes [facility] Name: Rani Breen Age: 42 yrs Sex: Female : 1980 Arrival Date: 09/30/2023 Time: 13:41 Bed 4 Private MD: Diagnosis: Colitis;Diarrhea, unspecified Presentation: 09/29 14:05 Chief complaint: Patient states: Lower abdominal pain for over 1 week. Nausea, dry ap3 heaves, diarrhea continues since Friday. Dealing with this issue for over a month, seeing Dr. Foster. Just finished amoxicillin, not better. Coronavirus screen: Client denies travel out of the [place] in the last 14 days. Ebola Screen: Patient denies travel to an Ebola-affected area in the 21 days before illness onset. Initial Sepsis Screen: Does the patient meet any 2 criteria? No. Patient's initial sepsis screen is negative. Does the patient have a suspected source of infection? No. Patient's initial sepsis screen is negative. Risk Assessment: Do you want to hurt yourself or someone else? Patient reports no desire to harm self or others. Onset of symptoms was August 31, 2023. 14:05 Method Of Arrival: Ambulatory ap3 14:05 Acuity: LYRIC 3 ap3 Historical: - Allergies: 14:04 IRON DERIVATIVES; infusion; ap3 - PMHx: 13:58 bypass; gastric; Hypertension; ll1 14:04 low iron; ap3 - PSHx: 14:04 hysterectomy; gastric bypass; ap3 - Immunization history:: Adult Immunizations up to date. - Infectious Disease History:: Denies. - Social history:: Smoking status: Patient denies any tobacco usage or history of. Screenin:37 [facility] ED Fall Risk Assessment (Adult) History of falling in the last 3 months, ko1 including since admission No falls in past 3 months (0 pts) Confusion or Disorientation No (0 pts) Intoxicated or Sedated No (0 pts) Impaired Gait No (0 pts) Mobility Assist Device Used No (0 pt) Altered Elimination No (0 pt) Score/Fall Risk Level 0 - 2 = Low Risk Oriented to surroundings, Maintained a safe environment, Educated pt \T\ family on fall prevention, incl call for assistance when getting out of bed, Assessed \T\ reinforced patient's understanding of fall precautions, Provided non-skid footwear, Hourly rounding (assess needs \T\ fall precautionary measures) done. Abuse screen: Denies threats or abuse. Denies injuries from another. Nutritional screening: No deficits noted. Tuberculosis screening: No symptoms or risk factors identified. Assessment: 15:30 General: Appears ill, Behavior is calm, cooperative, appropriate for age. Pain: ko1 Complains of pain in abdomen. Neuro: No deficits noted. Cardiovascular: No deficits noted. Respiratory: No deficits noted. GI: Abdomen is flat, non-distended, Reports lower abdominal pain, cramping, diarrhea, nausea, vomiting. : No deficits noted. EENT: No deficits noted. Derm: No deficits noted. Musculoskeletal: No deficits noted. Vital Signs: 14:05 BP 133 / 87; Pulse 93; Resp 16; Temp 98.2; Pulse Ox 97% ; Weight 64.86 kg; Height 5 ft. ap3 4 in. ; Pain 7/10; 17:37 BP 124 / 78; Pulse 87; Resp 16; Pulse Ox 99% ; ko1 14:05 Body Mass Index 24.55 (64.86 kg, 162.56 cm) ap3 14:05 Pain Scale: Adult ap3 ED Course: 13:47 Patient arrived in ED. mg5 13:59 Perez Underwood DO is Attending Physician. ms3 13:59 Arm band placed on. ll1 14:08 Triage completed. ap3 14:59 SARS RAPID Sent. cm10 14:59 Flu Sent. cm10 14:59 CBC with Diff Sent. cm10 14:59 CMP Sent. cm10 14:59 Lipase Sent. cm10 14:59 Initial lab(s) drawn, by al, sent to lab. COVID swab sent to lab. Flu and/or RSV swab cm10 sent to lab. Inserted saline lock: 20 gauge in right antecubital area, using aseptic technique. Blood collected. 15:00 Carla Carr, PRANAY is Primary Nurse. ko1 15:01 Patient placed in an exam room, on a stretcher. ll1 16:23 CT Abd/Pelvis - IV Contrast Only In Process Unspecified. EDMS 17:27 Clau Foster MD is Referral Physician. ms3 17:37 Patient has correct armband on for positive identification. Allergy band placed. Bed in ko1 low position. Call light in reach. Side rails up X 1. Provided Education on: call light. Pulse ox on. NIBP on. Door closed. Noise minimized. Lights dimmed. Pillow given. Assisted to bathroom. 17:37 No provider procedures requiring assistance completed. ko1 Administered Medications: 15:08 Drug: NS 0.9% IV 1000 ml IV at 1 bolus Per protocol; 1000 mL bolus Route: IV; Rate: 1 ko1 bolus; Site: right antecubital; 17:39 Follow up: Response: No adverse reaction; IV Status: Completed infusion; IV Intake: ko1 1000ml Medication: 17:37 VIS not applicable for this client. ko1 Intake: 17:39 IV: 1000ml; Total: 1000ml. ko1 Outcome: 17:27 Discharge ordered by . ms3 18:15 Patient left the ED. ll1 Signatures: Dispatcher [employer] EDMS Stephanie Donald RN RN [id number] Stephanie Neves RN RN ll1 Perez Underwood DO DO ms3 Carla Carr RN RN ko1 Dang Klein RN RN Ivette Gloria mg5
--- NOTE | 2023-09-30 17:28 | EDPHYS ---
Physician Documentation [facility] Name: Rani Breen Age: 42 yrs Sex: Female : 1980 Arrival Date: 09/30/2023 Time: 13:41 Bed 4 Private MD: ED Physician Perez Underwood HPI: 09/29 16:16 This 42 yrs old Female presents to ER via Ambulatory with complaints of Vomiting, Fever.ms3 16:16 42-year-old female with past medical history of hypertension presents to the emergency [facility] department for diarrhea and fever. Patient states she has been sick over the last week and a half. 1 and half weeks ago patient tested negative for strep, COVID, flu. Patient was started on amoxicillin that finished on Friday. Patient states her fever began yesterday. Patient states she is having abdominal pain associated with her diarrhea. Patient states the pain is intermittent and when present it is rated a 5/10. Patient denies nausea or vomiting. Patient states she is unable to keep fluids in.. Historical: - Allergies: 14:04 IRON DERIVATIVES; infusion; ap3 - PMHx: 13:58 bypass; gastric; Hypertension; ll1 14:04 low iron; ap3 - PSHx: 14:04 hysterectomy; gastric bypass; ap3 - Immunization history:: Adult Immunizations up to date. - Infectious Disease History:: Denies. - Social history:: Smoking status: Patient denies any tobacco usage or history of. ROS: 16:16 Neck: Negative for injury, pain, and swelling, Cardiovascular: Negative for chest pain, ms3 and palpitations. 16:16 Respiratory: Negative for shortness of breath, cough, wheezing, and pleuritic chest pain, 16:16 MS/Extremity: Negative for injury and deformity, Skin: Negative for injury, rash, and discoloration, Psych: Negative for depression, anxiety, suicide ideation, homicidal ideation, and hallucinations, 16:16 Constitutional: Positive for fever, 16:16 Abdomen/GI: Positive for abdominal pain, diarrhea, Exam: 16:16 Constitutional: This is a well developed, well nourished patient who is awake, alert, ms3 and in no acute distress. Head/Face: Normocephalic, atraumatic. Neck: Trachea midline, no cervical lymphadenopathy. Supple, full range of motion without nuchal rigidity, or vertebral point tenderness. No Meningismus. Chest/axilla: Normal chest wall appearance and motion. Nontender with no deformity. Cardiovascular: Regular rate and rhythm with a normal S1 and S2. No gallops, murmurs, or rubs. Normal PMI, no JVD. No pulse deficits. Respiratory: Lungs have equal breath sounds bilaterally, clear to auscultation and percussion. No rales, rhonchi or wheezes noted. No increased work of breathing, no retractions or nasal flaring. Abdomen/GI: Soft, non-tender, with normal bowel sounds. No distension or tympany. No guarding or rebound. No evidence of tenderness throughout. Back: No spinal tenderness. No costovertebral tenderness. Full range of motion. Skin: Warm, dry with normal turgor. Normal color with no rashes, no lesions, and no evidence of cellulitis. MS/ Extremity: Pulses equal, no cyanosis. Neurovascular intact. Full, normal range of motion. Vital Signs: 14:05 BP 133 / 87; Pulse 93; Resp 16; Temp 98.2; Pulse Ox 97% ; Weight 64.86 kg; Height 5 ft. ap3 4 in. ; Pain 7/10; 17:37 BP 124 / 78; Pulse 87; Resp 16; Pulse Ox 99% ; ko1 14:05 Body Mass Index 24.55 (64.86 kg, 162.56 cm) ap3 14:05 Pain Scale: Adult ap3 MDM: 14:16 Patient medically screened. ms3 16:16 Differential diagnosis: Nonspecific abd pain, gastritis, diverticulitis, ms3 gastroenteritis. 18:26 Data reviewed: vital signs, nurses notes, lab test result(s), radiologic studies, CT ms3 scan, and as a result, I will discharge patient. I considered the following discharge prescriptions or medication management in the emergency department Medications were administered in the Emergency Department. See MAR. Counseling: I had a detailed discussion with the patient and/or guardian regarding the historical points, exam findings, and any diagnostic results supporting the discharge/admit diagnosis, lab results, radiology results, the need for outpatient follow up, to return to the emergency department if symptoms worsen or persist or if there are any questions or concerns that arise at home. Special discussion: I discussed with the patient/guardian in detail that at this point there is no indication for admission to the hospital. It is understood, however, that if the symptoms persist or worsen the patient needs to return immediately for re-evaluation. ED course: Discussed CT, labs with patient. Patient to follow-up with Dr. Foster in 2 to 3 days. All questions were answered. Return precautions discussed include worsening symptoms, or any other concerns. On reevaluation patient alert and oriented x 4, no apparent distress, nontoxic-appearing, ambulatory number department, speaking full sentences. 09/29 14:18 Order name: CBC with Diff; Complete Time: 16:19 ms3 09/29 14:18 Order name: CMP; Complete Time: 16:19 ms3 09/29 14:18 Order name: Lipase; Complete Time: 16:19 ms3 09/29 14:18 Order name: Flu; Complete Time: 16:19 ms3 09/29 14:18 Order name: SARS RAPID; Complete Time: 16:19 ms3 09/29 15:24 Order name: CBC Smear Scan; Complete Time: 16:19 EDMS 09/29 14:18 Order name: CT Abd/Pelvis - IV Contrast Only; Complete Time: 17:04 ms3 09/29 14:18 Order name: IV Saline Lock; Complete Time: 14:59 ms3 09/29 14:18 Order name: Labs collected and sent; Complete Time: 14:59 ms3 Administered Medications: 15:08 Drug: NS 0.9% IV 1000 ml IV at 1 bolus Per protocol; 1000 mL bolus Route: IV; Rate: 1 ko1 bolus; Site: right antecubital; 17:39 Follow up: Response: No adverse reaction; IV Status: Completed infusion; IV Intake: ko1 1000ml Disposition Summary: 09/30/23 17:27 Discharge Ordered Notes: Location: Home ms3 Condition: Stable ms3 Diagnosis - Colitis ms3 - Diarrhea, unspecified ms3 Followup: ms3 - With: Clau Foster MD - When: 2 - 3 days - Reason: Recheck today's complaints Discharge Instructions: - Discharge Summary Sheet ms3 Forms: - Medication Reconciliation Form ms3 - Antibiotic Education ms3 - Prescription Opioid Use ms3 - Patient Portal Instructions ms3 - Leadership Thank You Letter ms3 Prescriptions: - Augmentin 875-125 mg Oral Tablet - take 1 tablet ORAL route every 12 hours for 10 days; 20 tablet; Refills: 0, ms3 Product Selection Permitted Signatures: Dispatcher [employer] EDMS Stephanie Donald RN RN ap3 Stephanie Neves RN RN ll1 Perez Underwood DO DO ms3 Carla Carr, PRANAY RN ko1 Corrections: (The following items were deleted from the chart) 14:19 14:19 C.difficile Real-time PCR+MOL.LAB.BRZ ordered. EDMS EDMS
[2023-09-30 18:51] VITALS: BP 124/78; TEMP 98.2; O2SAT 99
== END 2023-09-30 18:15 | disposition home or self-care (01) ==
LOC: ER 13:41
DX: K52.9 Noninfective gastroenteritis and colitis, unspecified (principal); Z11.52 Encounter for screening for COVID-19
CPT/HCPCS: 96361; 85025; 36415; 83690; 80053; 87804 ×2; 74177; 96360; 99284; 87811; Q9967; J7030

== ENCOUNTER 2024-03-08 10:57 | Emergency (ER) | payer BC ==
--- OUTSIDE RECORDS SUMMARY | 2024-03-08 11:00 | XMS REPORT | Clinical Summary ---
Author Name Unknown Organization [facility] Address [address] [place] [address] Care Team Providers Care Petroleum Geologist Name Role Phone Maulik Tesfaye MD Unavailable [phone] Asif Honeycutt MD Primary Care Provider [phone] Coy Luna MD Unavailable Lakia Casarez MD Unavailable Harman Hicks RN Unavailable [phone] Akua Barba MD Unavailable [phone] Celeste Cain MD Primary Care Provider [phone] Juan Lara MD Primary Care Provider [phone] Allergies No known active allergies Medications Medication [...] of uterus 01/20/2017 Menorrhagia 01/20/2017 Anemia 01/20/2017 Encounters Date Type Department Care Team Description 01/27/2024 8:05 PM CDT Ancillary Procedure Image Library [address] [place] [id number] Juan Lara MD Cancer 01/27/2024 8:00 PM CDT Ancillary Procedure Image Library [address] [place] [id number] Juan Lara MD Cancer after 03/09/2023 Surgical History Surgery Date Site/Laterality Comments STOMACH SURGERY UPPER GASTROINTESTINAL ENDOSCOPY MI LAPAROSCOPY TOT HYSTERECT PRICILA >250 G W/TUBE/OVAR 01/24/2017 Bilateral Procedure: ROBOTIC ASSISTED TOTAL HYSTERECTOMY AND BILATERAL SALPINGECTOMY; Surgeon: Asif Honeycutt MD; Location: MAIN OR; Service: HUMAN INTELLIGENCE - GYNECOLOGIC ONCOLOGY RENAL ARTERY STENT Medical [...] on file Sexual Orientation Not on file Job Start Date Occupation Industry Not on file Not on file Not on file Obstetrics History Para Term AB IAB SAB Ectopic Multiple Livin g Live Births 2 2 2 2 Date Outcome GA Total Labor Labor/2nd/3rd Weight Sex Type Anes PTL Michelle A1 A5 Name Clin Term Term Plan of Treatment Upcoming Encounters Date Type Department Care Team (Late st Contact Info) Description 04/15/2024 9:30 AM AGRICULTURE DEPARTMENT CHAIR [facility] PATIENT ACCESS Celeste Cain MD [address] [place] [id number] [email or web address] 04/20/2024 2:00 PM AGRICULTURE DEPARTMENT CHAIR Office Visit Internal Medicine Center [address] [place] [address] Main [facility], 9th Floor [address] [place], [place] [id number] Juan Lara MD [address] [place] [phone] [email or web address] Health Maintenance Due Date Last Done Comments COVID-19 Vaccine (2023-2 5 season) 2024 Influenza Vaccine (#1) 2024 Pneumococcal Vaccine: Pediat rics (0 to 5 Years) and At-Risk Patients (6 to 64 Years) Aged Out No longer eligi ble based on patient's age to complete this topic Care Teams Petroleum Geologist Relationship Specialty Start Date End Date Maulik Tesfaye MD [address] [place] [address] [place] [address] [email or web address] PCP - External Referring 01/16/17 Asif Honeycutt MD [address] [place] [phone] [email or web address] PCP - General Gynecological Oncology 01/16/17 01/25/24 Coy Luna MD [address] [place] [id number] PCP - External Follow Up B General Surgery 01/20/17 Akua Barba MD [address] [place] [address] PCP - External Primary Care Provider 01/26/24 Celeste Cain MD [address] [place] [phone] [email or web address] PCP - General Internal Medicine 01/26/24 01/26/24 Juan Lara MD [address] [place] [phone] [email or web address] PCP - General Internal Medicine 01/27/24 Lakia Casarez MD [address] [place] [phone] [email or web address] Consulting Physician Medical Oncology 03/03/17 Harman Hicks RN [address] [place] [phone] [email or web address] Intake Nurse Navigator Nursing 01/26/24 01/26/24
[2024-03-08 11:50] LABS: Absolute Basophils 0.1 K/uL (0-0.5); Absolute Eosinophils 0.1 K/uL (0-0.5); Absolute Lymphocytes (CBC) 1.8 K/uL (0.7-4.9); Absolute Monocytes 0.6 K/uL (0.1-1.3); Absolute Neutrophil 4.2 K/uL (1.8-8.0); Basophils % 0.9 % (0-1.3); Eosinophils % 1.4 % (0-4.4); Hematocrit 35.6 % (36.0-45.0); Hemoglobin 11.3 g/dL (12.0-15.0); Lymphocytes % 26.8 % (15.3-44.8); MCH 26.1 pg (27.0-35.0); MCHC 31.8 g/dL (32.0-36.0); MCV 82.1 fL (80-100); MPV 7.7 fL (7.6-11.3); Monocytes % 8.4 % (3.3-12.3); Neutrophils % 62.5 % (41.7-73.7); Nucleated Red Blood Cells % 0.2 % (0-0); Platelets 287 thou/uL (152-406); RBC Red Blood Cell Count 4.33 M/uL (3.86-4.86); Red Cell Distribution Width 15.9 % (12.1-15.2)
[2024-03-08 11:51] LABS: Specific Gravity 1.004 (1.005-1.030); Specific Gravity < 1.005 (1.005-1.030); Sqamous Epithelial <5 /HPF (None Seen); Urine Bacteria None Seen /HPF (<20); Urine Bilirubin NEGATIVE (Negative); Urine Blood Negative (Negative); Urine Clarity Clear (Clear); Urine Color Colorless (Yellow); Urine Culture Reflex Order NOT NEEDED; Urine Glucose NEGATIVE (Negative); Urine Ketones NEGATIVE (Negative); Urine Microscopic Reflex YN ORDER UMIC; Urine Nitrite NEGATIVE (Negative); Urine Protein NEGATIVE (Negative); Urine RBC <5 /HPF (None Seen); Urine Urobilinogen Normal (Normal); Urine WBC None Seen /HPF (<5)
[2024-03-08 12:12] LABS: Albumin/Globulin Ratio 1.1 (1.1-1.8); Anion Gap 7.6 mEq/L (5.0-15.0); Bilirubin Total 0.4 mg/dL (0.2-1.0); Globulin 3.5 g/dL (2.3-3.5); Potassium 3.6 mEq/L (3.5-5.1); Protein, Total 7.5 g/dL (6.4-8.2); Troponin High Sensitivity 10.1 pg/mL (<58.9)
--- NOTE | 2024-03-08 12:40 | RAD REPORT ---
EXAMINATION: TWO VIEW CHEST XR CLINICAL INDICATION: COUGH TECHNIQUE: 2 views of the chest was performed. COMPARISON: 04/10/2020 FINDINGS: The lungs are well inflated and clear. The heart is normal in size. No displaced fractures evident. IMPRESSION: No acute or significant abnormalities.
[2024-03-08] MEDS ORDERED: NA CHLORIDE 0.9% 1,000 ML ONE (13:36)
--- NOTE | 2024-03-08 15:25 | EDPHYS ---
Physician Documentation [facility] Name: Rani Breen Age: 43 yrs Sex: Female : 1980 Arrival Date: 03/08/2024 Time: 10:57 Bed 9 Private MD: DELPHINE Physician Chriss Liang HPI: 03/08 15:18 This 43 yrs old Female presents to ER via Ambulatory with complaints of High russell Blood Pressure. 15:18 The patient has elevated blood pressure and discovered this [employer]. Onset: The russell symptoms/episode began/occurred just prior to arrival. Modifying factors: The symptoms are aggravated by activity, The symptoms are alleviated by remaining still. Associated signs and symptoms: The patient has no apparent associated signs or symptoms. Severity of symptoms: At its worst the blood pressure was mild, in the emergency department the blood pressure is unchanged. The patient has experienced similar episodes in the past, several times. Historical: - Allergies: 12:06 IRON DERIVATIVES; infusion; ss - Home Meds: 12:06 valsartan 320 mg Oral tab 1 tab once daily [Active]; ss - PMHx: 12:06 bypass; gastric; Hypertension; Low Iron; Rheumatoid arthritis; ss - PSHx: 12:06 Gastric Bypass; hysterectomy; ss - Immunization history:: Client reports receiving the 2nd dose of the Covid vaccine. - Infectious Disease History:: Denies. - Social history:: Smoking status: Patient denies any tobacco usage or history of. - Family history:: not pertinent. ROS: 15:18 Constitutional: Negative for fever, chills, and weight loss, Eyes: Negative for injury, russell pain, redness, and discharge, ENT: Negative for injury, pain, and discharge, Neck: Negative for injury, pain, and swelling, Cardiovascular: Negative for chest pain, palpitations, and edema, Respiratory: Negative for shortness of breath, cough, wheezing, and pleuritic chest pain, Abdomen/GI: Negative for abdominal pain, nausea, vomiting, diarrhea, and constipation, Back: Negative for injury and pain, : Negative for injury, bleeding, discharge, and swelling, MS/Extremity: Negative for injury and deformity, Skin: Negative for injury, rash, and discoloration, Neuro: Negative for headache, weakness, numbness, tingling, and seizure, Psych: Negative for depression, anxiety, suicide ideation, homicidal ideation, and hallucinations, Allergy/Immunology: Negative for hives, rash, and allergies, Endocrine: Negative for neck swelling, polydipsia, polyuria, polyphagia, and marked weight changes, Hematologic/Lymphatic: Negative for swollen nodes, abnormal bleeding, and unusual bruising, Exam: 15:18 Constitutional: This is a well developed, well nourished patient who is awake, alert, russell and in no acute distress. Head/Face: Normocephalic, atraumatic. Eyes: Pupils equal round and reactive to light, extra-ocular motions intact. Lids and lashes normal. Conjunctiva and sclera are non-icteric and not injected. Cornea within normal limits. Periorbital areas with no swelling, redness, or edema. ENT: Nares patent. No nasal discharge, no septal abnormalities noted. Tympanic membranes are normal and external auditory canals are clear. Oropharynx with no redness, swelling, or masses, exudates, or evidence of obstruction, uvula midline. Mucous membranes moist. Neck: Trachea midline, no thyromegaly or masses palpated, and no cervical lymphadenopathy. Supple, full range of motion without nuchal rigidity, or vertebral point tenderness. No Meningismus. Chest/axilla: Normal chest wall appearance and motion. Nontender with no deformity. No lesions are appreciated. Cardiovascular: Regular rate and rhythm with a normal S1 and S2. No gallops, murmurs, or rubs. Normal PMI, no JVD. No pulse deficits. Respiratory: Lungs have equal breath sounds bilaterally, clear to auscultation and percussion. No rales, rhonchi or wheezes noted. No increased work of breathing, no retractions or nasal flaring. Abdomen/GI: Soft, non-tender, with normal bowel sounds. No distension or tympany. No guarding or rebound. No evidence of tenderness throughout. Back: No spinal tenderness. No costovertebral tenderness. Full range of motion. Skin: Warm, dry with normal turgor. Normal color with no rashes, no lesions, and no evidence of cellulitis. MS/ Extremity: Pulses equal, no cyanosis. Neurovascular intact. Full, normal range of motion. Neuro: Awake and alert, GCS 15, oriented to person, place, time, and situation. Cranial nerves II-XII grossly intact. Motor strength 5/5 in all extremities. Sensory grossly intact. Cerebellar exam normal. Normal gait. Psych: Awake, alert, with orientation to person, place and time. Behavior, mood, and affect are within normal limits. 15:18 ECG was reviewed by the Attending Physician. 15:18 Musculoskeletal/extremity: DVT Exam: No signs of deep vein thrombosis. no pain, no swelling, no tenderness, negative Homans' sign noted on exam, no appreciated bluish discoloration, no erythema, no increased warmth, Vital Signs: 12:02 BP 163 / 93; Pulse 61; Resp 16; Temp 98(TE); Pulse Ox 99% on R/A; Weight 66.68 kg; ss Height 5 ft. 4 in. ; Pain 6/10; 13:52 BP 164 / 98; Pulse 72; Pulse Ox 100% on R/A; zm 12:02 Body Mass Index 25.23 (66.68 kg, 162.56 cm) ss 12:02 Pain Scale: Adult ss MDM: 12:03 Medical Screening Exam initiated [facility] 15:20 Differential diagnosis: hypertensive crisis, Malignant HTN. Data reviewed: vital signs, [facility] nurses notes, lab test result(s), EKG, radiologic studies, plain films. Consideration of Admission/Observation Escalation of care including admission/observation considered. I considered the following discharge prescriptions or medication management in the emergency department Medications were administered in the Emergency Department. See MAR. Independent interpretation of the following test(s) in the Emergency Department EKG: See my EKG interpretation above. Test considered but Not performed: CT: NO CT BRAIN , NO ROJAS , NON FOCAL. Historians other than the Patient: PT VERY WELL INFORMED. Care significantly affected by the following chronic conditions: Hypertension, Obesity, RA M CABG. Counseling: I had a detailed discussion with the patient and/or guardian regarding the historical points, exam findings, and any diagnostic results supporting the discharge/admit diagnosis, the presence of at least one elevated blood pressure reading (>120/80) during this emergency department visit, lab results, radiology results, the need for outpatient follow up, for definitive care, a resaw operator, a family practitioner. 03/08 11:10 Order name: CBC with Diff; Complete Time: 14:16 [facility] 03/08 11:10 Order name: Comprehensive Metabolic Panel; Complete Time: 14:16 [facility] 03/08 11:10 Order name: Troponin High Sensitivity; Complete Time: 14:16 [facility] 03/08 11:10 Order name: Urinalysis w/ reflexes; Complete Time: 14:16 [facility] 03/08 11:10 Order name: PREGU; Complete Time: 14:16 [facility] 03/08 11:10 Order name: Chest Pa And Lat (2 Views) XRAY; Complete Time: 14:16 [facility] 03/08 11:10 Order name: EKG; Complete Time: 11:10 [facility] 03/08 11:10 Order name: EKG - Nurse/Tech; Complete Time: 13:43 [facility] EC:18 Rate is 68 beats/min. Rhythm is regular. QRS [place] is Normal. ND interval is normal. QRS russell interval is normal. QT interval is normal. No Q waves. T waves are Normal. No ST changes noted. Clinical impression: NSR w/ Non-specific ST/T Changes. Interpreted by me. Reviewed by me. Administered Medications: 23:32 Discontinued: ns 0.9% 1000 ml IV at 125 ml/hr continuous iw 13:54 Drug: NS 0.9% IV 1000 ml IV at 125 ml/hr continuous Route: IV; Rate: 125 ml/hr; Site: iw right antecubital; 15:40 Follow up: IV Status: Order to discontinue infusion iw 15:17 CANCELLED (Duplicate Order): norvasc5 mg PO once russell 23:30 Not Given (Patient Refused): toprol xl25 mg PO once iw Disposition Summary: 03/08/24 15:24 Discharge Ordered Notes: Location: Home russell Problem: new russell Symptoms: have improved russell Condition: Stable russell Diagnosis - Essential (primary) hypertension russell Followup: russell - With: Private Physician - When: 2 - 3 days - Reason: Recheck today's complaints, Continuance of care, Re-evaluation by your physician Followup: russell - With: Maxime Delarosa MD - When: 2 - 3 days - Reason: Recheck today's complaints, Re-evaluation by your physician Discharge Instructions: - Discharge Summary Sheet russlel - Hypertension, Adult russell - Hypertension, Adult, [id number] russell - Preventing Hypertension russell Forms: - Medication Reconciliation Form russell - Antibiotic Education russell - Prescription Opioid Use russell - Patient Portal Instructions russell - Leadership Thank You Letter russell - Work release form iw Prescriptions: - Toprol XL 25 mg Oral Tablet - take 1 tablet ORAL route once daily; 20 tablet; Refills: 0, Product Selection russell Permitted Signatures: Dispatcher [employer] EDMS Chriss Liang MD MD cha Williams, Irene, RN RN iw Rosmery Loya RN RN ss Corrections: (The following items were deleted from the chart) 11: 11:10 CBC+H.LAB.BRZ ordered. EDMS EDMS 11: 11:10 COMPREHENSIVE METABOLIC PANEL+C.LAB.BRZ ordered. EDMS EDMS 11: 11:10 Troponin High Sensitivity+C.LAB.BRZ ordered. EDMS EDMS 11: 11:10 Urinalysis+U.LAB.BRZ ordered. EDMS EDMS 11: 11:10 Test, Urine+UC.LAB.BRZ ordered. EDMS EDMS 15:17 15:16 Norvasc PO 5 mg PO once ordered. russell wells
--- NOTE | 2024-03-08 15:25 | ER ---
Nurse's Notes [facility] Name: Rani Breen Age: 43 yrs Sex: Female : 1980 Arrival Date: 03/08/2024 Time: 10:57 Bed 9 Private MD: Diagnosis: Essential (primary) hypertension Presentation: 03/08 12:02 Chief complaint: Patient states: Here to have blood pressure evaluated. Initial BP this ss am was 202/111 then 180/102. Pt c/o off and on headaches. Coronavirus screen: Client denies travel out of the [place] in the last 14 days. Ebola Screen: Patient denies exposure to infectious person. Patient denies travel to an Ebola-affected area in the 21 days before illness onset. Initial Sepsis Screen: Does the patient meet any 2 criteria? No. Patient's initial sepsis screen is negative. Does the patient have a suspected source of infection? No. Patient's initial sepsis screen is negative. Risk Assessment: Do you want to hurt yourself or someone else? Patient reports no desire to harm self or others. Onset of symptoms was March 08, 2024. 12:02 Method Of Arrival: Ambulatory ss 12:02 Acuity: LYRIC 3 ss Triage Assessment: 13:30 General: Appears in no apparent distress. Behavior is calm, appropriate for age. iw Historical: - Allergies: 12:06 IRON DERIVATIVES; infusion; ss - Home Meds: 12:06 valsartan 320 mg Oral tab 1 tab once daily [Active]; ss - PMHx: 12:06 bypass; gastric; Hypertension; Low Iron; Rheumatoid arthritis; ss - PSHx: 12:06 Gastric Bypass; hysterectomy; ss - Immunization history:: Client reports receiving the 2nd dose of the Covid vaccine. - Infectious Disease History:: Denies. - Social history:: Smoking status: Patient denies any tobacco usage or history of. - Family history:: not pertinent. Screenin:40 [facility] ED Fall Risk Assessment (Adult) History of falling in the last 3 months, iw including since admission No falls in past 3 months (0 pts) Confusion or Disorientation No (0 pts) Intoxicated or Sedated No (0 pts) Impaired Gait No (0 pts) Mobility Assist Device Used No (0 pt) Altered Elimination No (0 pt) Score/Fall Risk Level 0 - 2 = Low Risk Oriented to surroundings, Maintained a safe environment. Abuse screen: Denies threats or abuse. Denies injuries from another. Nutritional screening: No deficits noted. Tuberculosis screening: No symptoms or risk factors identified. Assessment: 13:30 General: Appears in no apparent distress. Behavior is calm, cooperative. Pain: Denies iw pain. Neuro: Level of Consciousness is awake, alert, obeys commands, Oriented to person, place, time, situation, Moves all extremities. Full function. Cardiovascular: Patient's skin is warm and dry. Respiratory: Respiratory effort is even, unlabored, Respiratory pattern is regular, symmetrical. GI: Abdomen is non-distended. Derm: Skin is intact, is healthy with good turgor. Musculoskeletal: Range of motion: intact in all extremities. Vital Signs: 12:02 BP 163 / 93; Pulse 61; Resp 16; Temp 98(TE); Pulse Ox 99% on R/A; Weight 66.68 kg; ss Height 5 ft. 4 in. ; Pain 6/10; 13:52 BP 164 / 98; Pulse 72; Pulse Ox 100% on R/A; zm 12:02 Body Mass Index 25.23 (66.68 kg, 162.56 cm) ss 12:02 Pain Scale: Adult ss ED Course: 10:59 Patient arrived in ED. ra3 11:08 Chriss Liang MD is Attending Physician. russell 11:40 Inserted saline lock: 20 gauge in right antecubital area, using aseptic technique. ss ,using aseptic technique. Insertion by BC executive director of nursing Blood collected. Flushed with 10 mL NS. 12:06 Triage completed. ss 12:06 Arm band placed on right wrist. ss 12:35 Chest Pa And Lat (2 Views) XRAY In Process Unspecified. EDMS 13:25 Bella Jewell, RN is Primary Nurse. iw 13:43 EKG done, by ED staff, reviewed by Chriss Liang MD. zm 15:24 Maxime Delarosa MD is Referral Physician. urssell 15:40 No provider procedures requiring assistance completed. IV discontinued, intact, iw bleeding controlled, No redness/swelling at site. Pressure dressing applied. Administered Medications: 23:32 Discontinued: ns 0.9% 1000 ml IV at 125 ml/hr continuous iw 13:54 Drug: NS 0.9% IV 1000 ml IV at 125 ml/hr continuous Route: IV; Rate: 125 ml/hr; Site: iw right antecubital; 15:40 Follow up: IV Status: Order to discontinue infusion iw 15:17 CANCELLED (Duplicate Order): norvasc5 mg PO once russell 23:30 Not Given (Patient Refused): toprol xl25 mg PO once iw Medication: 15:40 VIS not applicable for this client. iw Outcome: 15:24 Discharge ordered by . russell 15:40 Discharged to home ambulatory, iw 15:40 Condition: good 15:40 Discharge instructions given to patient, Instructed on discharge instructions, follow up and referral plans. medication usage, Demonstrated understanding of instructions, follow-up care, medications, Prescriptions given X 1, 15:41 Patient left the ED. iw Signatures: Dispatcher [employer] EDChriss Cuevas MD MD cha Williams, Irene, Rosmery Mancia RN, RN RN ss Martinez, Zaina zm Alva, Ruby ra3
[2024-03-08 15:45] VITALS: TEMP 98
[2024-03-08 15:46] VITALS: BP 164/98; O2SAT 100
--- NOTE | 2024-03-09 12:20 | EKG ---
Test Date: 2024-03-08 Test Time: 13:39:09 Assistant Professor Of Economics: VIVEK MEASUREMENT RESULTS: Intervals: Rate: 68 IA: 148 QRSD: 76 QT: 434 QTc: 461 Leonardo: P: 61 IA: 148 QRS: 20 T: 25 INTERPRETIVE STATEMENTS: Normal sinus rhythm Cannot rule out Anterior infarct, age undetermined Abnormal ECG Compared to ECG 04/10/2020 04:54:06 Myocardial infarct finding now present Electronically Signed On 03-09-24 12:17:09 [employer] by Bart Stubbs
== END 2024-03-08 15:41 | disposition home or self-care (01) ==
LOC: ER 10:57
DX: I10 Essential (primary) hypertension (principal)
CPT/HCPCS: 93005; 85025; 81001; 36415; 81025; 84484; 80053; 71046; J7030; 96360; 96361; 99284